=== PATIENT | male | born 1960 | race Caucasian/White ===

== ENCOUNTER 2019-11-26 05:52 | Inpatient (IN) | payer MEDICARE, SELFPAY ==
[2019-11-26 05:53] VITALS: BP 136/90; PULSE 79; RESP 16; TEMP 36.4; O2SAT 96; BMI 41.3
--- NOTE | 2019-11-26 06:14 | ECG_ITS ---
Measurements Intervals [place] Rate: 83 P: [place]: 0 QRS: 15 QRSD: 97 T: 42 QT: 407 QTc: 478 ATRIAL FIBRILLATION LOW QRS VOLTAGE IN EXTREMITY LEADS [QRS DEFLECTION < 0.5 mV IN LIMB LEADS] ABNORMAL RHYTHM ECG INTERPRETATION BASED ON A DEFAULT AGE OF 40 YEARS Compared to ECG 10/29/2018 03:26:05 Low QRS voltage now present Myocardial infarct finding no longer present Electronically Signed On 11-26-2019 14:50:04 CDT by Nai Vega M.D. [id number]
--- NOTE | 2019-11-26 06:15 | W.ED.OVERDOS ---
HPI - Overdose General: Chief Complaint: Overdose Stated Complaint: OVERDOSE Time Seen by Provider: 11/26/19 06:14 History of Present Illness: HPI Narrative: 59-year-old male presents emergency room was complaint of overdose of metoprolol and clonidine unknown quantity. He is nearly empty bottles of 50 mg tablets of metoprolol tartrate and clonidine 0.1 mg. He states he took them about 5 hours prior to arrival here. There is a written note that EMS brought in along with 2 envelopes that are sealed with persons names on them. Medicines were taken and attempt to harm himself he has evidently some legal troubles and feels his family is accusing him of something he had not done. He is not bradycardic at the time of arrival. MD complaint: intentional overdose Onset (ago): hour(s) Time: 01:00 Review of Systems Const: Denies: fever, chills, body aches, change in appetite, fatigue or malaise ENMT: Denies: throat pain, ear pain, nasal discharge or nasal congestion Card: Denies: chest pain, edema, shortness of breath on exertion or shortness of breath when lying down Resp: Denies: shortness of breath, productive cough or non-productive cough GI: Denies: abdominal pain, nausea, vomiting, vomiting blood, coffee grounds in vomit, diarrhea, constipation, bloating, blood in stool or black tarry stool : Denies: flank pain, painful urination, urinary frequency or urinary urgency Skin/Breast: Denies: rash or itching Psych: Reports: depression, hopelessness and suicidal ideation [facility] ED PFSH: Medical History (Updated 11/26/19 @ 07:04 by Hernando Singletary DO) Atrial fibrillation Hypertension Social History Smoking and tobacco status: never smoked Physical Exam Const: COMMON NORMALS: no apparent distress GENERAL APPEARANCE: cooperative and comfortable ORIENTATION/CONSCIOUSNESS: Yes awake, Yes oriented to person, Yes oriented to place and Yes oriented to time HENMT: COMMON NORMALS: normocephalic, head/scalp atraumatic, hearing grossly normal bilaterally, external ears normal, EAC's normal, TM's normal bilaterally, nasal mucous membranes and turbinates normal, moist oral mucous membranes and oropharynx normal HEAD & SCALP: normocephalic and atraumatic NOSE: nasal mucous membranes and turbinates normal EXTERNAL EAR: Yes external ears normal EXTERNAL AUDITORY CANAL: EAC's normal TYMPANIC MEMBRANE: TM's normal bilaterally Eye: COMMON NORMALS: PERRL, EOMs intact bilaterally, conjunctivae normal and no scleral icterus CONJUNCTIVA: Yes conjunctivae normal PUPIL: Yes PERRL Neck/C-Spine: COMMON NORMALS: full ROM, no lymphadenopathy, supple and no JVD Lymph: LYMPHATIC: no lymphadenopathy noted and no lymphedema noted Resp: COMMON NORMALS: normal respiratory effort, no retractions, no use of accessory muscles and clear to auscultation bilaterally AUSCULTATION: clear to auscultation bilaterally Cardio: COMMON NORMALS: no JVD, regular rate, regular rhythm and no murmurs RATE: regular rate RHYTHM: regular rhythm GI: COMMON NORMALS: soft to palpation and no hepatosplenomegaly AUSCULTATION: Yes normoactive bowel sounds PALPATION: Yes soft, No tender, No guarding and Yes no hepatosplenomegaly Extremity: COMMON NORMALS: normal to inspection, normal capillary refill, no clubbing, cyanosis or edema, no calf tenderness and no pedal edema Neuro: SENSORIUM/ORIENTATION: Yes oriented to person, Yes oriented to place and Yes oriented to time Skin: COMMON NORMALS: no rashes or lesions noted GENERAL SKIN EXAM: no rashes or lesions noted Course ED course: Contacted poison control they recommend monitoring for 6 hours. Patient is already 6 hours post ingestion by his report. Cardiovascular is intact and stable. He showed no signs of bradycardia or hypotension. Discussed with Dr. vaughan he agrees to admission when both feel he is stable at this point and he can go to the Neuropsych Unit. Vital Signs: Vital signs: Vital Signs Temperature 97.6 F 11/26/19 05:53 Pulse Rate 78 11/26/19 06:55 Respiratory Rate 18 11/26/19 06:55 Blood Pressure 136/91 11/26/19 06:55 Pulse Oximetry 97 11/26/19 06:55 MDM - Overdose Lab Data: Labs: Lab Results 11/26/19 11/26/19 Range/Units 05:26 05:26 WBC 7.0 (4.0-10.0) 10^3/ uL RBC 5.25 (4.1-5.3) 10^6/u L Hgb 16.2 (11.7-16.6) g/dL Hct 47.9 (42.0-52.0) % MCV 91.2 (80-94) fL MCH 30.9 (28.0-34.0) pg MCHC 33.8 (30.0-36.0) g/dL RDW 11.9 L (12.1-15.1) % Plt Count 204 (130-400) 10^3/c mm MPV 10.3 (7.4-10.4) fL Neut % (Auto) 75.7 % Lymph % (Auto) 13.8 % Barnes % (Auto) 7.4 % Eos % (Auto) 2.0 % Baso % (Auto) 0.4 % Neut # (Auto) 5.3 (1.8-7.7) 10^3/u L Lymph # (Auto) 1.0 (0.8-4.8) 10^3/u L Barnes # (Auto) 0.5 (0.2-0.9) 10^3/u L Eos # (Auto) 0.1 (0.0-0.8) 10^3/u L Baso # (Auto) 0.0 (0.0-0.1) 10^3/u L Nucleated RBC % (a uto) 0 % Nucleated RBCs # 0.0 /100WBC Sodium 136 (136-145) mmol/L Potassium 3.8 (3.5-5.1) mmol/L Chloride 99 (98-107) mmol/L Carbon Dioxide 25 (22-29) mmol/L Anion Gap 15.8 (5-19) BUN 14 (6-20) mg/dL Creatinine 0.7 (0.7-1.2) mg/dL GFR Calculation 115.8 (90-130) mL/min Glucose 188 H (65-115) mg/dL Calculated Osmolal ity 283 L (285-295) mOsm/k g Calcium 9.7 (8.5-10.5) mg/dL Total Bilirubin 0.6 (0.15-1.2) mg/dL AST 15 (0-40) U/L ALT 22 (0-41) U/L Alkaline Phosphata se 58 (40-130) IU/L Total Protein 6.7 (6.6-8.7) g/dL Albumin 4.1 (3.5-5.2) g/dL Globulin 2.6 (1.3-4.6) g/dL Salicylates < 0.3 L (3-10) mg/dL Acetaminophen < 5.0 L (10-30) ug/mL Ethyl Alcohol < 10 (0-10) mg/dL Discharge Plan Discharge Patient Disposition: Admitted As Inpatient Clinical Impression: Suicide attempt by multiple drug overdose, Depression Condition: Stable Referrals: Cristina Diggs APN [Family Provider] - Coding Level of Care Code ED Industrial Conveyor Belt Repairer for Chg Fwd Exam Comprehensive
[2019-11-26 06:20] LABS: Basophils % 0.4 %; Eosinophils # 0.1 10^3/uL (0.0-0.8); Hematocrit 47.9 % (42.0-52.0); Hemoglobin 16.2 g/dL (11.7-16.6); Lymphocytes % 13.8 %; Mean Corpuscular HGB Conc 33.8 g/dL (30.0-36.0); Mean Corpuscular Hemoglobin 30.9 pg (28.0-34.0); Mean Corpuscular Volume 91.2 fL (80-94); Mean Platelet Volume 10.3 fL (7.4-10.4); Monocytes # 0.5 10^3/uL (0.2-0.9); Monocytes % 7.4 %; Neutrophils # 5.3 10^3/uL (1.8-7.7); Neutrophils % 75.7 %; Nucleated Red Blood Cells % 0 %; Platelet Count 204 10^3/cmm (130-400); Red Blood Count 5.25 10^6/uL (4.1-5.3); Red Cell Distribution Width 11.9 % (12.1-15.1)
--- NOTE | 2019-11-26 06:24 | PC.NURSE ---
Called Poison Control for recommendations, they will send over information via fax about the drugs' management
[2019-11-26 06:33] LABS: Alanine Aminotransferase 22 U/L (0-41); Albumin Level 4.1 g/dL (3.5-5.2); Alkaline Phosphatase 58 IU/L (40-130); Anion Gap 15.8 (5-19); Aspartate Amino Transferase 15 U/L (0-40); Blood Urea Nitrogen 14 mg/dL (6-20); Calcium 9.7 mg/dL (8.5-10.5); Carbon Dioxide 25 mmol/L (22-29); Chloride 99 mmol/L (98-107); Creatinine Clr Calc Pharmacy 151.6714; Globulin 2.6 g/dL (1.3-4.6); Glomerular Filtration Rate 115.8 mL/min (90-130); Glucose 188 mg/dL (65-115); Osmolality Calculated 283 mOsm/kg (285-295); Potassium 3.8 mmol/L (3.5-5.1); Sodium 136 mmol/L (136-145); Total Bilirubin 0.6 mg/dL (0.15-1.2); Total Protein 6.7 g/dL (6.6-8.7)
[2019-11-26 06:39] LABS: Acetaminophen < 5.0 ug/mL (10-30); Alcohol Level < 10 mg/dL (0-10); Salicylate < 0.3 mg/dL (3-10)
[2019-11-26 06:55] VITALS: BP 136/91; PULSE 78; RESP 18; O2SAT 97
[2019-11-26 07:10] LABS: Add Urine Microscopic? YES; Bilirubin Urine Neg (NEGATIVE); Blood Urine Neg (Negative); Glucose Urine UA 4+ (Normal); Ketones Urine 1+ (Negative); Leukocyte Esterase Urine Negative (Negative); Nitrate Urine Negative (Negative); Protein Urine 1+ (Negative); Specific Gravity, Urine 1.015 (1.005-1.030); Urine Appearance Clear (CLEAR); Urine Color Yellow (Yellow); Urobilinogen Urine Norm (Negative)
[2019-11-26 07:17] LABS: Amphetamines Screen Urine Negative (Negative); Barbiturates Screen Urine Negative (Negative); Benzodiazepines Screen Urine Negative (Negative); Cocaine Screen Urine Negative (Negative); Opiate Screen Urine Negative (Negative); PCP Screen Urine Negative (Negative); THC Screen Urine Negative (Negative)
[2019-11-26 07:19] LABS: Squamous Epithelial Cell Urine RARE (0-5); WBC Urine RARE /hpf (0-5)
[2019-11-26 07:20] LABS: Bacteria Urine TRACE; Mucus Urine TRACE
[2019-11-26 07:21] LABS: Add Urine Culture? No
[2019-11-26 07:28] VITALS: BP 136/93; PULSE 94; RESP 18; O2SAT 96
[2019-11-26 08:05] VITALS: BP 100/71; PULSE 87; RESP 18
[2019-11-26 14:00] VITALS: BP 116/76; PULSE 19; RESP 18
[2019-11-26] MEDS: glimepiride 2 mg Tablet PO (16:54)
[2019-11-26 16:55] LABS: Glucose Point of Care 209 mg/dL (70-110)
[2019-11-26] MEDS: metformin 500 mg Tablet 1000 MG PO (17:23)
[2019-11-26] MEDS: atorvastatin 40 mg Tablet 10 MG PO (21:44)
[2019-11-26 22:00] VITALS: BP 134/83; PULSE 80; RESP 18; TEMP 36.4; O2SAT 97
[2019-11-27] MEDS: acetaminophen 325 mg Tablet 650 MG PO ×2 (03:07→20:54)
[2019-11-27 06:00] VITALS: BP 137/91; PULSE 77; RESP 16; TEMP 36.6; O2SAT 98
[2019-11-27 06:21] LABS: Glucose Point of Care 182 mg/dL (70-110)
[2019-11-27] MEDS: fluticasone nasal spray 16gm Btl 1 SPRAY INTRANASAL (08:18)
[2019-11-27] MEDS: apixaban 5 mg Tablet PO ×2 (08:19→17:44)
[2019-11-27] MEDS: sitagliptin 100 mg Tablet PO (08:19)
[2019-11-27] MEDS: metformin 500 mg Tablet 1000 MG PO ×2 (08:20→17:44)
[2019-11-27 10:55] VITALS: PULSE 65; RESP 16; O2SAT 97
[2019-11-27 13:37] VITALS: BP 112/71; PULSE 96; RESP 18; TEMP 36.5; O2SAT 96
--- NOTE | 2019-11-27 16:02 | PM.NHP ---
Providers/Chief Complaint Admitting Physician: Barbara Garcia MD Referral Source: [facility] Chief Complaint: OVERDOSE HPI NPU History of Present Illness Anderson Wang is a 59 year old male who presented to the emergency room, having taken an overdose of metoprolol and clonidine, unknown quantity. He had nearly empty bottles of 50 mg tablets of metoprolol tartrate and clonidine 0.1 mg. He states he took them about 5 hours prior to arrival. There is a written note that EMS brought in along with 2 envelopes that are sealed with persons names on them. Medicines were taken and attempt to harm himself he has evidently some legal troubles and feels his family is accusing him of something he had not done. He was not bradycardic at the time of arrival. The patient has never had any psychiatric history. He was never hospitalized or treated on an outpatient basis for psychiatric disorder. He never attempted suicide previously. His family history is completely negative for such things. He has not used substances for 30 years. Review of Systems Narrative: Const: Denies: fever, chills, body aches, change in appetite, fatigue or malaise. ENMT: Denies: throat pain, ear pain, nasal discharge or nasal congestion. Card: Denies: chest pain, edema, shortness of breath on exertion or shortness of breath when lying down. Resp: Denies: shortness of breath, productive cough or non-productive cough. GI: Denies: abdominal pain, nausea, vomiting, vomiting blood, coffee grounds in vomit, diarrhea, constipation, bloating, blood in stool or black tarry stool. : Denies: flank pain, painful urination, urinary frequency or urinary urgency. Skin/Breast: Denies: rash or itching. Psych: Reports: depression, hopelessness and suicidal ideation. Meds NPU Home Medications Medication Instructions Recorded Confirmed Type apixaban [Eliquis] 5 mg PO BID 11/26/19 11/27/19 History atorvastatin [Lipitor] 10 mg PO BEDTIME 11/26/19 11/26/19 History fluticasone propionate [Flonase 50 mcg INTRANASAL DAILY 11/26/19 11/26/19 History Allergy Relief] glipizide [Glucotrol] 5 mg PO AC 11/26/19 11/26/19 History metformin [Glucophage] 1,000 mg PO BID 11/26/19 11/26/19 History potassium chloride [Klor-Con M20] 20 meq PO DAILY 11/26/19 11/26/19 History sitagliptin [Januvia] 100 mg PO DAILY 11/26/19 11/26/19 History fluticasone propionate [Flovent INHALATION BID 11/27/19 History HFA] Allergies Allergy/AdvReac Type Severity Reaction Status Date / Time No Known Allergies Allergy Verified 11/26/19 06:05 PFSH NPU PFSH: Medical History Atrial fibrillation Hypertension Social History Smoking and tobacco status: never smoked Other Psychiatric History: Other Psychiatric History: No prior history of diagnosis or treatment Mental Status Exam MSE Comments: 59-year-old male who presents at his stated age. The patient is appropriately dressed and well-groomed. Mood is dysphoric. Affect is flat. Thought processes are slow but coherent. There is no blocking, racing or looseness of association. There is no evidence of psychosis such as but not limited to hallucination, delusion or ideas of reference. Speech is of normal rate and volume, without dysarthria, aprosody or pressure. Cognition appears to be intact including but not limited to orientation, memory, capacity for reason, insight and judgment. The patient is glad that he did not kill himself and however is no homicidal ideation plan or intent. Vitals/I&O/Wt Last Vital Signs Temp 97.7 F 11/27/19 13:37 Pulse 96 11/27/19 13:37 Resp 18 11/27/19 13:37 BP 112/71 11/27/19 13:37 Pulse Ox 96 11/27/19 13:37 Weight last 48 hrs Weight 280 lb 2 oz Weight 280 lb Physical Exam Narrative: EXAM NARRATIVE: Const: COMMON NORMALS: no apparent distress GENERAL APPEARANCE: cooperative and comfortable ORIENTATION/CONSCIOUSNESS: Yes awake, Yes oriented to person, Yes oriented to place and Yes oriented to time HENMT: COMMON NORMALS: normocephalic, head/scalp atraumatic, hearing grossly normal bilaterally, external ears normal, EAC's normal, TM's normal bilaterally, nasal mucous membranes and turbinates normal, moist oral mucous membranes and oropharynx normal HEAD & SCALP: normocephalic and atraumatic NOSE: nasal mucous membranes and turbinates normal EXTERNAL EAR: Yes external ears normal EXTERNAL AUDITORY CANAL: EAC's normal TYMPANIC MEMBRANE: TM's normal bilaterally Eye: COMMON NORMALS: PERRL, EOMs intact bilaterally, conjunctivae normal and no scleral icterus CONJUNCTIVA: Yes conjunctivae normal PUPIL: Yes PERRL Neck/C-Spine: COMMON NORMALS: full ROM, no lymphadenopathy, supple and no JVD Lymph: LYMPHATIC: no lymphadenopathy noted and no lymphedema noted Resp: COMMON NORMALS: normal respiratory effort, no retractions, no use of accessory muscles and clear to auscultation bilaterally AUSCULTATION: clear to auscultation bilaterally Cardio: COMMON NORMALS: no JVD, regular rate, regular rhythm and no murmurs RATE: regular rate RHYTHM: regular rhythm GI: COMMON NORMALS: soft to palpation and no hepatosplenomegaly AUSCULTATION: Yes normoactive bowel sounds PALPATION: Yes soft, No tender, No guarding and Yes no hepatosplenomegaly Extremity: COMMON NORMALS: normal to inspection, normal capillary refill, no clubbing, cyanosis or edema, no calf tenderness and no pedal edema Neuro: SENSORIUM/ORIENTATION: Yes oriented to person, Yes oriented to place and Yes oriented to time Skin: COMMON NORMALS: no rashes or lesions noted GENERAL SKIN EXAM: no rashes or lesions noted Data NPU : 11/26/19 05:26 11/26/19 05:26 A&P Assessment and plan (1) Atrial fibrillation: Patient is currently on appropriate pharmacotherapy and has follow-up with a air conditioner installer helper. Status: Acute Code(s): I48.91 - Unspecified atrial fibrillation (2) Hypertension: Patient is followed by his primary care provider Status: Acute Code(s): I10 - Essential (primary) hypertension (3) Depression: The patient will have pharmacotherapy, involvement [facility] and development of an aftercare plan when he is stable enough to return to outpatient treatment Status: Acute Code(s): F32.9 - Major depressive disorder, single episode, unspecified (4) Suicide attempt by multiple drug overdose: Careful monitoring pending resolution. Status: Acute Code(s): T50.912A - Poisoning by multiple unspecified drugs, medicaments and biological substances, intentional self-harm, initial encounter Involuntary Hold Information 96 Hour Hold: 96 Hour Involuntary Admission: No Attestations NPU Medical Necessity Statement*: I anticipate 5-7 midnights Time Spent in Patient Care: Greater than 35 minutes (>than 50% of time spent in counselling and/or direct pt care on unit). Coding Level of Care Code Acute [place]on Machine Operator for Josetteg Fwd Diagnoses Atrial fibrillation I48.91 Hypertension I10 Depression F32.9 Suicide attempt by multiple drug overdose T50.912A
[2019-11-27 16:28] LABS: Glucose Point of Care 135 mg/dL (70-110)
[2019-11-27] MEDS: glimepiride 2 mg Tablet PO (17:44)
[2019-11-27 20:36] VITALS: PULSE 82; RESP 16; O2SAT 98
[2019-11-27 20:40] VITALS: PULSE 82; RESP 16; O2SAT 98
[2019-11-27] MEDS: trazodone 50 mg Tablet PO (20:55)
[2019-11-27] MEDS: atorvastatin 40 mg Tablet 10 MG PO (20:55)
[2019-11-27 21:16] VITALS: BP 133/83; PULSE 86; RESP 20; TEMP 37; O2SAT 98
--- NOTE | 2019-11-28 00:34 | PC.NURSE ---
Pt requested prn for sleep while receiving bedtime meds. Medicated with Trazodone 50 mgs po per prn order at 2053.Pt noted to be resting in bed with eyes closed 30 minutes after med given. Respirations even and unlabored.
[2019-11-28 06:00] VITALS: BP 143/90; PULSE 98; RESP 20; TEMP 36.4; O2SAT 96
[2019-11-28 06:14] LABS: Glucose Point of Care 161 mg/dL (70-110)
[2019-11-28] MEDS: fluticasone nasal spray 16gm Btl 1 SPRAY INTRANASAL (08:48)
[2019-11-28] MEDS: sitagliptin 100 mg Tablet PO (08:48)
[2019-11-28] MEDS: metformin 500 mg Tablet 1000 MG PO ×2 (08:48→17:17)
[2019-11-28] MEDS: apixaban 5 mg Tablet PO ×2 (08:48→17:17)
[2019-11-28 09:47] VITALS: PULSE 118; RESP 16; O2SAT 96
[2019-11-28 13:21] VITALS: BP 131/97; PULSE 95; RESP 18; TEMP 36.9; O2SAT 96
--- NOTE | 2019-11-28 16:26 | P.PN_ITS ---
Subjective NPU Subjective: Interval history: The patient states his mood is much improved. I feel real good, he says. He looks it. He has a soft, quiet smile and seems relaxed. There is no pain in his face. He has not taken anything but his home meds. Medications: Reviewed: Yes Medication Review Details: Current Medications Acetaminophen (Tylenol) 650 mg PO Q4H PRN PRN Reason: MILD PAIN Last Admin: 11/27/19 20:54 Dose: 650 mg Documented by: Apixaban (Eliquis) 5 mg PO BID [facility] Last Admin: 11/28/19 08:48 Dose: 5 mg Documented by: Atorvastatin Calcium (Lipitor) 10 mg PO BEDTIME [facility] Last Admin: 11/27/19 20:55 Dose: 10 mg Documented by: Benztropine Mesylate (Cogentin) 1 mg PO BID PRN PRN Reason: Mild Extrapyramidal symptoms Camphor/Menthol/Phenol (Blistex) 1 applic TOPICAL Q1H PRN PRN Reason: DRYNESS Diphenhydramine HCl (Benadryl) 50 mg IM ONCE PRN PRN Reason: Severe Extrapyramidal Symptoms Diphenhydramine HCl (Benadryl) 50 mg IM Q4H PRN PRN Reason: Severe Aggression Fluticasone Propionate (Flonase) 1 spray INTRANASAL DAILY [facility] Last Admin: 11/28/19 08:48 Dose: 1 applic Documented by: Fluticasone Propionate (Flovent 110 Mcg Inhaler) 1 puff INHALATION BID.RESPIRATORY [facility] Last Admin: 11/28/19 09:45 Dose: 1 puff Documented by: Glimepiride (Amaryl) 2 mg PO DAILY@1700 [facility] Last Admin: 11/27/19 17:44 Dose: 2 mg Documented by: Haloperidol (Haldol) 5 mg PO Q4H PRN PRN Reason: AGITATION Haloperidol Lactate (Haldol Inj) 5 mg IM Q4H PRN PRN Reason: Severe Aggression Hydroxyzine Pamoate (Vistaril) 50 mg PO Q6H PRN PRN Reason: ANXIETY Loperamide HCl (Imodium Capsule) 2 mg PO Q6H PRN PRN Reason: DIARRHEA Lorazepam (Ativan) 2 mg IM Q4H PRN PRN Reason: Severe Aggression Metformin HCl (Glucophage) 1,000 mg PO BID [facility] Last Admin: 11/28/19 08:48 Dose: 1,000 mg Documented by: Nicotine (Nicoderm 21 Mg Patch) 1 patch TRANSDERMA DAILY PRN PRN Reason: NICOTINE WITHDRAWAL Nicotine Polacrilex (Nicorette) 2 mg BUCCAL Q2H PRN PRN Reason: NICOTINE WITHDRAWAL Olanzapine (Zyprexa Zydis) 5 mg PO Q4H PRN PRN Reason: Agitation/Psychosis Ondansetron HCl (Zofran) 4 mg PO Q6H PRN PRN Reason: NAUSEA AND VOMITING Potassium Chloride (Klor-Con 10) 20 meq PO DAILY [facility] Last Admin: 11/28/19 08:48 Dose: 20 meq Documented by: Sitagliptin Phosphate (Januvia) 100 mg PO DAILY [facility] Last Admin: 11/28/19 08:48 Dose: 100 mg Documented by: Trazodone HCl (Desyrel) 50 mg PO BEDTIME PRN PRN Reason: SLEEP Last Admin: 11/27/19 20:55 Dose: 50 mg Documented by: Mental Status Exam MSE Comments: 59-year-old male who presents at his stated age. He is clean and well-groomed. Mood is cheerful and affect is upbeat. Thought p rocesses are integrated and free of any racing, blocking or looseness of association. There is no evidence of psychosis, such as but not limited to hallucination, delusion or ideas of reference. Speech is of normal rate and volume, without dysarthria, aprosody or pressure. Cognitive functions are intact including orientation, reason, recent and remote memory, even insight and judgment. Vitals/I&O/Wt Last Vital Signs Temp 98.5 F 11/28/19 13:21 Pulse 95 11/28/19 13:21 Resp 18 11/28/19 13:21 BP 131/97 11/28/19 13:21 Pulse Ox 96 11/28/19 13:21 Weight last 48 hrs Weight 280 lb 2 oz Data NPU : 11/26/19 05:26 11/26/19 05:26 A&P Assessment and plan (1) Suicide attempt by multiple drug overdose: The patient's crisis is passing into history. Nonetheless he should have follow-up with therapy to understand his having plummeted into despair Status: Resolved Code(s): T50.912A - Poisoning by multiple unspecified drugs, medicaments and biological substances, intentional self-harm, initial encounter (2) Depression: This crisis is coming to an end. It should be followed up with therapy and, if the occasion demands, pharmacotherapy. Status: Inactive Code(s): F32.9 - Major depressive disorder, single episode, unspecified Involuntary Hold Information 96 Hour Hold: 96 Hour Involuntary Admission: No Attestations NPU Medical Necessity Statement*: The patient has improved so rapidly believe he may be able to leave tomorrow. I will reexamine him then. Time Spent in Patient Care: Greater than 35 minutes (>than 50% of time s pent in counselling and/or direct pt care on unit) . Coding Level of Care Code Acute Wood Casket Maker for Asim Antony Diagnoses Suicide attempt by multiple drug overdose T50.912A Depression F32.9
[2019-11-28] MEDS: glimepiride 2 mg Tablet PO (17:17)
[2019-11-28 19:45] VITALS: PULSE 69; RESP 17; O2SAT 96
[2019-11-28] MEDS: acetaminophen 325 mg Tablet 650 MG PO (21:03)
[2019-11-28] MEDS: atorvastatin 40 mg Tablet 10 MG PO (21:05)
[2019-11-28] MEDS: trazodone 50 mg Tablet PO (21:07)
[2019-11-28 21:26] VITALS: BP 135/93; PULSE 110; RESP 23; TEMP 36.6; O2SAT 98
[2019-11-29 06:00] VITALS: BP 152/82; PULSE 89; RESP 22; TEMP 36.8; O2SAT 97
[2019-11-29 06:46] LABS: Glucose Point of Care 160 mg/dL (70-110)
[2019-11-29] MEDS: apixaban 5 mg Tablet PO (08:55)
[2019-11-29] MEDS: metformin 500 mg Tablet 1000 MG PO (08:55)
[2019-11-29] MEDS: sitagliptin 100 mg Tablet PO (08:55)
[2019-11-29] MEDS: fluticasone nasal spray 16gm Btl 1 SPRAY INTRANASAL (08:56)
[2019-11-29 09:50] VITALS: PULSE 98; RESP 18; O2SAT 97
[2019-11-29 09:51] VITALS: PULSE 94
--- NOTE | 2019-11-29 10:09 | P.DS_ITS ---
Diagnoses at Discharge Discharge Diagnosis (1) Suicide attempt by multiple drug overdose: Status: Resolved Problem details: 59 year old male who presented to the emergency room, having taken an overdose of metoprolol and clonidine, unknown quantity. He had nearly empty bottles of 50 mg tablets of metoprolol tartrate and clonidine 0.1 mg. He states he took them about 5 hours prior to arrival. There is a written note that EMS brought in along with 2 envelopes that are sealed with persons names on them. Medicines were taken and attempt to harm himself he has evidently some legal troubles and feels his family is accusing him of something he had not done. He was not bradycardic at the time of arrival. The patient has never had any psychiatric history. He was never hospitalized or treated on an outpatient basis for psychiatric disorder. He never attempted suicide previously. His family history is completely negative for such things. He has not used substances for 30 years. Reason for Visit Reason for Visit: Reason For Visit: OVERDOSE Hospital Course Hospital Course The patient's situation is largely a crisis response provoking an adjustment disorder. The [facility] and time out of the [facility] appear to have been highly therapeutic. Yesterday he felt really well. His mood was bright and he had no suicidal thinking. He wanted to return home and felt he would be safe to do so. Involuntary Hold Information 96 Hour Hold: 96 Hour Involuntary Admission: No Mental Status Exam MSE Comments: 59-year-old male who presents at his stated age. He is clean and well-groomed. Mood is cheerful and affect is upbeat. Thought processes are integrated and free of any racing, blocking or looseness of association. There is no evidence of psychosis, such as but not limited to hallucination, delusion or ideas of reference. Speech is of normal rate and volume, without dysarthria, aprosody or pressure. Cognitive functions are intact including orientation, reason, recent and remote memory, even insight and judgment. The patient is now competent, per my assessment today, to resume responsibility for his welfare upon transfer to a less-restrictive [facility] system. Discharge Data Data Completed and Pending: Labs from last 24 hours 11/29/19 06:43 POC Glucose 160 Vitals: Last Vital Signs Temp 98.2 F 11/29/19 06:00 Pulse 94 11/29/19 09:51 Resp 18 11/29/19 09:50 BP 152/82 11/29/19 06:00 Pulse Ox 97 11/29/19 09:50 Discharge Plan Discharge Patient Disposition: Home, Self-Care Condition: Stable Prescriptions: Continued Lipitor 10 mg tablet 10 mg PO BEDTIME RF: 0 Eliquis 5 mg tablet 5 mg PO BID RF: 0 Flonase Allergy Relief 50 mcg/actuation spray,suspension 50 mcg INTRANASAL DAILY RF: 0 Glucotrol 5 mg tablet 5 mg PO AC RF: 0 Januvia 100 mg tablet 100 mg PO DAILY RF: 0 Glucophage 1,000 mg tablet 1,000 mg PO BID RF: 0 Klor-Con M20 20 mEq tablet,ER particles/crystals 20 meq PO DAILY RF: 0 Flovent HFA 110 mcg/actuation HFA aerosol inhaler INHALATION BID RF: 0 Discharge Orders: Discharge Order (Routine); Ordered 11/29/19 Ordered By: Jose Garcia Referrals: Cristina Diggs ENGINEERING RESEARCH MANAGER [Family Provider] - Discharge Diet: Usual diet Discharge Activity: Resume usual activity Discharge Attestations NPU Time Spent in Discharge Care*: greater than 30 min Specific Discharge Activities: Specific discharge activities: educating patient, discussing with nurse outreach case manager/social workers/dc planners, documenting/other paperwork and evaluating patient/reviewing data Coding Level of Care Code Acute Scales Inspector for Asim Antony Diagnoses Suicide attempt by multiple drug overdose T50.912A
[2019-11-29 12:11] VITALS: PULSE 94
== END 2019-11-29 12:26 | disposition home or self-care (01) | DRG 918 ==
LOC: ER 07:04 → NP 07:26
PROVIDERS: Admitting Provider Psychiatry & Neurology Psychiatry; Emergency Provider Family Medicine; Family Provider Nurse Practitioner; Visit Provider Psychiatry & Neurology Psychiatry
DX: T44.7X2A Poisoning by beta-adrenoreceptor antagonists, intentional self-harm, initial encounter (principal); T46.5X2A Poisoning by other antihypertensive drugs, intentional self-harm, initial encounter; Y92.009 Unspecified place in unspecified non-institutional (private) residence as the place of occurrence of the external cause; I48.91 Unspecified atrial fibrillation; I10 Essential (primary) hypertension; F32.9 Major depressive disorder, single episode, unspecified
CPT/HCPCS: 12345; 36416; 80053; 80306; 80307; 81001; 82962; 85025; 93005; 94640; 99283; A9270; J3535

== ENCOUNTER 2019-12-07 07:37 | Inpatient (IN) | payer MEDICARE, SELFPAY ==
[2019-12-07] VITALS (79 sets, daily range): BP systolic 60–106; BP diastolic 43–75; PULSE 41–78; RESP 9–45; TEMP 33.3–37.4; O2SAT 91–100; BMI 36.6
--- NOTE | 2019-12-07 07:43 | CT_ITS ---
WS: [id number] CT HEAD NONCONTRAST HISTORY: AMS TECHNIQUE: Contiguous axial imaging performed through the brain in 2.5 mm imaging. Bone and soft tiss ue windows. Sagittal and coronal reformats reviewed. All CT scans at [facility] use at ast one of these dose optimization techniques: automated exposure control; mA and/or kV adjustment pe r patient size (includes targeted exams where dose is matched to clinical indication); or iterative r econstruction. DLP: 1030.02 mGy.cm COMPARISON: 10/29/2018 No acute intracranial hemorrhage, midline shift or mass effect. Moderate atrophy. 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 Largest infarct in the LEFT front al lobe with additional patchy areas of decreased attenuation throughout the white matter. No new are a of sulcal effacement. Ventricles: Normal size with no hydrocephalus. Paranasal sinuses: As visualized are clear. Mastoid air cells: Well pneumatized. Calvarium and scalp: Skull is intact with no soft tissue edema or swelling. CT/CT head wo con* [id number] IMPRESSION: 1. No acute intracranial hemorrhage. 2. Multi focal areas of prior ischemia and infarcts. No new area of edema appr eciated. Superimposed acute infarcts would be difficult to visualize amongst th e chronic disease.
--- NOTE | 2019-12-07 07:44 | ECG_ITS ---
Measurements Intervals [place] Rate: 48 P: OR: 0 QRS: 71 QRSD: 106 T: -75 QT: 477 QTc: 430 ATRIAL FIBRILLATION WITH SLOW VENTRICULAR RESPONSE PROBABLE INFERIOR MYOCARDIAL INFARCTION [35 ms Q WAVE IN II/aVF], OF IN INDETERMINATE AGE Baseline artifact Compared to ECG 11/26/2019 06:06:15 Myocardial infarct finding now present Electronically Signed On 12-07-2019 14:05:12 CDT by Pat Porter M.D. [email or web address]
--- NOTE | 2019-12-07 07:44 | XR_ITS ---
WS: [id number] PORTABLE CHEST HISTORY: dyspnea/cough COMPARISON: 10/29/2018 Mild pulmonary hyperinflation. No mass or pneumonia. No pleural effusion or pneumothorax. Cardiac size: Mildly enlarged cardiac silhouette. Mediastinum/Aorta: Mediastinum is wide as compared to prior studies. No osseous abnormality seen. XR/XR chest 1V portable [id number] IMPRESSION: 1. Chronic emphysema. 2. Mediastinum is wide as compared to prior studies. May be related to portabl e technique. For further evaluation of the are chest CTA can be performed.
--- NOTE | 2019-12-07 07:45 | ED_ITS ---
HPI - Altered Mental Status General: Chief Complaint: Altered Mental Status Stated Complaint: AMS Time Seen by Provider: 12/07/19 07:45 History of Present Illness: HPI narrative: 59-year-old male presents emergency room via EMS he was found down in his field next to a vehicle. They think he may have been altered since around 4 AM. He is nonresponsive except for painful stimuli. His blood sugar in the field was a little over 300. After patient had been here for an hour family called reporting that a week ago he tried to kill himself by overdosing on blood pressure medicines but at that time did not seek any care. MD complaint: altered mental status and decreased responsiveness Onset (ago): hour(s) Severity: severe Consistency of symptoms: Constant Review of Systems General: Reports: ROS unobtainable due to mental status [facility] ED PFSH: Medical History (Updated 12/08/19 @ 14:26 by Hernando Singletary DO) Atrial fibrillation 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 History of pancreatitis History of gallstone pancreatitis requiring prolonged hospital stay, normal intra-abdominal surgery and subsequent tracheostomy/reversal Hyperlipidemia Hypertension Morbid obesity Osteoarthritis Systolic CHF, chronic Surgical History (Updated 12/08/19 @ 13:58 by Guido Sandoval MD) History of appendectomy History of cholecystectomy Hx of tracheostomy With reversal S/P dialysis catheter insertion (12/2019) Social History Smoking and tobacco status: former smoker Physical Exam HENMT: COMMON NORMALS: normocephalic, head/scalp atraumatic, hearing grossly normal bilaterally, external ears normal, EAC's normal, TM's normal bilaterally, nasal mucous membranes and turbinates normal, moist oral mucous membranes and oropharynx normal HEAD & SCALP: normocephalic and atraumatic NOSE: nasal mucous membranes and turbinates normal EXTERNAL EAR: Yes external ears normal EXTERNAL AUDITORY CANAL: EAC's normal TYMPANIC MEMBRANE: TM's normal bilaterally Eye: COMMON NORMALS: PERRL, EOMs intact bilaterally, conjunctivae normal and no scleral icterus CONJUNCTIVA: Yes conjunctivae normal PUPIL: Yes PERRL Neck/C-Spine: COMMON NORMALS: full ROM, no lymphadenopathy, supple and no JVD Lymph: LYMPHATIC: no lymphadenopathy noted and no lymphedema noted Resp: COMMON NORMALS: normal respiratory effort, no retractions, no use of accessory muscles and clear to auscultation bilaterally AUSCULTATION: clear to auscultation bilaterally Cardio: COMMON NORMALS: no JVD, regular rate, regular rhythm and no murmurs RATE: regular rate RHYTHM: regular rhythm GI: COMMON NORMALS: soft to palpation and no hepatosplenomegaly AUSCULTATION: Yes normoactive bowel sounds PALPATION: Yes soft, No tender, No guarding and Yes no hepatosplenomegaly Extremity: COMMON NORMALS: normal to inspection, normal capillary refill, no clubbing, cyanosis or edema, no calf tenderness and no pedal edema Skin: COMMON NORMALS: no rashes or lesions noted GENERAL SKIN EXAM: no rashes or lesions noted Procedures Intubation Time out performed: Yes sedative: Etomidate Mg Given: 50 paralytic: Succinylcholine Mg Given: 100 Laryngoscope: fiber optic video scope ET Tube Size: 8.5 ET Tube Uncuffed: Yes Tube Secured Depth (cm): 21 Tube Secured Location: teeth Tube Placement Confirmation: visualized tube passing through cords, equal breath sounds bilaterally and no breath sounds over epigastrium Patient Tolerated Procedure: well and no complications Additional Comments: Intubation performed by Dr. Marla pierce supervised by myself the patient had no complications intubation was accomplished on first attempt patient immediately started on the ventilator with no [id number]. Course Vital Signs: Vital signs: Vital Signs Temperature 99.7 F H 12/08/19 10:00 Pulse Rate 71 12/08/19 11:00 Respiratory Rate 23 H 12/08/19 13:48 Blood Pressure 87/62 12/08/19 11:00 Pulse Oximetry 96 12/08/19 11:00 MDM - Altered Mental Status Lab Data: Labs: Lab Results 12/07/19 12/07/19 12/07/19 Range/Units 07:40 07:40 07:40 WBC 17.9 H (4.0-10.0) 10^3/ uL RBC 5.60 H (4.1-5.3) 10^6/u L Hgb 17.2 H (11.7-16.6) g/dL Hct 54.0 H (42.0-52.0) % MCV 96.4 H (80-94) fL MCH 30.7 (28.0-34.0) pg MCHC 31.9 (30.0-36.0) g/dL RDW 12.2 (12.1-15.1) % Plt Count 278 (130-400) 10^3/c mm MPV 10.2 (7.4-10.4) fL Neut % (Auto) 76.5 % Lymph % (Auto) 13.5 % Keith % (Auto) 4.4 % Eos % (Auto) 0.3 % Baso % (Auto) 0.5 % Neut # (Auto) 13.7 H (1.8-7.7) 10^3/u L Lymph # (Auto) 2.4 (0.8-4.8) 10^3/u L Keith # (Auto) 0.8 (0.2-0.9) 10^3/u L Eos # (Auto) 0.1 (0.0-0.8) 10^3/u L Baso # (Auto) 0.1 (0.0-0.1) 10^3/u L Nucleated RBC % (a uto) 0 % Nucleated RBCs # 0.0 /100WBC PT (10.5-13.3) SECO NDS INR (0.8-1.2) Specimen Type Sample Site ABG pH (7.35-7.45) ABG pCO2 (35-45) mmHg ABG pO2 (80.0-100.0) mmH g ABG HCO3 (22-26) mmol/L ABG O2 Saturation ABG Base Excess (-2.0-2.0) mmol/ L Afshin Test A-a O2 Gradient (5-10) mmHg Hematocrit (42-52) % Hgb O2 Saturation (95-100) % Carboxyhemoglobin (0.4-20.1) %THgb Methemoglobin (0.4-1.5) % Total Hemoglobin (14-18) g/dL Ionized Calcium (1.1-1.4) mmol/L O2 Delivery Device O2 Liters/Min % Professor Of Family Medicine ID Sodium 139 (136-145) mmol/L Potassium 6.0 H (3.5-5.1) mmol/L Chloride 97 L (98-107) mmol/L Carbon Dioxide 17 L (22-29) mmol/L Anion Gap 31.0 H (5-19) BUN 31 H (6-20) mg/dL Creatinine 2.9 H (0.7-1.2) mg/dL GFR Calculation 22.5 L (90-130) mL/min Glucose 310 H (65-115) mg/dL POC Glucose (70-110) mg/dL Calculated Osmolal ity 297 H (285-295) mOsm/k g Lactic Acid (Sepsi s) (0.5-2.2) mmol/L Lactate (0.5-2.2) mmol/L Calcium 10.0 (8.5-10.5) mg/dL Total Bilirubin 0.5 (0.15-1.2) mg/dL AST 83 H (0-40) U/L ALT 55 H (0-41) U/L Alkaline Phosphata se 59 (40-130) IU/L Creatine Kinase 30422 H* (39-308) U/L Troponin I 6 Hour (0-15) ng/mL Troponin I Hi Sens Del (0-12) ng/L Troponin T Baselin e 37 H (0-15) ng/mL Troponin T 120 Min [place] (0-15) ng/mL Delta Troponin T (0-10) ABS# Total Protein 6.3 L (6.6-8.7) g/dL Albumin 4.4 (3.5-5.2) g/dL Globulin 1.9 (1.3-4.6) g/dL Lipase 10 L (13-60) U/L Urine Color (Yellow) Urine Appearance (CLEAR) Urine pH (5-7) Ur Specific Gravit y (1.005-1.030) Urine Protein (Negative) Urine Glucose (UA) (Normal) Urine Ketones (Negative) Urine Blood (Negative) Urine Nitrate (Negative) Urine Bilirubin (NEGATIVE) Urine Urobilinogen (Negative) mg/dL Ur Leukocyte Jaclyn ase (Negative) Urine RBC (0-2) /hpf Urine WBC (0-5) /hpf Ur Squamous Epith Cells (0-5) Ur Renal Epithelia l Cell /hpf Urine Bacteria (NONE) Urine Mucus Ur Random Sodium mmol/L Ur Random Potassiu m mmol/L Ur Random Chloride mmol/L Salicylates (3-10) mg/dL Urine Opiates Scre en (Negative) ng/mL Acetaminophen (10-30) ug/mL Ur Barbiturates Sc reen (Negative) ng/mL Ur Phencyclidine S crn (Negative) ng/mL Ur Amphetamines Sc reen (Negative) ng/mL U Benzodiazepines Scrn (Negative) ng/mL Urine Cocaine Scre en (Negative) ng/mL U Marijuana (THC) Screen (Negative) ng/mL Ethyl Alcohol (0-10) mg/dL Hep Bs Antigen (Nonreactive) Hep Bs Antibody (0-8.5) Hepatitis C Antibo dy (Nonreactive) Influenza Type A A g (Negative) Influenza Type B A g (Negative) 12/07/19 12/07/19 12/07/19 Range/Units 07:40 07:40 07:40 WBC (4.0-10.0) 10^3/ uL RBC (4.1-5.3) 10^6/u L Hgb (11.7-16.6) g/dL Hct (42.0-52.0) % MCV (80-94) fL MCH (28.0-34.0) pg MCHC (30.0-36.0) g/dL RDW (12.1-15.1) % Plt Count (130-400) 10^3/c mm MPV (7.4-10.4) fL Neut % (Auto) % Lymph % (Auto) % Keith % (Auto) % Eos % (Auto) % Baso % (Auto) % Neut # (Auto) (1.8-7.7) 10^3/u L Lymph # (Auto) (0.8-4.8) 10^3/u L Keith # (Auto) (0.2-0.9) 10^3/u L Eos # (Auto) (0.0-0.8) 10^3/u L Baso # (Auto) (0.0-0.1) 10^3/u L Nucleated RBC % (a uto) % Nucleated RBCs # /100WBC PT (10.5-13.3) SECO NDS INR (0.8-1.2) Specimen Type Sample Site ABG pH (7.35-7.45) ABG pCO2 (35-45) mmHg ABG pO2 (80.0-100.0) mmH g ABG HCO3 (22-26) mmol/L ABG O2 Saturation ABG Base Excess (-2.0-2.0) mmol/ L Afshin Test A-a O2 Gradient (5-10) mmHg Hematocrit (42-52) % Hgb O2 Saturation (95-100) % Carboxyhemoglobin (0.4-20.1) %THgb Methemoglobin (0.4-1.5) % Total Hemoglobin (14-18) g/dL Ionized Calcium (1.1-1.4) mmol/L O2 Delivery Device O2 Liters/Min % Professor Of Family Medicine ID Sodium (136-145) mmol/L Potassium (3.5-5.1) mmol/L Chloride (98-107) mmol/L Carbon Dioxide (22-29) mmol/L Anion Gap (5-19) BUN (6-20) mg/dL Creatinine (0.7-1.2) mg/dL GFR Calculation (90-130) mL/min Glucose (65-115) mg/dL POC Glucose (70-110) mg/dL Calculated Osmolal ity (285-295) mOsm/k g Lactic Acid (Sepsi s) (0.5-2.2) mmol/L Lactate (0.5-2.2) mmol/L Calcium (8.5-10.5) mg/dL Total Bilirubin (0.15-1.2) mg/dL AST (0-40) U/L ALT (0-41) U/L Alkaline Phosphata se (40-130) IU/L Creatine Kinase (39-308) U/L Troponin I 6 Hour (0-15) ng/mL Troponin I Hi Sens Del (0-12) ng/L Troponin T Baselin e (0-15) ng/mL Troponin T 120 Min [place] (0-15) ng/mL Delta Troponin T (0-10) ABS# Total Protein (6.6-8.7) g/dL Albumin (3.5-5.2) g/dL Globulin (1.3-4.6) g/dL Lipase (13-60) U/L Urine Color (Yellow) Urine Appearance (CLEAR) Urine pH (5-7) Ur Specific Gravit y (1.005-1.030) Urine Protein (Negative) Urine Glucose (UA) (Normal) Urine Ketones (Negative) Urine Blood (Negative) Urine Nitrate (Negative) Urine Bilirubin (NEGATIVE) Urine Urobilinogen (Negative) mg/dL Ur Leukocyte Jaclyn ase (Negative) Urine RBC (0-2) /hpf Urine WBC (0-5) /hpf Ur Squamous Epith Cells (0-5) Ur Renal Epithelia l Cell /hpf Urine Bacteria (NONE) Urine Mucus Ur Random Sodium mmol/L Ur Random Potassiu m mmol/L Ur Random Chloride mmol/L Salicylates 0.4 L (3-10) mg/dL Urine Opiates Scre en (Negative) ng/mL Acetaminophen < 5.0 L (10-30) ug/mL Ur Barbiturates Sc reen (Negative) ng/mL Ur Phencyclidine S crn (Negative) ng/mL Ur Amphetamines Sc reen (Negative) ng/mL U Benzodiazepines Scrn (Negative) ng/mL Urine Cocaine Scre en (Negative) ng/mL U Marijuana (THC) Screen (Negative) ng/mL Ethyl Alcohol < 10 (0-10) mg/dL Hep Bs Antigen Non-reactive (Nonreactive) Hep Bs Antibody 3.5 (0-8.5) Hepatitis C Antibo dy (Nonreactive) Influenza Type A A g (Negative) Influenza Type B A g (Negative) 12/07/19 12/07/19 12/07/19 Range/Units 07:40 07:40 08:00 WBC (4.0-10.0) 10^3/ uL RBC (4.1-5.3) 10^6/u L Hgb (11.7-16.6) g/dL Hct (42.0-52.0) % MCV (80-94) fL MCH (28.0-34.0) pg MCHC (30.0-36.0) g/dL RDW (12.1-15.1) % Plt Count (130-400) 10^3/c mm MPV (7.4-10.4) fL Neut % (Auto) % Lymph % (Auto) % Keith % (Auto) % Eos % (Auto) % Baso % (Auto) % Neut # (Auto) (1.8-7.7) 10^3/u L Lymph # (Auto) (0.8-4.8) 10^3/u L Keith # (Auto) (0.2-0.9) 10^3/u L Eos # (Auto) (0.0-0.8) 10^3/u L Baso # (Auto) (0.0-0.1) 10^3/u L Nucleated RBC % (a uto) % Nucleated RBCs # /100WBC PT 15.10 H (10.5-13.3) SECO NDS INR 1.15 (0.8-1.2) Specimen Type Arterial Sample Site Radial, left ABG pH 7.19 L (7.35-7.45) ABG pCO2 38.6 (35-45) mmHg ABG pO2 92.6 (80.0-100.0) mmH g ABG HCO3 14.9 L (22-26) mmol/L ABG O2 Saturation 95.1 ABG Base Excess -12.6 L (-2.0-2.0) mmol/ L Afshin Test Pos A-a O2 Gradient 8.5 (5-10) mmHg Hematocrit 50.4 (42-52) % Hgb O2 Saturation 94.0 L (95-100) % Carboxyhemoglobin 0.2 L (0.4-20.1) %THgb Methemoglobin 0.9 (0.4-1.5) % Total Hemoglobin 16.4 (14-18) g/dL Ionized Calcium 1.2 (1.1-1.4) mmol/L O2 Delivery Device Room air O2 Liters/Min % Professor Of Family Medicine ID monro Sodium 139.0 (136-145) mmol/L Potassium 5.1 H (3.5-5.1) mmol/L Chloride (98-107) mmol/L Carbon Dioxide (22-29) mmol/L Anion Gap (5-19) BUN (6-20) mg/dL Creatinine (0.7-1.2) mg/dL GFR Calculation (90-130) mL/min Glucose 237.0 H (65-115) mg/dL POC Glucose (70-110) mg/dL Calculated Osmolal ity (285-295) mOsm/k g Lactic Acid (Sepsi s) (0.5-2.2) mmol/L Lactate (0.5-2.2) mmol/L Calcium (8.5-10.5) mg/dL Total Bilirubin (0.15-1.2) mg/dL AST (0-40) U/L ALT (0-41) U/L Alkaline Phosphata se (40-130) IU/L Creatine Kinase (39-308) U/L Troponin I 6 Hour (0-15) ng/mL Troponin I Hi Sens Del (0-12) ng/L Troponin T Baselin e (0-15) ng/mL Troponin T 120 Min [place] (0-15) ng/mL Delta Troponin T (0-10) ABS# Total Protein (6.6-8.7) g/dL Albumin (3.5-5.2) g/dL Globulin (1.3-4.6) g/dL Lipase (13-60) U/L Urine Color (Yellow) Urine Appearance (CLEAR) Urine pH (5-7) Ur Specific Gravit y (1.005-1.030) Urine Protein (Negative) Urine Glucose (UA) (Normal) Urine Ketones (Negative) Urine Blood (Negative) Urine Nitrate (Negative) Urine Bilirubin (NEGATIVE) Urine Urobilinogen (Negative) mg/dL Ur Leukocyte Jaclyn ase (Negative) Urine RBC (0-2) /hpf Urine WBC (0-5) /hpf Ur Squamous Epith Cells (0-5) Ur Renal Epithelia l Cell /hpf Urine Bacteria (NONE) Urine Mucus Ur Random Sodium mmol/L Ur Random Potassiu m mmol/L Ur Random Chloride mmol/L Salicylates (3-10) mg/dL Urine Opiates Scre en (Negative) ng/mL Acetaminophen (10-30) ug/mL Ur Barbiturates Sc reen (Negative) ng/mL Ur Phencyclidine S crn (Negative) ng/mL Ur Amphetamines Sc reen (Negative) ng/mL U Benzodiazepines Scrn (Negative) ng/mL Urine Cocaine Scre en (Negative) ng/mL U Marijuana (THC) Screen (Negative) ng/mL Ethyl Alcohol (0-10) mg/dL Hep Bs Antigen (Nonreactive) Hep Bs Antibody (0-8.5) Hepatitis C Antibo dy Non-reactive (Nonreactive) Influenza Type A A g (Negative) Influenza Type B A g (Negative) 12/07/19 12/07/19 12/07/19 Range/Units 08:03 08:04 08:04 WBC (4.0-10.0) 10^3/ uL RBC (4.1-5.3) 10^6/u L Hgb (11.7-16.6) g/dL Hct (42.0-52.0) % MCV (80-94) fL MCH (28.0-34.0) pg MCHC (30.0-36.0) g/dL RDW (12.1-15.1) % Plt Count (130-400) 10^3/c mm MPV (7.4-10.4) fL Neut % (Auto) % Lymph % (Auto) % Keith % (Auto) % Eos % (Auto) % Baso % (Auto) % Neut # (Auto) (1.8-7.7) 10^3/u L Lymph # (Auto) (0.8-4.8) 10^3/u L Keith # (Auto) (0.2-0.9) 10^3/u L Eos # (Auto) (0.0-0.8) 10^3/u L Baso # (Auto) (0.0-0.1) 10^3/u L Nucleated RBC % (a uto) % Nucleated RBCs # /100WBC PT (10.5-13.3) SECO NDS INR (0.8-1.2) Specimen Type Sample Site ABG pH (7.35-7.45) ABG pCO2 (35-45) mmHg ABG pO2 (80.0-100.0) mmH g ABG HCO3 (22-26) mmol/L ABG O2 Saturation ABG Base Excess (-2.0-2.0) mmol/ L Afshin Test A-a O2 Gradient (5-10) mmHg Hematocrit (42-52) % Hgb O2 Saturation (95-100) % Carboxyhemoglobin (0.4-20.1) %THgb Methemoglobin (0.4-1.5) % Total Hemoglobin (14-18) g/dL Ionized Calcium (1.1-1.4) mmol/L O2 Delivery Device O2 Liters/Min % Professor Of Family Medicine ID Sodium (136-145) mmol/L Potassium (3.5-5.1) mmol/L Chloride (98-107) mmol/L Carbon Dioxide (22-29) mmol/L Anion Gap (5-19) BUN (6-20) mg/dL Creatinine (0.7-1.2) mg/dL GFR Calculation (90-130) mL/min Glucose (65-115) mg/dL POC Glucose (70-110) mg/dL Calculated Osmolal ity (285-295) mOsm/k g Lactic Acid (Sepsi s) (0.5-2.2) mmol/L Lactate (0.5-2.2) mmol/L Calcium (8.5-10.5) mg/dL Total Bilirubin (0.15-1.2) mg/dL AST (0-40) U/L ALT (0-41) U/L Alkaline Phosphata se (40-130) IU/L Creatine Kinase (39-308) U/L Troponin I 6 Hour (0-15) ng/mL Troponin I Hi Sens Del (0-12) ng/L Troponin T Baselin e (0-15) ng/mL Troponin T 120 Min [place] (0-15) ng/mL Delta Troponin T (0-10) ABS# Total Protein (6.6-8.7) g/dL Albumin (3.5-5.2) g/dL Globulin (1.3-4.6) g/dL Lipase (13-60) U/L Urine Color Yellow (Yellow) Urine Appearance Clear (CLEAR) Urine pH 5.0 (5-7) Ur Specific Gravit y 1.020 (1.005-1.030) Urine Protein Neg (Negative) Urine Glucose (UA) 4+ H (Normal) Urine Ketones 1+ H (Negative) Urine Blood Neg (Negative) Urine Nitrate Negative (Negative) Urine Bilirubin Neg (NEGATIVE) Urine Urobilinogen Norm (Negative) mg/dL Ur Leukocyte Jaclyn ase Negative (Negative) Urine RBC (0-2) /hpf Urine WBC (0-5) /hpf Ur Squamous Epith Cells (0-5) Ur Renal Epithelia l Cell /hpf Urine Bacteria (NONE) Urine Mucus Ur Random Sodium mmol/L Ur Random Potassiu m mmol/L Ur Random Chloride mmol/L Salicylates (3-10) mg/dL Urine Opiates Scre en Negative (Negative) ng/mL Acetaminophen (10-30) ug/mL Ur Barbiturates Sc reen Negative (Negative) ng/mL Ur Phencyclidine S crn Negative (Negative) ng/mL Ur Amphetamines Sc reen Negative (Negative) ng/mL U Benzodiazepines Scrn Negative (Negative) ng/mL Urine Cocaine Scre en Negative (Negative) ng/mL U Marijuana (THC) Screen Negative (Negative) ng/mL Ethyl Alcohol (0-10) mg/dL Hep Bs Antigen (Nonreactive) Hep Bs Antibody (0-8.5) Hepatitis C Antibo dy (Nonreactive) Influenza Type A A g Negative (Negative) Influenza Type B A g Negative (Negative) 12/07/19 12/07/19 12/07/19 Range/Units 08:25 09:31 09:33 WBC (4.0-10.0) 10^3/ uL RBC (4.1-5.3) 10^6/u L Hgb (11.7-16.6) g/dL Hct (42.0-52.0) % MCV (80-94) fL MCH (28.0-34.0) pg MCHC (30.0-36.0) g/dL RDW (12.1-15.1) % Plt Count (130-400) 10^3/c mm MPV (7.4-10.4) fL Neut % (Auto) % Lymph % (Auto) % Keith % (Auto) % Eos % (Auto) % Baso % (Auto) % Neut # (Auto) (1.8-7.7) 10^3/u L Lymph # (Auto) (0.8-4.8) 10^3/u L Keith # (Auto) (0.2-0.9) 10^3/u L Eos # (Auto) (0.0-0.8) 10^3/u L Baso # (Auto) (0.0-0.1) 10^3/u L Nucleated RBC % (a uto) % Nucleated RBCs # /100WBC PT (10.5-13.3) SECO NDS INR (0.8-1.2) Specimen Type Sample Site ABG pH (7.35-7.45) ABG pCO2 (35-45) mmHg ABG pO2 (80.0-100.0) mmH g ABG HCO3 (22-26) mmol/L ABG O2 Saturation ABG Base Excess (-2.0-2.0) mmol/ L Afshin Test A-a O2 Gradient (5-10) mmHg Hematocrit (42-52) % Hgb O2 Saturation (95-100) % Carboxyhemoglobin (0.4-20.1) %THgb Methemoglobin (0.4-1.5) % Total Hemoglobin (14-18) g/dL Ionized Calcium (1.1-1.4) mmol/L O2 Delivery Device O2 Liters/Min % Professor Of Family Medicine ID Sodium (136-145) mmol/L Potassium (3.5-5.1) mmol/L Chloride (98-107) mmol/L Carbon Dioxide (22-29) mmol/L Anion Gap (5-19) BUN (6-20) mg/dL Creatinine (0.7-1.2) mg/dL GFR Calculation (90-130) mL/min Glucose (65-115) mg/dL POC Glucose 272 (70-110) mg/dL Calculated Osmolal ity (285-295) mOsm/k g Lactic Acid (Sepsi s) (0.5-2.2) mmol/L Lactate 7.1 H* (0.5-2.2) mmol/L Calcium (8.5-10.5) mg/dL Total Bilirubin (0.15-1.2) mg/dL AST (0-40) U/L ALT (0-41) U/L Alkaline Phosphata se (40-130) IU/L Creatine Kinase (39-308) U/L Troponin I 6 Hour (0-15) ng/mL Troponin I Hi Sens Del (0-12) ng/L Troponin T Baselin e (0-15) ng/mL Troponin T 120 Min [place] 36.06 H (0-15) ng/mL Delta Troponin T -0.94 L (0-10) ABS# Total Protein (6.6-8.7) g/dL Albumin (3.5-5.2) g/dL Globulin (1.3-4.6) g/dL Lipase (13-60) U/L Urine Color (Yellow) Urine Appearance (CLEAR) Urine pH (5-7) Ur Specific Gravit y (1.005-1.030) Urine Protein (Negative) Urine Glucose (UA) (Normal) Urine Ketones (Negative) Urine Blood (Negative) Urine Nitrate (Negative) Urine Bilirubin (NEGATIVE) Urine Urobilinogen (Negative) mg/dL Ur Leukocyte Jaclyn ase (Negative) Urine RBC (0-2) /hpf Urine WBC (0-5) /hpf Ur Squamous Epith Cells (0-5) Ur Renal Epithelia l Cell /hpf Urine Bacteria (NONE) Urine Mucus Ur Random Sodium mmol/L Ur Random Potassiu m mmol/L Ur Random Chloride mmol/L Salicylates (3-10) mg/dL Urine Opiates Scre en (Negative) ng/mL Acetaminophen (10-30) ug/mL Ur Barbiturates Sc reen (Negative) ng/mL Ur Phencyclidine S crn (Negative) ng/mL Ur Amphetamines Sc reen (Negative) ng/mL U Benzodiazepines Scrn (Negative) ng/mL Urine Cocaine Scre en (Negative) ng/mL U Marijuana (THC) Screen (Negative) ng/mL Ethyl Alcohol (0-10) mg/dL Hep Bs Antigen (Nonreactive) Hep Bs Antibody (0-8.5) Hepatitis C Antibo dy (Nonreactive) Influenza Type A A g (Negative) Influenza Type B A g (Negative) 12/07/19 12/07/19 12/07/19 Range/Units 10:54 12:23 12:28 WBC (4.0-10.0) 10^3/ uL RBC (4.1-5.3) 10^6/u L Hgb (11.7-16.6) g/dL Hct (42.0-52.0) % MCV (80-94) fL MCH (28.0-34.0) pg MCHC (30.0-36.0) g/dL RDW (12.1-15.1) % Plt Count (130-400) 10^3/c mm MPV (7.4-10.4) fL Neut % (Auto) % Lymph % (Auto) % Keith % (Auto) % Eos % (Auto) % Baso % (Auto) % Neut # (Auto) (1.8-7.7) 10^3/u L Lymph # (Auto) (0.8-4.8) 10^3/u L Keith # (Auto) (0.2-0.9) 10^3/u L Eos # (Auto) (0.0-0.8) 10^3/u L Baso # (Auto) (0.0-0.1) 10^3/u L Nucleated RBC % (a uto) % Nucleated RBCs # /100WBC PT (10.5-13.3) SECO NDS INR (0.8-1.2) Specimen Type Arterial Sample Site Radial, left ABG pH 7.36 (7.35-7.45) ABG pCO2 41.4 (35-45) mmHg ABG pO2 69.5 L (80.0-100.0) mmH g ABG HCO3 23.2 (22-26) mmol/L ABG O2 Saturation 93.3 ABG Base Excess -2.2 L (-2.0-2.0) mmol/ L Afshin Test N/a A-a O2 Gradient 28.2 H (5-10) mmHg Hematocrit 51.6 (42-52) % Hgb O2 Saturation 92.6 L (95-100) % Carboxyhemoglobin 0.4 (0.4-20.1) %THgb Methemoglobin 0.3 L (0.4-1.5) % Total Hemoglobin 16.8 (14-18) g/dL Ionized Calcium 1.2 (1.1-1.4) mmol/L O2 Delivery Device Nc O2 Liters/Min 2.0 % Professor Of Family Medicine ID monro Sodium 140.0 (136-145) mmol/L Potassium 4.8 4.3 (3.5-5.1) mmol/L Chloride (98-107) mmol/L Carbon Dioxide (22-29) mmol/L Anion Gap (5-19) BUN (6-20) mg/dL Creatinine (0.7-1.2) mg/dL GFR Calculation (90-130) mL/min Glucose 231.0 H (65-115) mg/dL POC Glucose (70-110) mg/dL Calculated Osmolal ity (285-295) mOsm/k g Lactic Acid (Sepsi s) (0.5-2.2) mmol/L Lactate (0.5-2.2) mmol/L Calcium (8.5-10.5) mg/dL Total Bilirubin (0.15-1.2) mg/dL AST (0-40) U/L ALT (0-41) U/L Alkaline Phosphata se (40-130) IU/L Creatine Kinase (39-308) U/L Troponin I 6 Hour (0-15) ng/mL Troponin I Hi Sens Del (0-12) ng/L Troponin T Baselin e (0-15) ng/mL Troponin T 120 Min [place] (0-15) ng/mL Delta Troponin T (0-10) ABS# Total Protein (6.6-8.7) g/dL Albumin (3.5-5.2) g/dL Globulin (1.3-4.6) g/dL Lipase (13-60) U/L Urine Color Yellow (Yellow) Urine Appearance Clear (CLEAR) Urine pH 5 (5-7) Ur Specific Gravit y 1.015 (1.005-1.030) Urine Protein Neg (Negative) Urine Glucose (UA) 4+ H (Normal) Urine Ketones 1+ H (Negative) Urine Blood Neg (Negative) Urine Nitrate Negative (Negative) Urine Bilirubin Neg (NEGATIVE) Urine Urobilinogen Norm (Negative) mg/dL Ur Leukocyte Jaclyn ase Negative (Negative) Urine RBC None (0-2) /hpf Urine WBC 0-4 H (0-5) /hpf Ur Squamous Epith Cells 5-10 H (0-5) Ur Renal Epithelia l Cell 0-4 /hpf Urine Bacteria Trace (NONE) Urine Mucus 4+ Ur Random Sodium mmol/L Ur Random Potassiu m mmol/L Ur Random Chloride mmol/L Salicylates (3-10) mg/dL Urine Opiates Scre en (Negative) ng/mL Acetaminophen (10-30) ug/mL Ur Barbiturates Sc reen (Negative) ng/mL Ur Phencyclidine S crn (Negative) ng/mL Ur Amphetamines Sc reen (Negative) ng/mL U Benzodiazepines Scrn (Negative) ng/mL Urine Cocaine Scre en (Negative) ng/mL U Marijuana (THC) Screen (Negative) ng/mL Ethyl Alcohol (0-10) mg/dL Hep Bs Antigen (Nonreactive) Hep Bs Antibody (0-8.5) Hepatitis C Antibo dy (Nonreactive) Influenza Type A A g (Negative) Influenza Type B A g (Negative) 12/07/19 12/07/19 12/07/19 Range/Units 12:28 12:42 13:28 WBC (4.0-10.0) 10^3/ uL RBC (4.1-5.3) 10^6/u L Hgb (11.7-16.6) g/dL Hct (42.0-52.0) % MCV (80-94) fL MCH (28.0-34.0) pg MCHC (30.0-36.0) g/dL RDW (12.1-15.1) % Plt Count (130-400) 10^3/c mm MPV (7.4-10.4) fL Neut % (Auto) % Lymph % (Auto) % Keith % (Auto) % Eos % (Auto) % Baso % (Auto) % Neut # (Auto) (1.8-7.7) 10^3/u L Lymph # (Auto) (0.8-4.8) 10^3/u L Keith # (Auto) (0.2-0.9) 10^3/u L Eos # (Auto) (0.0-0.8) 10^3/u L Baso # (Auto) (0.0-0.1) 10^3/u L Nucleated RBC % (a uto) % Nucleated RBCs # /100WBC PT (10.5-13.3) SECO NDS INR (0.8-1.2) Specimen Type Sample Site ABG pH (7.35-7.45) ABG pCO2 (35-45) mmHg ABG pO2 (80.0-100.0) mmH g ABG HCO3 (22-26) mmol/L ABG O2 Saturation ABG Base Excess (-2.0-2.0) mmol/ L Afshin Test A-a O2 Gradient (5-10) mmHg Hematocrit (42-52) % Hgb O2 Saturation (95-100) % Carboxyhemoglobin (0.4-20.1) %THgb Methemoglobin (0.4-1.5) % Total Hemoglobin (14-18) g/dL Ionized Calcium (1.1-1.4) mmol/L O2 Delivery Device O2 Liters/Min % Professor Of Family Medicine ID Sodium (136-145) mmol/L Potassium (3.5-5.1) mmol/L Chloride (98-107) mmol/L Carbon Dioxide (22-29) mmol/L Anion Gap (5-19) BUN (6-20) mg/dL Creatinine (0.7-1.2) mg/dL GFR Calculation (90-130) mL/min Glucose (65-115) mg/dL POC Glucose 258 (70-110) mg/dL Calculated Osmolal ity (285-295) mOsm/k g Lactic Acid (Sepsi s) (0.5-2.2) mmol/L Lactate (0.5-2.2) mmol/L Calcium (8.5-10.5) mg/dL Total Bilirubin (0.15-1.2) mg/dL AST (0-40) U/L ALT (0-41) U/L Alkaline Phosphata se (40-130) IU/L Creatine Kinase 70291 H* (39-308) U/L Troponin I 6 Hour (0-15) ng/mL Troponin I Hi Sens Del (0-12) ng/L Troponin T Baselin e (0-15) ng/mL Troponin T 120 Min [place] (0-15) ng/mL Delta Troponin T (0-10) ABS# Total Protein (6.6-8.7) g/dL Albumin (3.5-5.2) g/dL Globulin (1.3-4.6) g/dL Lipase (13-60) U/L Urine Color (Yellow) Urine Appearance (CLEAR) Urine pH (5-7) Ur Specific Gravit y (1.005-1.030) Urine Protein (Negative) Urine Glucose (UA) (Normal) Urine Ketones (Negative) Urine Blood (Negative) Urine Nitrate (Negative) Urine Bilirubin (NEGATIVE) Urine Urobilinogen (Negative) mg/dL Ur Leukocyte Jaclyn ase (Negative) Urine RBC (0-2) /hpf Urine WBC (0-5) /hpf Ur Squamous Epith Cells (0-5) Ur Renal Epithelia l Cell /hpf Urine Bacteria (NONE) Urine Mucus Ur Random Sodium 53 mmol/L Ur Random Potassiu m 38 mmol/L Ur Random Chloride 48 mmol/L Salicylates (3-10) mg/dL Urine Opiates Scre en (Negative) ng/mL Acetaminophen (10-30) ug/mL Ur Barbiturates Sc reen (Negative) ng/mL Ur Phencyclidine S crn (Negative) ng/mL Ur Amphetamines Sc reen (Negative) ng/mL U Benzodiazepines Scrn (Negative) ng/mL Urine Cocaine Scre en (Negative) ng/mL U Marijuana (THC) Screen (Negative) ng/mL Ethyl Alcohol (0-10) mg/dL Hep Bs Antigen (Nonreactive) Hep Bs Antibody (0-8.5) Hepatitis C Antibo dy (Nonreactive) Influenza Type A A g (Negative) Influenza Type B A g (Negative) 12/07/19 12/07/19 Range/Units 13:28 13:28 WBC (4.0-10.0) 10^3/ uL RBC (4.1-5.3) 10^6/u L Hgb (11.7-16.6) g/dL Hct (42.0-52.0) % MCV (80-94) fL MCH (28.0-34.0) pg MCHC (30.0-36.0) g/dL RDW (12.1-15.1) % Plt Count (130-400) 10^3/c mm MPV (7.4-10.4) fL Neut % (Auto) % Lymph % (Auto) % Keith % (Auto) % Eos % (Auto) % Baso % (Auto) % Neut # (Auto) (1.8-7.7) 10^3/u L Lymph # (Auto) (0.8-4.8) 10^3/u L Keith # (Auto) (0.2-0.9) 10^3/u L Eos # (Auto) (0.0-0.8) 10^3/u L Baso # (Auto) (0.0-0.1) 10^3/u L Nucleated RBC % (a uto) % Nucleated RBCs # /100WBC PT (10.5-13.3) SECO NDS INR (0.8-1.2) Specimen Type Sample Site ABG pH (7.35-7.45) ABG pCO2 (35-45) mmHg ABG pO2 (80.0-100.0) mmH g ABG HCO3 (22-26) mmol/L ABG O2 Saturation ABG Base Excess (-2.0-2.0) mmol/ L Afshin Test A-a O2 Gradient (5-10) mmHg Hematocrit (42-52) % Hgb O2 Saturation (95-100) % Carboxyhemoglobin (0.4-20.1) %THgb Methemoglobin (0.4-1.5) % Total Hemoglobin (14-18) g/dL Ionized Calcium (1.1-1.4) mmol/L O2 Delivery Device O2 Liters/Min % Professor Of Family Medicine ID Sodium (136-145) mmol/L Potassium (3.5-5.1) mmol/L Chloride (98-107) mmol/L Carbon Dioxide (22-29) mmol/L Anion Gap (5-19) BUN (6-20) mg/dL Creatinine (0.7-1.2) mg/dL GFR Calculation (90-130) mL/min Glucose (65-115) mg/dL POC Glucose (70-110) mg/dL Calculated Osmolal ity (285-295) mOsm/k g Lactic Acid (Sepsi s) 2.5 H (0.5-2.2) mmol/L Lactate (0.5-2.2) mmol/L Calcium (8.5-10.5) mg/dL Total Bilirubin (0.15-1.2) mg/dL AST (0-40) U/L ALT (0-41) U/L Alkaline Phosphata se (40-130) IU/L Creatine Kinase (39-308) U/L Troponin I 6 Hour 42.39 H (0-15) ng/mL Troponin I Hi Sens Del 5.39 (0-12) ng/L Troponin T Baselin e (0-15) ng/mL Troponin T 120 Min [place] (0-15) ng/mL Delta Troponin T (0-10) ABS# Total Protein (6.6-8.7) g/dL Albumin (3.5-5.2) g/dL Globulin (1.3-4.6) g/dL Lipase (13-60) U/L Urine Color (Yellow) Urine Appearance (CLEAR) Urine pH (5-7) Ur Specific Gravit y (1.005-1.030) Urine Protein (Negative) Urine Glucose (UA) (Normal) Urine Ketones (Negative) Urine Blood (Negative) Urine Nitrate (Negative) Urine Bilirubin (NEGATIVE) Urine Urobilinogen (Negative) mg/dL Ur Leukocyte Jaclyn ase (Negative) Urine RBC (0-2) /hpf Urine WBC (0-5) /hpf Ur Squamous Epith Cells (0-5) Ur Renal Epithelia l Cell /hpf Urine Bacteria (NONE) Urine Mucus Ur Random Sodium mmol/L Ur Random Potassiu m mmol/L Ur Random Chloride mmol/L Salicylates (3-10) mg/dL Urine Opiates Scre en (Negative) ng/mL Acetaminophen (10-30) ug/mL Ur Barbiturates Sc reen (Negative) ng/mL Ur Phencyclidine S crn (Negative) ng/mL Ur Amphetamines Sc reen (Negative) ng/mL U Benzodiazepines Scrn (Negative) ng/mL Urine Cocaine Scre en (Negative) ng/mL U Marijuana (THC) Screen (Negative) ng/mL Ethyl Alcohol (0-10) mg/dL Hep Bs Antigen (Nonreactive) Hep Bs Antibody (0-8.5) Hepatitis C Antibo dy (Nonreactive) Influenza Type A A g (Negative) Influenza Type B A g (Negative) Discharge Plan Discharge Patient Disposition: Admitted As Inpatient Admit Provider: Quita Womack Clinical Impression: Acute encephalopathy, Overdose, Shock, Diabetes, Systolic CHF, chronic Condition: Stable Interventions: ED Discharge Assessment Last Done: 12/07/19 14:42 Discharge Date/Time: 12/07/19 15:17 Coding Level of Care Code ED Engineering Agent for Asim Fwd Exam Comprehensive
[2019-12-07 07:54] LABS: Basophils # 0.1 10^3/uL (0.0-0.1); Basophils % 0.5 %; Eosinophils # 0.1 10^3/uL (0.0-0.8); Eosinophils % 0.3 %; Hemoglobin 17.2 g/dL (11.7-16.6); Lymphocytes # 2.4 10^3/uL (0.8-4.8); Lymphocytes % 13.5 %; Mean Corpuscular HGB Conc 31.9 g/dL (30.0-36.0); Mean Corpuscular Hemoglobin 30.7 pg (28.0-34.0); Mean Corpuscular Volume 96.4 fL (80-94); Mean Platelet Volume 10.2 fL (7.4-10.4); Monocytes # 0.8 10^3/uL (0.2-0.9); Monocytes % 4.4 %; Neutrophils # 13.7 10^3/uL (1.8-7.7); Neutrophils % 76.5 %; Nucleated Red Blood Cells % 0 %; Platelet Count 278 10^3/cmm (130-400); Red Cell Distribution Width 12.2 % (12.1-15.1); White Blood Count 17.9 10^3/uL (4.0-10.0)
[2019-12-07 08:12] LABS: Troponin(5th) Baseline 37 ng/mL (0-15)
[2019-12-07 08:14] LABS: Alanine Aminotransferase 55 U/L (0-41); Albumin Level 4.4 g/dL (3.5-5.2); Alkaline Phosphatase 59 IU/L (40-130); Aspartate Amino Transferase 83 U/L (0-40); Blood Urea Nitrogen 31 mg/dL (6-20); Carbon Dioxide 17 mmol/L (22-29); Chloride 97 mmol/L (98-107); Globulin 1.9 g/dL (1.3-4.6); Glomerular Filtration Rate 22.5 mL/min (90-130); Glucose 310 mg/dL (65-115); Lipase 10 U/L (13-60); Osmolality Calculated 297 mOsm/kg (285-295); Sodium 139 mmol/L (136-145); Total Bilirubin 0.5 mg/dL (0.15-1.2); Total Protein 6.3 g/dL (6.6-8.7)
[2019-12-07 08:14] LABS: ABG PCO2 38.6 mmHg (35-45); ABG PH Result 7.19 (7.35-7.45); Alveolar-Arterial Oxygen Gradi 8.5 mmHg (5-10); Arterial Blood Gas Hematocrit 50.4 % (42-52); Base Excess ABG -12.6 mmol/L (-2.0-2.0); Blood Gas Allen Test Pos; Blood Gas Sample Site Radial, left; Blood Gas Sample Type Arterial; Carboxyhemoglobin 0.2 %THgb (0.4-20.1); HCO3 ABG 14.9 mmol/L (22-26); Ionized Calcium Level - ABG 1.2 mmol/L (1.1-1.4); Methemoglobin 0.9 % (0.4-1.5); Oxygen Device ROOM AIR; Oxygen Saturation ABG 95.1; PO2 ABG 92.6 mmHg (80.0-100.0); Potassium Level - ABG 5.1 mmol/L (3.5-5.0); Total Hemoglobin 16.4 g/dL (14-18)
[2019-12-07 08:19] LABS: Add Urine Microscopic? NO
--- NOTE | 2019-12-07 08:19 | CT_ITS ---
WS: [id number] CT CHEST WITHOUT INTRAVENOUS CONTRAST HISTORY: Line mediastinum. TECHNIQUE: Contiguous 5 mm axial imaging performed on the thorax. Coronal and sagittal reformats are submitted. All CT scans at [facility] use at least one of these dose optimization techniq ues: automated exposure control; mA and/or kV adjustment per patient size (includes targeted exams wh ere dose is matched to clinical indication); or iterative reconstruction. CONTRAST: None DLP: 1049.67 mGy.cm COMPARISON: Chest radiograph 12/07/2019 Lungs and central airway: Mild haziness and groundglass attenuation over both lungs most likely from mild fluid overload. Small bilateral layering pleural effusions. Linear areas of atelectasis at the l ingula and lung bases. Pleura: Small layering pleural effusions. RIGHT greater than LEFT. Heart and pericardium: Marked enlargement of the heart. No pericardial effusion. Mediastinum and jazmin: No mediastinal hematoma. There is some very slight straightening and mediastina l fat but no large area of hemorrhage. Vessels: Normal size aorta. No evidence for rupture. Pulmonary artery size is enlarged. Chest wall and lower neck: Small amount of air in the soft tissues of the upper thorax probably relat ed to IV access. Upper abdomen: Prior cholecystectomy. Large amount of artifact through the liver and upper abdominal structures. Osseous structures: Increase in thoracic kyphosis. Disc space narrowing and degeneration. CT/CT chest wo con [id number] IMPRESSION: 1. Severe cardiomegaly. 2. Minimal stranding in the mediastinal fat but no large area of hemorrhage. N ormal size aorta. Study limited without IV contrast but no aortic rupture is ap preciated. 3. Pulmonary hypertension. 4. Small bilateral pleural effusions with mild pulmonary congestion.
[2019-12-07 08:22] LABS: Bilirubin Urine Neg (NEGATIVE); Blood Urine Neg (Negative); Glucose Urine UA 4+ (Normal); Ketones Urine 1+ (Negative); Leukocyte Esterase Urine Negative (Negative); Nitrate Urine Negative (Negative); Protein Urine Neg (Negative); Urine Appearance Clear (CLEAR); Urine Color Yellow (Yellow); Urobilinogen Urine Norm (Negative)
[2019-12-07] MEDS: sodium bicarbonate 8.4% 1 mEq/mL 50mL Syr 50 MEQ IVP ×2 (08:24→08:56)
[2019-12-07 08:29] LABS: Amphetamines Screen Urine Negative (Negative); Barbiturates Screen Urine Negative (Negative); Benzodiazepines Screen Urine Negative (Negative); Cocaine Screen Urine Negative (Negative); Opiate Screen Urine Negative (Negative); PCP Screen Urine Negative (Negative); THC Screen Urine Negative (Negative)
[2019-12-07] MEDS: sodium chloride 0.9% 1,000 ML 999 ML IV ×2 (08:32→08:33)
--- NOTE | 2019-12-07 08:35 | CT_ITS ---
WS: [id number] CT CERVICAL SPINE HISTORY: fall, unwitnessed TECHNIQUE: Contiguous 2.5 mm axial imaging performed through the entire cervical spine. Sagittal and coronal reformats also performed. All CT scans at [facility] use at least one of these do se optimization techniques: automated exposure control; mA and/or kV adjustment per patient size (inc ludes targeted exams where dose is matched to clinical indication); or iterative reconstruction. DLP: 1178.18 mGy.cm COMPARISON: None available. Increase in cervical lordosis. Degenerative disc disease and osteophytosis. No fractures. Craniocervi angeli junction, C1 and C2 and the odontoid process are unremarkable. C2-C3: Normal. C3-C4: Normal. C4-C5: Mild osteophytic ridging. No stenosis. C5-C6: Mild osteophytic ridging and small vertebral body osteophytes without stenosis. C6-C7: Osteophytic ridging without stenosis. C7-T1: Normal. Soft tissues are normal. Lung apices are clear. CT/CT cervical spin wo con* [id number] IMPRESSION: 1. No cervical spine fracture. 2. Mild spondylitic changes.
[2019-12-07 08:36] LABS: Creatine Phosphokinase 11667 U/L (39-308)
[2019-12-07 08:38] LABS: Influenza A by IFA Negative (Negative); Influenza B by IFA Negative (Negative)
[2019-12-07] MEDS: insulin regular-human 100 units/1 mL 10 UNIT IVP ×2 (08:54→09:56)
[2019-12-07 09:04] LABS: Lactate (Lactic Acid level) 7.1 mmol/L (0.5-2.2)
[2019-12-07] MEDS: calcium gluconate 0.1 gm/mL 10% SDV 10mL 2 GM IVP (09:10)
[2019-12-07] MEDS: dextrose 50% syringe 50 mL IVP ×2 (09:13→21:21)
[2019-12-07 09:38] LABS: Glucose Point of Care 272 mg/dL (70-110)
--- NOTE | 2019-12-07 09:44 | ECG_ITS ---
Measurements Intervals [place] Rate: 47 P: [place]: 0 QRS: 87 QRSD: 114 T: 28 QT: 534 QTc: 473 ATRIAL FIBRILLATION WITH SLOW VENTRICULAR RESPONSE POSSIBLE INFERIOR MYOCARDIAL INFARCTION [30 ms Q WAVE IN II/aVF], PROBABLY OLD ABNORMAL RHYTHM ECG SIGNIFICANT BASELINE ARTIFACT Compared to ECG 11/26/2019 06:06:15 Myocardial infarct finding now present Electronically Signed On 12-07-2019 14:05:56 CDT by Pat Porter M.D. [email or web address]
[2019-12-07 09:55] LABS: Troponin 5 2HR 36.06 ng/mL (0-15)
[2019-12-07 09:56] LABS: Troponin 5 2HR Delta -0.94 ABS# (0-10)
[2019-12-07] MEDS: DOPamine drip 400 MG/250 ML PREMIX 23 MG IV (10:02)
[2019-12-07 10:14] LABS: Salicylate 0.4 mg/dL (3-10)
[2019-12-07 10:16] LABS: Acetaminophen < 5.0 ug/mL (10-30); Alcohol Level < 10 mg/dL (0-10)
[2019-12-07 11:12] LABS: Potassium 4.8 mmol/L (3.5-5.1)
--- NOTE | 2019-12-07 11:49 | PM.HP ---
Providers/Chief Complaint Chief Complaint: AMS History of Present Illness Anderson Wang is a 59 year old male that presented to the emergency department via EMS. He was found unresponsive in a field in his truck. Patient's neighbor was noted to find this patient. They reported that when they drove by the field at approximately 430 this morning there was no truck there, at approximately 9:00 this morning there was a truck in the field therefore the neighbor went and approached the vehicle and found the patient unresponsive. EMS was called. Patient was seen and evaluated in the emergency department noted to be hypotensive and bradycardic, started on dopamine as well as Levophed drips. Had stat labs performed showed lactic acid greater than 7. Patient then reported that he had taken an unknown amount of home medications including metformin, lisinopril, amlodipine, metoprolol Review of Systems General: Reports: ROS unobtainable due to medical condition Medications/Allergies Home Medications Medication Instructions Recorded Confirmed Last Taken Type amlodipine 10 mg PO DAILY 12/07/19 12/07/19 Unknown History empagliflozin [Jardiance] 25 mg PO QAM 12/07/19 12/07/19 Unknown History glipizide 5 mg PO DAILY 12/07/19 12/07/19 Unknown History lisinopril 40 mg PO DAILY 12/07/19 12/07/19 Unknown History metoprolol tartrate 100 mg PO BID 12/07/19 12/07/19 Unknown History Allergies Allergy/AdvReac Type Severity Reaction Status Date / Time No Known Allergies Allergy Verified 11/26/19 06:05 PFSH Acute PFSH: Medical History Atrial fibrillation 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 History of pancreatitis History of gallstone pancreatitis requiring prolonged hospital stay, normal intra-abdominal surgery and subsequent tracheostomy/reversal Hyperlipidemia Hypertension Morbid obesity Osteoarthritis Systolic CHF, chronic Surgical History (Updated 12/08/19 @ 13:58 by Guido Sandoval MD) History of appendectomy History of cholecystectomy Hx of tracheostomy With reversal S/P dialysis catheter insertion (12/2019) Social History Smoking and tobacco status: former smoker Supplemental PFSH Information: Permission obtained from chart review, no further information available from patient due to clinical condition Vitals/I&O/Wt Last Vital Signs Temp 92 F L 12/07/19 08:46 Pulse 53 L 12/07/19 11:25 Resp 17 12/07/19 11:25 BP 76/58 12/07/19 11:25 Pulse Ox 94 12/07/19 11:25 12/06/19 12/07/19 12/07/19 22:59 06:59 14:59 Intake Total 1056.635 / 1056.635 Balance 1056.635 / 1056.635 Weight last 48 hrs Weight 122.47 kg Physical Exam Const: ORIENTATION/CONSCIOUSNESS: Yes lethargic HENMT: COMMON NORMALS: normocephalic and head/scalp atraumatic HEAD & SCALP: normocephalic and atraumatic Eye: COMMON NORMALS: PERRL PUPIL: Yes PERRL Neck/C-Spine: COMMON NORMALS: supple GENERAL: Yes normal visual inspection Resp: OTHER: Tachypneic, faint crackles bilaterally with diminished breath sounds in the right base Cardio: COMMON NORMALS: regular rate, regular rhythm and no murmurs RATE: regular rate RHYTHM: regular rhythm GI: COMMON NORMALS: soft to palpation and non-tender INSPECTION: No abdominal distension AUSCULTATION: Yes normoactive bowel sounds PALPATION: Yes soft Extremity: COMMON NORMALS: no clubbing, cyanosis or edema and no calf tenderness Neuro: SENSORIUM/ORIENTATION: Yes lethargic OTHER: Patient will open his eyes and responds to voice, initially lethargic and did not communicate, improved communication while in ED Skin: COMMON NORMALS: no rashes or lesions noted GENERAL SKIN EXAM: no rashes or lesions noted Data : 12/08/19 04:50 12/08/19 12:23 Micro: Microbiology 12/07/19 08:10 Blood Culture - Preliminary Blood SPECIMEN COLLECTED 12/07/19 08:05 Blood Culture - Preliminary Blood SPECIMEN COLLECTED Other CT: I personally reviewed and interpreted this imaging study as follows: Radiologist's impression: Cervical spine CT IMPRESSION: 1. No cervical spine fracture. 2. Mild spondylitic changes. CT Chest: I personally reviewed and interpreted this imaging study as follows: Radiologist's impression: IMPRESSION: 1. Severe cardiomegaly. 2. Minimal stranding in the mediastinal fat but no large area of hemorrhage. Normal size aorta. Study limited without IV contrast but no aortic rupture is appreciated. 3. Pulmonary hypertension. 4. Small bilateral pleural effusions with mild pulmonary congestion. CT Head: I personally reviewed and interpreted this imaging study as follows: Radiologist's impression: IMPRESSION: 1. No acute intracranial hemorrhage. 2. Multi focal areas of prior ischemia and infarcts. No new area of edema appreciated. Superimposed acute infarcts would be difficult to visualize amongst the chronic disease. CXR: I personally reviewed and interpreted this imaging study as follows: Radiologist's impression: IMPRESSION: 1. Chronic emphysema. 2. Mediastinum is wide as compared to prior studies. May be related to portable technique. For further evaluation of the are chest CTA can be performed A&P Assessment and plan (1) Acute encephalopathy: Found unresponsive by neighbor Uncertain last known well concern for intentional overdose Status: Acute (2) Overdose: Concern for overdose on metformin as well as concern for overdose on other home medications which are amlodipine, lisinopril, metoprolol Patient hypotensive and bradycardic on admission to the ED Nephrology consulted for emergent dialysis General Surgery consulted for catheter placement, Dr. Sandoval. Concern for metformin and calcium channel nesha overdose, will start on insulin drip 1unit/kg/hr with D10 and potentially D50 if needed. If improvement consider discontinuation of drip. Consider lipid emulsion if no improvement. Glucagon given in ED, 5mg Status: Acute (3) Shock: with concern for cardiogenic shock with potential medication overdose On home medications of amlodipine 10 mg daily, Eliquis 5 mg twice daily, lisinopril 40 mg daily, metoprolol 100 mg twice daily Currently on Levophed and dopamine drip Admit to ICU Status: Acute Additional A&P Information Metabolic acidosis Acute Kidney Injury: With plan for acute dialysis as noted above. Systolic congestive heart failure: With concern for fluid overload on CT scan of the chest, last echocardiogram several years old, LVEF of 45% at that time Diabetes: On glipizide, Januvia, metformin and Jardiance at home Atrial fibrillation: On metoprolol 100 mg twice daily and Eliquis History of hypertension: Holding antihypertensives due to shock Morbid obesity Hyperlipidemia History of CVA, reported residual left-sided weakness on prior H&P from 2017 DVT prophylaxis: None at this time due to concern for patient possibly taking home Eliquis in unknown amount Diet: NPO CODE STATUS: Full code Called and discussed with patient's sister, Alessandra. Discussed with her patient's critical condition, discussed plan of care and she verbalized understanding and agreed with plan. Attestations Medical Necessity Statement*: Patient requires hospitalization due to overdose, shock, acute kidney injury, expected stay greater than 2 midnights Coding Level of Care Code Acute Traffic Division Commanding Officer for Asim Fwd Exam Comprehensive Diagnoses Acute encephalopathy G93.40 Overdose T50.901A Shock R57.9
--- NOTE | 2019-12-07 12:22 | P.CONIM_ITS ---
Providers/Reason For Consult Consulting Physican/Specialty*: ana reyez md telenephrology Reason for Consult*: KIT. lactic acidosis Requesting Physcian: Drs. Singletary and Dr. Womack History of Present Illness History of Present Illness Anderson Wang is a 59 year old male h/o depression- recent suicide attempt 10 days ago by overdose on BP meds. has h/o htn, dm, obesity, hyperlipidemia, COPD. history obtained from medical staff and pt. pt was not responding to calls since last night. Today a neighbor found him confused and down. 911 was called and brought to ED- where bradycardic, hypotensive, hypothermic. Labs revealed KIT, w/ hyperkalemia and lactic acidosis. pt has been given a few liters of fluids w/ minimal uop. pt found w/ a lactate of 7. he is confused and just states that he took bottles of his medicines. he is in pain- can not give a better hx. Review of Systems General: Reports: ROS unobtainable due to mental status Const: Reports: body aches, fatigue and malaise Card: Reports: palpitations and lightheadedness GI: Reports: abdominal pain, nausea and vomiting : Reports: difficulty urinating Musc: Reports: back pain Neuro: Reports: headache Psych: Reports: anxiety and depression Meds/Allergies Home Medications and Allergies Home Medications Medication Instructions Recorded Confirmed Type Eliquis 5 mg PO BID 11/26/19 12/07/19 History Januvia 100 mg PO DAILY 11/26/19 12/07/19 History atorvastatin [Lipitor] 10 mg PO BEDTIME 11/26/19 12/07/19 History fluticasone propionate [Flonase 2 spray INTRANASAL DAILY 11/26/19 12/07/19 History Allergy Relief] metformin [Glucophage] 1,000 mg PO BID 11/26/19 12/07/19 History potassium chloride [Klor-Con M20] 20 meq PO DAILY 11/26/19 12/07/19 History Flovent HFA 2 puff INHALATION BID 11/27/19 12/07/19 History amlodipine 10 mg PO DAILY 12/07/19 12/07/19 History empagliflozin [Jardiance] 25 mg PO QAM 12/07/19 12/07/19 History glipizide 5 mg PO DAILY 12/07/19 12/07/19 History lisinopril 40 mg PO DAILY 12/07/19 12/07/19 History metoprolol tartrate 100 mg PO BID 12/07/19 12/07/19 History Allergies Allergy/AdvReac Type Severity Reaction Status Date / Time No Known Allergies Allergy Verified 11/26/19 06:05 Current Medications Current Medications Generic Name Dose Route Start Last Admin Trade Name Freq PRN Reason Stop Dose Admin Norepinephrine Bitartrate 4 mg 254 mls @ 0 mls/hr 12/07/19 08:45 12/07/19 11:30 / Dextrose IV 10 mcg/min .Q0M PASTORA 38.1 mls/hr Titration Protocol Per Protocol Dopamine HCl/Dextrose 400 mg in 250 mls @ 22.963 mls/hr 12/07/19 09:45 12/07/19 10:02 Intropin Drip IV 5 mcg/kg/min CONT PASTORA 23 mls/hr Administration Protocol 5 MCG/KG/MIN PFSH Acute PFSH: Medical History (Updated 12/07/19 @ 12:09 by Quita Womack DO) Atrial fibrillation 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 History of pancreatitis History of gallstone pancreatitis requiring prolonged hospital stay, normal intra-abdominal surgery and subsequent tracheostomy/reversal Hyperlipidemia Hypertension Morbid obesity Osteoarthritis Systolic CHF, chronic Surgical History (Updated 12/07/19 @ 11:52 by Quita Womack DO) History of appendectomy History of cholecystectomy Hx of tracheostomy With reversal Social History Smoking and tobacco status: former smoker Vitals/I&O/Wt Last Vital Signs Temp 92 F L 12/07/19 08:46 Pulse 53 L 12/07/19 11:25 Resp 17 12/07/19 11:25 BP 76/58 12/07/19 11:25 Pulse Ox 94 12/07/19 11:25 12/06/19 12/07/19 12/07/19 22:59 06:59 14:59 Intake Total 1056.635 / 1056.635 Balance 1056.635 / 1056.635 Weight last 48 hrs Weight 122.47 kg Physical Exam Narrative: EXAM NARRATIVE: obese, uncomfortable in bed w/ a neck brace heent- nc/at lungs clear heart irreg, dominick, +CURTIS abd- soft, nd, min tender, +BS ext 1 + leg edema neuro- a,a, o x 1+ Data Labs: Other Labs: Abnormal lab results 12/07/19 12/07/19 12/07/19 Range/Units 07:40 07:40 07:40 WBC 17.9 H (4.0-10.0) 10^3/ uL RBC 5.60 H (4.1-5.3) 10^6/u L Hgb 17.2 H (11.7-16.6) g/dL Hct 54.0 H (42.0-52.0) % MCV 96.4 H (80-94) fL Neut # (Auto) 13.7 H (1.8-7.7) 10^3/u L ABG pH (7.35-7.45) ABG HCO3 (22-26) mmol/L ABG Base Excess (-2.0-2.0) mmol/ L Hgb O2 Saturation (95-100) % Carboxyhemoglobin (0.4-20.1) %THgb Potassium 6.0 H (3.5-5.1) mmol/L Chloride 97 L (98-107) mmol/L Carbon Dioxide 17 L (22-29) mmol/L Anion Gap 31.0 H (5-19) BUN 31 H (6-20) mg/dL Creatinine 2.9 H (0.7-1.2) mg/dL GFR Calculation 22.5 L (90-130) mL/min Glucose 310 H (65-115) mg/dL Calculated Osmolal ity 297 H (285-295) mOsm/k g Lactate (0.5-2.2) mmol/L AST 83 H (0-40) U/L ALT 55 H (0-41) U/L Creatine Kinase 15574 H* (39-308) U/L Troponin T Baselin e 37 H (0-15) ng/mL Troponin T 120 Min [place] (0-15) ng/mL Delta Troponin T (0-10) ABS# Total Protein 6.3 L (6.6-8.7) g/dL Lipase 10 L (13-60) U/L Urine Glucose (UA) (Normal) Urine Ketones (Negative) Salicylates (3-10) mg/dL Acetaminophen (10-30) ug/mL 12/07/19 12/07/19 12/07/19 Range/Units 07:40 08:00 08:04 WBC (4.0-10.0) 10^3/ uL RBC (4.1-5.3) 10^6/u L Hgb (11.7-16.6) g/dL Hct (42.0-52.0) % MCV (80-94) fL Neut # (Auto) (1.8-7.7) 10^3/u L ABG pH 7.19 L (7.35-7.45) ABG HCO3 14.9 L (22-26) mmol/L ABG Base Excess -12.6 L (-2.0-2.0) mmol/ L Hgb O2 Saturation 94.0 L (95-100) % Carboxyhemoglobin 0.2 L (0.4-20.1) %THgb Potassium 5.1 H (3.5-5.1) mmol/L Chloride (98-107) mmol/L Carbon Dioxide (22-29) mmol/L Anion Gap (5-19) BUN (6-20) mg/dL Creatinine (0.7-1.2) mg/dL GFR Calculation (90-130) mL/min Glucose 237.0 H (65-115) mg/dL Calculated Osmolal ity (285-295) mOsm/k g Lactate (0.5-2.2) mmol/L AST (0-40) U/L ALT (0-41) U/L Creatine Kinase (39-308) U/L Troponin T Baselin e (0-15) ng/mL Troponin T 120 Min [place] (0-15) ng/mL Delta Troponin T (0-10) ABS# Total Protein (6.6-8.7) g/dL Lipase (13-60) U/L Urine Glucose (UA) 4+ H (Normal) Urine Ketones 1+ H (Negative) Salicylates 0.4 L (3-10) mg/dL Acetaminophen < 5.0 L (10-30) ug/mL 12/07/19 12/07/19 Range/Units 08:25 09:33 WBC (4.0-10.0) 10^3/ uL RBC (4.1-5.3) 10^6/u L Hgb (11.7-16.6) g/dL Hct (42.0-52.0) % MCV (80-94) fL Neut # (Auto) (1.8-7.7) 10^3/u L ABG pH (7.35-7.45) ABG HCO3 (22-26) mmol/L ABG Base Excess (-2.0-2.0) mmol/ L Hgb O2 Saturation (95-100) % Carboxyhemoglobin (0.4-20.1) %THgb Potassium (3.5-5.1) mmol/L Chloride (98-107) mmol/L Carbon Dioxide (22-29) mmol/L Anion Gap (5-19) BUN (6-20) mg/dL Creatinine (0.7-1.2) mg/dL GFR Calculation (90-130) mL/min Glucose (65-115) mg/dL Calculated Osmolal ity (285-295) mOsm/k g Lactate 7.1 H* (0.5-2.2) mmol/L AST (0-40) U/L ALT (0-41) U/L Creatine Kinase (39-308) U/L Troponin T Baselin e (0-15) ng/mL Troponin T 120 Min [place] 36.06 H (0-15) ng/mL Delta Troponin T -0.94 L (0-10) ABS# Total Protein (6.6-8.7) g/dL Lipase (13-60) U/L Urine Glucose (UA) (Normal) Urine Ketones (Negative) Salicylates (3-10) mg/dL Acetaminophen (10-30) ug/mL Micro: Micro: Microbiology 12/07/19 08:10 Blood Culture - Pr eliminary Blood SPECIMEN [facility] 12/07/19 08:05 Blood Culture - Pr eliminary Blood SPECIMEN [facility] A&P Additional A&P Information 6 yr old man w/ obesity, dm, htn, hyperlipidemia, and lung disease 1. depression- second suicide attempt in 10 days 2. KIT- concern for ATN - as pt appears to have septic shock w/ hypotension, hypothermia and on 2 pressors + [place]/ [place] [id number]. -doubt obstruction -u/a noted- glucosuria from jardiance 3. inc AGMA from KIT, and from lactic acidosis. 4. lactic acidosis can be from sepsis or from metformin per the Extracorpeal treatments in poisoning group -dialysis is indicated if pH< 7 or lacatate above 20- he is not -then monitor labs if no improvment in 4 hrs however, dialysis can also be helpful when there is lactic acidosis, KIT, cr > 2, AMS, and hemodynamic instability- the pt fits into this category- will give fluids w/ bicarb for now and plan for dialysis- 3 hrs, 2k, no fluid removal 5. resp distress- check abg- may need intubation soon will follow- discussed w/ pt, ER physician- Dr. Dominguez, hospitalist- Dr. Womack. i am contacting dialysis team. time spent > 55 minutes Consult Attestations Medical Necessity Statement: KIT, lactic acidosis, hyperkalemia, shock Time Spent in Patient Care: Greater than 35 minutes Critical Care Time: Critical Care Time (min): 55 Coding Level of Care Code Acute Drop Wire Stringer for Asim Antony
[2019-12-07 12:36] LABS: ABG PCO2 41.4 mmHg (35-45); ABG PH Result 7.36 (7.35-7.45); Alveolar-Arterial Oxygen Gradi 28.2 mmHg (5-10); Arterial Blood Gas Hematocrit 51.6 % (42-52); Base Excess ABG -2.2 mmol/L (-2.0-2.0); Blood Gas Sample Site Radial, left; Blood Gas Sample Type Arterial; Carboxyhemoglobin 0.4 %THgb (0.4-20.1); HCO3 ABG 23.2 mmol/L (22-26); HGB O2 Sat 92.6 % (95-100); Ionized Calcium Level - ABG 1.2 mmol/L (1.1-1.4); Methemoglobin 0.3 % (0.4-1.5); Oxygen Device NC; Oxygen Saturation ABG 93.3; PO2 ABG 69.5 mmHg (80.0-100.0); Potassium Level - ABG 4.3 mmol/L (3.5-5.0); Total Hemoglobin 16.8 g/dL (14-18)
[2019-12-07 12:46] LABS: Glucose Point of Care 258 mg/dL (70-110)
[2019-12-07 12:57] LABS: Hepatitis B Surface Antigen. Non-Reactive (Nonreactive)
[2019-12-07 13:14] LABS: Potassium, Radom Urine 38 mmol/L; Urine Random Chloride 48 mmol/L; Urine Random Sodium 53 mmol/L
[2019-12-07 13:31] LABS: Glucose Urine UA 4+ (Normal); Protein Urine Neg (Negative); Specific Gravity, Urine 1.015 (1.005-1.030); Urine Appearance Clear (CLEAR); Urine Color Yellow (Yellow); pH Urine 5 (5-7)
[2019-12-07 13:32] LABS: Bilirubin Urine Neg (NEGATIVE); Blood Urine Neg (Negative); Ketones Urine 1+ (Negative); Leukocyte Esterase Urine Negative (Negative); Nitrate Urine Negative (Negative); Urobilinogen Urine Norm (Negative); WBC Urine 0-4 /hpf (0-5)
[2019-12-07 13:33] LABS: Add Urine Culture? No; Bacteria Urine TRACE; Mucus Urine 4+; Renal Epithelial Cells Urine 0-4 /hpf
--- NOTE | 2019-12-07 13:44 | ECG_ITS ---
Measurements Intervals [place] Rate: 68 P: CT: 0 QRS: 51 QRSD: 107 T: 36 QT: 457 QTc: 488 ATRIAL FIBRILLATION POSSIBLE INFERIOR MYOCARDIAL INFARCTION [30 ms Q WAVE IN II/aVF], PROBABLY OLD Compared to ECG 12/07/2019 09:41:03 No significant change Electronically Signed On 12-07-2019 22:06:38 CDT by Pat Porter M.D. [email or web address]
[2019-12-07 13:49] LABS: Lactic Acid level (Lactate) 2.5 mmol/L (0.5-2.2)
[2019-12-07 13:53] LABS: Troponin 5 6HR 42.39 ng/mL (0-15); Troponin 5 6HR Delta 5.39 ng/L (0-12)
--- NOTE | 2019-12-07 13:54 | PM.CONSULT ---
Providers/Reason For Consult Consulting Physican/Specialty*: Dr. Jones Reason for Consult*: Acute renal failure requiring dialysis access Attending Physician: Quita Womack DO History of Present Illness History of Present Illness Anderson Wang is a 59 year old male who was found unresponsive in his truck and was found by his neighbor. When the EMS evaluated him patient was noted to be hypotensive and bradycardic and was started on Levophed and dopamine drips. In the ER patient was intubated due to his mental status and he was noted to be acidotic with a lactic acid greater than 7. Initial clinical assumption was that he had overdosed on his antihypertensive and diabetic medications. Review of Systems General: Reports: ROS unobtainable due to endotracheal tube Meds/Allergies Home Medications and Allergies Home Medications Medication Instructions Recorded Confirmed Type Eliquis 5 mg PO BID 11/26/19 12/07/19 History Januvia 100 mg PO DAILY 11/26/19 12/07/19 History atorvastatin [Lipitor] 10 mg PO BEDTIME 11/26/19 12/07/19 History fluticasone propionate [Flonase 2 spray INTRANASAL DAILY 11/26/19 12/07/19 History Allergy Relief] metformin [Glucophage] 1,000 mg PO BID 11/26/19 12/07/19 History potassium chloride [Klor-Con M20] 20 meq PO DAILY 11/26/19 12/07/19 History Flovent HFA 2 puff INHALATION BID 11/27/19 12/07/19 History amlodipine 10 mg PO DAILY 12/07/19 12/07/19 History empagliflozin [Jardiance] 25 mg PO QAM 12/07/19 12/07/19 History glipizide 5 mg PO DAILY 12/07/19 12/07/19 History lisinopril 40 mg PO DAILY 12/07/19 12/07/19 History metoprolol tartrate 100 mg PO BID 12/07/19 12/07/19 History Allergies Allergy/AdvReac Type Severity Reaction Status Date / Time No Known Allergies Allergy Verified 11/26/19 06:05 Current Medications Current Medications Generic Name Dose Route Start Last Admin Trade Name Freq PRN Reason Stop Dose Admin Dextrose 50 ml 12/07/19 14:42 12/07/19 21:21 D50w IVP 50 ml PRN PRN Administration hypoglycemia protocol Protocol Norepinephrine Bitartrate 4 mg 254 mls @ 0 mls/hr 12/07/19 08:45 12/08/19 11:24 / Dextrose IV 3.5 mcg/min .Q0M PASTORA 13.3 mls/hr Titration Protocol Per Protocol Dopamine HCl/Dextrose 400 mg in 250 mls @ 22.963 mls/hr 12/07/19 09:45 12/08/19 09:53 Intropin Drip IV 7.5 mcg/kg/min CONT PASTORA 34.4 mls/hr Administration Protocol 5 MCG/KG/MIN Sodium Chloride 500 mls @ 999 mls/hr 12/07/19 12:30 12/08/19 08:07 Sodium Chloride 0.9% IV Not Given .Q31M PASTORA Dextrose 1,000 mls @ 25 mls/hr 12/07/19 15:32 12/08/19 04:25 D10w IV 0 mls/hr .Q24H PASTORA Infusion Propofol 1,000 mg in 100 mls @ 0 mls/hr 12/07/19 16:15 12/08/19 12:55 Diprivan IV 40 mcg/kg/min .Q0M PASTORA 30.2 mls/hr Administration Protocol Per Protocol Insulin Human Regular 250 unit 252.5 mls @ 125 mls/hr 12/07/19 17:04 12/07/19 20:30 / Sodium Chloride IV 0 mls/hr .Q2H2M PRN Infusion Ca Channel Jem Overdose Levofloxacin/Dextrose 750 mg in 150 mls @ 150 mls/hr 12/08/19 07:00 12/08/19 09:00 Levaquin-D5w IV Infused Q24H PASTORA Infusion Protocol Sodium Chloride 1,000 mls @ 150 mls/hr 12/08/19 07:30 12/08/19 08:00 Sodium Chloride 0.9% IV 150 mls/hr .Q6H40M PASTORA Administration PFSH Acute PFSH: Medical History Atrial fibrillation 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 History of pancreatitis History of gallstone pancreatitis requiring prolonged hospital stay, normal intra-abdominal surgery and subsequent tracheostomy/reversal Hyperlipidemia Hypertension Morbid obesity Osteoarthritis Systolic CHF, chronic Surgical History History of appendectomy History of cholecystectomy Hx of tracheostomy With reversal Social History Smoking and tobacco status: former smoker Vitals/I&O/Wt Last Vital Signs Temp 99.7 F H 12/08/19 10:00 Pulse 71 12/08/19 11:00 Resp 23 H 12/08/19 13:48 BP 87/62 12/08/19 11:00 Pulse Ox 96 12/08/19 11:00 12/07/19 12/08/19 12/08/19 22:59 06:59 14:59 Intake Total 1032.909 / 4443.271 2323.727 / 4443.271 1610.113 / 1610.113 Output Total 300 / 1225 925 / 1225 Balance 732.909 / 3218.271 1398.727 / 3218.271 1610.113 / 1610.113 Weight last 48 hrs Weight 277 lb Weight 270 lb Physical Exam Narrative: EXAM NARRATIVE: HEENT: Normocephalic, intubated Eye: Sclera /conjunctiva normal Cardiovascular: Patient in atrial fibrillation Abdomen: Soft to palpation Neurological: Oriented to place person and time Skin: Intact, no lesions appreciated on gross exam Data Micro: Micro: Microbiology 12/07/19 08:10 Blood Culture - Pr eliminary Blood NEGATIVE TO PATRICIA E 12/07/19 08:05 Blood Culture - Pr eliminary Blood NEGATIVE TO PATRICAI E 12/07/19 16:15 Gram Stain - Final Sputum - Endotrac heal Tube Aspirate A&P Assessment and plan (1) Overdose: 59-year-old gentleman with suspected drug overdose was acidotic and requires emergent dialysis. Plan for placement of non-tunneled dialysis catheter in the ICU Status: Acute Coding Level of Care Code Acute Overlock Collar Setter for Chg Fwd Diagnoses Overdose T50.901A
[2019-12-07] MEDS: etomidate 10 ML 1 MG (14:03)
[2019-12-07] MEDS: etomidate 20 ML 1 MG (14:04)
[2019-12-07 14:29] LABS: Creatine Phosphokinase 19466 U/L (39-308)
--- NOTE | 2019-12-07 14:44 | PC.NURSE ---
100mcg of ketamine IVP per Dr. Singletary Verbal order.
[2019-12-07 15:00] LABS: ABG PCO2 38.8 mmHg (35-45); Alveolar-Arterial Oxygen Gradi 219.4 mmHg (5-10); Base Excess ABG -0.7 mmol/L (-2.0-2.0); Blood Gas Sample Site Radial, right; Blood Gas Sample Type Arterial; Blood Gas Tidal Volume 0.55; Carboxyhemoglobin 0.2 %THgb (0.4-20.1); HCO3 ABG 23.9 mmol/L (22-26); HGB O2 Sat 97.8 % (95-100); Ionized Calcium Level - ABG 1.2 mmol/L (1.1-1.4); Oxygen Device VENT; Oxygen Saturation ABG 99.1; Potassium Level - ABG 4.2 mmol/L (3.5-5.0); Total Hemoglobin 17.3 g/dL (14-18)
--- NOTE | 2019-12-07 15:50 | XR_ITS ---
WS: [id number] PORTABLE CHEST HISTORY: dialysis cath placement COMPARISON: Study earlier the same day Nasogastric and endotracheal tubes have been placed in good position. RIGHT dialysis catheter placed with tip overlying the RIGHT heart. Lungs are clear and well expanded. No pleural effusion or pneumothorax. Cardiac size: Moderately enlarged cardiac silhouette. Mediastinum/Aorta: Marked enlargement of the mediastinum. Similar to the study obtained earlier the . No osseous abnormality seen. XR/XR chest 1V portable 66050 IMPRESSION: 1. Central line placement. Tip overlying the RIGHT heart. 2. Continued mediastinal widening and cardiomegaly. 3. Endotracheal tube and nasogastric tubes in good position.
[2019-12-07 15:59] LABS: INR 1.15 (0.8-1.2)
[2019-12-07 16:06] LABS: Hepatitis B Surface AB. 3.5 (0-8.5)
[2019-12-07 16:07] LABS: Hepatitis C Virus Antibody Non-Reactive (Nonreactive)
[2019-12-07] MEDS: sodium bicarbonate 150 MEQ in dextrose 5% 1,000 ML IV ×2 (16:27→23:55)
--- NOTE | 2019-12-07 17:55 | P.PCN_ITS ---
Procedure Note: Date of procedure: 12/07/19 Pre-op diagnosis: Drug-induced acute renal failure Post-op diagnosis: same Procedure Performed: IJ dialysis catheter Procedure: Placement of Arrow non-tunneled dialysis catheter in the right internal jugular vein Ultrasound guidance to access right internal jugular vein Surgeon: Guido Sandoval Pathology: none sent Condition: critical Disposition: ICU Other Information: The patient's right neck and chest was prepped and draped in a sterile manner. An ultrasound of the right internal jugular vein revealed patent veins with no evidence of thrombus. 5 mL of 1% lidocaine was infiltrated at the site of planned entry, an introducer needle was used to access the right internal jugular vein under ultrasound guidance. Guidewire was passed through the introducer needle and the introducer needle was removed. Serial dilators were passed over the guidewire after the skin incision was extended using 11 blade and Mahurkar catheter was then passed over the guidewire and the guidewire was removed. The catheter was sutured to the skin using 2-0 Ethilon suture. Sterile dressings were applied. Postop procedure chest x-ray showed no evidence of pneumothorax and good positioning of the catheter. Coding Level of Care Code Acute Retail Wireless Associate for Asim Antony
--- NOTE | 2019-12-07 17:59 | PM.ACPR ---
Procedure/Consent Time out: Time Out Performed: Yes Consent: Consent for Procedure: Emergency procedure Procedure Narrative: Preoperative diagnosis: Acute renal failure requiring emergent dialysis Postoperative diagnosis: Same Procedure: Placement of Arrow non-tunneled dialysis catheter in the right internal jugular vein under ultrasound guidance Surgeon: Jaime Anesthesia: Local Description of procedure: The patient's right neck and chest was prepped and draped in a sterile manner. An ultrasound of the right internal jugular vein revealed patent veins with no evidence of thrombus. 5 mL of 1% lidocaine was infiltrated at the site of planned entry, an introducer needle was used to access the right internal jugular vein under ultrasound guidance. Guidewire was passed through the introducer needle and the introducer needle was removed. Serial dilators were passed over the guidewire after the skin incision was extended using 11 blade and Mahurkar catheter was then passed over the guidewire and the guidewire was removed. The catheter was sutured to the skin using 2-0 Ethilon suture. Sterile dressings were applied. Postop procedure chest x-ray showed no evidence of pneumothorax and good positioning of the catheter. Acute Procedures Epistaxis Control: Time out performed: Yes
[2019-12-07] MEDS: dextrose 10% 1,000 ML 25 ML IV (18:00)
[2019-12-07] MEDS: insulin regular-human 250 UNIT in sodium chloride 0.9% 250 ML 125 UNIT IV ×2 (18:01→20:22)
--- NOTE | 2019-12-07 18:18 | PC.NURSE ---
Pt received 100mg of ketamine IVP at 1402, 1412, and 1430 per verbal order of Dr. Womack and Dr Singletary. Wasted 200mg of ketamine. Pt received 50mg of etomidate IVP per verbal order of Dr. Womack before intubation. 200mg of succ wasted.
[2019-12-07 19:17] LABS: Glucose Point of Care 190 mg/dL (70-110)
[2019-12-07 20:23] LABS: Anion Gap 14.7 (5-19); Blood Urea Nitrogen 22 mg/dL (6-20); Calcium 8.6 mg/dL (8.5-10.5); Carbon Dioxide 27 mmol/L (22-29); Chloride 101 mmol/L (98-107); Glomerular Filtration Rate 38.9 mL/min (90-130); Glucose 125 mg/dL (65-115); Osmolality Calculated 288 mOsm/kg (285-295); Sodium 140 mmol/L (136-145)
[2019-12-07] MEDS: propofol 1,000 MG/100 ML INJ 11.3 MG IV (20:30)
[2019-12-07] MEDS: DOPamine drip 400 MG/250 ML PREMIX 34.4 MG IV (21:01)
[2019-12-07 21:06] LABS: Potassium 2.7 mmol/L (3.5-5.1)
[2019-12-07] MEDS: potassium chloride premix 40 MEQ/100 ML PREMIX 25 MEQ IV (21:45)
--- NOTE | 2019-12-07 22:09 | PC.NURSE ---
Patient's glucose checked at 1999 was 90. Insulin drip stopped. Rechecked gulcose at 2099 was 70. Rechecked at 2114 and it was 89. Dr. Aguayo notified. Ordered to give [address] Aguayo that insulin drip had been on hold since 2029. 50 mL amp of D50 given. Glucose at 2214 was 94. Lab called results of potassium of 2.[address] Aguayo notified. Dr. Aguayo ordered to give 80 mEq of KCL. First bag of KCL infusing will continue to monitor.
--- NOTE | 2019-12-07 22:28 | PC.NURSE ---
Dr. Aguayo at bedside ordered to keep insulin drip on hold. Ordered to give 1 mg glucagon IM. Will continue to monitor. Patient's propofol running at 20 mcg/kg/min. Blood pressure running 80s/60s. Dr. Aguayo ordered 50 mcg fentanyl IV once. Will continue to monitor.
[2019-12-07] MEDS: fentaNYL 50 mcg/mL INJ 2mL IVP (22:45)
[2019-12-07 23:15] LABS: Glucose Point of Care 289 mg/dL (70-110)
[2019-12-07 23:15] LABS: Glucose Point of Care 70 mg/dL (70-110)
[2019-12-07 23:15] LABS: Glucose Point of Care 201 mg/dL (70-110)
[2019-12-07 23:15] LABS: Glucose Point of Care 71 mg/dL (70-110)
[2019-12-07 23:15] LABS: Glucose Point of Care 80 mg/dL (70-110)
[2019-12-07 23:15] LABS: Glucose Point of Care 95 mg/dL (70-110)
[2019-12-07 23:15] LABS: Glucose Point of Care 91 mg/dL (70-110)
[2019-12-07 23:15] LABS: Glucose Point of Care 231 mg/dL (70-110)
[2019-12-07 23:15] LABS: Glucose Point of Care 89 mg/dL (70-110)
[2019-12-07 23:15] LABS: Glucose Point of Care 94 mg/dL (70-110)
[2019-12-08] VITALS (43 sets, daily range): BP systolic 69–140; BP diastolic 45–96; PULSE 0–102; RESP 15–30; TEMP 36.9–38; O2SAT 90–98
[2019-12-08 01:22] LABS: Glucose Point of Care 136 mg/dL (70-110)
[2019-12-08 01:22] LABS: Glucose Point of Care 128 mg/dL (70-110)
[2019-12-08] MEDS: propofol 1,000 MG/100 ML INJ 22.6 MG IV (01:31)
[2019-12-08] MEDS: potassium chloride premix 40 MEQ/100 ML PREMIX 25 MEQ IV (01:33)
[2019-12-08] MEDS: DOPamine drip 400 MG/250 ML PREMIX 45.9 MG IV (02:42)
[2019-12-08 03:10] LABS: Glucose Point of Care 139 mg/dL (70-110)
[2019-12-08 03:10] LABS: Glucose Point of Care 181 mg/dL (70-110)
[2019-12-08 03:10] LABS: Glucose Point of Care 188 mg/dL (70-110)
[2019-12-08] MEDS: propofol 1,000 MG/100 ML INJ 37.7 MG IV ×6 (04:19→21:20)
--- NOTE | 2019-12-08 04:30 | PC.NURSE ---
Patient's glucose at [address] Aguayo at bedside and ordered to hold d10 and repeat blood gas in 2 hours. D10 stopped.
[2019-12-08 05:29] LABS: Basophils # 0.1 10^3/uL (0.0-0.1); Basophils % 0.3 %; Hematocrit 48.6 % (42.0-52.0); Hemoglobin 16.1 g/dL (11.7-16.6); Lymphocytes # 1.4 10^3/uL (0.8-4.8); Lymphocytes % 8.2 %; Mean Corpuscular HGB Conc 33.1 g/dL (30.0-36.0); Mean Corpuscular Hemoglobin 30.7 pg (28.0-34.0); Mean Corpuscular Volume 92.7 fL (80-94); Mean Platelet Volume 10.7 fL (7.4-10.4); Monocytes # 2.1 10^3/uL (0.2-0.9); Monocytes % 12.3 %; Neutrophils # 13.3 10^3/uL (1.8-7.7); Neutrophils % 78.3 %; Nucleated Red Blood Cells % 0 %; Platelet Count 201 10^3/cmm (130-400); Red Blood Count 5.24 10^6/uL (4.1-5.3); Red Cell Distribution Width 12.3 % (12.1-15.1)
[2019-12-08 05:50] LABS: Alanine Aminotransferase 86 U/L (0-41); Albumin Level 3.2 g/dL (3.5-5.2); Alkaline Phosphatase 48 IU/L (40-130); Anion Gap 18.1 (5-19); Aspartate Amino Transferase 172 U/L (0-40); Blood Urea Nitrogen 31 mg/dL (6-20); Calcium 8.4 mg/dL (8.5-10.5); Carbon Dioxide 26 mmol/L (22-29); Chloride 95 mmol/L (98-107); Globulin 2.8 g/dL (1.3-4.6); Glomerular Filtration Rate 22.5 mL/min (90-130); Glucose 255 mg/dL (65-115); Magnesium 1.9 mg/dL (1.7-2.3); Osmolality Calculated 286 mOsm/kg (285-295); Phosphorus 3.3 mg/dL (2.5-4.5); Potassium 4.1 mmol/L (3.5-5.1); Sodium 135 mmol/L (136-145); Total Bilirubin 0.5 mg/dL (0.15-1.2)
[2019-12-08 05:58] LABS: ABG PCO2 37.3 mmHg (35-45); ABG PH Result 7.51 (7.35-7.45); Arterial Blood Gas Hematocrit 49.6 % (42-52); Base Excess ABG 6.6 mmol/L (-2.0-2.0); Blood Gas Allen Test Pos; Blood Gas Sample Site Radial, left; Blood Gas Sample Type Arterial; Blood Gas Tidal Volume 0.5; HCO3 ABG 29.9 mmol/L (22-26); Oxygen Device VENT; PO2 ABG 68.3 mmHg (80.0-100.0)
[2019-12-08 06:23] LABS: Creatine Phosphokinase 20354 U/L (39-308)
--- NOTE | 2019-12-08 06:29 | PC.NURSE ---
Lab called critical for CK at 20,354. Dr. Aguayo notified. No new orders at this time. Will continue to monitor.
--- NOTE | 2019-12-08 07:23 | USCV_ITS ---
Anderson Wang Age: 59 Gender: M : 1960 Exam Date: 12/08/2019 12:05 Ordering Phys: Roly Weber MD Technologist: Tonio Cerrato Exam Location: [facility] [place] Indication: CARDIOMEGALY BP: 114 / 56 HR: 84 Rhythm: Sinus Technical Quality: Technically difficult study MEASUREMENTS (Male / Female) Normal Values 2D ECHO LV Diastolic Diameter PLAX 4.8 cm 4.2 - 5.9 / 3.9 - 5.3 cm LV Systolic Diameter PLAX 3.1 cm IVS Diastolic Thickness 1.3 cm 0.6 - 1.0 / 0.6 - 0.9 cm IVS Systolic Thickness 1.9 cm LVPW Diastolic Thickness 1.2 cm 0.6 - 1.0 / 0.6 - 0.9 cm LVPW Systolic Thickness 1.6 cm LVOT Diameter 2.1 cm LV Ejection Fraction 2D Teich 62.8 % LV Ejection Fraction MOD 2C 49.4 % LV Ejection Fraction 2C AL 49.9 % LA Diameter 4.3 cm LA Width 3.5 cm LA Height 4.5 cm RA Width 3.7 cm RA Height 5.1 cm Aorta at Sinotubular Diameter 2.8 cm M-MODE LV Diastolic Diameter MM 4.8 cm 4.2 - 5.9 / 3.9 - 5.3 cm LV Systolic Diameter MM 3.4 cm LV Ejection Fraction MM Teich 55.3 % IVS Diastolic Thickness MM 1.5 cm 0.6 - 1.0 / 0.6 - 0.9 cm IVS Systolic Thickness MM 1.7 cm LVPW Diastolic Thickness MM 1.2 cm 0.6 - 1.0 / 0.6 - 0.9 cm LVPW Systolic Thickness MM 2.3 cm RV Diastolic Diameter MM 2.2 cm Aortic Annulus Diameter 3.8 cm LA Ao Ratio MM 1.1 MV E Point Septal Separation 0.7 cm DOPPLER AV Peak Velocity 110.0 cm/s LVOT Peak Velocity 62.0 cm/s AV Area Cont Eq vti 1.9 cm squared AV Area Cont Eq pk 2.0 cm squared MV Area PHT 5.0 cm squared Mitral E to A Ratio 0.4 MV E' Velocity 8.0 cm/s Mitral E to MV E' Ratio 3.6 Mitral E to LV E' Lateral Ratio 4.4 Mitral E to LV E' Septal Ratio 3.1 TR Peak Velocity 244.0 cm/s TR Peak Gradient 23.8 mmHg TV Peak E Velocity 87.0 cm/s Right Atrial Pressure 3.0 mmHg Pulmonary Artery Systolic Pressu 26.8 mmHg PV Peak Velocity 90.0 cm/s FINDINGS Left Ventricle Left ventricular cavity not well visualized. Probably low normal left ventricular systolic function. Left ventricular ejection fraction is estimated at 50-55 %. This study is inadequate for estimation of regional wall motion abnormality. Right Ventricle Right ventricular systolic pressure 26.8 mmHg. Right Atrium Right atrium not well visualized. Left Atrium Left atrium not well visualized. Mitral Valve Mitral valve not well visualized. Aortic Valve Aortic valve not well visualized. No aortic valve stenosis. Tricuspid Valve Tricuspid valve not well visualized. Pulmonic Valve Pulmonic valve not well visualized. Trace pulmonary valve regurgitation. Pericardium No pericardial effusion. Aorta Normal-sized aortic root. CONCLUSIONS 1. This is a technically very difficult study with poor ultrasonic windows. 2. Probably low normal left ventricular systolic function. Left ventricular ejection fraction is estimated at 50-55 %. 3. Direct comparison to previous echocardiogram dated 08/07/2017 is not possible given difficult study. Pat Porter MD (Electronically Signed) Final Date: 08 December 2019 16:55 S
--- NOTE | 2019-12-08 07:48 | P.PN_ITS ---
Subjective Subjective: Interval history: sedated, intubated, on pressors Medications: Reviewed: Yes Medication Review Details: Current Medications Acetaminophen (Tylenol) 650 mg PO Q6H PRN PRN Reason: Mild/Mod Pain Or Temp >/= 101 Dextrose (D50w) 25 ml IVP ONCE PRN; Protocol PRN Reason: hypoglycemia protocol Dextrose (D50w) 50 ml IVP PRN PRN; Protocol PRN Reason: hypoglycemia protocol Last Admin: 12/07/19 21:21 Dose: 50 ml Documented by: Norepinephrine Bitartrate 4 mg (/ Dextrose) 254 mls @ 0 mls/hr IV .Q0M PASTORA; Protocol Last Titration: 12/08/19 04:53 Dose: 4 mcg/min, 15.2 mls/hr Documented by: Dopamine HCl/Dextrose (Intropin Drip) 400 mg in 250 mls @ 22.963 mls/hr IV CONT PASTORA; Protocol Last Titration: 12/08/19 06:14 Dose: 7.5 mcg/kg/min, 34.4 mls/hr Documented by: Sodium Chloride (Sodium Chloride 0.9%) 500 mls @ 999 mls/hr IV .Q31M PASTORA Last Admin: 12/07/19 20:51 Dose: Not Given Documented by: Dextrose (D5w) 500 mls @ 100 mls/hr IV ONCE PRN; Protocol PRN Reason: Adult Acute Hypoglycemia Prot Dextrose (D10w) 1,000 mls @ 25 mls/hr IV .Q24H PASTORA Last Infusion: 12/08/19 04:25 Dose: 0 mls/hr Documented by: Propofol (Diprivan) 1,000 mg in 100 mls @ 0 mls/hr IV .Q0M PASTORA; Protocol Last Admin: 12/08/19 06:58 Dose: 50 mcg/kg/min, 37.7 mls/hr Documented by: Insulin Human Regular 250 unit (/ Sodium Chloride) 252.5 mls @ 125 mls/hr IV .Q2H2M PRN PRN Reason: Ca Channel Jem Overdose Last Infusion: 12/07/19 20:30 Dose: 0 mls/hr Documented by: Levofloxacin/Dextrose (Levaquin-D5w) 750 mg in 150 mls @ 150 mls/hr IV Q24H PASTORA; Protocol Sodium Chloride (Sodium Chloride 0.9%) 1,000 mls @ 150 mls/hr IV .Q6H40M PASTORA Ondansetron HCl (Zofran) 4 mg IVP Q8H PRN PRN Reason: vomiting, or N/V if npo Vitals/I&O/Wt Last Vital Signs Temp 98.5 F 12/08/19 03:00 Pulse 81 12/08/19 06:00 Resp 15 12/08/19 06:14 BP 103/67 12/08/19 06:00 Pulse Ox 95 12/08/19 06:00 12/07/19 12/08/19 12/08/19 22:59 06:59 14:59 Intake Total 1032.909 / 2119.544 2305.543 / 4425.087 Output Total 300 / 300 925 / 1225 Balance 732.909 / 1432.333 7394.543 / 3200.087 Weight last 48 hrs Weight 125.645 kg Weight 122.47 kg Physical Exam Narrative: EXAM NARRATIVE: obese, intubated, on pressors heent- nc/at lungs crackles heart irreg, +CURTIS abd- soft, nd, min tender, +BS ext 2 + leg edema neuro- sedated on pressors and intubated Data : 12/08/19 04:50 12/08/19 04:50 Micro: Microbiology 12/07/19 16:15 Gram Stain - Final Sputum - Endotracheal Tube Aspirate 12/07/19 08:10 Blood Culture - Preliminary Blood SPECIMEN COLLECTED 12/07/19 08:05 Blood Culture - Preliminary Blood SPECIMEN COLLECTED A&P Additional A&P Information 6 yr old man w/ obesity, dm, htn, hyperlipidemia, and lung disease 1. depression- second suicide attempt in 10 days 2. KIT- concern for ATN - as pt appears to have septic shock w/ hypotension, hypothermia and on 2 pressors + rhabdomyolysisi- ck above 20,000 -will give ns ivf and lasix -monitor ck, may need repeat HD soon -doubt obstruction -u/a noted- glucosuria from jardiance 3. inc AGMA from KIT, and from lactic acidosis. improved -now w/ met alkalosis- change ivf to ns 4. lactic acidosis can be from sepsis or from metformin -improved 5. VDRF- per critical care will follow uop, chemistries, abg, and ck and decide on further HD time spent till now= 30 minutes Attestations Medical Necessity Statement*: kit, ams, VDRF Time Spent in Patient Care: 16 - 35 minutes Critical Care Time: Critical Care Time (min): 30 Coding Level of Care Code Acute Registered Dental Hygienist for Asim Antony
--- NOTE | 2019-12-08 07:54 | US_ITS ---
WS: [id number] RENAL ULTRASOUND Bladder ultrasound HISTORY: jay COMPARISON: None available. TECHNIQUE: 2-D and color Doppler imaging of the kidney submitted. Right kidney: 12.6 cm x 6.5 cm x 5.7 cm. Normal echogenicity with no hydronephrosis or mass. Left kidney: 11.5 cm x 7.1 cm x 6.6 cm. Limited visualization of the LEFT kidney. No abnormality identified. Aorta: Normal. Urinary Bladder: Nondistended bladder, Long catheter present. US/US renal BI with bladder IMPRESSION: 1. Normal RIGHT renal ultrasound. 2. Limited visualization of the LEFT kidney but no abnormality identified.
[2019-12-08] MEDS: sodium chloride 0.9% 1,000 ML 150 ML IV ×2 (08:00→16:18)
[2019-12-08] MEDS: levofloxacin-dextrose 5 % 750 MG/150 ML PREMIX 150 MG IV (08:00)
[2019-12-08] MEDS: FUROsemide 10 mg/mL SDV 4mL 40 MG IVP (08:17)
[2019-12-08 08:25] LABS: Glucose Point of Care 217 mg/dL (70-110)
[2019-12-08 08:25] LABS: Glucose Point of Care 215 mg/dL (70-110)
[2019-12-08 08:25] LABS: Glucose Point of Care 222 mg/dL (70-110)
[2019-12-08 08:25] LABS: Glucose Point of Care 213 mg/dL (70-110)
[2019-12-08] MEDS: DOPamine drip 400 MG/250 ML PREMIX 34.4 MG IV (09:53)
[2019-12-08 12:29] LABS: ABG PCO2 39.1 mmHg (35-45); Alveolar-Arterial Oxygen Gradi 355.7 mmHg (5-10); Arterial Blood Gas Hematocrit 47.8 % (42-52); Base Excess ABG 6.7 mmol/L (-2.0-2.0); Blood Gas Allen Test Pos; Blood Gas Sample Site Radial, right; Blood Gas Sample Type Arterial; Blood Gas Tidal Volume 0.45; HCO3 ABG 30.4 mmol/L (22-26); HGB O2 Sat 95.7 % (95-100); Methemoglobin 1.3 % (0.4-1.5); Oxygen Saturation ABG 97.1; PO2 ABG 85.1 mmHg (80.0-100.0); Potassium Level - ABG 3.9 mmol/L (3.5-5.0); Total Hemoglobin 15.6 g/dL (14-18)
[2019-12-08] MEDS: propofol 1,000 MG/100 ML INJ 30.2 MG IV (12:55)
[2019-12-08 13:12] LABS: Alanine Aminotransferase 70 U/L (0-41); Albumin Level 2.9 g/dL (3.5-5.2); Alkaline Phosphatase 44 IU/L (40-130); Anion Gap 18.2 (5-19); Aspartate Amino Transferase 121 U/L (0-40); Blood Urea Nitrogen 32 mg/dL (6-20); Carbon Dioxide 27 mmol/L (22-29); Chloride 94 mmol/L (98-107); Globulin 2.2 g/dL (1.3-4.6); Glomerular Filtration Rate 19.4 mL/min (90-130); Glucose 252 mg/dL (65-115); Osmolality Calculated 286 mOsm/kg (285-295); Potassium 4.2 mmol/L (3.5-5.1); Sodium 135 mmol/L (136-145); Total Bilirubin 0.4 mg/dL (0.15-1.2); Total Protein 5.1 g/dL (6.6-8.7)
[2019-12-08 13:44] LABS: Creatine Phosphokinase 11538 U/L (39-308)
--- NOTE | 2019-12-08 14:02 | P.PN_ITS ---
Subjective Subjective: Interval history: Patient intubated and sedated Vitals/I&O/Wt Last Vital Signs Temp 99.7 F H 12/08/19 10:00 Pulse 71 12/08/19 11:00 Resp 23 H 12/08/19 13:48 BP 87/62 12/08/19 11:00 Pulse Ox 96 12/08/19 11:00 12/07/19 12/08/19 12/08/19 22:59 06:59 14:59 Intake Total 1032.909 / 2119.544 2323.727 / 4443.271 1610.113 / 1610.113 Output Total 300 / 300 925 / 1225 Balance 732.909 / 5489.703 8767.727 / 3218.271 1610.113 / 1610.113 Weight last 48 hrs Weight 125.645 kg Weight 122.47 kg Physical Exam Const: GENERAL APPEARANCE: patient mechanically ventilated OTHER: Sedated HENMT: COMMON NORMALS: normocephalic and head/scalp atraumatic HEAD & SCALP: normocephalic and atraumatic Eye: COMMON NORMALS: PERRL PUPIL: Yes PERRL Neck/C-Spine: COMMON NORMALS: supple GENERAL: Yes normal visual inspection Resp: OTHER: ETT in place, Cardio: COMMON NORMALS: regular rate, regular rhythm and no murmurs RATE: regular rate RHYTHM: regular rhythm GI: COMMON NORMALS: soft to palpation and non-tender INSPECTION: No abdominal distension AUSCULTATION: Yes normoactive bowel sounds PALPATION: Yes soft Extremity: COMMON NORMALS: no clubbing, cyanosis or edema and no calf tenderness Neuro: OTHER: Intubated, sedated Skin: COMMON NORMALS: no rashes or lesions noted GENERAL SKIN EXAM: no rashes or lesions noted Data : 12/08/19 04:50 12/08/19 12:23 Micro: Microbiology 12/07/19 08:10 Blood Culture - Preliminary Blood NEGATIVE TO DATE 12/07/19 08:05 Blood Culture - Preliminary Blood NEGATIVE TO DATE 12/07/19 16:15 Gram Stain - Final Sputum - Endotracheal Tube Aspirate A&P Assessment and plan (1) Acute encephalopathy: Found unresponsive by neighbor Uncertain last known well concern for intentional overdose with multiple medications Status: Acute (2) Overdose: Concern for overdose on metformin as well as concern for overdose on other home medications which are amlodipine, lisinopril, metoprolol Discontinue dopamine and continue on levophed, wean as able Status: Acute (3) Shock: Concern for sepsis with aspiration pneumonia, presented hypotensive with concern for calcium channel and beta nesha overdose Discontinue dopamine and wean levophed as tolerated Increase antibiotic coverage due to concern for aspiration pneumonia Status: Acute Additional A&P Information Aspiration pneumonia: Increase antibiotic coverage to Zosyn Acute Kidney Injury: Repeat dialysis today Atrial fibrillation: with known atrial fibrillation, on metoprolol chronically, this is on hold due to hypotension Systolic congestive heart failure: With concern for fluid overload, minimal output with lasix, dialysis planned for today Diabetes: On glipizide, Januvia, metformin and Jardiance at home Atrial fibrillation: On metoprolol 100 mg twice daily and Eliquis, both on hold History of hypertension: Holding antihypertensives due to shock Morbid obesity Hyperlipidemia History of CVA, reported residual left-sided weakness on prior H&P from 2017 DVT prophylaxis: Heparin Diet: NPO CODE STATUS: Full code Attestations Medical Necessity Statement*: Patient requires further hospitalization due to shock, aspiration pneumonia and overdose Coding Level of Care Code Acute Top Distribution Executive for [facility] Fwd Exam Comprehensive Diagnoses Acute encephalopathy G93.40 Overdose T50.901A Shock R57.9
--- NOTE | 2019-12-08 16:50 | PC.NURSE ---
Dialysis in progress
[2019-12-08 17:30] LABS: Glucose Point of Care 194 mg/dL (70-110)
[2019-12-08 17:43] LABS: Glucose Point of Care 229 mg/dL (70-110)
[2019-12-08] MEDS: heparin, porcine 1,000 unit/mL INJ 10 mL 10000 UNIT INJECTION (18:46)
--- NOTE | 2019-12-08 20:15 | PC.NURSE ---
Dialysis complete. Report taken from Dialysis nurse. Took 1.5 liters off. Blood pressure 120/96. Patient tolerated well.
[2019-12-08] MEDS: piperacillin-tazobactam 3.375 GM in sodium chloride 0.9% (plus) 50 ML IV (20:17)
[2019-12-08 20:31] LABS: Glucose Point of Care 147 mg/dL (70-110)
[2019-12-09] VITALS (25 sets, daily range): BP systolic 82–118; BP diastolic 53–90; PULSE 76–114; RESP 15–30; TEMP 36.6–37.2; O2SAT 90–98
[2019-12-09] MEDS: propofol 1,000 MG/100 ML INJ 37.7 MG IV ×4 (00:16→06:30)
[2019-12-09] MEDS: ondansetron 2 mg/ML SDV 2 mL 4 MG IVP (01:02)
[2019-12-09] MEDS: piperacillin-tazobactam 3.375 GM in sodium chloride 0.9% (plus) 50 ML IV ×3 (04:17→19:55)
--- NOTE | 2019-12-09 04:45 | PC.NURSE ---
Lab came to draw morning labs. Attempted 2 draws. Called critical platelet of 10. Asked them to redraw.
[2019-12-09 06:00] LABS: ABG PCO2 39.5 mmHg (35-45); ABG PH Result 7.47 (7.35-7.45); Arterial Blood Gas Hematocrit 44.2 % (42-52); Base Excess ABG 4.7 mmol/L (-2.0-2.0); Blood Gas Allen Test Pos; Blood Gas Sample Site Radial, right; Blood Gas Sample Type Arterial; Blood Gas Tidal Volume 0.45; HCO3 ABG 28.7 mmol/L (22-26); Oxygen Device VENT; PO2 ABG 70.1 mmHg (80.0-100.0)
--- NOTE | 2019-12-09 06:00 | XR_ITS ---
WS: [id number] PORTABLE CHEST HISTORY: hypoxia COMPARISON: 12/07/2019 Nasogastric and endotracheal tubes are in good position. RIGHT dialysis catheter is in good position and unchanged. Mild hyperexpanded lungs with worsening mild pulmonary venous congestion. Haziness over the lower ben g silverman and mild enlargement of the vessels. Small bilateral pleural effusions. Cardiac size: Mildly enlarged cardiac silhouette. Mediastinum/Aorta: Mild widening of the mediastinum is unchanged. No osseous abnormality seen. XR/XR chest 1V portable 76111 IMPRESSION: 1. Nasogastric and endotracheal tubes are in good position. 2. Interval development of mild CHF with small bilateral pleural effusions.
[2019-12-09 06:19] LABS: Basophils % 0.2 %; Eosinophils % 0.3 %; Hematocrit 42.1 % (42.0-52.0); Lymphocytes # 1.2 10^3/uL (0.8-4.8); Mean Corpuscular HGB Conc 33.3 g/dL (30.0-36.0); Mean Corpuscular Hemoglobin 31.1 pg (28.0-34.0); Mean Corpuscular Volume 93.6 fL (80-94); Mean Platelet Volume 10.5 fL (7.4-10.4); Monocytes # 1.5 10^3/uL (0.2-0.9); Neutrophils % 80.8 %; Nucleated Red Blood Cells % 0 %; Platelet Count 135 10^3/cmm (130-400); Red Cell Distribution Width 12.8 % (12.1-15.1); White Blood Count 14.8 10^3/uL (4.0-10.0)
[2019-12-09 06:37] LABS: INR 1.35 (0.8-1.2)
[2019-12-09 06:45] LABS: Alanine Aminotransferase 62 U/L (0-41); Albumin Level 2.7 g/dL (3.5-5.2); Alkaline Phosphatase 46 IU/L (40-130); Aspartate Amino Transferase 100 U/L (0-40); Blood Urea Nitrogen 26 mg/dL (6-20); CKMB 5.1 ng/mL (0-10.4); Calcium 8.1 mg/dL (8.5-10.5); Carbon Dioxide 27 mmol/L (22-29); Chloride 94 mmol/L (98-107); Globulin 2.4 g/dL (1.3-4.6); Glomerular Filtration Rate 22.5 mL/min (90-130); Glucose 206 mg/dL (65-115); Magnesium 1.8 mg/dL (1.7-2.3); Osmolality Calculated 283 mOsm/kg (285-295); Phosphorus 4.2 mg/dL (2.5-4.5); Sodium 135 mmol/L (136-145); Total Bilirubin 0.5 mg/dL (0.15-1.2); Total Protein 5.1 g/dL (6.6-8.7)
[2019-12-09 07:05] LABS: Creatine Phosphokinase 6856 U/L (39-308)
--- NOTE | 2019-12-09 07:29 | P.PN_ITS ---
Subjective Subjective: Interval history: restless on pressors, swollen, intubated Medications: Reviewed: Yes Medication Review Details: Current Medications Acetaminophen (Tylenol) 650 mg PO Q6H PRN PRN Reason: Mild/Mod Pain Or Temp >/= 101 Dextrose (D50w) 25 ml IVP ONCE PRN; Protocol PRN Reason: hypoglycemia protocol Dextrose (D50w) 50 ml IVP PRN PRN; Protocol PRN Reason: hypoglycemia protocol Last Admin: 12/07/19 21:21 Dose: 50 ml Documented by: Furosemide (Lasix) 40 mg IVP Q12H PASTORA Glucagon (Glucagen) 1 mg IM ONCE PRN; Protocol PRN Reason: Adult Acute Hypoglycemia Prot. Norepinephrine Bitartrate 4 mg (/ Dextrose) 254 mls @ 0 mls/hr IV .Q0M PASTORA; Protocol Last Admin: 12/08/19 22:49 Dose: 5 mcg/min, 19.1 mls/hr Documented by: Dextrose (D5w) 500 mls @ 100 mls/hr IV ONCE PRN; Protocol PRN Reason: Adult Acute Hypoglycemia Prot Dextrose (D10w) 1,000 mls @ 25 mls/hr IV .Q24H PASTORA Last Infusion: 12/08/19 17:19 Dose: Infused Documented by: Propofol (Diprivan) 1,000 mg in 100 mls @ 0 mls/hr IV .Q0M PASTORA; Protocol Last Admin: 12/09/19 06:30 Dose: 50 mcg/kg/min, 37.7 mls/hr Documented by: Piperacillin Sod/Tazobactam (Sod 3.375 gm/ Sodium Chloride) 50 mls @ 12.5 mls/hr IV Q8H PASTORA; Protocol Last Admin: 12/09/19 04:17 Dose: 12.5 mls/hr Documented by: Dextrose (D5w) 500 mls @ 100 mls/hr IV ONCE PRN; Protocol PRN Reason: Adult Acute Hypoglycemia Prot Insulin Aspart (Novolog) 0 unit SUBCUT BEDTIME PASTORA; Protocol Last Admin: 12/08/19 20:30 Dose: 1 unit Documented by: Insulin Aspart (Novolog) 0 unit SUBCUT TIDWM PASTORA; Protocol Last Admin: 12/08/19 17:40 Dose: 6 unit Documented by: Ondansetron HCl (Zofran) 4 mg IVP Q8H PRN PRN Reason: vomiting, or N/V if npo Last Admin: 12/09/19 01:02 Dose: 4 mg Documented by: Vitals/I&O/Wt Last Vital Signs Temp 98.5 F 12/09/19 01:00 Pulse 83 12/09/19 06:00 Resp 16 12/09/19 06:29 BP 99/65 12/09/19 06:00 Pulse Ox 92 12/09/19 06:00 12/08/19 12/09/19 12/09/19 22:59 06:59 14:59 Intake Total 1156.605 / 3786.890 384.996 / 4171.886 Output Total 550 / 550 600 / 1150 Balance 606.605 / 3236.890 -215.004 / 3021.886 Weight last 48 hrs Weight 125.645 kg Weight 122.47 kg Physical Exam Narrative: EXAM NARRATIVE: obese, intubated, on pressors heent- nc/at lungs crackles heart irreg, +CURTIS abd- soft, nd, min tender, +BS ext 2 + leg edema neuro- sedated on pressors and intubated- moving, not following commands Data : 12/09/19 06:16 12/09/19 06:10 Micro: Microbiology 12/08/19 18:30 Blood Culture - Preliminary Blood SPECIMEN COLLECTED 12/08/19 17:45 Blood Culture - Preliminary Blood SPECIMEN COLLECTED 12/07/19 08:10 Blood Culture - Preliminary Blood NEGATIVE TO DATE 12/07/19 08:05 Blood Culture - Preliminary Blood NEGATIVE TO DATE A&P Additional A&P Information 59 yr old man w/ obesity, dm, htn, hyperlipidemia, and lung disease 1. depression- second suicide attempt in 10 days 2. KIT- concern for ATN - as pt appears to have septic shock w/ hypotension, hypothermia and on 2 pressors + rhabdomyolysisi- ck above 20,000 -improvong w/ HD x 2- ck now [id number] will give lasix and monitor as he is urinating -monitor ck, -no hydronephrosis or obstruction on us -u/a noted- glucosuria from jardiance 3. inc AGMA from KIT, and from lactic acidosis. improved 4. lactic acidosis can be from sepsis or from metformin -improved 5. VDRF- per critical care -attempt lasix and monitor 6. leukocytosis- likely asp pna- renal dose abx as per critical care/ hospitalist will follow uop, chemistries, and ck - hold HD today, and evaluate for further HD in am Attestations Medical Necessity Statement*: asp pna, kit, suicide attempt, pressor dep, VDRF Time Spent in Patient Care: 16 - 35 minutes Coding Level of Care Code Acute Vacuum Cooker Operator for Asim Antony
[2019-12-09 07:58] LABS: Glucose Point of Care 183 mg/dL (70-110)
[2019-12-09] MEDS: FUROsemide 10 mg/mL SDV 4mL 40 MG IVP ×2 (08:24→18:26)
--- NOTE | 2019-12-09 11:35 | PC.NURSE ---
Pt extubated to 3lpm/NC. Og removed, intact. Restraints removed.
--- NOTE | 2019-12-09 11:37 | PC.RESP ---
PT EXTUBATED. PLACED ON 3 LPM NC. SAT 92% HR 90. RR 20
--- NOTE | 2019-12-09 12:08 | P.PN_ITS ---
Subjective Subjective: Interval history: restless on pressors, swollen, intubated Medications: Reviewed: Yes Medication Review Details: Current Medications Acetaminophen (Tylenol) 650 mg PO Q6H PRN PRN Reason: Mild/Mod Pain Or Temp >/= 101 Dextrose (D50w) 25 ml IVP ONCE PRN; Protocol PRN Reason: hypoglycemia protocol Dextrose (D50w) 50 ml IVP PRN PRN; Protocol PRN Reason: hypoglycemia protocol Last Admin: 12/07/19 21:21 Dose: 50 ml Documented by: Furosemide (Lasix) 40 mg IVP Q12H PASTORA Glucagon (Glucagen) 1 mg IM ONCE PRN; Protocol PRN Reason: Adult Acute Hypoglycemia Prot. Norepinephrine Bitartrate 4 mg (/ Dextrose) 254 mls @ 0 mls/hr IV .Q0M PASTORA; Protocol Last Admin: 12/08/19 22:49 Dose: 5 mcg/min, 19.1 mls/hr Documented by: Dextrose (D5w) 500 mls @ 100 mls/hr IV ONCE PRN; Protocol PRN Reason: Adult Acute Hypoglycemia Prot Dextrose (D10w) 1,000 mls @ 25 mls/hr IV .Q24H PASTORA Last Infusion: 12/08/19 17:19 Dose: Infused Documented by: Propofol (Diprivan) 1,000 mg in 100 mls @ 0 mls/hr IV .Q0M PASTORA; Protocol Last Admin: 12/09/19 06:30 Dose: 50 mcg/kg/min, 37.7 mls/hr Documented by: Piperacillin Sod/Tazobactam (Sod 3.375 gm/ Sodium Chloride) 50 mls @ 12.5 mls/hr IV Q8H PASTORA; Protocol Last Admin: 12/09/19 04:17 Dose: 12.5 mls/hr Documented by: Dextrose (D5w) 500 mls @ 100 mls/hr IV ONCE PRN; Protocol PRN Reason: Adult Acute Hypoglycemia Prot Insulin Aspart (Novolog) 0 unit SUBCUT BEDTIME PASTORA; Protocol Last Admin: 12/08/19 20:30 Dose: 1 unit Documented by: Insulin Aspart (Novolog) 0 unit SUBCUT TIDWM PASTORA; Protocol Last Admin: 12/08/19 17:40 Dose: 6 unit Documented by: Ondansetron HCl (Zofran) 4 mg IVP Q8H PRN PRN Reason: vomiting, or N/V if npo Last Admin: 12/09/19 01:02 Dose: 4 mg Documented by: Vitals/I&O/Wt Last Vital Signs Temp 98.5 F 12/09/19 01:00 Pulse 77 12/09/19 08:00 Resp 21 H 12/09/19 10:06 BP 103/70 12/09/19 08:00 Pulse Ox 90 12/09/19 08:00 12/08/19 12/09/19 12/09/19 22:59 06:59 14:59 Intake Total 1156.605 / 3786.890 384.996 / 4171.886 388.445 / 388.445 Output Total 550 / 550 600 / 1150 1420 / 1420 Balance 606.605 / 3236.890 -215.004 / 3021.886 -1031.555 / -1031.555 Weight last 48 hrs Weight 125.645 kg Physical Exam Const: GENERAL APPEARANCE: lethargic and patient mechanically ventilated OR IENTATION/CONSCIOUSNESS: Yes lethargic OTHER: Sedated HENMT: COMMON NORMALS: normocephalic and head/scalp atraumatic HEAD & SCALP: normocephalic and atraumatic Eye: COMMON NORMALS: PERRL PUPIL: Yes PERRL Neck/C-Spine: COMMON NORMALS: supple GENERAL: Yes normal visual inspection Resp: OTHER: ETT in place, Cardio: COMMON NORMALS: regular rate, regular rhythm and no murmurs RATE: regular rate RHYTHM: regular rhythm GI: COMMON NORMALS: soft to palpation and non-tender INSPECTION: No abdominal distension AUSCULTATION: Yes normoactive bowel sounds PALPATION: Yes soft Extremity: COMMON NORMALS: no clubbing, cyanosis or edema and no calf tenderness Neuro: SENSORIUM/ORIENTATION: Yes lethargic OTHER: Intubated, sedated Skin: COMMON NORMALS: no rashes or lesions noted GENERAL SKIN EXAM: no rashes or lesions noted Data : 12/09/19 06:16 12/09/19 06:10 Micro: Microbiology 12/07/19 16:15 Gram Stain - Final Sputum - Endotracheal Tube Aspirate Sputum Culture - Preliminary Gram Negative Rods 12/08/19 18:30 Blood Culture - Preliminary Blood SPECIMEN COLLECTED 12/08/19 17:45 Blood Culture - Preliminary Blood SPECIMEN COLLECTED 12/07/19 08:10 Blood Culture - Preliminary Blood NEGATIVE TO DATE 12/07/19 08:05 Blood Culture - Preliminary Blood NEGATIVE TO DATE A&P Assessment and plan (1) Acute encephalopathy: Found unresponsive by neighbor Uncertain last known well concern for intentional overdose with multiple medications Status: Acute (2) Overdose: Concern for overdose on metformin as well as concern for overdose on other home medications which are amlodipine, lisinopril, metoprolol Discontinue dopamine and continue on levophed, wean as able Status: Acute (3) Shock: Concern for sepsis with aspiration pneumonia, presented hypotensive with concern for calcium channel and beta nesha overdose Discontinue dopamine and wean levophed as tolerated Increase antibiotic coverage due to concern for aspiration pneumonia Status: Acute Additional A&P Information Aspiration pneumonia: Increase antibiotic coverage to Zosyn Acute Kidney Injury: Repeat dialysis today Atrial fibrillation: with known atrial fibrillation, on metoprolol chronically, this is on hold due to hypotension Systolic congestive heart failure: With concern for fluid overload, minimal output with lasix, dialysis planned for today Diabetes: On glipizide, Januvia, metformin and Jardiance at home Atrial fibrillation: On metoprolol 100 mg twice daily and Eliquis, both on hold History of hypertension: Holding antihypertensives due to shock Morbid obesity Hyperlipidemia History of CVA, reported residual left-sided weakness on prior H&P from 2017 DVT prophylaxis: Heparin Diet: NPO CODE STATUS: Full code Coding Level of Care Code Acute Manufacturing Engineering Technologist for Asim Antony Diagnoses Acute encephalopathy G93.40 Overdose T50.901A Shock R57.9
[2019-12-09 12:11] LABS: Glucose Point of Care 129 mg/dL (70-110)
--- NOTE | 2019-12-09 15:57 | PM.PN ---
Subjective Subjective: Interval history: Patient intubated this morning. This afternoon reevaluated patient he was awake, extubated. Denied any chest pain or shortness of breath. He did recall events leading to admission, reported intentional overdose. Discussed with patient current plan of care and need for continued hospitalization and psychiatric evaluation. Medications: Reviewed: Yes Vitals/I&O/Wt Last Vital Signs Temp 98.4 F 12/09/19 14:00 Pulse 104 H 12/09/19 14:00 Resp 30 H 12/09/19 14:00 BP 113/90 12/09/19 14:00 Pulse Ox 93 12/09/19 14:00 12/09/19 12/09/19 12/09/19 06:59 14:59 22:59 Intake Total 384.996 / 4171.886 395.032 / 395.032 Output Total 600 / 1150 1420 / 1420 Balance -215.004 / 3021.886 -1024.968 / -1024.968 Weight last 48 hrs Weight 125.645 kg Physical Exam Const: COMMON NORMALS: oriented x3 and alert GENERAL APPEARANCE: cooperative ORIENTATION/CONSCIOUSNESS: Yes awake, Yes oriented to person, Yes oriented to place and Yes oriented to time HENMT: COMMON NORMALS: normocephalic and head/scalp atraumatic HEAD & SCALP: normocephalic and atraumatic Eye: COMMON NORMALS: PERRL PUPIL: Yes PERRL Neck/C-Spine: COMMON NORMALS: supple GENERAL: Yes normal visual inspection Resp: COMMON NORMALS: normal respiratory effort OTHER: Diminished breath sounds bilaterally, no wheezing or rhonchi Cardio: COMMON NORMALS: regular rate, regular rhythm and no murmurs RATE: regular rate RHYTHM: regular rhythm GI: COMMON NORMALS: soft to palpation and non-tender INSPECTION: No abdominal distension AUSCULTATION: Yes normoactive bowel sounds PALPATION: Yes soft Extremity: COMMON NORMALS: no calf tenderness NARRATIVE EXTREMITY EXAM: Non-pitting edema in the LE bilaterally Neuro: COMMON NORMALS: oriented x3, CN's II-XII intact bilaterally, moves all extremities and no focal motor deficits SENSORIUM/ORIENTATION: Yes alert, Yes oriented to person, Yes oriented to place and Yes oriented to time SPEECH: speech normal Psych: COMMON NORMALS: mental status grossly normal MOOD & AFFECT: Yes depressed mood Data : 12/09/19 06:16 04/03/20 06:10 Micro: Microbiology 12/07/19 16:15 Gram Stain - Final Sputum - Endotracheal Tube Aspirate Sputum Culture - Preliminary Gram Negative Rods 12/08/19 18:30 Blood Culture - Preliminary Blood SPECIMEN COLLECTED 12/08/19 17:45 Blood Culture - Preliminary Blood SPECIMEN COLLECTED A&P Assessment and plan (1) Acute encephalopathy: Secondary to intentional overdose with multiple medications Improved Status: Acute (2) Overdose: Metformin, amlodipine, lisinopril, metoprolol. Unknown if eliquis taken Improved Dialysis x 2 Titrated off pressors today Affidavit placed on the chart, sitter at bedside for home precautions Status: Acute (3) Shock: Improved Off pressors 12/08 Continue IV antibiotics for aspiration pneumonia Status: Acute Additional A&P Information Aspiration pneumonia: Continue Zosyn, sputum culture pending Acute Kidney Injury: Improving, dialysis x2 sessions this admission Atrial fibrillation: with known atrial fibrillation, on metoprolol chronically, this is on hold due to hypotension Systolic congestive heart failure: Improved diuresis with lasix today Diabetes: On glipizide, Januvia, metformin and Jardiance at home Atrial fibrillation: On metoprolol 100 mg twice daily and Eliquis, both on hold. Uncertain if patient overdosed on Eliquis, therefore being cautious with anticoagulation at this time History of hypertension: Holding antihypertensives due to soft BP, titrated off pressors on 12/08 Morbid obesity Hyperlipidemia History of CVA, reported residual left-sided weakness on prior H&P from 2017 DVT prophylaxis: Heparin Diet: Carbohydrate consistent diet CODE STATUS: Full code Attestations Medical Necessity Statement*: Patient requires further hospitalization due to intentional overdose with shock Coding Level of Care Code Acute Risk Management Specialist for [facility] Fwd Exam Comprehensive Diagnoses Acute encephalopathy G93.40 Overdose T50.901A Shock R57.9
[2019-12-09 17:07] LABS: Glucose Point of Care 238 mg/dL (70-110)
[2019-12-10] VITALS (16 sets, daily range): BP systolic 106–164; BP diastolic 65–96; PULSE 94–130; RESP 15–27; TEMP 36.4–38.1; O2SAT 92–96
[2019-12-10] MEDS: acetaminophen 325 mg Tablet 650 MG PO (01:08)
[2019-12-10] MEDS: piperacillin-tazobactam 3.375 GM in sodium chloride 0.9% (plus) 50 ML IV ×3 (03:55→20:14)
[2019-12-10 05:23] LABS: Basophils % 0.3 %; Eosinophils # 0.1 10^3/uL (0.0-0.8); Eosinophils % 0.7 %; Hematocrit 39.5 % (42.0-52.0); Lymphocytes # 0.7 10^3/uL (0.8-4.8); Lymphocytes % 7.9 %; Mean Corpuscular HGB Conc 32.9 g/dL (30.0-36.0); Mean Corpuscular Hemoglobin 30.7 pg (28.0-34.0); Mean Corpuscular Volume 93.2 fL (80-94); Mean Platelet Volume 10.9 fL (7.4-10.4); Monocytes # 0.9 10^3/uL (0.2-0.9); Monocytes % 9.7 %; Neutrophils # 7.2 10^3/uL (1.8-7.7); Neutrophils % 80.4 %; Nucleated Red Blood Cells % 0 %; Platelet Count 115 10^3/cmm (130-400); Red Blood Count 4.24 10^6/uL (4.1-5.3); Red Cell Distribution Width 12.3 % (12.1-15.1)
[2019-12-10 05:49] LABS: Alanine Aminotransferase 58 U/L (0-41); Albumin Level 2.9 g/dL (3.5-5.2); Alkaline Phosphatase 47 IU/L (40-130); Anion Gap 15.2 (5-19); Aspartate Amino Transferase 87 U/L (0-40); Blood Urea Nitrogen 32 mg/dL (6-20); Calcium 8.8 mg/dL (8.5-10.5); Carbon Dioxide 29 mmol/L (22-29); Chloride 99 mmol/L (98-107); Globulin 2.9 g/dL (1.3-4.6); Glomerular Filtration Rate 41.6 mL/min (90-130); Glucose 150 mg/dL (65-115); Magnesium 2.1 mg/dL (1.7-2.3); Osmolality Calculated 290 mOsm/kg (285-295); Phosphorus 2.9 mg/dL (2.5-4.5); Potassium 3.2 mmol/L (3.5-5.1); Sodium 140 mmol/L (136-145); Total Bilirubin 0.6 mg/dL (0.15-1.2); Total Protein 5.8 g/dL (6.6-8.7)
[2019-12-10 06:10] LABS: Creatine Phosphokinase 4423 U/L (39-308)
[2019-12-10] MEDS: FUROsemide 10 mg/mL SDV 4mL 40 MG IVP ×2 (08:02→18:26)
[2019-12-10 08:07] LABS: Glucose Point of Care 120 mg/dL (70-110)
--- NOTE | 2019-12-10 10:19 | PM.PN ---
Subjective Subjective: Interval history: no acute events today. S/p HD wed/neftali. Patient awake, alert and calm this morning. urine output 4.2L. Medications: Reviewed: Yes Vitals/I&O/Wt Last Vital Signs Temp 97.6 F 12/10/19 08:00 Pulse 114 H 12/10/19 08:00 Resp 22 H 12/10/19 08:00 BP 107/75 12/10/19 08:00 Pulse Ox 93 12/10/19 08:00 12/09/19 12/10/19 12/10/19 22:59 06:59 14:59 Intake Total 1850 / 2245.032 50 / 2295.032 220 / 220 Output Total 1920 / 3340 1900 / 5240 Balance -70 / -1094.968 -1850 / -2944.968 220 / 220 Physical Exam Narrative: EXAM NARRATIVE: GEN: Awake, alert and oriented, no acute distress HEENT: crusting over left eyelashes CVS: S1S2 N RS: CTA B/L except crackles over RUL Abd: Soft, nt/nd , bs+ BATTER SCALER: no focal neuro deficits Data : 12/10/19 04:58 12/10/19 04:58 Micro: Microbiology 12/09/19 11:00 Urine Culture - Preliminary Urine Catheterized 12/08/19 18:30 Blood Culture - Preliminary Blood NEGATIVE TO DATE 12/08/19 17:45 Blood Culture - Preliminary Blood NEGATIVE TO DATE 12/07/19 16:15 Gram Stain - Final Sputum - Endotracheal Tube Aspirate Sputum Culture - Preliminary Gram Negative Rods A&P Assessment and plan (1) Acute encephalopathy: Secondary to intentional overdose with multiple medications Improved Status: Acute (2) Overdose: Metformin, amlodipine, lisinopril, metoprolol. Unknown if eliquis taken Improved Dialysis x 2 Titrated off pressors today Affidavit placed on the chart, sitter at bedside for home precautions Status: Acute (3) Shock: Improved Off pressors 4/3 Continue IV antibiotics for aspiration pneumonia Status: Acute Additional A&P Information Aspiration pneumonia: Continue Zosyn for aspiration PNA. Sputum cx with GNR Acute Kidney Injury: Improving, dialysis x2, now on lasix 40mg iv q12h, U/o 4.2L Atrial fibrillation: with known atrial fibrillation, on metoprolol chronically which was on hold for hypotension. Now baseline HR 90-100 with minimal exertion raising it to 140-150. resume metroprolol 2.5mg iv q4h, hold for HR <70 for now. Systolic congestive heart failure: Improved diuresis with lasix today Diabetes: On glipizide, Januvia, metformin and Jardiance at home. Insulin for now. Atrial fibrillation: On metoprolol 100 mg twice daily and Eliquis, both on hold. Uncertain if patient overdosed on Eliquis, therefore being cautious with anticoagulation at this time History of hypertension: Holding antihypertensives due to soft BP, titrated off pressors on 12/08 Morbid obesity Hyperlipidemia. Hold statins given rhabdomyolysis History of CVA, reported residual left-sided weakness on prior H&P from 2017 Rhabdomyolysis: slowly improving DVT prophylaxis: Heparin Diet: Carbohydrate consistent diet CODE STATUS: Full code Attestations Medical Necessity Statement*: ongoing monitoring in ICU in view of multiple critical issues as above Critical Care Time: Critical Care Time (min): 30 Coding Level of Care Code Acute Steamtable Attendant Railroad for Asim Antony Diagnoses Acute encephalopathy G93.40 Overdose T50.901A Shock R57.9
[2019-12-10] MEDS: heparin 5,000 unit/mL INJ 1 mL 5000 UNIT SUBCUT ×2 (10:55→20:15)
--- NOTE | 2019-12-10 11:11 | PC.SOCIAL ---
IMM Update Pg 2 of IMM updated with patient and copy left at bedside.
[2019-12-10 11:33] LABS: Glucose Point of Care 171 mg/dL (70-110)
[2019-12-10 11:34] LABS: Glucose Point of Care 150 mg/dL (70-110)
[2019-12-10] MEDS: metoprolol tartrate 1 mg/1 mL SDV 5 mL 2.5 MG IV ×4 (12:19→23:15)
--- NOTE | 2019-12-10 12:55 | P.PN_ITS ---
Subjective Subjective: Interval history: KIT due to rhabdomyolysis. Required HD x 2 Diuresing well Atrial fibrillation Medications: Reviewed: Yes Vitals/I&O/Wt Last Vital Signs Temp 98.2 F 12/10/19 11:43 Pulse 113 H 12/10/19 12:39 Resp 25 H 12/10/19 12:39 BP 145/96 12/10/19 12:39 Pulse Ox 93 12/10/19 12:39 12/09/19 12/10/19 12/10/19 22:59 06:59 14:59 Intake Total 1850 / 2245.032 50 / 2295.032 1050 / 1050 Output Total 1920 / 3340 1900 / 5240 2100 / 2100 Balance -70 / -1094.968 -1850 / -2944.968 -1050 / -1050 Physical Exam Const: COMMON NORMALS: no apparent distress GENERAL APPEARANCE: cooperative Eye: COMMON NORMALS: no scleral icterus Data : 12/10/19 04:58 12/10/19 04:58 Micro: Microbiology 12/09/19 11:00 Chlamydia trachomatis (ALEXIA) - Final Urine Random Neisseria gonorrhoeae (ALEXIA) - Final 12/09/19 11:00 Urine Culture - Preliminary Urine Catheterized 12/08/19 18:30 Blood Culture - Preliminary Blood NEGATIVE TO DATE 12/08/19 17:45 Blood Culture - Preliminary Blood NEGATIVE TO DATE 12/07/19 16:15 Gram Stain - Final Sputum - Endotracheal Tube Aspirate Sputum Culture - Preliminary Gram Negative Rods A&P Additional A&P Information 1. KIT due to rhabdomyolysis, CK falling, good urine output, Cr falling. He should not need further dialysis. IJ dialysis catheter can be removed. Can discontinue furosemide. 2. Hypokalemia. Replace po 3. Acidosis - resolved Recommend discontinue birch tomorrow. Attestations Medical Necessity Statement*: see above Coding Level of Care Code Acute Inspector Watch Assembly for Asim Antony
--- NOTE | 2019-12-10 14:41 | P.CONIM_ITS ---
Providers/Reason for Consult Consulting Physican/Specialty*: Chandana Aguilar MD. Psychiatry. Reason for Consult*: Intentional ingestion. Attending Physician: Lashell Cheema MD Psych Consult HPI History of Present Illness Anderson Wang is a 59 year old male who presented to the emergency room via EMS who reportedly found him in a field in his truck unresponsive. He reports not having some memories of the circumstance but he does endorse that it was an actual intentional overdose. He reports that he currently does not have nataliya cidal thoughts and feels fine. Though he is tearful as he is saying that. He reports that he just got to a point where he felt like he could not go on and things are overwhelming though he could not really elucidate the circumstances of how he got there. Whether it is economic, relational or what have you. He had recently been discharged from the neuro psych unit after a short stay after an intentional overdose. We discussed his reported lack of continued lethality. We additionally discussed that given his recent behavior followed up by a second attempt that barring a prolonged stay in the ICU or medical unit that a inpatient stay in the NPU was likely. We agree that if he was still needing medical attention tomorrow we would have a discussion about the risks, benefits and alternatives of starting an antidepressant. Psychiatric history: He has had 1 recent hospitalization and had not had psychiatric care during his life prior to that. Substance abuse history: He denies any significant addiction issues currently. [place] [facility] [place] History of Present Illness Anderson Wang is a 59 year old male who presented to the emergency room, having taken an overdose of metoprolol and clonidine, unknown quantity. He had nearly empty bottles of 50 mg tablets of metoprolol tartrate and clonidine 0.1 mg. He states he took them about 5 hours prior to arrival. There is a written note that EMS brought in along with 2 envelopes that are sealed with persons names on them. Medicines were taken and attempt to harm himself he has evidently some legal troubles and feels his family is accusing him of something he had not done. He was not bradycardic at the time of arrival. The patient has never had any psychiatric history. He was never hospitalized or treated on an outpatient basis for psychiatric disorder. He never attempted suicide previously. His family history is completely negative for such things. He has not used substances for 30 years. Meds Current Medications: Current Medications Generic Name Dose Route Start Last Admin Trade Name Freq PRN Reason Stop Dose Admin Acetaminophen 650 mg 12/07/19 15:32 12/10/19 01:08 Tylenol PO 650 mg Q6H PRN Administration Mild/Mod Pain Or Temp >/= 101 Dextrose 50 ml 12/07/19 14:42 12/07/19 21:21 D50w IVP 50 ml PRN PRN Administration hypoglycemia prot ocol Protocol Furosemide 40 mg 12/09/19 07:00 12/10/19 18:26 Lasix IVP 40 mg Q12H PASTORA Administration Heparin Sodium (Be ef Lung) 5,000 unit 12/10/19 09:00 12/10/19 20:15 Heparin SUBCUT 5,000 unit Q12H PASTORA Administration Norepinephrine Bit artrate 4 mg 254 mls @ 0 mls/h r 12/07/19 08:45 12/09/19 11:24 / Dextrose IV 0 mcg/min .Q0M PASTORA 0 mls/hr Titration Protocol Per Protocol Dextrose 1,000 mls @ 25 ml s/hr 12/07/19 15:32 12/10/19 16:22 D10w IV Not Given .Q24H PASTORA Propofol 1,000 mg in 100 m ls @ 0 mls/hr 12/07/19 16:15 12/09/19 10:10 Diprivan IV Infused .Q0M PASTORA Titration Protocol Per Protocol Piperacillin Sod/T azobactam 50 mls @ 12.5 mls /hr 12/08/19 17:00 12/11/19 03:33 Sod 3.375 gm/ So dium Chloride IV 12.5 mls/hr Q8H PASTORA Administration Protocol Insulin Aspart 0 unit 12/08/19 21:00 12/10/19 20:20 Novolog SUBCUT 2 unit BEDTIME PASTORA Administration Protocol Insulin Aspart 0 unit 12/08/19 18:00 12/10/19 18:27 Novolog SUBCUT 4 unit TIDWM PASTORA Administration Protocol Metoprolol Tartrat e 2.5 mg 12/10/19 11:15 12/11/19 03:32 Metoprolol Tartr ate IV 2.5 mg Q4H PASTORA Administration Ondansetron HCl 4 mg 12/07/19 15:32 12/09/19 01:02 Zofran IVP 4 mg Q8H PRN Administration vomiting, or N/V if npo PFSH NPU PFSH: Medical History (Updated 12/11/19 @ 06:14 by Chandana Aguilar MD) Atrial fibrillation 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 History of pancreatitis History of gallstone pancreatitis requiring prolonged hospital stay, normal intra-abdominal surgery and subsequent tracheostomy/reversal Hyperlipidemia Hypertension Morbid obesity Osteoarthritis Systolic CHF, chronic Surgical History (Updated 12/08/19 @ 13:58 by Guido Sandoval MD) History of appendectomy History of cholecystectomy Hx of tracheostomy With reversal S/P dialysis catheter insertion (12/2019) Social History Smoking and tobacco status: former smoker Mental Status Exam MSE Comments: This is an obese white male with a medical gown on with limited grooming and eye contact. No abnormal movements except for psychomotor retardation. Cooperative with exam in mild distress. Speech was decreased rate and volume. Mood described as okay affect depressed and subdued. Thought process organized. Thought content: Patient denied any suicidal or homicidal ideation though I am not sure I believe him, there are no delusions reported or noted, he denies any auditory or visual attention and concentration were intact and memory appeared unreliable but none were formally tested. He is alert and oriented x3. Insight and judgment are impaired. Impulse control is impaired. Vitals/I&O/Wt Last Vital Signs Temp 97.8 F 12/10/19 18:08 Pulse 110 H 12/10/19 18:08 Resp 22 12/10/19 18:08 BP 152/90 12/10/19 18:08 Pulse Ox 92 12/10/19 18:08 12/10/19 12/10/19 14:59 22:59 Intake Total 1050 / 1050 1010 / 2060 Output Total 2099 / 2099 3500 / 5600 Balance -1050 / -1050 -2490 / -3540 Data NPU Micro: Micro: Microbiology 12/07/19 16:15 Gram Stain - Final Sputum - Endotrac heal Tube Aspirate Sputum Culture - F inal Pseudomonas aer uginosa 12/09/19 11:00 Chlamydia trachoma tis (ALEXIA) - Final Urine Random Neisseria gonorrho eae (ALEXIA) - Final 12/09/19 11:00 Urine Culture - Pr eliminary Urine Catheterize d Microbiology 12/07/19 16:15 Sputum - Endotracheal Tube Aspirate Gram Stain - Final 12/07/19 16:15 Sputum - Endotracheal Tube Aspirate Sputum Culture - Final Pseudomonas aeruginosa 12/09/19 11:00 Urine Random Chlamydia trachomatis (ALEXIA) - Final 12/09/19 11:00 Urine Random Neisseria gonorrhoeae (ALEXIA) - Final 12/09/19 11:00 Urine Catheterized Urine Culture - Preliminary A&P Assessment and plan (1) Overdose: This is a 59-year-old white male who presented to the emergency room and is now seen in the ICU secondary to an intentional overdose who endorses depression and feelings like he could not go on at the time of the ingestion but now is denying any suicidality. 1. Continue current medication. 2. We will discuss initiating an antidepressant/SSRI after discussion with the primary team about his current medical condition as well as timeframe for medical clearance. 3. Although he reports absence of current suicidal thoughts this is a second intentional overdose in the last couple of weeks. He is not currently on medication for depression and presented to his last hospitalization on the neuro psych unit reporting that he was better after surviving the overdose. At this point minus a long stay on the medical side and inpatient stay in the neuro psych unit seems unavoidable. 4. We will come by and see tomorrow. Status: Acute Qualifiers: Encounter type: initial encounter Injury intent: intentional self-harm Qualified Code(s): T50.902A - Poisoning by unspecified drugs, medicaments and biological substances, intentional self-harm, initial encounter (2) Depressive disorder: Status: Acute Involuntary Hold Information 96 Hour Hold: 96 Hour Involuntary Admission: No Attestations NPU Medical Necessity Statement*: N/A. Defer medical necessity attestations to the primary team. However the overwhelming likelihood is that an inpatient hospitalization on the neuro psych unit is indicated and will be necessary when he is medically cleared. Coding Level of Care Code Acute Certified Shorthand Reporter for Asim Antony Diagnoses Overdose T50.902A Encounter type: initial encounter Injury intent: intentional self-harm Depressive disorder F32.9
[2019-12-10 18:34] LABS: Glucose Point of Care 213 mg/dL (70-110)
[2019-12-10 20:18] LABS: Glucose Point of Care 185 mg/dL (70-110)
[2019-12-11] VITALS (13 sets, daily range): BP systolic 106–154; BP diastolic 67–90; PULSE 97–134; RESP 14–102; TEMP 36.8–37.6; O2SAT 92–96
[2019-12-11] MEDS: metoprolol tartrate 1 mg/1 mL SDV 5 mL 2.5 MG IV ×3 (03:32→11:41)
[2019-12-11] MEDS: piperacillin-tazobactam 3.375 GM in sodium chloride 0.9% (plus) 50 ML IV ×3 (03:33→20:15)
[2019-12-11 05:36] LABS: Basophils % 0.5 %; Eosinophils # 0.1 10^3/uL (0.0-0.8); Eosinophils % 1.5 %; Hematocrit 39.4 % (42.0-52.0); Hemoglobin 12.9 g/dL (11.7-16.6); Lymphocytes # 0.8 10^3/uL (0.8-4.8); Lymphocytes % 11.3 %; Mean Corpuscular HGB Conc 32.7 g/dL (30.0-36.0); Mean Corpuscular Hemoglobin 30.9 pg (28.0-34.0); Mean Corpuscular Volume 94.3 fL (80-94); Mean Platelet Volume 10.9 fL (7.4-10.4); Monocytes # 0.8 10^3/uL (0.2-0.9); Monocytes % 10.9 %; Neutrophils # 5.4 10^3/uL (1.8-7.7); Neutrophils % 73.8 %; Nucleated Red Blood Cells % 0 %; Platelet Count 142 10^3/cmm (130-400); Red Blood Count 4.18 10^6/uL (4.1-5.3); Red Cell Distribution Width 12.2 % (12.1-15.1); White Blood Count 7.3 10^3/uL (4.0-10.0)
[2019-12-11 05:57] LABS: Alanine Aminotransferase 48 U/L (0-41); Albumin Level 2.8 g/dL (3.5-5.2); Alkaline Phosphatase 48 IU/L (40-130); Anion Gap 17.6 (5-19); Aspartate Amino Transferase 51 U/L (0-40); Blood Urea Nitrogen 34 mg/dL (6-20); Carbon Dioxide 28 mmol/L (22-29); Chloride 96 mmol/L (98-107); Globulin 3.1 g/dL (1.3-4.6); Glomerular Filtration Rate 76.7 mL/min (90-130); Glucose 153 mg/dL (65-115); Osmolality Calculated 286 mOsm/kg (285-295); Potassium 3.6 mmol/L (3.5-5.1); Sodium 138 mmol/L (136-145); Total Bilirubin 0.6 mg/dL (0.15-1.2); Total Protein 5.9 g/dL (6.6-8.7)
[2019-12-11 06:03] LABS: Creatine Phosphokinase 1426 U/L (39-308)
[2019-12-11] MEDS: FUROsemide 10 mg/mL SDV 4mL 40 MG IVP (06:31)
[2019-12-11 07:34] LABS: Glucose Point of Care 147 mg/dL (70-110)
--- NOTE | 2019-12-11 07:45 | PM.PN ---
Subjective Subjective: Interval history: feels better. weak, depressed, swollen. no sob or cp Medications: Reviewed: Yes Medication Review Details: Current Medications Acetaminophen (Tylenol) 650 mg PO Q6H PRN PRN Reason: Mild/Mod Pain Or Temp >/= 101 Last Admin: 12/10/19 01:08 Dose: 650 mg Documented by: Artificial Tears (Isopto Tears) 1 drop EYE-BOTH Q4H PRN PRN Reason: DRY EYE(S) Dextrose (D50w) 25 ml IVP ONCE PRN; Protocol PRN Reason: hypoglycemia protocol Dextrose (D50w) 50 ml IVP PRN PRN; Protocol PRN Reason: hypoglycemia protocol Last Admin: 12/07/19 21:21 Dose: 50 ml Documented by: Furosemide (Lasix) 40 mg IVP Q12H PASTORA Last Admin: 12/11/19 06:31 Dose: 40 mg Documented by: Glucagon (Glucagen) 1 mg IM ONCE PRN; Protocol PRN Reason: Adult Acute Hypoglycemia Prot. Heparin Sodium (Beef Lung) (Heparin) 5,000 unit SUBCUT Q12H PASTORA Last Admin: 12/10/19 20:15 Dose: 5,000 unit Documented by: Norepinephrine Bitartrate 4 mg (/ Dextrose) 254 mls @ 0 mls/hr IV .Q0M PASTORA; Protocol Last Titration: 12/09/19 11:24 Dose: 0 mcg/min, 0 mls/hr Documented by: Dextrose (D5w) 500 mls @ 100 mls/hr IV ONCE PRN; Protocol PRN Reason: Adult Acute Hypoglycemia Prot Dextrose (D10w) 1,000 mls @ 25 mls/hr IV .Q24H PASTORA Last Admin: 12/10/19 16:22 Dose: Not Given Documented by: Propofol (Diprivan) 1,000 mg in 100 mls @ 0 mls/hr IV .Q0M PASTORA; Protocol Last Titration: 12/09/19 10:10 Dose: Infused Documented by: Piperacillin Sod/Tazobactam (Sod 3.375 gm/ Sodium Chloride) 50 mls @ 12.5 mls/hr IV Q8H PASTORA; Protocol Last Admin: 12/11/19 03:33 Dose: 12.5 mls/hr Documented by: Dextrose (D5w) 500 mls @ 100 mls/hr IV ONCE PRN; Protocol PRN Reason: Adult Acute Hypoglycemia Prot Insulin Aspart (Novolog) 0 unit SUBCUT BEDTIME PASTORA; Protocol Last Admin: 12/10/19 20:20 Dose: 2 unit Documented by: Insulin Aspart (Novolog) 0 unit SUBCUT TIDWM PASTORA; Protocol Last Admin: 12/10/19 18:27 Dose: 4 unit Documented by: Metoprolol Tartrate (Metoprolol Tartrate) 2.5 mg IV Q4H PASTORA Last Admin: 12/11/19 06:31 Dose: 2.5 mg Documented by: Ondansetron HCl (Zofran) 4 mg IVP Q8H PRN PRN Reason: vomiting, or N/V if npo Last Admin: 12/09/19 01:02 Dose: 4 mg Documented by: Vitals/I&O/Wt Last Vital Signs Temp 99.6 F 12/11/19 06:17 Pulse 101 H 12/11/19 06:17 Resp 26 H 12/11/19 06:17 BP 154/86 12/11/19 06:17 Pulse Ox 94 12/11/19 06:17 12/10/19 12/11/19 12/11/19 22:59 06:59 14:59 Intake Total 1010 / 2060 50 / 2110 Output Total 3500 / 5600 1400 / 7000 Balance -2490 / -3540 -1350 / -4890 Physical Exam Narrative: EXAM NARRATIVE: obese, extubated, awake and alert heent- nc/at lungs crackles heart irreg, +CURTIS abd- soft, nd, min tender, +BS ext + leg edema neuro- a,a,o x 1-2, moves all ext mood depressed Data : 12/11/19 04:53 12/11/19 04:53 Micro: Microbiology 12/07/19 16:15 Gram Stain - Final Sputum - Endotracheal Tube Aspirate Sputum Culture - Final Pseudomonas aeruginosa 12/09/19 11:00 Chlamydia trachomatis (ALEXIA) - Final Urine Random Neisseria gonorrhoeae (ALEXIA) - Final 12/09/19 11:00 Urine Culture - Preliminary Urine Catheterized A&P Additional A&P Information 1. KIT due to ATN, +/- rhabdomyolysis, CK falling, good urine output, Cr falling. He should not need further dialysis. IJ dialysis catheter should be removed. Can discontinue furosemide. 2. replace electrolytes prn 3. DM care- avoid metformin 4. htn- can start norvasc Recommend discontinue birch will se ePRN Attestations Medical Necessity Statement*: improved KIT. monitor BP and glucose. needs psych care. 2 attempted suicides in 2 weeks Time Spent in Patient Care: 16 - 35 minutes Coding Level of Care Code Acute Double End Production Grinder for Asim Antony
[2019-12-11] MEDS: heparin 5,000 unit/mL INJ 1 mL 5000 UNIT SUBCUT ×2 (09:56→20:15)
[2019-12-11 12:02] LABS: Glucose Point of Care 255 mg/dL (70-110)
[2019-12-11] MEDS: metoprolol tartrate 50 mg Tablet 100 MG PO ×2 (14:17→18:29)
--- NOTE | 2019-12-11 16:17 | PM.NPN ---
Subjective NPU Subjective: Interval history: Anderson presented today reporting that nothing has changed. He does report that he still feels absent lethality, however as we had discussed after his last suicide attempt a couple weeks ago he also presented reporting that he had a resolution of his thoughts to kill himself/self harm. Is clear this epiphanistic approach did not serve him after this last episode. We discussed the risks benefits and alternatives of starting Prozac in the morning and he understood and agreed to proceed as is documented in this note. We also discussed a continued plan to have him moved to the NPU, when he is medically cleared here which so far sounds like possibly tomorrow. Mental Status Exam MSE Comments: This is an obese white male with a medical gown on with limited grooming and eye contact. No abnormal movements except for psychomotor retardation. Cooperative with exam in mild distress. Speech was decreased rate and volume. Mood described as okay affect depressed and subdued. Thought process organized. Thought content: Patient denied any suicidal or homicidal ideation though I am not sure I believe him, there are no delusions reported or noted, he denies any auditory or visual attention and concentration were intact and memory appeared unreliable but none were formally tested. He is alert and oriented x3. Insight and judgment are impaired. Impulse control is impaired. Vitals/I&O/Wt Last Vital Signs Temp 99.6 F 12/11/19 11:00 Pulse 101 H 12/11/19 11:00 Resp 26 H 12/11/19 11:00 BP 154/86 12/11/19 11:00 Pulse Ox 94 12/11/19 11:00 12/11/19 22:59 Intake Total 770 / 2900 Output Total 775 / 3025 Balance -5 / -125 Data NPU : 12/11/19 04:53 12/12/19 04:54 Micro: Microbiology 12/11/19 17:53 Blood Culture - Preliminary Blood SPECIMEN COLLECTED 12/11/19 17:42 Blood Culture - Preliminary Blood SPECIMEN COLLECTED 12/09/19 11:00 Urine Culture - Final Urine Catheterized Microbiology 12/11/19 17:53 Blood Blood Culture - Preliminary SPECIMEN COLLECTED 12/11/19 17:42 Blood Blood Culture - Preliminary SPECIMEN COLLECTED 12/09/19 11:00 Urine Catheterized Urine Culture - Final A&P Assessment and plan (1) Depressive disorder: (1) Overdose: This is a 59-year-old white male who presented to the emergency room and is now seen in the ICU secondary to an intentional overdose who endorses depression and feelings like he could not go on at the time of the ingestion but now is denying any suicidality. 1. Continue current medication. 2. Start Prozac 20mg po qam 3. Although he reports absence of current suicidal thoughts this is a second intentional overdose in the last couple of weeks. He is not currently on medication for depression and presented to his last hospitalization on the neuro psych unit reporting that he was better after surviving the overdose. At this point minus a long stay on the medical side and inpatient stay in the neuro psych unit seems unavoidable. 4. We will come by and see tomorrow. (2) Depressive disorder: Status: Acute (2) Overdose: Status: Acute Qualifiers: Encounter type: initial encounter Injury intent: intentional self-harm Qualified Code(s): T50.902A - Poisoning by unspecified drugs, medicaments and biological substances, intentional self-harm, initial encounter Involuntary Hold Information 96 Hour Hold: 96 Hour Involuntary Admission: No Attestations NPU Medical Necessity Statement*: N/A. Defer medical necessity attestations to the primary team. However the overwhelming likelihood is that an inpatient hospitalization on the neuro psych unit is indicated and will be necessary when he is medically cleared. Coding Level of Care Code Acute Assistant Facility Manager for Asim Antony Diagnoses Depressive disorder F32.9 Overdose T50.902A Encounter type: initial encounter Injury intent: intentional self-harm
--- NOTE | 2019-12-11 16:26 | P.PN_ITS ---
Subjective Subjective: Interval history: Patient has no new complaints today. he feels well overall. BP stable. HR trending up to 130bpm at rest. No chest pain/dyspnea/palpitations. Tmax 100.6F overnight. Medications: Reviewed: Yes Medication Review Details: Current Medications Acetaminophen (Tylenol) 650 mg PO Q6H PRN PRN Reason: Mild/Mod Pain Or Temp >/= 101 Last Admin: 12/10/19 01:08 Dose: 650 mg Documented by: Artificial Tears (Isopto Tears) 1 drop EYE-BOTH Q4H PRN PRN Reason: DRY EYE(S) Dextrose (D50w) 25 ml IVP ONCE PRN; Protocol PRN Reason: hypoglycemia protocol Dextrose (D50w) 50 ml IVP PRN PRN; Protocol PRN Reason: hypoglycemia protocol Last Admin: 12/07/19 21:21 Dose: 50 ml Documented by: Furosemide (Lasix) 40 mg IVP Q12H PASTORA Last Admin: 12/11/19 06:31 Dose: 40 mg Documented by: Glucagon (Glucagen) 1 mg IM ONCE PRN; Protocol PRN Reason: Adult Acute Hypoglycemia Prot. Heparin Sodium (Beef Lung) (Heparin) 5,000 unit SUBCUT Q12H PASTORA Last Admin: 12/10/19 20:15 Dose: 5,000 unit Documented by: Norepinephrine Bitartrate 4 mg (/ Dextrose) 254 mls @ 0 mls/hr IV .Q0M PASTORA; Protocol Last Titration: 12/09/19 11:24 Dose: 0 mcg/min, 0 mls/hr Documented by: Dextrose (D5w) 500 mls @ 100 mls/hr IV ONCE PRN; Protocol PRN Reason: Adult Acute Hypoglycemia Prot Dextrose (D10w) 1,000 mls @ 25 mls/hr IV .Q24H PASTORA Last Admin: 12/10/19 16:22 Dose: Not Given Documented by: Propofol (Diprivan) 1,000 mg in 100 mls @ 0 mls/hr IV .Q0M PASTORA; Protocol Last Titration: 12/09/19 10:10 Dose: Infused Documented by: Piperacillin Sod/Tazobactam (Sod 3.375 gm/ Sodium Chloride) 50 mls @ 12.5 mls/hr IV Q8H PASTORA; Protocol Last Admin: 12/11/19 03:33 Dose: 12.5 mls/hr Documented by: Dextrose (D5w) 500 mls @ 100 mls/hr IV ONCE PRN; Protocol PRN Reason: Adult Acute Hypoglycemia Prot Insulin Aspart (Novolog) 0 unit SUBCUT BEDTIME PASTORA; Protocol Last Admin: 12/10/19 20:20 Dose: 2 unit Documented by: Insulin Aspart (Novolog) 0 unit SUBCUT TIDWM PASTORA; Protocol Last Admin: 12/10/19 18:27 Dose: 4 unit Documented by: Metoprolol Tartrate (Metoprolol Tartrate) 2.5 mg IV Q4H PASTORA Last Admin: 12/11/19 06:31 Dose: 2.5 mg Documented by: Ondansetron HCl (Zofran) 4 mg IVP Q8H PRN PRN Reason: vomiting, or N/V if npo Last Admin: 12/09/19 01:02 Dose: 4 mg Documented by: Vitals/I&O/Wt Last Vital Signs Temp 98.7 F 12/11/19 13:00 Pulse 97 12/11/19 16:00 Resp 22 H 12/11/19 16:00 BP 123/78 12/11/19 16:00 Pulse Ox 93 12/11/19 16:00 12/11/19 12/11/19 12/11/19 06:59 14:59 22:59 Intake Total 50 / 2110 2130 / 2130 480 / 2610 Output Total 1400 / 7000 2250 / 2250 Balance -1350 / -4890 -120 / -120 480 / 360 Physical Exam Narrative: EXAM NARRATIVE: GEN: Awake, alert and oriented, no acute distress HEENT: crusting over eyelashes much improved CVS: S1S2 N, tachycardia RS: CTA B/L Abd: Soft, nt/nd , bs+ AUTH[employer] MOTIVATIONAL: no focal neuro deficits Data : 12/11/19 04:53 12/11/19 04:53 Micro: Microbiology 12/09/19 11:00 Urine Culture - Final Urine Catheterized 12/07/19 16:15 Gram Stain - Final Sputum - Endotracheal Tube Aspirate Sputum Culture - Final Pseudomonas aeruginosa 12/09/19 11:00 Chlamydia trachomatis (ALEXIA) - Final Urine Random Neisseria gonorrhoeae (ALEXIA) - Final A&P Assessment and plan (1) Acute encephalopathy: Secondary to intentional overdose with multiple medications Improved Status: Acute (2) Overdose: Metformin, amlodipine, lisinopril, metoprolol. Unknown if eliquis taken Improved Dialysis x 2 Titrated off pressors today Affidavit placed on the chart, sitter at bedside for home precautions Status: Acute Qualifiers: Encounter type: initial encounter Injury intent: intentional self-harm Qualified Code(s): T50.902A - Poisoning by unspecified drugs, medicaments and biological substances, intentional self-harm, initial encounter (3) Shock: Improved Off pressors 4/3 Continue IV antibiotics for aspiration pneumonia Status: Acute Additional A&P Information 59 year old male with 2nd suicide attempt admitted with multiple medication overdose, s/p emergent dialysis 2/2 metabolic acidosis and KIT likely induced by rhabdomyolysis. # Intentional drug overdose # metabolic acidosis # KIT, now improving s/p HD x 2 , metabolic derangements resolved - HD catheter removed this morning -D/c Long #initially low grade fever upon admission thought to be 2/2 drug overdose and rhabdomyolysis, resolved over past 2 days. On zosyn for presumed aspiration pneumonia day 5 today. Sputum cx with susceptible Pseudomonas Yesterday evening with tmax 100.6F, resolved without specific intervention Clinically appears to be improving, no leukocytosis. May be related to medica tion withdrawal vs rhabdomyolysis at this time. Will r/o underlying infections- check blood cx (had HD cath in place), check UA and urine cx, CXR (may have atelactasis). check procalcitonin. Incentive spirometry Encourage ambulation # Atrial fibrillation: with known atrial fibrillation, on metoprolol chronically which was on hold for hypotension. Now baseline HR 90-100 with minimal exertion raising it to 140-150. resume metoprolol 100mg BID at home dosing Check INR, resume Eliquis if INR < 2 # Systolic congestive heart failure: Improved with lasix, currently appears to be euvolemic # Diabetes: On glipizide, Januvia, metformin and Jardiance at home. Insulin for now. # History of hypertension: Resumed metoprolol today, Holding Amlodipine and lisinopril given BP within range currently # Morbid obesity # Hyperlipidemia. Hold statins given rhabdomyolysis # History of CVA, reported residual left-sided weakness on prior H&P from 2017 # Rhabdomyolysis: slowly improving DVT prophylaxis: Heparin for now, will d/c once eliquis resumed Diet: Carbohydrate consistent diet CODE STATUS: Full code Attestations Medical Necessity Statement*: continue monitoring in ICU for fever w/up, tachycardia control, transfer to NPU when medically stable Coding Level of Care Code Acute Integrity Director for Chg Fwd Diagnoses Acute encephalopathy G93.40 Overdose T50.902A Encounter type: initial encounter Injury intent: intentional self-harm Shock R57.9
--- NOTE | 2019-12-11 17:08 | XR_ITS ---
WS: [id number] CHEST XRAY TECHNIQUE: Portable chest. CLINICAL INFORMATION: follow up on lung infiltrates COMPARISON: December 09, 2019 FINDINGS: Interval removal of the endotracheal tube and enteric tube. Heart: Cardiomegaly. Lungs: Tiny right pleural effusion with right basilar atelectasis. Chronic emphysematous changes. No focal pneumonia. Bones: Normal visualized bony structures. XR/XR chest 1V portable [id number] IMPRESSION: Cardiomegaly with small right pleural effusion likely due to mild CHF. Improved pulmonary vascular congestion.
[2019-12-11 18:08] LABS: INR 0.98 (0.8-1.2)
[2019-12-11 18:23] LABS: Procalcitonin 0.38 ng/mL (0-0.5)
[2019-12-11 18:37] LABS: Glucose Point of Care 218 mg/dL (70-110)
[2019-12-11 21:09] LABS: Add Urine Microscopic? NO
[2019-12-11 21:15] LABS: Bilirubin Urine Neg (NEGATIVE); Blood Urine Neg (Negative); Glucose Urine UA 4+ (Normal); Ketones Urine Negative (Negative); Leukocyte Esterase Urine Negative (Negative); Nitrate Urine Negative (Negative); Protein Urine Neg (Negative); Urine Appearance Clear (CLEAR); Urine Color Yellow (Yellow); Urobilinogen Urine Norm (Negative); pH Urine 6 (5-7)
[2019-12-12] VITALS (15 sets, daily range): BP systolic 100–126; BP diastolic 64–85; PULSE 84–169; RESP 16–25; TEMP 36.4–37; O2SAT 94–99
[2019-12-12] MEDS: piperacillin-tazobactam 3.375 GM in sodium chloride 0.9% (plus) 50 ML IV ×2 (04:02→11:31)
[2019-12-12 06:16] LABS: Alanine Aminotransferase 52 U/L (0-41); Albumin Level 2.6 g/dL (3.5-5.2); Alkaline Phosphatase 50 IU/L (40-130); Anion Gap 17.1 (5-19); Blood Urea Nitrogen 44 mg/dL (6-20); Calcium 8.8 mg/dL (8.5-10.5); Carbon Dioxide 24 mmol/L (22-29); Chloride 97 mmol/L (98-107); Globulin 2.7 g/dL (1.3-4.6); Glomerular Filtration Rate 99.3 mL/min (90-130); Glucose 202 mg/dL (65-115); Magnesium 2.2 mg/dL (1.7-2.3); Osmolality Calculated 282 mOsm/kg (285-295); Phosphorus 3.1 mg/dL (2.5-4.5); Potassium 4.1 mmol/L (3.5-5.1); Sodium 134 mmol/L (136-145); Total Bilirubin 0.4 mg/dL (0.15-1.2); Total Protein 5.3 g/dL (6.6-8.7)
[2019-12-12 06:26] LABS: Aspartate Amino Transferase 50 U/L (0-40)
[2019-12-12 07:45] LABS: Glucose Point of Care 188 mg/dL (70-110)
[2019-12-12] MEDS: apixaban 5 mg Tablet PO ×2 (07:48→18:01)
[2019-12-12] MEDS: metoprolol tartrate 50 mg Tablet 100 MG PO ×2 (07:48→18:01)
[2019-12-12] MEDS: fluoxetine 20 mg Capsule PO (07:49)
[2019-12-12] MEDS: metoprolol tartrate 1 mg/1 mL SDV 5 mL 5 MG IV (08:11)
[2019-12-12] MEDS: amiodarone 200 mg Tablet 400 MG PO (09:55)
[2019-12-12] MEDS: fluticasone nasal spray 16gm Btl 2 SPRAY INTRANASAL (09:55)
[2019-12-12 11:36] LABS: Glucose Point of Care 268 mg/dL (70-110)
--- NOTE | 2019-12-12 12:50 | P.PN_ITS ---
Subjective Subjective: Interval history: This morning patient had episodes of A. fib, heart rates as high as 150s, heart rate down to 100, A. fib with IV metoprolol 5 mg, 400 mg of amiodarone once daily was started Overnight, patient had no complaints of chest pain, no shortness of breath, no fevers, remains afebrile, normotensive, he has no complaints this morning, sitting up into a chair Vitals/I&O/Wt Last Vital Signs Temp 98.5 F 12/12/19 10:35 Pulse 100 12/12/19 10:00 Resp 17 12/12/19 10:00 BP 110/78 12/12/19 10:00 Pulse Ox 95 12/12/19 10:00 12/11/19 12/12/19 12/12/19 22:59 06:59 14:59 Intake Total 770 / 2900 50 / 2950 50 / 50 Output Total 775 / 3025 600 / 3625 Balance -5 / -125 -550 / -675 50 / 50 Physical Exam Const: COMMON NORMALS: no apparent distress and oriented x3 HENMT: COMMON NORMALS: normocephalic HEAD & SCALP: normocephalic Neck/C-Spine: COMMON NORMALS: no JVD Resp: COMMON NORMALS: normal respiratory effort, no retractions, no use of accessory muscles and clear to auscultation bilaterally AUSCULTATION: clear to auscultation bilaterally Cardio: COMMON NORMALS: no JVD, regular rate, regular rhythm, S1 normal heart sound and S2 normal heart sound RATE: regular rate RHYTHM: regular rhythm HEART SOUNDS: S1 normal and S2 normal GI: COMMON NORMALS: normal to inspection, nondistended, normoactive bowel sounds, soft to palpation, non-tender, no hepatosplenomegaly, no masses and no bruits PALPATION: Yes soft and Yes no hepatosplenomegaly Extremity: COMMON NORMALS: normal capillary refill, no clubbing, cyanosis or edema, no calf tenderness and no pedal edema Neuro: COMMON NORMALS: oriented x3 Psych: COMMON NORMALS: mental status grossly normal Data : 12/11/19 04:53 12/12/19 04:54 Micro: Microbiology 12/07/19 08:10 Blood Culture - Final Blood NO GROWTH AFTER 5 DAYS 12/07/19 08:05 Blood Culture - Final Blood NO GROWTH AFTER 5 DAYS 12/11/19 17:53 Blood Culture - Preliminary Blood SPECIMEN COLLECTED 12/11/19 17:42 Blood Culture - Preliminary Blood SPECIMEN COLLECTED 12/09/19 11:00 Urine Culture - Final Urine Catheterized A&P Assessment and plan (1) Acute encephalopathy: Secondary to intentional overdose with multiple medications Improved Status: Acute (2) Overdose: Metformin, amlodipine, lisinopril, metoprolol. Unknown if eliquis taken Improved Dialysis x 2 Titrated off pressors, hd catheter removed Affidavit placed on the chart, sitter at bedside for home precautions Status: Acute Qualifiers: Encounter type: initial encounter Injury intent: intentional self-harm Qualified Code(s): T50.902A - Poisoning by unspecified drugs, medicaments and biological substances, intentional self-harm, initial encounter (3) Shock: Improved Off pressors 4/3 Continue IV antibiotics for aspiration pneumonia Status: Acute Additional A&P Information 59 year old male with 2nd suicide attempt admitted with multiple medication overdose, s/p emergent dialysis 2/2 metabolic acidosis and KIT likely induced by rhabdomyolysis. # Intentional drug overdose # metabolic acidosis # KIT, now improving s/p HD x 2 , metabolic derangements resolved - HD catheter removed -birch out #initially low grade fever upon admission thought to be 2/2 drug overdose and rhabdomyolysis, resolved over past 2 days. On zosyn for presumed aspiration pneumonia day 6 today. Sputum cx with susceptible Pseudomonas, remains afebrile for the last 24 hours, clinically appears to be improving, no leukocytosis. Blood cultures have been unremarkable, urine cultures have been unremarkable Incentive spirometry Encourage ambulation Transition to Levaquin # Atrial fibrillation: with known atrial fibrillation -Metoprolol 100 twice daily resumed, but continues to have atrial fibrillation, add amiodarone -Continue Eliquis # Systolic congestive heart failure: Appears to be euvolemic, hold Lasix # Diabetes: Transition to glipizide, Januvia, metformin # History of hypertension: Resumed metoprolol today, -Holding Amlodipine and lisinopril given BP within range currently # Morbid obesity # Hyperlipidemia. Hold statins given rhabdomyolysis # History of CVA, reported residual left-sided weakness on prior H&P from 2017 # Rhabdomyolysis: slowly improving, continue to monitor CK, encourage oral hydration We will consider moving patient to n.p.u. today, will continue to follow along DVT prophylaxis: eliquis Diet: Carbohydrate consistent diet CODE STATUS: Full code Attestations Medical Necessity Statement*: Patient requires continued hospitalization due to suicide attempt Coding Level of Care Code Acute Client Experience Administrator for Chg Fwd Diagnoses Acute encephalopathy G93.40 Overdose T50.902A Encounter type: initial encounter Injury intent: intentional self-harm Shock R57.9
--- NOTE | 2019-12-12 16:38 | PC.NURSE ---
report report called to CAROLA Arndt. IV discontinued cath intact and site asymptomatic.Patient taken to NPU via wheelchair with security.
[2019-12-12 17:04] LABS: Hematocrit 32.1 % (42.0-52.0); Hemoglobin 10.5 g/dL (11.7-16.6)
--- NOTE | 2019-12-12 17:36 | PM.NPN ---
Subjective NPU Subjective: Interval history: Anderson presents today denying any current problems with the Prozac and understanding the need for transfer to the neuro-psych unit. He continues to deny active lethality but understanding that we feel, at this point, that prior to discharge he should be stabilized on an antidepressant and have a better discharge/safety plan instituted. Mental Status Exam MSE Comments: This is an obese, white male, with adequate dress, grooming, and eye contact. No abnormal movements, except for mild psychomotor retardation. Cooperative with exam in no acute distress. Speech was decreased rate and volume. Mood described as okay; affect subdued. Thought process, organized. Thought content: patient denied any suicidal or homicidal ideation, there were no delusions reported or noted, patient denied any auditory or visual hallucinations. Attention, concentration, and memory appeared intact but were not formally tested. He is alert and oriented times three. Insight and judgment are impaired. Vitals/I&O/Wt Last Vital Signs Temp 97.5 F L 12/12/19 22:40 Pulse 84 12/12/19 22:40 Resp 20 H 12/12/19 22:40 BP 100/64 12/12/19 22:40 Pulse Ox 95 12/12/19 22:40 12/12/19 12/12/19 12/13/19 14:59 22:59 06:59 Intake Total 50 / 50 240 / 290 Output Total 600 / 600 Balance 50 / 50 -360 / -310 Home Medications Eliquis 5 mg PO BID 11/26/19 [History Confirmed 12/09/19] Januvia 100 mg PO DAILY 11/26/19 [History Confirmed 12/09/19] atorvastatin [Lipitor] 10 mg PO BEDTIME 11/26/19 [History Confirmed 12/09/19] fluticasone propionate [Flonase Allergy Relief] 2 spray INTRANASAL DAILY 11/26/19 [History Confirmed 12/07/19] metformin [Glucophage] 1,000 mg PO BID 11/26/19 [History Confirmed 12/07/19] potassium chloride [Klor-Con M20] 20 meq PO DAILY 11/26/19 [History Confirmed 12/07/19] Flovent HFA 2 puff INHALATION BID 11/27/19 [History Confirmed 12/09/19] amlodipine 10 mg PO DAILY 12/07/19 [History Confirmed 12/09/19] empagliflozin [Jardiance] 25 mg PO QAM 12/07/19 [History Confirmed 12/09/19] glipizide 5 mg PO DAILY 12/07/19 [History Confirmed 12/09/19] lisinopril 40 mg PO DAILY 12/07/19 [History Confirmed 12/07/19] metoprolol tartrate 100 mg PO BID 12/07/19 [History Confirmed 12/07/19] Active Medications Acetaminophen (Tylenol) 650 mg PO Q6H PRN PRN Reason: Mild/Mod Pain Or Temp >/= 101 Last Admin: 12/13/19 05:16 Dose: 650 mg Documented by: Amiodarone HCl (Cordarone) 400 mg PO DAILY [facility] Last Admin: 12/12/19 09:55 Dose: 400 mg Documented by: Apixaban (Eliquis) 5 mg PO BID [facility] Last Admin: 12/12/19 18:01 Dose: 5 mg Documented by: Artificial Tears (Isopto Tears) 1 drop EYE-BOTH Q4H PRN PRN Reason: DRY EYE(S) Dextrose (D50w) 25 ml IVP ONCE PRN; Protocol PRN Reason: hypoglycemia protocol Dextrose (D50w) 50 ml IVP PRN PRN; Protocol PRN Reason: hypoglycemia protocol Last Admin: 12/07/19 21:21 Dose: 50 ml Documented by: Dextrose (D50w) 25 ml IVP ONCE PRN; Protocol PRN Reason: hypoglycemia protocol Dextrose (D50w) 50 ml IVP PRN PRN; Protocol PRN Reason: hypoglycemia protocol Fluoxetine HCl (Prozac) 20 mg PO DAILY [facility] Last Admin: 12/12/19 07:49 Dose: 20 mg Documented by: Fluticasone Propionate (Flonase) 2 spray INTRANASAL DAILY [facility] Last Admin: 12/12/19 09:55 Dose: 2 spray Documented by: Glucagon (Glucagen) 1 mg IM ONCE PRN; Protocol PRN Reason: Adult Acute Hypoglycemia Prot. Glucagon (Glucagen) 1 mg IM ONCE PRN; Protocol PRN Reason: Adult Acute Hypoglycemia Prot. Dextrose (D5w) 500 mls @ 100 mls/hr IV ONCE PRN; Protocol PRN Reason: Adult Acute Hypoglycemia Prot Dextrose (D5w) 500 mls @ 100 mls/hr IV ONCE PRN; Protocol PRN Reason: Adult Acute Hypoglycemia Prot Dextrose (D5w) 500 mls @ 100 mls/hr IV ONCE PRN; Protocol PRN Reason: Adult Acute Hypoglycemia Prot Insulin Aspart (Novolog) 0 unit SUBCUT TIDWM [facility]; Protocol Last Admin: 12/12/19 18:01 Dose: 6 unit Documented by: Insulin Aspart (Novolog) 0 unit SUBCUT BEDTIME [facility]; Protocol Last Admin: 12/12/19 22:46 Dose: 2 unit Documented by: Levofloxacin (Levaquin) 750 mg PO DAILY@0600 [facility]; Protocol Stop: 12/17/19 05:59 Last Admin: 12/13/19 05:20 Dose: 750 mg Documented by: Metformin HCl (Glucophage) 1,000 mg PO BIDWM [facility] Last Admin: 12/12/19 18:01 Dose: 1,000 mg Documented by: Metoprolol Tartrate (Lopressor) 100 mg PO BID [facility] Last Admin: 12/12/19 18:01 Dose: 100 mg Documented by: Non-Formulary Medication (Empagliflozin [Jardiance]) [facility] Non-Formulary Medication (Glipizide) 5 mg PO DAILY [facility] Ondansetron HCl (Zofran) 4 mg IVP Q4H PRN PRN Reason: NAUSEA AND VOMITING Sitagliptin Phosphate (Januvia) 100 mg PO DAILY [facility] Data NPU : 12/12/19 16:10 12/13/19 07:28 Micro: Microbiology 12/11/19 17:53 Blood Culture - Preliminary Blood NEGATIVE TO DATE 12/11/19 17:42 Blood Culture - Preliminary Blood NEGATIVE TO DATE 12/07/19 08:10 Blood Culture - Final Blood NO GROWTH AFTER 5 DAYS 12/07/19 08:05 Blood Culture - Final Blood NO GROWTH AFTER 5 DAYS Microbiology 12/11/19 17:53 Blood Blood Culture - Preliminary NEGATIVE TO DATE 12/11/19 17:42 Blood Blood Culture - Preliminary NEGATIVE TO DATE 12/07/19 08:10 Blood Blood Culture - Final NO GROWTH AFTER 5 DAYS 12/07/19 08:05 Blood Blood Culture - Final NO GROWTH AFTER 5 DAYS A&P Additional A&P Information (1) Depressive disorder: (1) Overdose: This is a 59-year-old white male who presented to the emergency room and is now seen in the ICU secondary to an intentional overdose who endorses depression and feelings like he could not go on at the time of the ingestion but now is denying any suicidality. 1. Continue current medication. 2. Encourage individual, group and milieu therapy 3. Continue q 15 minute checks for safety (2) Depressive disorder: (2) Overdose: Involuntary Hold Information 96 Hour Hold: 96 Hour Involuntary Admission: Yes 96 Hour Hold Ending Date: 12/14/19 96 Hour Hold Ending Time: 17:30 Attestations NPU Medical Necessity Statement*: Inpatient hospitalization is medically necessary and the clinically appropriate intervention at this time. We will adjust and add medications as indicated. Likely length of stay 3-5 days Coding Level of Care Code Acute Fraud Representative for Asim Antony
[2019-12-12] MEDS: metformin 500 mg Tablet 1000 MG PO (18:01)
[2019-12-12 20:20] LABS: Glucose Point of Care 150 mg/dL (70-110)
[2019-12-12] MEDS: acetaminophen 325 mg Tablet 650 MG PO (21:59)
[2019-12-13] MEDS: acetaminophen 325 mg Tablet 650 MG PO ×2 (05:16→20:40)
--- NOTE | 2019-12-13 05:19 | PC.NURSE ---
pt c/o back pain rating 9/10. tylenol given at this time.
[2019-12-13] MEDS: levoFLOXacin 750 mg Tablet PO (05:20)
[2019-12-13 06:00] VITALS: BP 100/65; PULSE 100; RESP 18; TEMP 36.6; O2SAT 98
[2019-12-13 07:49] LABS: Creatine Phosphokinase 260 U/L (39-308)
[2019-12-13 07:50] LABS: Alanine Aminotransferase 54 U/L (0-41); Albumin Level 2.7 g/dL (3.5-5.2); Alkaline Phosphatase 36 IU/L (40-130); Anion Gap 17.5 (5-19); Aspartate Amino Transferase 43 U/L (0-40); Blood Urea Nitrogen 45 mg/dL (6-20); Calcium 8.6 mg/dL (8.5-10.5); Carbon Dioxide 24 mmol/L (22-29); Chloride 95 mmol/L (98-107); Globulin 2.4 g/dL (1.3-4.6); Glomerular Filtration Rate 86.7 mL/min (90-130); Glucose 219 mg/dL (65-115); Magnesium 1.8 mg/dL (1.7-2.3); Osmolality Calculated 281 mOsm/kg (285-295); Phosphorus 3.1 mg/dL (2.5-4.5); Potassium 3.5 mmol/L (3.5-5.1); Sodium 133 mmol/L (136-145); Total Bilirubin 0.3 mg/dL (0.15-1.2); Total Protein 5.1 g/dL (6.6-8.7)
[2019-12-13] MEDS: metformin 500 mg Tablet 1000 MG PO ×2 (08:27→17:35)
[2019-12-13 08:28] LABS: Glucose Point of Care 252 mg/dL (70-110)
[2019-12-13 08:28] LABS: Glucose Point of Care 220 mg/dL (70-110)
[2019-12-13 08:28] LABS: Glucose Point of Care 200 mg/dL (70-110)
[2019-12-13] MEDS: amiodarone 200 mg Tablet 400 MG PO (09:11)
[2019-12-13] MEDS: fluoxetine 20 mg Capsule PO (09:11)
[2019-12-13] MEDS: apixaban 5 mg Tablet PO ×2 (09:11→17:35)
[2019-12-13] MEDS: metoprolol tartrate 50 mg Tablet 100 MG PO ×2 (09:11→17:35)
[2019-12-13] MEDS: sitagliptin 100 mg Tablet PO (09:11)
[2019-12-13] MEDS: fluticasone nasal spray 16gm Btl 2 SPRAY INTRANASAL (09:12)
--- NOTE | 2019-12-13 10:37 | P.PN_ITS ---
Subjective Subjective: Interval history: This morning patient was examined in the neuropsychiatric unit, he is laying in bed, had no complaints, denies chest pain, denies shortness of breath, denied bloody or black stools, did have one episode of black stool in the intensive care unit yesterday, hemoglobin 10.5. Blood pressures have been soft, blood pressure medications are on hold. Patient states that the only person he is really close to, is his sister, he spoke to her yesterday, states that his mood is okay, as it is mary outside. Vitals/I&O/Wt Last Vital Signs Temp 97.8 F 12/13/19 06:00 Pulse 100 12/13/19 06:00 Resp 18 12/13/19 06:00 BP 100/65 12/13/19 06:00 Pulse Ox 98 12/13/19 06:00 12/12/19 12/13/19 12/13/19 22:59 06:59 14:59 Intake Total 240 / 290 Output Total 600 / 600 Balance -360 / -310 Physical Exam Const: COMMON NORMALS: no apparent distress and oriented x3 HENMT: COMMON NORMALS: normocephalic HEAD & SCALP: normocephalic Neck/C-Spine: COMMON NORMALS: no JVD Resp: COMMON NORMALS: normal respiratory effort, no retractions, no use of accessory muscles and clear to auscultation bilaterally AUSCULTATION: clear to auscultation bilaterally Cardio: COMMON NORMALS: no JVD, regular rate, regular rhythm, S1 normal heart sound and S2 normal heart sound RATE: regular rate RHYTHM: regular rhythm HEART SOUNDS: S1 normal and S2 normal GI: COMMON NORMALS: normal to inspection, nondistended, normoactive bowel s ounds, soft to palpation, non-tender, no hepatosplenomegaly, no masses and no bruits PALPATION: Yes soft and Yes no hepatosplenomegaly Extremity: COMMON NORMALS: normal capillary refill, no clubbing, cyanosis or edema, no calf tenderness and no pedal edema Neuro: COMMON NORMALS: oriented x3 Psych: COMMON NORMALS: mental status grossly normal Data : 12/12/19 16:10 12/13/19 07:28 Micro: Microbiology 12/11/19 17:53 Blood Culture - Preliminary Blood NEGATIVE TO DATE 12/11/19 17:42 Blood Culture - Preliminary Blood NEGATIVE TO DATE 12/07/19 08:10 Blood Culture - Final Blood NO GROWTH AFTER 5 DAYS 12/07/19 08:05 Blood Culture - Final Blood NO GROWTH AFTER 5 DAYS A&P Assessment and plan (1) Acute encephalopathy: Secondary to intentional overdose with multiple medications Improved Status: Acute (2) Overdose: Metformin, amlodipine, lisinopril, metoprolol. Unknown if eliquis taken Improved Dialysis x 2 Titrated off pressors, hd catheter removed Affidavit placed on the chart, sitter at bedside for home precautions Status: Acute Qualifiers: Encounter type: initial encounter Injury intent: intentional self-harm Qualified Code(s): T50.902A - Poisoning by unspecified drugs, medicaments and biological substances, intentional self-harm, initial encounter (3) Shock: Improved Off pressors 4/3 Continue IV antibiotics for aspiration pneumonia Status: Acute Additional A&P Information 59 year old male with 2nd suicide attempt admitted with multiple medication overdose, s/p emergent dialysis 2/2 metabolic acidosis and KIT likely induced by rhabdomyolysis. # Intentional drug overdose # metabolic acidosis, resolved # KIT, resolved s/p HD x 2 , metabolic derangements resolved - HD catheter removed -birch out #initially low grade fever upon admission thought to be 2/2 drug overdose and rhabdomyolysis, resolved over past 2 days. On zosyn for presumed aspiration pneu monia day 6 today. Sputum cx with susceptible Pseudomonas, remains afebrile for the last 24 hours, clinically appears to be improving, no leukocytosis. Blood cultures have been unremarkable, urine cultures have been unremarkable Incentive spirometry Encourage ambulation On oral Levaquin # Atrial fibrillation: with known atrial fibrillation -Metoprolol 100 twice daily resumed, 400 mg of amiodarone once daily -Heart rates in the 100s -Continue Eliquis # Systolic congestive heart failure: Appears to be euvolemic, hold Lasix # Diabetes: Continue metformin, low-dose sliding scale, glipizide and Januvia on hold # History of hypertension: On metoprolol -Holding Amlodipine and lisinopril given BP within range currently # Morbid obesity # Hyperlipidemia. Continue statin tomorrow # History of CVA, reported residual left-sided weakness on prior H&P from 2017 # Rhabdomyolysis: Rhabdomyolysis has resolved Currently patient is in the neuropsychiatric unit, will continue to follow along DVT prophylaxis: eliquis Diet: Carbohydrate consistent diet CODE STATUS: Full code Attestations Medical Necessity Statement*: Patient requires continued hospitalization in the neuropsychiatric unit, due to his suicide attempt Coding Level of Care Code Acute Traffic Signal Technician for g Fwd Diagnoses Acute encephalopathy G93.40 Overdose T50.902A Encounter type: initial encounter Injury intent: intentional self-harm Shock R57.9
[2019-12-13 11:45] LABS: Glucose Point of Care 236 mg/dL (70-110)
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
[2019-12-13 14:00] VITALS: BP 94/60; PULSE 97; RESP 18; TEMP 36.6; O2SAT 97
[2019-12-13 17:13] LABS: Glucose Point of Care 197 mg/dL (70-110)
[2019-12-13 19:35] LABS: Glucose Point of Care 231 mg/dL (70-110)
[2019-12-13] MEDS: trazodone 50 mg Tablet PO (20:40)
[2019-12-13] MEDS: atorvastatin 40 mg Tablet PO (20:40)
--- NOTE | 2019-12-13 20:40 | PC.NURSE ---
pt given scheduled lipitor, novolog and prn trazodone, and tylenol at this time.
[2019-12-13 20:54] VITALS: BP 96/68; PULSE 93; RESP 20; TEMP 36.7; O2SAT 99
[2019-12-14] VITALS (14 sets, daily range): BP systolic 90–120; BP diastolic 56–81; PULSE 78–120; RESP 16–24; TEMP 36.3–37.2; O2SAT 97–100
[2019-12-14 05:45] LABS: Glucose Point of Care 247 mg/dL (70-110)
[2019-12-14] MEDS: fluticasone nasal spray 16gm Btl 2 SPRAY INTRANASAL (08:03)
[2019-12-14] MEDS: apixaban 5 mg Tablet PO (08:04)
[2019-12-14] MEDS: metformin 500 mg Tablet 1000 MG PO (08:05)
[2019-12-14] MEDS: fluoxetine 20 mg Capsule PO (08:05)
[2019-12-14] MEDS: levoFLOXacin 750 mg Tablet PO (08:05)
[2019-12-14] MEDS: sitagliptin 100 mg Tablet PO (08:05)
[2019-12-14] MEDS: amiodarone 200 mg Tablet 400 MG PO (08:05)
[2019-12-14] MEDS: metoprolol tartrate 50 mg Tablet 100 MG PO (08:06)
[2019-12-14 08:19] LABS: Basophils % 0.5 %; Eosinophils # 0.2 10^3/uL (0.0-0.8); Eosinophils % 2.8 %; Hematocrit 22.8 % (42.0-52.0); Hemoglobin 7.5 g/dL (11.7-16.6); Lymphocytes # 1.3 10^3/uL (0.8-4.8); Lymphocytes % 15.4 %; Mean Corpuscular HGB Conc 32.9 g/dL (30.0-36.0); Mean Corpuscular Volume 94.2 fL (80-94); Mean Platelet Volume 10.8 fL (7.4-10.4); Monocytes % 11.5 %; Neutrophils # 5.1 10^3/uL (1.8-7.7); Neutrophils % 60.6 %; Nucleated Red Blood Cells % 0.2 %; Platelet Count 206 10^3/cmm (130-400); Positive C 1; Positive M 1; Red Blood Count 2.42 10^6/uL (4.1-5.3); Red Cell Distribution Width 12.1 % (12.1-15.1); White Blood Count 8.5 10^3/uL (4.0-10.0)
[2019-12-14 08:20] LABS: Alanine Aminotransferase 60 U/L (0-41); Albumin Level 2.8 g/dL (3.5-5.2); Alkaline Phosphatase 31 IU/L (40-130); Anion Gap 13.5 (5-19); Aspartate Amino Transferase 41 U/L (0-40); Blood Urea Nitrogen 50 mg/dL (6-20); Calcium 8.9 mg/dL (8.5-10.5); Carbon Dioxide 28 mmol/L (22-29); Chloride 97 mmol/L (98-107); Globulin 2.1 g/dL (1.3-4.6); Glomerular Filtration Rate 68.8 mL/min (90-130); Glucose 256 mg/dL (65-115); Magnesium 1.8 mg/dL (1.7-2.3); Osmolality Calculated 287 mOsm/kg (285-295); Phosphorus 3.2 mg/dL (2.5-4.5); Potassium 3.5 mmol/L (3.5-5.1); Sodium 135 mmol/L (136-145); Total Bilirubin 0.3 mg/dL (0.15-1.2); Total Protein 4.9 g/dL (6.6-8.7)
[2019-12-14 08:21] LABS: Creatine Phosphokinase 147 U/L (39-308)
[2019-12-14 09:24] LABS: Slide Review Slide Review Perform
--- NOTE | 2019-12-14 10:07 | PC.NURSE ---
PATIENT REPORTS HE PUKED IN HIS ROOM. LARGE EMESIS NOTED ON THE FLOOR BY PATIENTS NIVIA PATIENT REPORTS HE WAS FINE, ALMOST ASLEEP, BECAME SICK TO HIS STOMACH AND THREW UP. BP 100/67 HR 123 TEMP 98.5 SAT 98% R 16. WILL REPORT TO PHYSICIAN
--- NOTE | 2019-12-14 11:01 | PM.NDC ---
Diagnoses at Discharge Discharge Diagnosis (1) Melena: Status: Acute (2) Adjustment disorder with mixed disturbance of emotions and conduct: Status: Acute (3) Overdose: Status: Acute Qualifiers: Encounter type: initial encounter Injury intent: intentional self-harm Qualified Code(s): T50.902A - Poisoning by unspecified drugs, medicaments and biological substances, intentional self-harm, initial encounter Reason for Visit Reason for Visit: Reason For Visit: AMS Brief History: History of Present Illness Anderson Wang is a 59 year old male who presented to the emergency room via EMS who reportedly found him in a field in his truck unresponsive. He reports not having some memories of the circumstance but he does endorse that it was an actual intentional overdose. He reports that he currently does not have suicidal thoughts and feels fine. Though he is tearful as he is saying that. He reports that he just got to a point where he felt like he could not go on and things are overwhelming though he could not really elucidate the circumstances of how he got there. Whether it is economic, relational or what have you. He had recently been discharged from the neuro psych unit after a short stay after an intentional overdose. We discussed his reported lack of continued lethality. We additionally discussed that given his recent behavior followed up by a second attempt that barring a prolonged stay in the ICU or medical unit that a inpatient stay in the NPU was likely. We agree that if he was still needing medical attention tomorrow we would have a discussion about the risks, benefits and alternatives of starting an antidepressant. Psychiatric history: He has had 1 recent hospitalization and had not had psychiatric care during his life prior to that. Substance abuse history: He denies any significant addiction issues currently. Per recent [facility] [place]: History of Present Illness Anderson Wang is a 59 year old male who presented to the emergency room, having taken an overdose of metoprolol and clonidine, unknown quantity. He had nearly empty bottles of 50 mg tablets of metoprolol tartrate and clonidine 0.1 mg. He states he took them about 5 hours prior to arrival. There is a written note that EMS brought in along with 2 envelopes that are sealed with persons names on them. Medicines were taken and attempt to harm himself he has evidently some legal troubles and feels his family is accusing him of something he had not done. He was not bradycardic at the time of arrival. The patient has never had any psychiatric history. He was never hospitalized or treated on an outpatient basis for psychiatric disorder. He never attempted suicide previously. His family history is completely negative for such things. He has not used substances for 30 years. Hospital Course Hospital Course Anderson presented to the emergency room with EMS secondary to a second overdose in about two weeks. He was admitted to the ICU and spent several days there prior to being transferred to the neuro psych unit. On his last day on the neuro psych unit, his hemoglobin came back at 7.5 and it had been 13 on 12-09, making that a 6.5 drop in a matter of a few days and a drop from 10 the day before. The hospitalist had been continuing to follow him, came back to see him the second time after that reading came back, and he was transferred back to a med-surge unit. We had a conversation that day about what was going on with him and he was able to identify that he had been struggling with issues surrounding an accusation that had been made against him, and he reported that he had talked to his sister and the sister was going to support him as he met this challenge and that he was feeling better overall. The plan was to continue [facility] and work with the family to identify a point where there would be a safe discharge. The plan is to follow-up on the med-surge unit and see if he still needs to be on a locked unit when they are done with medical interventions. During this hospitalization he had routine laboratory studies which were within normal limits except for a few outliers. Additionally, he had a general medical evaluation which was also within normal limits outside of concerns after his overdose and then this issue with his hemoglobin which is being evaluated and addressed by the hospitalist. Discharge Summary At the time of discharge, he was still having depression, there were still concerns about his mood and anxiety. There was no psychosis and he was beginning to endorse a plan to follow-up with outpatient resources. At the time of transfer there were still concerns for lethality and he was transferred to the med-surge unit but will be followed up with consults and we will identify if we need to return him to the NPU. Involuntary Hold Information 96 Hour Hold: 96 Hour Involuntary Admission: Yes 96 Hour Hold Ending Date: 12/14/19 96 Hour Hold Ending Time: 17:30 Mental Status Exam MSE Comments: This is an obese, white male, looking older than his stated age, with adequate dress, grooming, and limited eye contact. No abnormal movements except for psychomotor retardation. Cooperative with exam in no acute distress. Speech was decreased rate and volume. Mood described as depressed and feeling sick; affect congruent. Thought process, organized. Thought content: patient denied any suicidal or homicidal ideation, there were no delusions reported or noted, patient denied any auditory or visual hallucinations. Attention, concentration, and memory appeared intact but were not formally tested. Alert and oriented times three. Insight and judgment are improving. Discharge Data Data Completed and Pending: Completed Studies During Hospitalization Category Date Time Status CT cervical spin wo con* [id number] Stat Cat Scan 12/07/19 08:[address] chest wo con 7 1250 Stat Cat Scan 12/07/19 08:[address] head wo con* 7 [id number] Stat Cat Scan 12/07/19 07:43 Completed CXRP [XR chest 1V portable [id number]] S tat Exams 12/07/19 15:50 Completed XR chest 1V elly ble [id number] Routine Exams 12/09/19 06:00 Completed XR chest 1V elly ble [id number] Routine Exams 12/11/19 17:08 Completed XR chest 1V elly ble [id number] Stat Exams 12/07/19 07:44 Completed CV echo complete* [id number] Routine Ultrasound 12/08/19 07:23 Completed US renal BI with bladder Routine Ultrasound 12/08/19 07:54 Completed Pending at discharge Category Date Time Status Arterial Blood Ga s Full Routine Lab 12/08/19 12:00 Results Blood Culture Sta t Lab 12/11/19 17:53 Results Complete Blood Co unt w/Auto AM LABS Lab 12/16/19 04:00 Ordered Comprehensive Met abolic Panel AM LA BS Lab 12/16/19 04:00 Ordered Comprehensive Met abolic Panel AM LA BS Lab 12/17/19 04:00 Ordered Hemoglobin and He matocrit Q4H Lab 12/15/19 08:00 Ordered Hemoglobin and He matocrit Q4H Lab 12/15/19 12:00 Ordered Hemoglobin and He matocrit Q4H Lab 12/15/19 16:00 Ordered Hemoglobin and He matocrit Q4H Lab 12/15/19 20:00 Ordered Hemoglobin and He matocrit Q4H Lab 12/16/19 00:00 Ordered Immunochemical Fe angeli OCB Stat Lab 12/14/19 11:21 Uncollected Magnesium AM LABS Lab 12/16/19 04:00 Ordered Magnesium AM LABS Lab 12/17/19 04:00 Ordered Phosphorus AM LAB S Lab 12/16/19 04:00 Ordered Phosphorus AM LAB S Lab 12/17/19 04:00 Ordered Labs from last 24 hours 12/15/19 12/15/19 12/15/19 05:05 05:05 05:05 WBC 6.8 RBC 2.59 L Hgb 7.9 L Hct 24.1 L MCV 93.1 MCH 30.5 MCHC 32.8 RDW 13.6 Plt Count 218 MPV 10.0 Neut % (Auto) 59.2 Lymph % (Auto) 14.1 [place] % (Auto) 12.5 Eos % (Auto) 2.8 Baso % (Auto) 0.4 Reticulocyte % (Au to) Neut # (Auto) 4.0 Lymph # (Auto) 1.0 [place] # (Auto) 0.9 Eos # (Auto) 0.2 Baso # (Auto) 0.0 Nucleated RBC % (a uto) 0.6 Nucleated RBCs # 0.0 PT 16.10 H INR 1.25 H Sodium 142 Potassium 3.9 Chloride 106 Carbon Dioxide 25 Anion Gap 14.9 BUN 45 H Creatinine 1.0 GFR Calculation 76.7 L Glucose 211 H POC Glucose Calculated Osmolal ity 298 H Calcium 8.1 L Phosphorus 2.8 Magnesium 1.8 Iron TIBC % Saturation Unsat Iron Binding Ferritin Total Bilirubin 0.5 AST 26 ALT 46 H Alkaline Phosphata se 32 L Creatine Kinase Total Protein 4.4 L Albumin 2.7 L Globulin 1.7 Blood Type Rho(D) Type Antibody Screen Crossmatch 12/15/19 12/15/19 12/14/19 05:05 00:10 21:36 WBC RBC Hgb 7.9 L 8.3 L Hct 23.8 L 24.9 L MCV MCH MCHC RDW Plt Count MPV Neut % (Auto) Lymph % (Auto) [place] % (Auto) Eos % (Auto) Baso % (Auto) Reticulocyte % (Au to) Neut # (Auto) Lymph # (Auto) [place] # (Auto) Eos # (Auto) Baso # (Auto) Nucleated RBC % (a uto) Nucleated RBCs # PT INR Sodium Potassium Chloride Carbon Dioxide Anion Gap BUN Creatinine GFR Calculation Glucose POC Glucose Calculated Osmolal ity Calcium Phosphorus Magnesium Iron TIBC % Saturation Unsat Iron Binding Ferritin Total Bilirubin AST ALT Alkaline Phosphata se Creatine Kinase 95 Total Protein Albumin Globulin Blood Type Rho(D) Type Antibody Screen Crossmatch 12/14/19 12/14/19 12/14/19 19:44 16:39 12:04 WBC RBC Hgb Hct MCV MCH MCHC RDW Plt Count MPV Neut % (Auto) Lymph % (Auto) [place] % (Auto) Eos % (Auto) Baso % (Auto) Reticulocyte % (Au to) Neut # (Auto) Lymph # (Auto) [place] # (Auto) Eos # (Auto) Baso # (Auto) Nucleated RBC % (a uto) Nucleated RBCs # PT 16.30 H INR 1.27 H Sodium Potassium Chloride Carbon Dioxide Anion Gap BUN Creatinine GFR Calculation Glucose POC Glucose 266 190 Calculated Osmolal ity Calcium Phosphorus Magnesium Iron TIBC % Saturation Unsat Iron Binding Ferritin Total Bilirubin AST ALT Alkaline Phosphata se Creatine Kinase Total Protein Albumin Globulin Blood Type Rho(D) Type Antibody Screen Crossmatch 12/14/19 12/14/19 12/14/19 12:04 12:04 12:04 WBC RBC Hgb 7.6 L Hct 23.1 L MCV MCH MCHC RDW Plt Count MPV Neut % (Auto) Lymph % (Auto) [place] % (Auto) Eos % (Auto) Baso % (Auto) Reticulocyte % (Au to) 3.3800 Neut # (Auto) Lymph # (Auto) [place] # (Auto) Eos # (Auto) Baso # (Auto) Nucleated RBC % (a uto) Nucleated RBCs # PT INR Sodium Potassium Chloride Carbon Dioxide Anion Gap BUN Creatinine GFR Calculation Glucose POC Glucose Calculated Osmolal ity Calcium Phosphorus Magnesium Iron 77 TIBC 184 % Saturation 41.8 Unsat Iron Binding 107 L Ferritin 525 H Total Bilirubin AST ALT Alkaline Phosphata se Creatine Kinase Total Protein Albumin Globulin Blood Type A Positive Rho(D) Type Positive Antibody Screen Negative Crossmatch See Detail 12/14/19 12/14/19 12/14/19 11:29 07:50 07:50 WBC 8.5 RBC 2.42 L Hgb 7.5 L Hct 22.8 L MCV 94.2 H MCH 31.0 MCHC 32.9 RDW 12.1 Plt Count 206 MPV 10.8 H Neut % (Auto) 60.6 Lymph % (Auto) 15.4 [place] % (Auto) 11.5 Eos % (Auto) 2.8 Baso % (Auto) 0.5 Reticulocyte % (Au to) Neut # (Auto) 5.1 Lymph # (Auto) 1.3 [place] # (Auto) 1.0 H Eos # (Auto) 0.2 Baso # (Auto) 0.0 Nucleated RBC % (a uto) 0.2 Nucleated RBCs # 0.0 PT INR Sodium 135 L Potassium 3.5 Chloride 97 L Carbon Dioxide 28 Anion Gap 13.5 BUN 50 H Creatinine 1.1 GFR Calculation 68.8 L Glucose 256 H POC Glucose 218 Calculated Osmolal ity 287 Calcium 8.9 Phosphorus 3.2 Magnesium 1.8 Iron TIBC % Saturation Unsat Iron Binding Ferritin Total Bilirubin 0.3 AST 41 H ALT 60 H Alkaline Phosphata se 31 L Creatine Kinase Total Protein 4.9 L Albumin 2.8 L Globulin 2.1 Blood Type Rho(D) Type Antibody Screen Crossmatch 12/14/19 07:50 WBC RBC Hgb Hct MCV MCH MCHC RDW Plt Count MPV Neut % (Auto) Lymph % (Auto) [place] % (Auto) Eos % (Auto) Baso % (Auto) Reticulocyte % (Au to) Neut # (Auto) Lymph # (Auto) [place] # (Auto) Eos # (Auto) Baso # (Auto) Nucleated RBC % (a uto) Nucleated RBCs # PT INR Sodium Potassium Chloride Carbon Dioxide Anion Gap BUN Creatinine GFR Calculation Glucose POC Glucose Calculated Osmolal ity Calcium Phosphorus Magnesium Iron TIBC % Saturation Unsat Iron Binding Ferritin Total Bilirubin AST ALT Alkaline Phosphata se Creatine Kinase 147 Total Protein Albumin Globulin Blood Type Rho(D) Type Antibody Screen Crossmatch Vitals: Last Vital Signs Temp 97.6 F 12/15/19 05:00 Pulse 105 H 12/15/19 05:00 Resp 24 H 12/15/19 05:00 BP 112/77 12/15/19 05:00 Pulse Ox 97 12/15/19 05:00 Discharge Plan Discharge Patient Disposition: Home, Self-Care Condition: Stable Prescriptions: Continued atorvastatin [Lipitor] 10 mg tablet 10 mg PO BEDTIME RF: 0 Eliquis 5 mg tablet 5 mg PO BID RF: 0 fluticasone propionate [Flonase Allergy Relief] 50 mcg/actuation spray,suspension 2 spray INTRANASAL DAILY RF: 0 Januvia 100 mg tablet 100 mg PO DAILY RF: 0 metformin [Glucophage] 1,000 mg tablet 1,000 mg PO BID RF: 0 potassium chloride [Klor-Con M20] 20 mEq tablet,ER particles/crystals 20 meq PO DAILY RF: 0 Flovent HFA 110 mcg/actuation HFA aerosol inhaler 2 puff INHALATION BID RF: 0 metoprolol tartrate 100 mg tablet 100 mg PO BID RF: 0 lisinopril 20 mg tablet 40 mg PO DAILY RF: 0 amlodipine 10 mg tablet 10 mg PO DAILY RF: 0 glipizide 5 mg tablet 5 mg PO DAILY RF: 0 Jardiance 25 mg tablet 25 mg PO QAM RF: 0 Discharge Orders: Discharge Order (Routine); Ordered 12/14/19 Ordered By: Chandana Aguilar Other Ambulatory Orders: DME: Walker (Order) Location: None Selected Ordered By: Hiram Leo Referrals: [facility] [place]Outside] (If you have any issues with your walker, you may call [facility] and the number provided.) [facility] [Outside] (Your information has been sent to [facility] to see if they can provide home health services for nursing visits and physical therapy. If you have not heard from them in 1-2 days after you are discharged, you may call them at the number provided. You may also call [facility] Case Management at [phone]. [phone] if you have any questions or concerns.) [facility] [Outside] - 4-7 days (Follow up as a walk in at [facility], walk in hours are from 7:30AM-2:00PM, first come, first seen. 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
[2019-12-14 11:33] LABS: Glucose Point of Care 218 mg/dL (70-110)
--- NOTE | 2019-12-14 11:57 | P.PN_ITS ---
Subjective Subjective: Interval history: This morning patient was examined, he had 1 black stool overnight, this morning he also had bilious emesis, denies chest pain, denies shortness of breath, denies lightheadedness, denies dizziness, his hemoglobin has dropped to 7.5, blood pressures are softer today, respiratory 18, saturating 90% on room air, patient's heart rates are between 100s to 120s, patient is on Eliquis for atrial fibrillation. Patient denies taking more Eliquis than prescribed in his suicide attempt, denies abusing Eliquis. We will move the patient to general medical floors, for upper GI bleed Vitals/I&O/Wt Last Vital Signs Temp 97.9 F 12/14/19 06:00 Pulse 120 H 12/14/19 08:18 Resp 18 12/14/19 08:18 BP 102/56 12/14/19 06:00 Pulse Ox 98 12/14/19 08:18 Physical Exam Const: COMMON NORMALS: no apparent distress and oriented x3 HENMT: COMMON NORMALS: normocephalic HEAD & SCALP: normocephalic Neck/C-Spine: COMMON NORMALS: no JVD Resp: COMMON NORMALS: normal respiratory effort, no retractions, no use of accessory muscles and clear to auscultation bilaterally AUSCULTATION: clear to auscultation bilaterally Cardio: COMMON NORMALS: no JVD, regular rate, regular rhythm, S1 normal heart sound and S2 normal heart sound RATE: regular rate RHYTHM: regular rhythm HEART SOUNDS: S1 normal and S2 normal GI: COMMON NORMALS: normal to inspection, nondistended, normoactive bowel sounds, soft to palpation, non-tender, no hepatosplenomegaly, no masses and no bruits PALPATION: Yes soft and Yes no hepatosplenomegaly Extremity: COMMON NORMALS: normal capillary refill, no clubbing, cyanosis or edema, no calf tenderness and no pedal edema Neuro: COMMON NORMALS: oriented x3 Psych: COMMON NORMALS: mental status grossly normal Data : 12/14/19 07:50 12/14/19 07:50 Micro: Microbiology 12/08/19 18:30 Blood Culture - Final Blood NO GROWTH AFTER 5 DAYS 12/08/19 17:45 Blood Culture - Final Blood NO GROWTH AFTER 5 DAYS A&P Assessment and plan (1) Upper GI bleed: -Upper GI bleed related to anticoagulation, Eliquis -Hemoglobin trending down to 7.5 -Currently blood pressure 102/56, heart rate 120, respiratory 18, saturating 90% on room air -Denies lightheadedness, chest pain, shortness of breath -Has had 2 black bowel movements, has had bilious vomiting Plan: -We will moved patient to the general medical floors -We will require one-on-one sitter -N.p.o. -Received IV fluids normal saline -Trend hemoglobins every 4 hours -Iron studies -Protonix 40 IV twice daily -Serial abdominal exams, vital signs every 2 hours, monitor for black stools, monitor emesis -We will transfuse 2 units PRBC -Last dose of Eliquis was at 8 AM this morning, half-life of 16 hours -Currently patient does not meet criteria for [place]: But if his hemoglobin drops further, becomes hemodynamically unstable, has active bleeding will speak to A second physician about dosing -Hold metoprolol -Telemetry monitoring -We will consider consulting surgery if patients condition worsens Status: Acute (2) Acute encephalopathy: Secondary to intentional overdose with multiple medications Improved Status: Acute (3) Overdose: Metformin, amlodipine, lisinopril, metoprolol. Unknown if eliquis taken Improved Dialysis x 2 Titrated off pressors, hd catheter removed Affidavit placed on the chart, sitter at bedside for home precautions Status: Acute Qualifiers: Encounter type: initial encounter Injury intent: intentional self-harm Qualified Code(s): T50.902A - Poisoning by unspecified drugs, medicaments and biological substances, intentional self-harm, initial encounter (4) Shock: Improved Off pressors 4/3 Continue IV antibiotics for aspiration pneumonia Status: Acute Additional A&P Information 59 year old male with 2nd suicide attempt admitted with multiple medication overdose, s/p emergent dialysis 2/2 metabolic acidosis and KIT likely induced by rhabdomyolysis. # Intentional drug overdose # metabolic acidosis, resolved # KIT, resolved s/p HD x 2 , metabolic derangements resolved - HD catheter removed -birch out #initially low grade fever upon admission thought to be 2/2 drug overdose and rhabdomyolysis, resolved over past 2 days. On zosyn for presumed aspiration pneumonia day 6 today. Sputum cx with susceptible Pseudomonas, remains afebrile for the last 24 hours, clinically appears to be improving, no leukocytosis. Blood cultures have been unremarkable, urine cultures have been unremarkable Incentive spirometry Encourage ambulation On oral Levaquin # Atrial fibrillation: with known atrial fibrillation -HOLD 100 twice daily resumed, 400 mg of amiodarone once daily -Heart rates in the 100s -STOP ELIQUIS # Systolic congestive heart failure: Appears to be euvolemic, hold Lasix # Diabetes: HOLd metformin, low-dose sliding scale, glipizide and Januvia on hold # History of hypertension: On metoprolol -Holding Amlodipine and lisinopril given BP within range currently # Morbid obesity # Hyperlipidemia. 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
[2019-12-14 12:21] LABS: Hematocrit 23.1 % (42.0-52.0); Hemoglobin 7.6 g/dL (11.7-16.6)
[2019-12-14 12:37] LABS: Ferritin 525 ng/mL (30-400); Iron 77 ug/dL (59-158); Percent Saturation 41.8 % (20-50); Total Iron Binding Capacity 184 mcg/dl; Unsaturated Iron Binding 107 ug/dL (112-347)
[2019-12-14 12:47] LABS: INR 1.27 (0.8-1.2)
[2019-12-14] MEDS: sodium chloride 0.9% 1,000 ML 100 ML IV ×3 (14:09→23:45)
[2019-12-14] MEDS: pantoprazole 40 mg SDV IVP ×2 (14:18→23:44)
--- NOTE | 2019-12-14 14:34 | PM.CONSULT ---
Providers/Reason For Consult Consulting Physican/Specialty*: Dr. Magallanes Reason for Consult*: Melena associated with anemia Requesting Physcian: Dr. Leo Attending Physician: Hiram Leo MD History of Present Illness History of Present Illness Chief Complaint: I have black stool History of present illness: Anderson Wang is a 59 year old male associated with multiple medical comorbidities including atrial fibrillation and has been on Eliquis, patient was admitted on the hospitalist service and he required acute dialysis and an access was placed and patient has recovered from that, currently he started to have black stools associated with drop in hemoglobin and hematocrit after he started the Eliquis. General surgery was consulted for further evaluation and potential intervention in the form of diagnostic EGD. Patient started to receive blood transfusion due to his drop in H&H Eliquis was stopped by the hospitalist service Patient denies history of peptic ulcer disease or gastritis or GERD and he recalls that he had a previous EGD about 12 years ago and he was told it was normal Review of Systems General: Reports: 10 or more systems reviewed and unremarkable except in HPI and below Meds/Allergies Home Medications and Allergies Home Medications Medication Instructions Recorded Confirmed Type Eliquis 5 mg PO BID 11/26/19 12/09/19 History Januvia 100 mg PO DAILY 11/26/19 12/09/19 History atorvastatin [Lipitor] 10 mg PO BEDTIME 11/26/19 12/09/19 History fluticasone propionate [Flonase 2 spray INTRANASAL DAILY 11/26/19 12/07/19 History Allergy Relief] metformin [Glucophage] 1,000 mg PO BID 11/26/19 12/07/19 History potassium chloride [Klor-Con M20] 20 meq PO DAILY 11/26/19 12/07/19 History Flovent HFA 2 puff INHALATION BID 11/27/19 12/09/19 History amlodipine 10 mg PO DAILY 12/07/19 12/09/19 History empagliflozin [Jardiance] 25 mg PO QAM 12/07/19 12/09/19 History glipizide 5 mg PO DAILY 12/07/19 12/09/19 History lisinopril 40 mg PO DAILY 12/07/19 12/07/19 History metoprolol tartrate 100 mg PO BID 04/01/20 04/01/20 History Allergies Allergy/AdvReac Type Severity Reaction Status Date / Time No Known Allergies Allergy Verified 12/14/19 15:24 Current Medications Current Medications Generic Name Dose Route Start Last Admin Trade Name Freq PRN Reason Stop Dose Admin Acetaminophen 650 mg 12/07/19 15:32 12/13/19 20:40 Tylenol PO 650 mg Q6H PRN Administration Mild/Mod Pain Or Temp >/= 101 Amiodarone HCl 400 mg 12/12/19 09:00 12/14/19 08:05 Cordarone PO 400 mg DAILY PASTORA Administration Atorvastatin Calcium 40 mg 12/13/19 21:00 12/13/19 20:40 Lipitor PO 40 mg BEDTIME PASTORA Administration Dextrose 50 ml 12/07/19 14:42 12/07/19 21:21 D50w IVP 50 ml PRN PRN Administration hypoglycemia protocol Protocol Fluoxetine HCl 20 mg 12/12/19 09:00 12/14/19 08:05 Prozac PO 20 mg DAILY PASTORA Administration Fluticasone Propionate 2 spray 12/12/19 09:00 12/14/19 08:03 Flonase INTRANASAL 2 spray DAILY PASTORA Administration Fluticasone Propionate 2 puff 12/13/19 18:00 12/14/19 08:17 Flovent 110 Mcg Inhaler INHALATION 2 puff BID PASTORA Administration Sodium Chloride 1,000 mls @ 100 mls/hr 12/14/19 11:45 12/14/19 14:19 Sodium Chloride 0.9% IV 100 mls/hr .Q10H PASTORA Administration Insulin Aspart 0 unit 12/14/19 08:00 12/14/19 11:50 Novolog SUBCUT 6 unit TIDWM PASTORA Administration Protocol Levofloxacin 750 mg 12/13/19 06:00 12/14/19 08:05 Levaquin PO 12/17/19 05:59 750 mg DAILY@0600 PASTORA Administration Protocol Metformin HCl 1,000 mg 12/12/19 18:00 12/14/19 08:05 Glucophage PO 1,000 mg BIDWM PASTORA Administration Metoprolol Tartrate 100 mg 12/11/19 18:00 12/14/19 08:06 Lopressor PO 100 mg BID PASTORA Administration Pantoprazole Sodium 40 mg 12/14/19 12:00 12/14/19 14:18 Protonix IVP 40 mg Q12H PASTORA Administration Sitagliptin Phosphate 100 mg 12/13/19 09:00 12/14/19 08:05 Januvia PO 100 mg DAILY PASTORA Administration Trazodone HCl 50 mg 12/13/19 19:51 12/13/19 20:40 Desyrel PO 50 mg BEDTIME PRN Administration SLEEP PFSH Acute PFSH: Medical History Atrial fibrillation 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 History of pancreatitis History of gallstone pancreatitis requiring prolonged hospital stay, normal intra-abdominal surgery and subsequent tracheostomy/reversal Hyperlipidemia Hypertension Morbid obesity Osteoarthritis Systolic CHF, chronic Surgical History History of appendectomy History of cholecystectomy Hx of tracheostomy With reversal S/P dialysis catheter insertion (12/2019) Social History Smoking and tobacco status: former smoker Vitals/I&O/Wt Last Vital Signs Temp 98.9 F 12/14/19 14:03 Pulse 89 12/14/19 14:03 Resp 16 12/14/19 14:03 BP 93/63 12/14/19 14:03 Pulse Ox 99 12/14/19 14:03 12/13/19 12/14/19 12/14/19 22:59 06:59 14:59 Intake Total 16.667 / 16.667 Balance 16.667 / 16.667 Physical Exam Narrative: EXAM NARRATIVE: Patient is conscious alert oriented X3 BMI 38 Head and neck examination PERRLA no masses no cervical lymphadenopathy no jaundice Cardiac examination audible S1-S2 no murmurs no gallops no arrhythmias Chest is clear bilateral,abscence of Rhonchi or wheezes,no surgical emphysema Abdomen nontender nondistended soft no organomegaly guarding or rigidity/no signs of peritonitis Obese Data Micro: Micro: Microbiology 12/08/19 18:30 Blood Culture - Fi nal Blood NO GROWTH AFTER 5 DAYS 12/08/19 17:45 Blood Culture - Fi nal Blood NO GROWTH AFTER 5 DAYS A&P Assessment and plan (1) Melena: Plan of care; After thorough history and physical examination and reviewing the chart, plan to perform a diagnostic esophagogastroduodenoscopy and possible biopsy in the operating room tomorrow due patient's medical comorbioddities including Obesity and potential airway compromise. Informed consent per chart were,Indications, risks, benefits, and alternatives were all discussed with the patient and did agree to proceed. Status: Acute Consult Attestations Medical Necessity Statement: Medical necessity care is expected to cross 2 midnights Time Spent in Patient Care: 16 - 35 minutes (>than 50% of time spent in counselling and/or direct pt care on unit). 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
[2019-12-14] MEDS: sodium chloride 0.9% 100 ML 50 ML ×2 (15:34→18:06)
--- NOTE | 2019-12-14 15:50 | PC.SOCIAL ---
IMM Updated Page 2 of IMM updated and given to patient. Initialed, dated, and timed and placed back in chart.
[2019-12-14 16:45] LABS: Glucose Point of Care 190 mg/dL (70-110)
[2019-12-14] MEDS: ondansetron 2 mg/ML SDV 2 mL 4 MG IVP (19:48)
[2019-12-14 21:39] LABS: Glucose Point of Care 266 mg/dL (70-110)
[2019-12-14 21:41] LABS: Hematocrit 24.9 % (42.0-52.0); Hemoglobin 8.3 g/dL (11.7-16.6)
[2019-12-15] VITALS (17 sets, daily range): BP systolic 90–129; BP diastolic 63–83; PULSE 82–128; RESP 16–24; TEMP 36.4–36.9; O2SAT 94–100
[2019-12-15 00:23] LABS: Hematocrit 23.8 % (42.0-52.0); Hemoglobin 7.9 g/dL (11.7-16.6)
[2019-12-15 05:19] LABS: Basophils % 0.4 %; Eosinophils # 0.2 10^3/uL (0.0-0.8); Eosinophils % 2.8 %; Hematocrit 24.1 % (42.0-52.0); Hemoglobin 7.9 g/dL (11.7-16.6); Lymphocytes % 14.1 %; Mean Corpuscular HGB Conc 32.8 g/dL (30.0-36.0); Mean Corpuscular Hemoglobin 30.5 pg (28.0-34.0); Mean Corpuscular Volume 93.1 fL (80-94); Monocytes # 0.9 10^3/uL (0.2-0.9); Monocytes % 12.5 %; Neutrophils % 59.2 %; Nucleated Red Blood Cells % 0.6 %; Platelet Count 218 10^3/cmm (130-400); Red Blood Count 2.59 10^6/uL (4.1-5.3); Red Cell Distribution Width 13.6 % (12.1-15.1); White Blood Count 6.8 10^3/uL (4.0-10.0)
[2019-12-15] MEDS: levoFLOXacin 750 mg Tablet PO (05:23)
[2019-12-15 05:28] LABS: INR 1.25 (0.8-1.2)
[2019-12-15 05:49] LABS: Slide Review Slide Review Perform
[2019-12-15 05:55] LABS: Alanine Aminotransferase 46 U/L (0-41); Albumin Level 2.7 g/dL (3.5-5.2); Alkaline Phosphatase 32 IU/L (40-130); Anion Gap 14.9 (5-19); Aspartate Amino Transferase 26 U/L (0-40); Blood Urea Nitrogen 45 mg/dL (6-20); Calcium 8.1 mg/dL (8.5-10.5); Carbon Dioxide 25 mmol/L (22-29); Chloride 106 mmol/L (98-107); Creatine Phosphokinase 95 U/L (39-308); Globulin 1.7 g/dL (1.3-4.6); Glomerular Filtration Rate 76.7 mL/min (90-130); Glucose 211 mg/dL (65-115); Magnesium 1.8 mg/dL (1.7-2.3); Osmolality Calculated 298 mOsm/kg (285-295); Phosphorus 2.8 mg/dL (2.5-4.5); Potassium 3.9 mmol/L (3.5-5.1); Sodium 142 mmol/L (136-145); Total Bilirubin 0.5 mg/dL (0.15-1.2); Total Protein 4.4 g/dL (6.6-8.7)
--- NOTE | 2019-12-15 06:11 | PC.NURSE ---
dr Magallanes at bedside. updated him on pt's H&H of 7.9 and pt's episode of HR in the 180's when ambulating to the bathroom which resolved once pt back in bed. Dr Magallanes will be following up with Dr Leo whether or not to do the EGD procedure and I will let Day shift nurse know.
--- NOTE | 2019-12-15 06:14 | PC.NURSE ---
0400-pt ambulating to the restroom. HR elevated to the 180's. pt not symptomatic. assisted pt back to bed. HR went back down to 100-110's. pt denies any cp, sob or symptoms. continuing to monitor pt.
[2019-12-15 06:22] LABS: Absolute Eosinophils 0.1 10^3/cmm (0.0-0.7); Absolute Segmented Neutrophil 4.9 10/cmm (1.6-7.1); Band Neutrophils Absolute 0.1 10^3/cmm (0.0-1.2); Eosinophils 2 %; Lymphocytes 11 %; Monocytes Absolute 0.4 10^3/cmm (0.1-0.6); Segmented Neutrophils 73 %; Total Cells Counted 100 (0-100)
[2019-12-15 06:23] LABS: Platelet Estimate Normal (Normal)
[2019-12-15 06:49] LABS: Glucose Point of Care 205 mg/dL (70-110)
--- NOTE | 2019-12-15 07:43 | P.ANESASSM_ITS ---
Pre-Anesthetic Assessment Pre-Anesthetic Assessment: Height/Weight: Height 1.83 m Weight 125.645 kg Temp Pulse Resp BP Pulse Ox 97.6 F 105 H 24 H 112/77 97 12/15/19 05:00 12/15/19 05:00 12/15/19 05:00 12/15/19 05:00 12/15/19 05:00 Preop Diagnosis: melanotic stools Proposed Procedure: Operation Date: 12/15/19 12:25 Proposed Procedures p EGD at 0900(Not Applicable) - Alcidse Magallanes MD Familial anesthetic complications: None Was Beta Jem taken within 24 hours: Yes Last intake: Intake Water 4 oz at 0700 Last Liquid Date 12/14/19 Last Liquid Time 00:00 Last Solid Date 12/06/19 Last Solid Time 20:00 Social: Social History: Tobacco and No alcohol Exam: Pre-Anes Outpt Exam: alert, oriented x 3 and clear to auscultation bilaterally Additional Exam Findings (including area of procedure): afib Airway: Cervical ROM: WNL MP: 4 Additional comments: missing Pulmonary: Pulmonary: COPD Comments: hx tracheostomy after episode of gallstone pancreatitis that required prolonged hospital stay and surgery CV/HEM: CV/HEM: Afib, Anemia (hb 7.5 on arrival - got 2 prbcs last nigh), Arrythmia, CHF and HTN Comments: A fib w/ elevated HR on metoprolol and eliquis (metoprolol held last night for low BP, however per nursing notes thom ent had episode of HR in 180s while ambulating to toilet which quickly resolved once getting back into bed. spoke w/ dr phan and he will give another dose of metoprolol) EKG - a fib w/ old inferior mi echo 12/07 - poor study, but ef 50%, low normal LV systolic function Hx systolic CHF Severe cardiomegaly on CXR : : Chronic renal failure Comments: on dialysis now ([facility]) Hepatic: Hepatic: None reported GI: Comments: melanotic stools, one episode of bilious emesis yesterday morning (vomited yesterday night)- no further vomiting or nausea, no NG hx gallstone pancreatitis Metabolic: Metabolic: DM, Hyperlipidemia and Morbid obesity Musc/skel: Musc/skel: None reported Neuropsych: Neuropsych: CVA (seen on head CT- residual L sided weakness) Comments: recent suicide attempt from overdose of metoprolol and clonidine Anesthetic Plan: ASA status: 4 Anesthesia: MAC Meds/Allergies Current Medications: Current Medications Generic Name Dose Route Start Last Admin Trade Name Freq PRN Reason Stop Dose Admin Acetaminophen 650 mg 12/07/19 15:32 12/13/19 20:40 Tylenol PO 650 mg Q6H PRN Administration Mild/Mod Pain Or Temp >/= 101 Amiodarone HCl 400 mg 12/12/19 09:00 12/14/19 08:05 Cordarone PO 400 mg DAILY PASTORA Administration Atorvastatin Calci um 40 mg 12/13/19 21:00 12/14/19 19:43 Lipitor PO Not Given BEDTIME PASTORA Dextrose 50 ml 12/07/19 14:42 12/07/19 21:21 D50w IVP 50 ml PRN PRN Administration hypoglycemia prot ocol Protocol Fluoxetine HCl 20 mg 12/12/19 09:00 12/14/19 08:05 Prozac PO 20 mg DAILY PASTORA Administration Fluticasone Propio kaylie 2 spray 12/12/19 09:00 12/14/19 08:03 Flonase INTRANASAL 2 spray DAILY PASTORA Administration Fluticasone Propio kaylie 2 puff 12/13/19 18:00 12/14/19 20:26 Flovent 110 Mcg Inhaler INHALATION 2 puff BID PASTORA Administration Sodium Chloride 1,000 mls @ 100 m ls/hr 12/14/19 11:45 12/14/19 23:45 Sodium Chloride 0.9% IV 100 mls/hr .Q10H PASTORA Administration Insulin Aspart 0 unit 12/14/19 08:00 12/14/19 18:06 Novolog SUBCUT 4 unit TIDWM PASTORA Administration Protocol Insulin Aspart 0 unit 12/14/19 21:00 12/14/19 19:48 Novolog SUBCUT 5 unit BEDTIME PASTORA Administration Protocol Levofloxacin 750 mg 12/13/19 06:00 12/15/19 05:23 Levaquin PO 12/17/19 05:59 750 mg DAILY@0600 PASTORA Administration Protocol Metformin HCl 1,000 mg 12/12/19 18:00 12/14/19 08:05 Glucophage PO 1,000 mg BIDWM PASTORA Administration Metoprolol Tartrat e 100 mg 12/11/19 18:00 12/14/19 08:06 Lopressor PO 100 mg BID PASTORA Administration Ondansetron HCl 4 mg 12/12/19 00:25 12/14/19 19:48 Zofran IVP 4 mg Q4H PRN Administration NAUSEA AND VOMITI NG Pantoprazole Sodiu m 40 mg 12/14/19 12:00 12/14/19 23:44 Protonix IVP 40 mg Q12H PASTORA Administration Sitagliptin Phosph ate 100 mg 12/13/19 09:00 12/14/19 08:05 Januvia PO 100 mg DAILY PASTORA Administration Trazodone HCl 50 mg 12/13/19 19:51 12/13/19 20:40 Desyrel PO 50 mg BEDTIME PRN Administration SLEEP Additional Medication Information: Current Medications Acetaminophen (Tylenol) 650 mg PO Q6H PRN PRN Reason: Mild/Mod Pain Or Temp >/= 101 Last Admin: 12/10/19 01:08 Dose: 650 mg Documented by: Artificial Tears (Isopto Tears) 1 drop EYE-BOTH Q4H PRN PRN Reason: DRY EYE(S) Dextrose (D50w) 25 ml IVP ONCE PRN; Protocol PRN Reason: hypoglycemia protocol Dextrose (D50w) 50 ml IVP PRN PRN; Protocol PRN Reason: hypoglycemia protocol Last Admin: 12/07/19 21:21 Dose: 50 ml Documented by: Furosemide (Lasix) 40 mg IVP Q12H [facility] Last Admin: 12/11/19 06:31 Dose: 40 mg Documented by: Glucagon (Glucagen) 1 mg IM ONCE PRN; Protocol PRN Reason: Adult Acute Hypoglycemia Prot. Heparin Sodium (Beef Lung) (Heparin) 5,000 unit SUBCUT Q12H [facility] Last Admin: 12/10/19 20:15 Dose: 5,000 unit Documented by: Norepinephrine Bitartrate 4 mg (/ Dextrose) 254 mls @ 0 mls/hr IV .Q0M [facility]; Protocol Last Titration: 12/09/19 11:24 Dose: 0 mcg/min, 0 mls/hr Documented by: Dextrose (D5w) 500 mls @ 100 mls/hr IV ONCE PRN; Protocol PRN Reason: Adult Acute Hypoglycemia Prot Dextrose (D10w) 1,000 mls @ 25 mls/hr IV .Q24H [facility] Last Admin: 12/10/19 16:22 Dose: Not Given Documented by: Propofol (Diprivan) 1,000 mg in 100 mls @ 0 mls/hr IV .Q0M PASTORA; Protocol Last Titration: 12/09/19 10:10 Dose: Infused Documented by: Piperacillin Sod/Tazobactam (Sod 3.375 gm/ Sodium Chloride) 50 mls @ 12.5 mls/hr IV Q8H PASTORA; Protocol Last Admin: 12/11/19 03:33 Dose: 12.5 mls/hr Documented by: Dextrose (D5w) 500 mls @ 100 mls/hr IV ONCE PRN; Protocol PRN Reason: Adult Acute Hypoglycemia Prot Insulin Aspart (Novolog) 0 unit SUBCUT BEDTIME PASTORA; Protocol Last Admin: 12/10/19 20:20 Dose: 2 unit Documented by: Insulin Aspart (Novolog) 0 unit SUBCUT TIDWM PASTORA; Protocol Last Admin: 12/10/19 18:27 Dose: 4 unit Documented by: Metoprolol Tartrate (Metoprolol Tartrate) 2.5 mg IV Q4H PASTORA Last Admin: 12/11/19 06:31 Dose: 2.5 mg Documented by: Ondansetron HCl (Zofran) 4 mg IVP Q8H PRN PRN Reason: vomiting, or N/V if npo Last Admin: 12/09/19 01:02 Dose: 4 mg Documented by: [facility] Anesthesia PFSH: Medical History Atrial fibrillation 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 History of pancreatitis History of gallstone pancreatitis requiring prolonged hospital stay, normal intra-abdominal surgery and subsequent tracheostomy/reversal Hyperlipidemia Hypertension Morbid obesity Osteoarthritis Systolic CHF, chronic Surgical History History of appendectomy History of cholecystectomy Hx of tracheostomy With reversal S/P dialysis catheter insertion (12/2019) Social History Smoking and tobacco status: former smoker Supplemental [facility] Information: Permission obtained from chart review, no further information available from patient due to clinical condition Data Anesthesia CBC & Chem 7: 12/15/19 07:46 12/15/19 05:05 Other Labs: Laboratory Results - last 48 hr 12/12/19 12/12/19 12/13/19 17:51 21:03 06:09 WBC RBC Hgb Hct MCV MCH MCHC RDW Plt Count MPV Neut % (Auto) Lymph % (Auto) [place] % (Auto) Eos % (Auto) Baso % (Auto) Reticulocyte % (Auto) Neut # (Auto) Lymph # (Auto) [place] # (Auto) Eos # (Auto) Baso # (Auto) Nucleated RBC % (auto) Total Counted Segmented Neutrophils Band Neutrophils Lymphocytes (Manual) Monocytes (Manual) Absolute Monocytes Eosinophils (Manual) Absolute Eosinophils Metamyelocytes Myelocytes Nucleated RBCs # Platelet Estimate PT INR Sodium Potassium Chloride Carbon Dioxide Anion Gap BUN Creatinine GFR Calculation Glucose POC Glucose 252 220 200 Calculated Osmolality Calcium Phosphorus Magnesium Iron TIBC % Saturation Unsat Iron Binding Ferritin Total Bilirubin AST ALT Alkaline Phosphatase Creatine Kinase Total Protein Albumin Globulin Blood Type Rho(D) Type Antibody Screen Crossmatch 12/13/19 12/13/19 12/13/19 07:28 07:28 11:42 WBC RBC Hgb Hct MCV MCH MCHC RDW Plt Count MPV Neut % (Auto) Lymph % (Auto) [place] % (Auto) Eos % (Auto) Baso % (Auto) Reticulocyte % (Auto) Neut # (Auto) Lymph # (Auto) [place] # (Auto) Eos # (Auto) Baso # (Auto) Nucleated RBC % (auto) Total Counted Segmented Neutrophils Band Neutrophils Lymphocytes (Manual) Monocytes (Manual) Absolute Monocytes Eosinophils (Manual) Absolute Eosinophils Metamyelocytes Myelocytes Nucleated RBCs # Platelet Estimate PT INR Sodium 133 L Potassium 3.5 Chloride 95 L Carbon Dioxide 24 Anion Gap 17.5 BUN 45 H Creatinine 0.9 GFR Calculation 86.7 L Glucose 219 H POC Glucose 236 Calculated Osmolality 281 L Calcium 8.6 Phosphorus 3.1 Magnesium 1.8 Iron TIBC % Saturation Unsat Iron Binding Ferritin Total Bilirubin 0.3 AST 43 H ALT 54 H Alkaline Phosphatase 36 L Creatine Kinase 260 Total Protein 5.1 L Albumin 2.7 L Globulin 2.4 Blood Type Rho(D) Type Antibody Screen Crossmatch 12/13/19 12/13/19 12/14/19 17:10 19:32 05:41 WBC RBC Hgb Hct MCV MCH MCHC RDW Plt Count MPV Neut % (Auto) Lymph % (Auto) [place] % (Auto) Eos % (Auto) Baso % (Auto) Reticulocyte % (Auto) Neut # (Auto) Lymph # (Auto) [place] # (Auto) Eos # (Auto) Baso # (Auto) Nucleated RBC % (auto) Total Counted Segmented Neutrophils Band Neutrophils Lymphocytes (Manual) Monocytes (Manual) Absolute Monocytes Eosinophils (Manual) Absolute Eosinophils Metamyelocytes Myelocytes Nucleated RBCs # Platelet Estimate PT INR Sodium Potassium Chloride Carbon Dioxide Anion Gap BUN Creatinine GFR Calculation Glucose POC Glucose 197 231 247 Calculated Osmolality Calcium Phosphorus Magnesium Iron TIBC % Saturation Unsat Iron Binding Ferritin Total Bilirubin AST ALT Alkaline Phosphatase Creatine Kinase Total Protein Albumin Globulin Blood Type Rho(D) Type Antibody Screen Crossmatch 12/14/19 12/14/19 12/14/19 07:50 07:50 07:50 WBC 8.5 RBC 2.42 L Hgb 7.5 L Hct 22.8 L MCV 94.2 H MCH 31.0 MCHC 32.9 RDW 12.1 Plt Count 206 MPV 10.8 H Neut % (Auto) 60.6 Lymph % (Auto) 15.4 [place] % (Auto) 11.5 Eos % (Auto) 2.8 Baso % (Auto) 0.5 Reticulocyte % (Auto) Neut # (Auto) 5.1 Lymph # (Auto) 1.3 [place] # (Auto) 1.0 H Eos # (Auto) 0.2 Baso # (Auto) 0.0 Nucleated RBC % (auto) 0.2 Total Counted Segmented Neutrophils Band Neutrophils Lymphocytes (Manual) Monocytes (Manual) Absolute Monocytes Eosinophils (Manual) Absolute Eosinophils Metamyelocytes Myelocytes Nucleated RBCs # 0.0 Platelet Estimate PT INR Sodium 135 L Potassium 3.5 Chloride 97 L Carbon Dioxide 28 Anion Gap 13.5 BUN 50 H Creatinine 1.1 GFR Calculation 68.8 L Glucose 256 H POC Glucose Calculated Osmolality 287 Calcium 8.9 Phosphorus 3.2 Magnesium 1.8 Iron TIBC % Saturation Unsat Iron Binding Ferritin Total Bilirubin 0.3 AST 41 H ALT 60 H Alkaline Phosphatase 31 L Creatine Kinase 147 Total Protein 4.9 L Albumin 2.8 L Globulin 2.1 Blood Type Rho(D) Type Antibody Screen Crossmatch 12/14/19 12/14/19 12/14/19 11:29 12:04 12:04 WBC RBC Hgb 7.6 L Hct 23.1 L MCV MCH MCHC RDW Plt Count MPV Neut % (Auto) Lymph % (Auto) [place] % (Auto) Eos % (Auto) Baso % (Auto) Reticulocyte % (Auto) 3.3800 Neut # (Auto) Lymph # (Auto) [place] # (Auto) Eos # (Auto) Baso # (Auto) Nucleated RBC % (auto) Total Counted Segmented Neutrophils Band Neutrophils Lymphocytes (Manual) Monocytes (Manual) Absolute Monocytes Eosinophils (Manual) Absolute Eosinophils Metamyelocytes Myelocytes Nucleated RBCs # Platelet Estimate PT INR Sodium Potassium Chloride Carbon Dioxide Anion Gap BUN Creatinine GFR Calculation Glucose POC Glucose 218 Calculated Osmolality Calcium Phosphorus Magnesium Iron 77 TIBC 184 % Saturation 41.8 Unsat Iron Binding 107 L Ferritin 525 H Total Bilirubin AST ALT Alkaline Phosphatase Creatine Kinase Total Protein Albumin Globulin Blood Type Rho(D) Type Antibody Screen Crossmatch 12/14/19 12/14/19 12/14/19 12:04 12:04 16:39 WBC RBC Hgb Hct MCV MCH MCHC RDW Plt Count MPV Neut % (Auto) Lymph % (Auto) [place] % (Auto) Eos % (Auto) Baso % (Auto) Reticulocyte % (Auto) Neut # (Auto) Lymph # (Auto) [place] # (Auto) Eos # (Auto) Baso # (Auto) Nucleated RBC % (auto) Total Counted Segmented Neutrophils Band Neutrophils Lymphocytes (Manual) Monocytes (Manual) Absolute Monocytes Eosinophils (Manual) Absolute Eosinophils Metamyelocytes Myelocytes Nucleated RBCs # Platelet Estimate PT 16.30 H INR 1.27 H Sodium Potassium Chloride Carbon Dioxide Anion Gap BUN Creatinine GFR Calculation Glucose POC Glucose 190 Calculated Osmolality Calcium Phosphorus Magnesium Iron TIBC % Saturation Unsat Iron Binding Ferritin Total Bilirubin AST ALT Alkaline Phosphatase Creatine Kinase Total Protein Albumin Globulin Blood Type A Positive Rho(D) Type Positive Antibody Screen Negative Crossmatch See Detail 12/14/19 12/14/19 12/15/19 19:44 21:36 00:10 WBC RBC Hgb 8.3 L 7.9 L Hct 24.9 L 23.8 L MCV MCH MCHC RDW Plt Count MPV Neut % (Auto) Lymph % (Auto) [place] % (Auto) Eos % (Auto) Baso % (Auto) Reticulocyte % (Auto) Neut # (Auto) Lymph # (Auto) [place] # (Auto) Eos # (Auto) Baso # (Auto) Nucleated RBC % (auto) Total Counted Segmented Neutrophils Band Neutrophils Lymphocytes (Manual) Monocytes (Manual) Absolute Monocytes Eosinophils (Manual) Absolute Eosinophils Metamyelocytes Myelocytes Nucleated RBCs # Platelet Estimate PT INR Sodium Potassium Chloride Carbon Dioxide Anion Gap BUN Creatinine GFR Calculation Glucose POC Glucose 266 Calculated Osmolality Calcium Phosphorus Magnesium Iron TIBC % Saturation Unsat Iron Binding Ferritin Total Bilirubin AST ALT Alkaline Phosphatase Creatine Kinase Total Protein Albumin Globulin Blood Type Rho(D) Type Antibody Screen Crossmatch 12/15/19 12/15/19 12/15/19 05:05 05:05 05:05 WBC 6.8 RBC 2.59 L Hgb 7.9 L Hct 24.1 L MCV 93.1 MCH 30.5 MCHC 32.8 RDW 13.6 Plt Count 218 MPV 10.0 Neut % (Auto) 59.2 Lymph % (Auto) 14.1 [place] % (Auto) 12.5 Eos % (Auto) 2.8 Baso % (Auto) 0.4 Reticulocyte % (Auto) Neut # (Auto) 4.0 Lymph # (Auto) 1.0 [place] # (Auto) 0.9 Eos # (Auto) 0.2 Baso # (Auto) 0.0 Nucleated RBC % (auto) 0.6 Total Counted 100 Segmented Neutrophils 73 Band Neutrophils 1.0 Lymphocytes (Manual) 11 Monocytes (Manual) 6.0 Absolute Monocytes 0.4 Eosinophils (Manual) 2 Absolute Eosinophils 0.1 Metamyelocytes 1.0 Myelocytes 6.0 Nucleated RBCs # 0.0 Platelet Estimate Normal PT 16.10 H INR 1.25 H Sodium Potassium Chloride Carbon Dioxide Anion Gap BUN Creatinine GFR Calculation Glucose POC Glucose Calculated Osmolality Calcium Phosphorus Magnesium Iron TIBC % Saturation Unsat Iron Binding Ferritin Total Bilirubin AST ALT Alkaline Phosphatase Creatine Kinase 95 Total Protein Albumin Globulin Blood Type Rho(D) Type Antibody Screen Crossmatch 12/15/19 12/15/19 05:05 06:19 WBC RBC Hgb Hct MCV MCH MCHC RDW Plt Count MPV Neut % (Auto) Lymph % (Auto) [place] % (Auto) Eos % (Auto) Baso % (Auto) Reticulocyte % (Auto) Neut # (Auto) Lymph # (Auto) [place] # (Auto) Eos # (Auto) Baso # (Auto) Nucleated RBC % (auto) Total Counted Segmented Neutrophils Band Neutrophils Lymphocytes (Manual) Monocytes (Manual) Absolute Monocytes Eosinophils (Manual) Absolute Eosinophils Metamyelocytes Myelocytes Nucleated RBCs # Platelet Estimate PT INR Sodium 142 Potassium 3.9 Chloride 106 Carbon Dioxide 25 Anion Gap 14.9 BUN 45 H Creatinine 1.0 GFR Calculation 76.7 L Glucose 211 H POC Glucose 205 Calculated Osmolality 298 H Calcium 8.1 L Phosphorus 2.8 Magnesium 1.8 Iron TIBC % Saturation Unsat Iron Binding Ferritin Total Bilirubin 0.5 AST 26 ALT 46 H Alkaline Phosphatase 32 L Creatine Kinase Total Protein 4.4 L Albumin 2.7 L Globulin 1.7 Blood Type Rho(D) Type Antibody Screen Crossmatch Cardiac Studies: No Data to Display
[2019-12-15 08:04] LABS: Hematocrit 22.8 % (42.0-52.0); Hemoglobin 7.4 g/dL (11.7-16.6)
[2019-12-15] MEDS: metoprolol tartrate 50 mg Tablet PO (08:24)
--- NOTE | 2019-12-15 08:30 | P.PN_ITS ---
Subjective Subjective: Interval history: Patient overall is about the same and no evidence of bleeding per rectum at this point or melena. Received units of packed RBCs and hemoglobin still on the lower side Vitals/I&O/Wt Last Vital Signs Temp 97.6 F 12/15/19 05:00 Pulse 105 H 12/15/19 05:00 Resp 24 H 12/15/19 05:00 BP 112/77 12/15/19 05:00 Pulse Ox 97 12/15/19 05:00 12/14/19 12/15/19 12/15/19 22:59 06:59 14:59 Intake Total 1190 / 1206.667 943.333 / 2150.000 Balance 1190 / 1206.667 943.333 / 2150.000 Physical Exam Narrative: EXAM NARRATIVE: Patient is conscious alert oriented X3 BMI 38 Head and neck examination PERRLA no masses no cervical Abdomen nontender nondistended soft no organomegaly guarding or rigidity/no signs of peritonitis Data : 12/15/19 07:46 12/15/19 05:05 A&P Assessment and plan (1) Melena: Plan of care; After thorough history and physical examination and reviewing the chart, plan to perform a diagnostic esophagogastroduodenoscopy and possible biopsy in the operating room today due patient's medical comorbioddities including Obesity and potential airway compromise. Informed consent per chart were,Indications, risks, benefits, and alternatives were all discussed with the patient and did agree to proceed. Case has been discussed with Dr. Eldridge anesthesia provider and Dr. Partida with appropriateness to proceed at this point due to patient's cardiac condition. Status: Acute Attestations Medical Necessity Statement*: Medical necessity care is expected to cross 2 midnights Time Spent in Patient Care: 16 - 35 minutes (>than 50% of time spent in counselling and/or direct pt care on unit) . Coding Level of Care Code Acute Creative Services Specialist for Asim Antony Diagnoses Melena K92.1
[2019-12-15] MEDS: sodium chloride 0.9% 1,000 ML 30 ML IV (08:42)
--- NOTE | 2019-12-15 09:03 | SUR.OPER ---
9mL of epi solution injected in the esophageal body
--- NOTE | 2019-12-15 09:27 | SUR.PHASEI ---
0914 PATIENT TO PACU AT THIS TIME. RR EVEN AND UNLABORED. RESPONDS TO VERBAL STIMULI, DENIES PAIN.
--- NOTE | 2019-12-15 09:46 | PM.PN ---
Subjective Subjective: Interval history: This morning patient states that he feels a bit better, has some back pain from laying in bed, no nausea, no vomiting, no bloody or black stools, no lightheadedness, no dizziness, no chest pain, no shortness of breath, he will have a EGD this morning Vitals/I&O/Wt Last Vital Signs Temp 97.9 F 12/15/19 09:30 Pulse 110 H 12/15/19 09:30 Resp 16 12/15/19 09:30 BP 129/70 12/15/19 09:30 Pulse Ox 100 12/15/19 09:30 12/14/19 12/15/19 12/15/19 22:59 06:59 14:59 Intake Total 1190 / 1206.667 943.333 / 2150.000 0 / 0 Output Total 0 / 0 Balance 1190 / 1206.667 943.333 / 2150.000 0 / 0 Physical Exam Const: COMMON NORMALS: no apparent distress and oriented x3 HENMT: COMMON NORMALS: normocephalic HEAD & SCALP: normocephalic Neck/C-Spine: COMMON NORMALS: no JVD Resp: COMMON NORMALS: normal respiratory effort, no retractions, no use of accessory muscles and clear to auscultation bilaterally AUSCULTATION: clear to auscultation bilaterally Cardio: COMMON NORMALS: no JVD, regular rate, regular rhythm, S1 normal heart sound and S2 normal heart sound RATE: regular rate RHYTHM: regular rhythm HEART SOUNDS: S1 normal and S2 normal GI: COMMON NORMALS: normal to inspection, nondistended, normoactive bowel sounds, soft to palpation, non-tender, no hepatosplenomegaly, no masses and no bruits PALPATION: Yes soft and Yes no hepatosplenomegaly Extremity: COMMON NORMALS: normal capillary refill, no clubbing, cyanosis or edema, no calf tenderness and no pedal edema Neuro: COMMON NORMALS: oriented x3 Psych: COMMON NORMALS: mental status grossly normal Data : 12/15/19 07:46 12/15/19 05:05 A&P Assessment and plan (1) Upper GI bleed: -Upper GI bleed related to anticoagulation, Eliquis -Hemoglobin trending down to 7.4 status post 2 units PRBC, -Denies lightheadedness, chest pain, shortness of breath -Has had 2 black bowel movements, has had bilious vomiting Plan: -Surgery has been consulted, EGD this morning -Received IV fluids normal saline -Trend hemoglobins every 4 hours -Protonix 40 IV twice daily -Serial abdominal exams, vital signs every 2 hours, monitor for black stools, monitor emesis -We will transfuse 2 units PRBC -Hold anticoagulation -Continue metoprolol 50 twice daily -Telemetry monitoring -We will consider consulting surgery if patients condition worsens Status: Acute (2) Acute encephalopathy: Secondary to intentional overdose with multiple medications Improved Status: Acute (3) Overdose: Metformin, amlodipine, lisinopril, metoprolol. Unknown if eliquis taken Improved Dialysis x 2 Titrated off pressors, hd catheter removed Affidavit placed on the chart, sitter at bedside for home precautions Status: Acute Qualifiers: Encounter type: initial encounter Injury intent: intentional self-harm Qualified Code(s): T50.902A - Poisoning by unspecified drugs, medicaments and biological substances, intentional self-harm, initial encounter (4) Shock: Improved Off pressors 4/3 Continue IV antibiotics for aspiration pneumonia Status: Acute Additional A&P Information 59 year old male with 2nd suicide attempt admitted with multiple medication overdose, s/p emergent dialysis 2/2 metabolic acidosis and KIT likely induced by rhabdomyolysis. # Intentional drug overdose # metabolic acidosis, resolved # KIT, resolved s/p HD x 2 , metabolic derangements resolved - HD catheter removed -birch out #initially low grade fever upon admission thought to be 2/2 drug overdose and rhabdomyolysis, resolved over past 2 days. On zosyn for presumed aspiration pneumonia day 6 today. Sputum cx with susceptible Pseudomonas, remains afebrile for the last 24 hours, clinically appears to be improving, no leukocytosis. Blood cultures have been unremarkable, urine cultures have been unremarkable Incentive spirometry Encourage ambulation On oral Levaquin # Atrial fibrillation: with known atrial fibrillation -HOLD 100 twice daily resumed, 400 mg of amiodarone once daily -Heart rates in the 100s -STOP ELIQUIS # Systolic congestive heart failure: Appears to be euvolemic, hold Lasix # Diabetes: HOLd metformin, low-dose sliding scale, glipizide and Januvia on hold # History of hypertension: On metoprolol -Holding Amlodipine and lisinopril given BP within range currently # Morbid obesity # Hyperlipidemia. Continue statin tomorrow # History of CVA, reported residual left-sided weakness on prior H&P from 2017 # Rhabdomyolysis: Rhabdomyolysis has resolved Currently patient is in the neuropsychiatric unit, will continue to follow along DVT prophylaxis: eliquis Diet: Carbohydrate consistent diet CODE STATUS: Full code Attestations Medical Necessity Statement*: She requires continued hospitalization status post GI bleed Coding Level of Care Code Acute Exhibit Cleaner for [facility] Diagnoses Upper GI bleed K92.2 Acute encephalopathy G93.40 Overdose T50.902A Encounter type: initial encounter Injury intent: intentional self-harm Shock R57.9
--- NOTE | 2019-12-15 09:49 | PC.NURSE ---
Patient to GI Lab for EGD. patient recieved metoprolol 50mg po and 6units novolog prior to procedure. he left the floor at 0824 and returned at 0948 - w, canal boat captain
--- NOTE | 2019-12-15 09:51 | SUR.PHASEI ---
0931 PATIENT TO MED SURG AT THIS TIME FROM PACU. NO DISTRESS. DENIES PAIN. RR EVEN AND UNLABORED. PATIENT AMBULATORY FROM [facility] TO BED WITH STEADY GAIT.
[2019-12-15 10:46] LABS: Glucose Point of Care 174 mg/dL (70-110)
[2019-12-15] MEDS: sucralfate 1 gm Tablet PO ×2 (11:02→17:28)
[2019-12-15] MEDS: sodium chloride 0.9% 1,000 ML 100 ML IV (11:02)
[2019-12-15] MEDS: amiodarone 200 mg Tablet 400 MG PO (11:25)
[2019-12-15] MEDS: fluoxetine 20 mg Capsule PO (11:25)
[2019-12-15] MEDS: amoxicillin 500 mg Capsule 1000 MG PO ×2 (11:26→17:27)
[2019-12-15] MEDS: pantoprazole DR 40 mg Tablet PO ×2 (11:26→17:28)
[2019-12-15] MEDS: clarithromycin 500 mg Tablet PO ×2 (11:26→17:28)
[2019-12-15 13:56] LABS: Hematocrit 23.6 % (42.0-52.0); Hemoglobin 7.7 g/dL (11.7-16.6)
--- NOTE | 2019-12-15 14:12 | PC.NURSE ---
Dr. Vega is at bedside discussing with patient that his heart is weak and is valve needs to be replaced. He adds it is risky and kidneys need improvement. Will continue to monitor. OLEGARIOW, TRAIN DISPATCHER
--- NOTE | 2019-12-15 14:51 | P.PN_ITS ---
Subjective NPU Subjective: Interval history: Anderson presented today reporting that he is feeling tremendously better compared with yesterday. He reports he was able to contact his sister, which he reports actually is his sister because there was some confusion as to the actual relationship of this support. Was endorsing that either he could stay with her or she would go over to his place. He continues to report a plan to abandon his previous behaviors and focus on clearing his name. He reports that he is doing fine with the medication. He certainly looks physically better. He was able to have a conversation with social work and the primary physician about the plan moving forward, and the likelihood of a day or two of continued medical observation. Discussed with Anderson the possibility for return to the neuropsych unit, however, depending on the intensity of the support, and whether or not he is going to be alone, could make a big difference in whether a stay in the neuropsych unit is necessary Mental Status Exam MSE Comments: This is an obese, white male, with limited dress but adequate grooming and eye contact. No abnormal movements, except for mild psychomotor retardation. Cooperative with exam in no acute distress. Speech was more normal rate and volume, with significant southern accent. Mood described as much better; affect brighter. Thought process, organized. Thought content: patient denied any suicidal or homicidal ideation, there were no delusions reported or noted, patient denied any auditory or visual hallucinations. Attention, concentration, and memory appeared intact but were not formally tested. He is alert and oriented times three. Insight and judgment are improving. Vitals/I&O/Wt Last Vital Signs Temp 97.7 F 12/15/19 19:53 Pulse 97 12/15/19 19:53 Resp 18 12/15/19 19:53 BP 108/74 12/15/19 19:53 Pulse Ox 97 12/15/19 19:53 12/15/19 12/15/19 12/15/19 06:59 14:59 22:59 Intake Total 943.333 / 2150.000 1480 / 1480 360 / 1840 Output Total 0 / 0 675 / 675 Balance 943.333 / 2150.000 1480 / 1480 -315 / 1165 Data NPU : 12/16/19 03:35 12/16/19 03:35 A&P Additional A&P Information This is a 59-year-old white male who has had 2 significant overdose attempts in the last couple weeks who had been transferred from the ICU to the neuro psychiatric unit a couple days ago only to have his hemoglobin dropped precipitously and need to be transferred back to the medical unit for definitive care who presents reporting that the Prozac is working well and that he has put together a reasonable safety plan that might avoid the need for return to the neuropsychiatric unit after he is medically cleared. 1. Continue current medication. 2. We will work with [facility] social work/discharge team to make sure we have a safe plan for discharge versus transfer to the neuro psych unit after medical clearance. 3. Agree with one-to-one at least until we talk again tomorrow. 4. Thank the safety plan of him going to live with the family member presents best option for discharge at this point. Involuntary Hold Information 96 Hour Hold: 96 Hour Involuntary Admission: Yes 96 Hour Hold Ending Date: 12/14/19 96 Hour Hold Ending Time: 17:30 Attestations NPU Medical Necessity Statement*: N/A. Defer medical necessity attestations to the primary team. We will monitor over the next 48 hours along with the primary team with the assistance of social work to determine whether or not an inpatient hospitalization on the neuro psych unit is indicated and will be necessary when he is medically cleared. Coding Level of Care Code Acute Branch Billing Payroll Clerk for Asim Antony
[2019-12-15 16:56] LABS: Hematocrit 23.7 % (42.0-52.0); Hemoglobin 7.7 g/dL (11.7-16.6)
[2019-12-15 16:57] LABS: Glucose Point of Care 153 mg/dL (70-110)
[2019-12-15] MEDS: metoprolol tartrate 50 mg Tablet 100 MG PO (17:28)
[2019-12-15 18:43] LABS: Hematocrit 23.4 % (42.0-52.0); Hemoglobin 7.5 g/dL (11.7-16.6)
[2019-12-15 20:42] LABS: Glucose Point of Care 224 mg/dL (70-110)
[2019-12-15] MEDS: atorvastatin 40 mg Tablet PO (21:40)
[2019-12-15 22:15] LABS: Hematocrit 22.1 % (42.0-52.0); Hemoglobin 7.2 g/dL (11.7-16.6)
[2019-12-16] VITALS (10 sets, daily range): BP systolic 87–128; BP diastolic 59–76; PULSE 81–105; RESP 16–20; TEMP 36.3–36.6; O2SAT 96–99
[2019-12-16] MEDS: sodium chloride 0.9% 1,000 ML 100 ML IV (00:41)
[2019-12-16] MEDS: sucralfate 1 gm Tablet PO ×4 (03:38→21:51)
[2019-12-16 03:45] LABS: Basophils % 0.6 %; Eosinophils # 0.2 10^3/uL (0.0-0.8); Eosinophils % 4.2 %; Hematocrit 22.5 % (42.0-52.0); Hemoglobin 7.2 g/dL (11.7-16.6); Lymphocytes # 0.8 10^3/uL (0.8-4.8); Lymphocytes % 15.9 %; Mean Corpuscular Hemoglobin 30.8 pg (28.0-34.0); Mean Corpuscular Volume 96.2 fL (80-94); Mean Platelet Volume 10.1 fL (7.4-10.4); Monocytes # 0.7 10^3/uL (0.2-0.9); Monocytes % 13.5 %; Neutrophils # 2.8 10^3/uL (1.8-7.7); Neutrophils % 55.5 %; Nucleated Red Blood Cells % 0.6 %; Platelet Count 252 10^3/cmm (130-400); Red Blood Count 2.34 10^6/uL (4.1-5.3)
[2019-12-16 03:59] LABS: Slide Review Slide Review Perform
[2019-12-16 04:03] LABS: Alanine Aminotransferase 43 U/L (0-41); Albumin Level 2.7 g/dL (3.5-5.2); Alkaline Phosphatase 31 IU/L (40-130); Anion Gap 11.8 (5-19); Aspartate Amino Transferase 25 U/L (0-40); Blood Urea Nitrogen 20 mg/dL (6-20); Calcium 7.9 mg/dL (8.5-10.5); Carbon Dioxide 24 mmol/L (22-29); Chloride 107 mmol/L (98-107); Globulin 1.8 g/dL (1.3-4.6); Glomerular Filtration Rate 115.8 mL/min (90-130); Glucose 180 mg/dL (65-115); Magnesium 1.8 mg/dL (1.7-2.3); Osmolality Calculated 289 mOsm/kg (285-295); Phosphorus 2.1 mg/dL (2.5-4.5); Potassium 3.8 mmol/L (3.5-5.1); Sodium 139 mmol/L (136-145); Total Bilirubin 0.3 mg/dL (0.15-1.2); Total Protein 4.5 g/dL (6.6-8.7)
[2019-12-16] MEDS: levoFLOXacin 750 mg Tablet PO (05:54)
--- NOTE | 2019-12-16 06:39 | PM.PN ---
Subjective Subjective: Interval history: Patient overall feels better Undergone an EGD yesterday that showed ulcers of the stomach Vitals/I&O/Wt Last Vital Signs Temp 97.5 F L 12/16/19 05:22 Pulse 86 12/16/19 05:22 Resp 17 12/16/19 05:22 BP 108/72 12/16/19 05:22 Pulse Ox 97 12/16/19 05:22 12/15/19 12/15/19 12/16/19 14:59 22:59 06:59 Intake Total 1480 / 1480 1360 / 2840 480 / 3320 Output Total 0 / 0 675 / 675 200 / 875 Balance 1480 / 1480 685 / 2165 280 / 2445 Physical Exam Narrative: EXAM NARRATIVE: Patient is conscious alert oriented X3 BMI 38 Head and neck examination PERRLA no masses no cervical lymphadenopathy no jaundice Abdomen nontender nondistended soft no organomegaly guarding or rigidity/no signs of peritonitis Data : 12/16/19 08:07 12/16/19 03:35 A&P Assessment and plan (1) Upper GI bleed: Raise the head of the bed 4-6 inches Frequent small meals through the day Avoid smoking or Chewing Tobacco Avoid excess coffee, tea, and other caffeinated beverages Avoid garments that fit tightly through the abdomen Avoid eating before going to sleep Avoid nonsteroidal anti-inflammatory drugs (NSAIDs) when possible Anti-reflux diet Anti-reflux medications as prescribed Emphasis on weight management Carafate 1 g every 6 hours Patient will require repeat diagnostic EGD in 6 to 8 weeks as an outpatient Return to surgery office in 2-3 weeks. Status: Resolved Attestations Medical Necessity Statement*: Medical necessity care is expected to cross 2 midnights Time Spent in Patient Care: 16 - 35 minutes (>than 50% of time spent in counselling and/or direct pt care on unit). Coding Level of Care Code Acute Lead Based Paint Technician for [facility] Diagnoses Upper GI bleed K92.2
[2019-12-16 08:20] LABS: Hematocrit 23.8 % (42.0-52.0); Hemoglobin 7.6 g/dL (11.7-16.6)
[2019-12-16] MEDS: metoprolol tartrate 50 mg Tablet 100 MG PO ×2 (08:24→18:31)
[2019-12-16] MEDS: fluoxetine 20 mg Capsule PO (08:24)
[2019-12-16] MEDS: amoxicillin 500 mg Capsule 1000 MG PO ×2 (08:24→18:30)
[2019-12-16] MEDS: pantoprazole DR 40 mg Tablet PO ×2 (08:24→18:31)
[2019-12-16] MEDS: clarithromycin 500 mg Tablet PO ×2 (08:25→18:31)
[2019-12-16] MEDS: fluticasone nasal spray 16gm Btl 2 SPRAY INTRANASAL (08:25)
[2019-12-16] MEDS: amiodarone 200 mg Tablet 400 MG PO (08:25)
[2019-12-16] MEDS: apixaban 5 mg Tablet PO (10:24)
[2019-12-16 11:59] LABS: Glucose Point of Care 211 mg/dL (70-110)
[2019-12-16 12:12] LABS: Hematocrit 25.5 % (42.0-52.0)
--- NOTE | 2019-12-16 14:48 | PM.PN ---
Subjective Subjective: Interval history: This morning patient has no significant complaints, no fevers, no chills, no nausea, no vomiting, no abdominal pain, no bloody or black stools Patient's Kenny Eligio is 4, he has a history of strokes related to atrial fibrillation in the past, he does carry a significant risk of stroke yearly, and has had a GI bleed. I advised patient that resuming anticoagulation is a difficult decision. Surgery is agreeable to restart anticoagulation today. I spoke to cardiology, about what to do in terms of anticoagulation, the thought is to try Eliquis while he is here in the hospital, monitor his hemoglobin monitor for bloody stools. Surgery is okay with resuming Eliquis today. I spoke to patient about the risks and benefits about anticoagulation. The risks of being put back on Eliquis is life-threatening bleeding, significant morbidity and mortality, patient voiced understanding, all questions answered. The risks of holding Eliquis, is significant risk of stroke and morbidity mortality associated with strokes. Patient voiced understanding, all questions answered. I proposed that we should start Eliquis today, monitor his hemoglobin monitor for bloody or black stools, and if he were to have recurrent bleeding or bloody or black stools to stop anticoagulation and to monitor. Patient was agreeable to the plan, understands risk and benefits, voiced understanding, all questions answered. Vitals/I&O/Wt Last Vital Signs Temp 97.4 F L 12/16/19 11:00 Pulse 81 12/16/19 11:00 Resp 18 12/16/19 11:00 BP 87/61 12/16/19 11:00 Pulse Ox 96 12/16/19 11:00 12/15/19 12/16/19 12/16/19 22:59 06:59 14:59 Intake Total 1360 / 2840 480 / 3320 702 / 702 Output Total 675 / 675 200 / 875 Balance 685 / 2165 280 / 2445 702 / 702 Physical Exam Const: COMMON NORMALS: no apparent distress and oriented x3 HENMT: COMMON NORMALS: normocephalic HEAD & SCALP: normocephalic Neck/C-Spine: COMMON NORMALS: no JVD Resp: COMMON NORMALS: normal respiratory effort, no retractions, no use of accessory muscles and clear to auscultation bilaterally AUSCULTATION: clear to auscultation bilaterally Cardio: COMMON NORMALS: no JVD, regular rate, regular rhythm, S1 normal heart sound and S2 normal heart sound RATE: regular rate RHYTHM: regular rhythm HEART SOUNDS: S1 normal and S2 normal GI: COMMON NORMALS: normal to inspection, nondistended, normoactive bowel sounds, soft to palpation, non-tender, no hepatosplenomegaly, no masses and no bruits PALPATION: Yes soft and Yes no hepatosplenomegaly Extremity: COMMON NORMALS: normal capillary refill, no clubbing, cyanosis or edema, no calf tenderness and no pedal edema Neuro: COMMON NORMALS: oriented x3 Psych: COMMON NORMALS: mental status grossly normal Data : 12/16/19 12:05 12/16/19 03:35 A&P Assessment and plan (1) Upper GI bleed: -Upper GI bleed related to anticoagulation, Eliquis -Hemoglobin trending to 8.0 status post 2 units PRBC, -EGD yesterday showed 3 gastric ulcers Plan: -Surgery has been consulted -Continue Carafate 1 g every 6 hours -We will treat for H. pylori, amoxicillin, clindamycin, PPI -Trend hemoglobins every 4 hours -Start Eliquis 5 mg twice daily, monitor hemoglobins every 4 hours, monitor for bloody or black stools -Serial abdominal exams, vital signs every 2 hours, monitor for black stools, monitor emesis -Continue metoprolol 50 twice daily -Telemetry monitoring -If patient has repeat episodes of bleeding or bloody or black stools, will stop anticoagulation Status: Resolved (2) Acute encephalopathy: Secondary to intentional overdose with multiple medications Improved Status: Acute (3) Overdose: Metformin, amlodipine, lisinopril, metoprolol. Unknown if eliquis taken Improved Dialysis x 2 Titrated off pressors, hd catheter removed Affidavit placed on the chart, sitter at bedside for home precautions Status: Acute Qualifiers: Encounter type: initial encounter Injury intent: intentional self-harm Qualified Code(s): T50.902A - Poisoning by unspecified drugs, medicaments and biological substances, intentional self-harm, initial encounter (4) Shock: Improved Off pressors 4/3 Continue IV antibiotics for aspiration pneumonia Status: Acute Additional A&P Information 59 year old male with 2nd suicide attempt admitted with multiple medication overdose, s/p emergent dialysis 2/2 metabolic acidosis and KIT likely induced by rhabdomyolysis. # Intentional drug overdose # metabolic acidosis, resolved # KIT, resolved s/p HD x 2 , metabolic derangements resolved - HD catheter removed -birch out #initially low grade fever upon admission thought to be 2/2 drug overdose and rhabdomyolysis, resolved over past 2 days. On zosyn for presumed aspiration pneumonia day 6 today. Sputum cx with susceptible Pseudomonas, remains afebrile for the last 24 hours, clinically appears to be improving, no leukocytosis. Blood cultures have been unremarkable, urine cultures have been unremarkable Incentive spirometry Encourage ambulation On oral Levaquin # Atrial fibrillation: with known atrial fibrillation -HOLD 100 twice daily resumed, 400 mg of amiodarone once daily -Heart rates in the 100s -STOP ELIQUIS # Systolic congestive heart failure: Appears to be euvolemic, hold Lasix # Diabetes: HOLd metformin, low-dose sliding scale, glipizide and Januvia on hold # History of hypertension: On metoprolol -Holding Amlodipine and lisinopril given BP within range currently # Morbid obesity # Hyperlipidemia. Continue statin tomorrow # History of CVA, reported residual left-sided weakness on prior H&P from 2017 # Rhabdomyolysis: Rhabdomyolysis has resolved Currently patient is in the neuropsychiatric unit, will continue to follow along DVT prophylaxis: eliquis Diet: Carbohydrate consistent diet CODE STATUS: Full code Attestations Medical Necessity Statement*: Patient requires continued hospitalization for upper GI bleed Coding Level of Care Code Acute Relay Operator for akira Antony Diagnoses Upper GI bleed K92.2 Acute encephalopathy G93.40 Overdose T50.902A Encounter type: initial encounter Injury intent: intentional self-harm Shock R57.9
--- NOTE | 2019-12-16 15:23 | PC.SOCIAL ---
Updated patient of important message from [employer].
--- NOTE | 2019-12-16 16:02 | PM.NPN ---
Subjective NPU Subjective: Interval history: Anderson continues to improve, by his report, on the medical floor. He reports that he is feeling better physically each day. He continues to endorse an absence of lethality and a plan to move in with his sister and face the issues that he has out there with her by his side. He is reporting that the medication is working fine, and he assures this medical underwriter that there is no chance that he would do anything to harm himself, that he feels like he has clarity now, and that he is safe for discharge. He reports he is eating and sleeping well. Mental Status Exam MSE Comments: This is an obese, white male in a hospital gown, with adequate grooming and eye contact. No abnormal movements, except for improving mild psychomotor retardation. Cooperative with exam in no acute distress. Speech was normal rate and volume with a significant sense of withdrawal. Mood described as pretty good; affect congruent. Thought process, organized. Thought content: patient denied any suicidal or homicidal ideation, there were no delusions reported or noted, patient denied any auditory or visual hallucinations. Attention, concentration, and memory appeared intact but were not formally tested. Alert and oriented times three. Insight and judgment are improving. Vitals/I&O/Wt Last Vital Signs Temp 97.5 F L 12/16/19 05:22 Pulse 86 12/16/19 05:22 Resp 17 12/16/19 05:22 BP 108/72 12/16/19 05:22 Pulse Ox 97 12/16/19 05:22 12/16/19 12/16/19 14:59 22:59 Intake Total 702 / 702 220 / 922 Output Total Balance 702 / 702 220 / 922 Data NPU : 12/17/19 03:58 12/17/19 03:58 Micro: Microbiology 12/11/19 17:53 Blood Culture - Final Blood NO GROWTH AFTER 5 DAYS 12/11/19 17:42 Blood Culture - Final Blood NO GROWTH AFTER 5 DAYS Microbiology 12/11/19 17:53 Blood Blood Culture - Final NO GROWTH AFTER 5 DAYS 12/11/19 17:42 Blood Blood Culture - Final NO GROWTH AFTER 5 DAYS A&P Additional A&P Information This is a 59-year-old white male who has had 2 significant overdose attempts in the last couple weeks who had been transferred from the ICU to the neuropsychiatric unit a couple days ago only to have his hemoglobin dropped precipitously and need to be transferred back to the medical unit for definitive care who presents reporting that the zac is working well and that he has put together a reasonable safety plan that might avoid the need for return to the neuropsychiatric unit after he is medically cleared. 1. Continue current medication. 2. We will work with [facility] social work/discharge team to make sure we have a safe plan for discharge versus transfer to the neuro psych unit after medical clearance. 3. Would discontinue one to one 4. Thank the safety plan of him going to live with the family member presents best option for discharge at this point. Involuntary Hold Information 96 Hour Hold: 96 Hour Involuntary Admission: Yes 96 Hour Hold Ending Date: 12/14/19 96 Hour Hold Ending Time: 17:30 Attestations NPU Medical Necessity Statement*: N/A. Defer medical necessity attestations to the primary team. We will monitor over the next 48 hours along with the primary team with the assistance of social work to determine whether or not an inpatient hospitalization on the neuro psych unit is indicated and will be necessary when he is medically cleared. Coding Level of Care Code Acute Tub Operator for Asim Antony
[2019-12-16 16:21] LABS: Glucose Point of Care 135 mg/dL (70-110)
[2019-12-16 16:31] LABS: Hematocrit 23.3 % (42.0-52.0); Hemoglobin 7.6 g/dL (11.7-16.6)
[2019-12-16 20:21] LABS: Hematocrit 23.2 % (42.0-52.0); Hemoglobin 7.4 g/dL (11.7-16.6)
[2019-12-16 21:06] LABS: Glucose Point of Care 227 mg/dL (70-110)
[2019-12-16] MEDS: atorvastatin 40 mg Tablet PO (21:51)
[2019-12-17] VITALS (13 sets, daily range): BP systolic 96–124; BP diastolic 54–82; PULSE 76–96; RESP 16–18; TEMP 36.3–37; O2SAT 95–98
[2019-12-17 00:57] LABS: Hematocrit 24.2 % (42.0-52.0); Hemoglobin 7.6 g/dL (11.7-16.6)
[2019-12-17] MEDS: sucralfate 1 gm Tablet PO ×4 (03:54→21:06)
[2019-12-17 05:09] LABS: Hematocrit 23.2 % (42.0-52.0)
[2019-12-17 05:45] LABS: Alanine Aminotransferase 42 U/L (0-41); Albumin Level 2.6 g/dL (3.5-5.2); Alkaline Phosphatase 38 IU/L (40-130); Anion Gap 11.7 (5-19); Aspartate Amino Transferase 25 U/L (0-40); Blood Urea Nitrogen 18 mg/dL (6-20); Calcium 8.2 mg/dL (8.5-10.5); Carbon Dioxide 22 mmol/L (22-29); Chloride 107 mmol/L (98-107); Globulin 1.8 g/dL (1.3-4.6); Glomerular Filtration Rate 86.7 mL/min (90-130); Glucose 194 mg/dL (65-115); Osmolality Calculated 286 mOsm/kg (285-295); Phosphorus 2.2 mg/dL (2.5-4.5); Potassium 3.7 mmol/L (3.5-5.1); Sodium 137 mmol/L (136-145); Total Bilirubin 0.3 mg/dL (0.15-1.2); Total Protein 4.4 g/dL (6.6-8.7)
[2019-12-17 06:25] LABS: Glucose Point of Care 203 mg/dL (70-110)
--- NOTE | 2019-12-17 07:11 | PM.PN ---
Subjective Subjective: Interval history: Patient overall feels well and denies any melanotic stool,yet he describes his bowel movement color is purple video editing internship nurse and aide mentioned that the patient did not have any bowel movements overnight Drift down in H&H after patient was started on blood thinner Vitals/I&O/Wt Last Vital Signs Temp 97.4 F L 12/17/19 06:52 Pulse 87 12/17/19 06:52 Resp 18 12/17/19 06:52 BP 114/73 12/17/19 06:52 Pulse Ox 96 12/17/19 06:52 12/16/19 12/17/19 12/17/19 22:59 06:59 14:59 Intake Total 220 / 922 Output Total 500 / 500 Balance 220 / 922 -500 / 422 Physical Exam Narrative: EXAM NARRATIVE: Patient is conscious alert oriented X3 BMI 38 Abdomen nontender nondistended soft no organomegaly guarding or rigidity/no signs of peritonitis Data : 12/17/19 03:58 12/17/19 03:58 Micro: Microbiology 12/11/19 17:53 Blood Culture - Final Blood NO GROWTH AFTER 5 DAYS 12/11/19 17:42 Blood Culture - Final Blood NO GROWTH AFTER 5 DAYS A&P Assessment and plan (1) Upper GI bleed: From surgical standpoint of view continue PPI therapy and Carafate Likely the patient would benefit from repeat EGD in 6 to 8 weeks to make sure that the ulcers are being healed Risks of bleeding and benefits of blood thinners, further discussion will defer to Dr. Partida Assurance and education Please call for questions or concerns Status: Resolved Attestations Medical Necessity Statement*: Medical necessity care is expected to cross 2 midnights Coding Level of Care Code Acute Care Mgr for Asim Antony Diagnoses Upper GI bleed K92.2
[2019-12-17 08:05] LABS: Hematocrit 24.8 % (42.0-52.0); Hemoglobin 7.9 g/dL (11.7-16.6)
[2019-12-17] MEDS: fluoxetine 20 mg Capsule PO (09:04)
[2019-12-17] MEDS: amoxicillin 500 mg Capsule 1000 MG PO ×2 (09:04→17:43)
[2019-12-17] MEDS: pantoprazole DR 40 mg Tablet PO ×2 (09:04→17:43)
[2019-12-17] MEDS: amiodarone 200 mg Tablet 400 MG PO (09:05)
[2019-12-17] MEDS: metoprolol tartrate 50 mg Tablet 100 MG PO ×2 (09:05→17:42)
[2019-12-17] MEDS: clarithromycin 500 mg Tablet PO ×2 (09:05→17:43)
[2019-12-17] MEDS: fluticasone nasal spray 16gm Btl 2 SPRAY INTRANASAL (09:14)
--- NOTE | 2019-12-17 09:49 | PM.PN ---
Subjective Subjective: Interval history: This morning patient states that he is doing well, no fevers, no chills, no nausea, no vomiting, no lightheadedness, no dizziness Patient's Eliquis was started yesterday morning after risks and benefits were discussed yesterday afternoon patient had one episode of black tarry stools, after that he had one caliber maroon stool, his hemoglobin did drop to 7, but since then he has not had a bowel movement, his hemoglobin has rebounded to 7.9 after the Eliquis was stopped, he did have one episode of slightly black-brown bowel movement midmorning Patient is currently doing well, has no significant complaints Vitals/I&O/Wt Last Vital Signs Temp 98.5 F 12/17/19 09:00 Pulse 95 12/17/19 09:00 Resp 18 12/17/19 09:00 BP 114/75 12/17/19 09:00 Pulse Ox 96 12/17/19 09:00 12/16/19 12/17/19 12/17/19 22:59 06:59 14:59 Intake Total 220 / 922 Output Total 500 / 500 Balance 220 / 922 -500 / 422 Physical Exam Const: COMMON NORMALS: no apparent distress and oriented x3 HENMT: COMMON NORMALS: normocephalic HEAD & SCALP: normocephalic Neck/C-Spine: COMMON NORMALS: no JVD Resp: COMMON NORMALS: normal respiratory effort, no retractions, no use of accessory muscles and clear to auscultation bilaterally AUSCULTATION: clear to auscultation bilaterally Cardio: COMMON NORMALS: no JVD, regular rate, regular rhythm, S1 normal heart sound and S2 normal heart sound RATE: regular rate RHYTHM: regular rhythm HEART SOUNDS: S1 normal and S2 normal GI: COMMON NORMALS: normal to inspection, nondistended, normoactive bowel sounds, soft to palpation, non-tender, no hepatosplenomegaly, no masses and no bruits PALPATION: Yes soft and Yes no hepatosplenomegaly Extremity: COMMON NORMALS: normal capillary refill, no clubbing, cyanosis or edema, no calf tenderness and no pedal edema Neuro: COMMON NORMALS: oriented x3 Psych: COMMON NORMALS: mental status grossly normal Data : 12/17/19 07:50 12/17/19 03:58 Micro: Microbiology 12/11/19 17:53 Blood Culture - Final Blood NO GROWTH AFTER 5 DAYS 12/11/19 17:42 Blood Culture - Final Blood NO GROWTH AFTER 5 DAYS A&P Assessment and plan (1) Upper GI bleed: -Upper GI bleed related to anticoagulation, Eliquis -Hemoglobin trending to 7.9 status post 2 units PRBC, -EGD yesterday showed 3 gastric ulcers -Patient has failed trial of anticoagulation, Eliquis yesterday, with drop of hemoglobin to 7, black tarry stools. Patient has been off anticoagulation for the last 24 hours, hemoglobin rebounding Plan: -Surgery has been consulted -Continue Carafate 1 g every 6 hours -We will treat for H. pylori, amoxicillin, clindamycin, PPI -Trend hemoglobins every 4 hours -Serial abdominal exams, vital signs every 2 hours, monitor for black stools, monitor emesis -Continue metoprolol 50 twice daily -Telemetry monitoring -After discussion of the risks and benefits risks of resuming anticoagulation including worsening GI bleeding and significant morbidity mortality associated, risk of holding anticoagulation risk of a stroke and significant morbidity and mortality associated. I advised patient that this is a difficult decision, difficult situation he is in, currently I think that his risk of GI bleed is higher than his risk of a stroke, but low risk of a stroke does not mean no risk, he understands, he voiced understanding, all questions answered. The plan is to hold anticoagulation for at least 2 to 4 weeks, have him follow-up with cardiology, and resume anticoagulation if seem prudent as outpatient. Patient voiced understanding, all questions answered, agreed with plan. Status: Resolved (2) Acute encephalopathy: Secondary to intentional overdose with multiple medications Improved Status: Acute (3) Overdose: Metformin, amlodipine, lisinopril, metoprolol. Unknown if eliquis taken Improved Dialysis x 2 Titrated off pressors, hd catheter removed Affidavit placed on the chart, sitter at bedside for home precautions Status: Acute Qualifiers: Encounter type: initial encounter Injury intent: intentional self-harm Qualified Code(s): T50.902A - Poisoning by unspecified drugs, medicaments and biological substances, intentional self-harm, initial encounter (4) Shock: Improved Off pressors 4/3 Continue IV antibiotics for aspiration pneumonia Status: Acute Additional A&P Information 59 year old male with 2nd suicide attempt admitted with multiple medication overdose, s/p emergent dialysis 2/2 metabolic acidosis and KIT likely induced by rhabdomyolysis. # Intentional drug overdose # metabolic acidosis, resolved # KIT, resolved s/p HD x 2 , metabolic derangements resolved - HD catheter removed -birch out #initially low grade fever upon admission thought to be 2/2 drug overdose and rhabdomyolysis, resolved over past 2 days. On zosyn for presumed aspiration pneumonia day 6 today. Sputum cx with susceptible Pseudomonas, remains afebrile for the last 24 hours, clinically appears to be improving, no leukocytosis. Blood cultures have been unremarkable, urine cultures have been unremarkable Incentive spirometry Encourage ambulation On oral Levaquin # Atrial fibrillation: with known atrial fibrillation -HOLD 100 twice daily resumed, 400 mg of amiodarone once daily -Heart rates in the 100s -STOP ELIQUIS # Systolic congestive heart failure: Appears to be euvolemic, hold Lasix # Diabetes: HOLD metformin, low-dose sliding scale, glipizide and Januvia on hold # History of hypertension: On metoprolol -Holding Amlodipine and lisinopril given BP within range currently # Morbid obesity # Hyperlipidemia. Continue statin # History of CVA, reported residual left-sided weakness on prior H&P from 2017 # Rhabdomyolysis: Rhabdomyolysis has resolved Currently patient is in the neuropsychiatric unit, will continue to follow along DVT prophylaxis: eliquis Diet: Carbohydrate consistent diet CODE STATUS: Full code Attestations Medical Necessity Statement*: She requires continued hospitalization for GI bleed, suicide attempt Coding Level of Care Code Acute Geriatric Nurse Practitioner for Asim Antony Diagnoses Upper GI bleed K92.2 Acute encephalopathy G93.40 Overdose T50.902A Encounter type: initial encounter Injury intent: intentional self-harm Shock R57.9
--- NOTE | 2019-12-17 11:44 | P.PN_ITS ---
Subjective NPU Subjective: Interval history: The patient presents today reportedly doing fine, according to nurse and treatment team notes. They continue to monitor in hopes that his hemoglobin stays stabilized on the medication so they can feel comfortable discharging him. He continues to report that he is going to move in with his sister and she is going to be supportive of him while he deals with the circumstance that has turned into an existential crisis for him. He adamantly denies lethality or any interest in killing himself anymore. He reports he feels the medication is working fine. Mental Status Exam MSE Comments: This is an obese, white male, with limited dress in a hospital gown, and adequate grooming and eye contact. No abnormal movements. Cooperative with exam in no acute distress. Speech was slightly decreased rate and volume, with a significant southern drawl. Mood described as much better/pretty good; affect congruent. Thought process, organized. Thought content: patient denied any suicidal or homicidal ideation, there were no delusions reported or noted, patient denied any auditory or visual hallucinations. Attention, concentration, and memory appeared intact but were not formally tested. He is alert and oriented times three. Insight and judgment appear to be improving. Vitals/I&O/Wt Last Vital Signs Temp 98.3 F 12/17/19 11:00 Pulse 81 12/17/19 11:00 Resp 18 12/17/19 11:00 BP 107/74 12/17/19 11:00 Pulse Ox 97 12/17/19 11:00 12/16/19 12/17/19 12/17/19 22:59 06:59 14:59 Intake Total 220 / 922 Output Total 500 / 500 Balance 220 / 922 -500 / 422 Data NPU : 12/18/19 06:18 12/18/19 06:18 Micro: Microbiology 12/11/19 17:53 Blood Culture - Final Blood NO GROWTH AFTER 5 DAYS 12/11/19 17:42 Blood Culture - Final Blood NO GROWTH AFTER 5 DAYS Microbiology 12/11/19 17:53 Blood Blood Culture - Final NO GROWTH AFTER 5 DAYS 12/11/19 17:42 Blood Blood Culture - Final NO GROWTH AFTER 5 DAYS A&P Additional A&P Information This is a 59-year-old white male who has had 2 significant overdose attempts in the last couple weeks who had been transferred from the ICU to the neuropsychiatric unit a couple days ago only to have his hemoglobin dropped precipitously and need to be transferred back to the medical unit for definitive care who presents reporting that the Jana is working well and that he has put together a reasonable safety plan that might avoid the need for return to the neuropsychiatric unit after he is medically cleared. 1. Continue current medication. 2. We will work with [facility] social work/discharge team to make sure we have a safe plan for discharge versus transfer to the neuro psych unit after medical clearance. 3. Would discontinue one to one 4. Think the safety plan of him going to live with the family member presents best option for discharge at this point. Involuntary Hold Information 96 Hour Hold: 96 Hour Involuntary Admission: Yes 96 Hour Hold Ending Date: 12/14/19 96 Hour Hold Ending Time: 17:30 Attestations NPU Medical Necessity Statement*: N/A. Defer medical necessity attestations to the primary team. We will monitor over the next 24-48 hours along with the primary team with the assistance of social work to determine whether or not an inpatient hospitalization on the neuro psych unit is indicated and will be necessary when he is medically cleared. Coding Level of Care Code Acute Reading Aide for Asim Antony
[2019-12-17 11:48] LABS: Glucose Point of Care 219 mg/dL (70-110)
[2019-12-17 12:04] LABS: Hematocrit 23.5 % (42.0-52.0); Hemoglobin 7.5 g/dL (11.7-16.6)
[2019-12-17 17:30] LABS: Glucose Point of Care 156 mg/dL (70-110)
[2019-12-17 18:54] LABS: Hematocrit 23.1 % (42.0-52.0); Hemoglobin 7.3 g/dL (11.7-16.6)
[2019-12-17 20:38] LABS: Glucose Point of Care 209 mg/dL (70-110)
[2019-12-17] MEDS: atorvastatin 40 mg Tablet PO (21:06)
[2019-12-18] VITALS (9 sets, daily range): BP systolic 101–134; BP diastolic 64–79; PULSE 65–97; RESP 17–18; TEMP 36.7–37.1; O2SAT 94–97
[2019-12-18 00:30] LABS: Hematocrit 22.8 % (42.0-52.0); Hemoglobin 7.3 g/dL (11.7-16.6)
[2019-12-18] MEDS: sucralfate 1 gm Tablet PO ×4 (03:16→20:38)
[2019-12-18 06:25] LABS: Basophils # 0.1 10^3/uL (0.0-0.1); Basophils % 0.7 %; Hemoglobin 7.5 g/dL (11.7-16.6)
[2019-12-18 06:30] LABS: Eosinophils # 0.2 10^3/uL (0.0-0.8); Eosinophils % 3.1 %; Hematocrit 23.7 % (42.0-52.0); Lymphocytes # 0.8 10^3/uL (0.8-4.8); Lymphocytes % 12.3 %; Mean Corpuscular HGB Conc 31.6 g/dL (30.0-36.0); Mean Corpuscular Volume 97.9 fL (80-94); Mean Platelet Volume 10.1 fL (7.4-10.4); Monocytes # 0.5 10^3/uL (0.2-0.9); Monocytes % 8.1 %; Neutrophils # 4.6 10^3/uL (1.8-7.7); Neutrophils % 68.8 %; Nucleated Red Blood Cells % 0.3 %; Platelet Count 362 10^3/cmm (130-400); Red Blood Count 2.42 10^6/uL (4.1-5.3); Red Cell Distribution Width 14.8 % (12.1-15.1); White Blood Count 6.7 10^3/uL (4.0-10.0)
[2019-12-18 06:32] LABS: Glucose Point of Care 212 mg/dL (70-110)
[2019-12-18 06:44] LABS: Alanine Aminotransferase 48 U/L (0-41); Albumin Level 2.9 g/dL (3.5-5.2); Alkaline Phosphatase 46 IU/L (40-130); Anion Gap 13.6 (5-19); Aspartate Amino Transferase 29 U/L (0-40); Blood Urea Nitrogen 16 mg/dL (6-20); Calcium 8.4 mg/dL (8.5-10.5); Carbon Dioxide 22 mmol/L (22-29); Chloride 106 mmol/L (98-107); Glomerular Filtration Rate 99.3 mL/min (90-130); Glucose 197 mg/dL (65-115); Magnesium 1.7 mg/dL (1.7-2.3); Osmolality Calculated 288 mOsm/kg (285-295); Phosphorus 2.3 mg/dL (2.5-4.5); Potassium 3.6 mmol/L (3.5-5.1); Sodium 138 mmol/L (136-145); Total Bilirubin 0.3 mg/dL (0.15-1.2); Total Protein 4.9 g/dL (6.6-8.7)
[2019-12-18 06:59] LABS: Slide Review Slide Review Perform
[2019-12-18 07:03] LABS: Absolute Segmented Neutrophil 4.5 10/cmm (1.6-7.1); Band Neutrophils Absolute 0.3 10^3/cmm (0.0-1.2); Eosinophils 1 %; Lymphocytes 14 %; Lymphocytes Absolute 1.1 10^3/cmm (1.2-3.4); Monocytes Absolute 0.3 10^3/cmm (0.1-0.6); Segmented Neutrophils 68 %; Total Cells Counted 100 (0-100)
[2019-12-18 07:04] LABS: Anisocytosis 2+; Macrocytosis 1+; Platelet Estimate Normal (Normal); Poikilocytosis 1+
[2019-12-18] MEDS: fluticasone nasal spray 16gm Btl 2 SPRAY INTRANASAL (08:45)
[2019-12-18] MEDS: amoxicillin 500 mg Capsule 1000 MG PO ×2 (08:46→17:36)
[2019-12-18] MEDS: pantoprazole DR 40 mg Tablet PO ×2 (08:46→17:35)
[2019-12-18] MEDS: metoprolol tartrate 50 mg Tablet 100 MG PO ×2 (08:46→17:35)
[2019-12-18] MEDS: amiodarone 200 mg Tablet 400 MG PO (08:46)
[2019-12-18] MEDS: clarithromycin 500 mg Tablet PO ×2 (08:47→17:35)
[2019-12-18] MEDS: fluoxetine 20 mg Capsule PO (08:47)
--- NOTE | 2019-12-18 09:35 | PC.SOCIAL ---
IMM Updated Page 2 of IMM updated and given to patient. Initialed, dated, and timed and placed back in chart.
[2019-12-18 10:58] LABS: Glucose Point of Care 279 mg/dL (70-110)
--- NOTE | 2019-12-18 12:32 | PM.PN ---
Subjective Subjective: Interval history: This morning patient is doing well, states that he did have 2 bowel movements that were maroon-colored,'s with some black tarry bits in it, hemoglobin has been between 7-8, overall doing well, Vitals/I&O/Wt Last Vital Signs Temp 98.3 F 12/18/19 08:00 Pulse 97 12/18/19 09:13 Resp 18 12/18/19 09:13 BP 118/70 12/18/19 08:00 Pulse Ox 95 12/18/19 09:13 12/17/19 12/18/19 12/18/19 22:59 06:59 14:59 Intake Total 240 / 612 240 / 240 Output Total 250 / 250 Balance 240 / 612 -250 / 362 240 / 240 Weight last 48 hrs Weight 131.287 kg Physical Exam Const: COMMON NORMALS: no apparent distress and oriented x3 HENMT: COMMON NORMALS: normocephalic HEAD & SCALP: normocephalic Neck/C-Spine: COMMON NORMALS: no JVD Resp: COMMON NORMALS: normal respiratory effort, no retractions, no use of accessory muscles and clear to auscultation bilaterally AUSCULTATION: clear to auscultation bilaterally Cardio: COMMON NORMALS: no JVD, regular rate, regular rhythm, S1 normal heart sound and S2 normal heart sound RATE: regular rate RHYTHM: regular rhythm HEART SOUNDS: S1 normal and S2 normal GI: COMMON NORMALS: normal to inspection, nondistended, normoactive bowel sounds, soft to palpation, non-tender, no hepatosplenomegaly, no masses and no bruits PALPATION: Yes soft and Yes no hepatosplenomegaly Extremity: COMMON NORMALS: normal capillary refill, no clubbing, cyanosis or edema, no calf tenderness and no pedal edema Neuro: COMMON NORMALS: oriented x3 Psych: COMMON NORMALS: mental status grossly normal Data : 12/18/19 06:18 12/18/19 06:18 A&P Assessment and plan (1) Upper GI bleed: -Upper GI bleed related to anticoagulation, Eliquis -Hemoglobin trending to 7.9 status post 2 units PRBC, -EGD yesterday showed 3 gastric ulcers -Patient has failed trial of anticoagulation, Eliquis yesterday, with drop of hemoglobin to 7, black tarry stools. Patient has been off anticoagulation for the last 24 hours, hemoglobin rebounding Plan: -Surgery has been consulted -Continue Carafate 1 g every 6 hours -We will treat for H. pylori, amoxicillin, clindamycin, PPI for 2 weeks -Hemoglobin has been stable between 7 and 8, still intermittent episodes of black tarry stools -Serial abdominal exams, vital signs every 2 hours, monitor for black stools, monitor emesis -Continue metoprolol 50 twice daily -Telemetry monitoring -After discussion of the risks and benefits risks of resuming anticoagulation including worsening GI bleeding and significant morbidity mortality associated, risk of holding anticoagulation risk of a stroke and significant morbidity and mortality associated. I advised patient that this is a difficult decision, difficult situation he is in, currently I think that his risk of GI bleed is higher than his risk of a stroke, but low risk of a stroke does not mean no risk, he understands, he voiced understanding, all questions answered. The plan is to hold anticoagulation for at least 2 to 4 weeks, have him follow-up with cardiology, and resume anticoagulation if seem prudent as outpatient. Patient voiced understanding, all questions answered, agreed with plan. Likely discharge in the next 24 hours Status: Resolved (2) Acute encephalopathy: Secondary to intentional overdose with multiple medications Improved Status: Acute (3) Overdose: Metformin, amlodipine, lisinopril, metoprolol. Unknown if eliquis taken Improved Dialysis x 2 Titrated off pressors, hd catheter removed Affidavit placed on the chart, sitter at bedside for home precautions Status: Acute Qualifiers: Encounter type: initial encounter Injury intent: intentional self-harm Qualified Code(s): T50.902A - Poisoning by unspecified drugs, medicaments and biological substances, intentional self-harm, initial encounter (4) Shock: Improved Off pressors 4/3 Continue IV antibiotics for aspiration pneumonia Status: Acute Additional A&P Information 59 year old male with 2nd suicide attempt admitted with multiple medication overdose, s/p emergent dialysis 2/2 metabolic acidosis and KIT likely induced by rhabdomyolysis. # Intentional drug overdose # metabolic acidosis, resolved # KIT, resolved s/p HD x 2 , metabolic derangements resolved - HD catheter removed -birch out #initially low grade fever upon admission thought to be 2/2 drug overdose and rhabdomyolysis, resolved over past 2 days. On zosyn for presumed aspiration pneumonia day 6 today. Sputum cx with susceptible Pseudomonas, remains afebrile for the last 24 hours, clinically appears to be improving, no leukocytosis. Blood cultures have been unremarkable, urine cultures have been unremarkable Incentive spirometry Encourage ambulation On oral Levaquin # Atrial fibrillation: with known atrial fibrillation -metoprolol 100 twice daily resumed, 400 mg of amiodarone once daily -Heart rates in the 100s -STOP ELIQUIS # Systolic congestive heart failure: Appears to be euvolemic, hold Lasix # Diabetes: HOLD metformin, low-dose sliding scale, glipizide and Januvia on hold # History of hypertension: On metoprolol -Holding Amlodipine and lisinopril given BP within range currently # Morbid obesity # Hyperlipidemia. Continue statin # History of CVA, reported residual left-sided weakness on prior H&P from 2017 # Rhabdomyolysis: Rhabdomyolysis has resolved Currently patient is in the neuropsychiatric unit, will continue to follow along DVT prophylaxis: eliquis Diet: Carbohydrate consistent diet CODE STATUS: Full code Attestations Medical Necessity Statement*: Sugars continue hospitalization due to GI bleed Coding Level of Care Code Acute Business Information Consultant for [facility] Fwd Diagnoses Upper GI bleed K92.2 Acute encephalopathy G93.40 Overdose T50.902A Encounter type: initial encounter Injury intent: intentional self-harm Shock R57.9
[2019-12-18 16:32] LABS: Glucose Point of Care 127 mg/dL (70-110)
--- NOTE | 2019-12-18 17:21 | PM.NPN ---
Subjective NPU Subjective: Interval history: The patient presents today doing well. There are some concerns by his primary team that are requiring or leading them to have him stay for one more day. Otherwise, they deny any issues. Conversation with him identifies that he will move in with his sister and we agreed that as long as that is the case, we feel fine with him being discharged without a stay on the neuropsych unit. He reports that he is eating and sleeping well and tolerating the Prozac fine. Mental Status Exam MSE Comments: This is an obese, white male, in a hospital gown, with adequate grooming and eye contact. No abnormal movements. Cooperative with exam in no acute distress. Speech was normal rate and volume with a southern drawl. Mood described as much better/pretty good; affect congruent. Thought process, organized. Thought content: patient denied any suicidal or homicidal ideation, there were no delusions reported or noted, patient denied any auditory or visual hallucinations. Attention, concentration, and memory appeared intact but were not formally tested. He is alert and oriented times three. Insight and judgment are fair and improving. Vitals/I&O/Wt Last Vital Signs Temp 98.8 F 12/18/19 19:09 Pulse 85 12/18/19 19:09 Resp 18 12/18/19 19:09 BP 132/78 12/18/19 19:09 Pulse Ox 95 12/18/19 19:09 12/18/19 12/18/19 14:59 22:59 Intake Total 360 / 360 300 / 660 Output Total Balance 360 / 360 300 / 660 Weight last 48 hrs Weight 131.287 kg Data NPU : 12/19/19 05:22 12/19/19 05:22 A&P Additional A&P Information This is a 59-year-old white male who has had 2 significant overdose attempts in the last couple weeks who had been transferred from the ICU to the neuropsychiatric unit a couple days ago only to have his hemoglobin dropped precipitously and need to be transferred back to the medical unit for definitive care who presents reporting that the Prozac is working well and that he has put together a reasonable safety plan that might avoid the need for return to the neuropsychiatric unit after he is medically cleared. 1. Continue current medication. 2. Would discontinue one to one 3. Psychiatry will sign off. 4. Think the safety plan of him going to live with the family member presents best option for discharge at this point, and we agree with this plan to be implemented after he is medically cleared. Involuntary Hold Information 96 Hour Hold: 96 Hour Involuntary Admission: Yes 96 Hour Hold Ending Date: 12/14/19 96 Hour Hold Ending Time: 17:30 Attestations NPU Medical Necessity Statement*: N/A. Defer medical necessity attestations to the primary team. We will agree with the plan that social work is assisting with for him to discharge and go live with his sister when he is medically cleared. Coding Level of Care Code Acute Engineer [employer] for Asim Antony
[2019-12-18 19:43] LABS: Hematocrit 23.6 % (42.0-52.0); Hemoglobin 7.5 g/dL (11.7-16.6)
[2019-12-18] MEDS: atorvastatin 40 mg Tablet PO (20:38)
[2019-12-18 20:55] LABS: Glucose Point of Care 274 mg/dL (70-110)
[2019-12-19] MEDS: sucralfate 1 gm Tablet PO ×2 (03:07→08:44)
[2019-12-19] MEDS: acetaminophen 325 mg Tablet 650 MG PO (03:08)
[2019-12-19 03:11] VITALS: BP 126/75; PULSE 87; RESP 18; TEMP 36.8; O2SAT 98
[2019-12-19 03:21] LABS: Glucose Point of Care 186 mg/dL (70-110)
[2019-12-19 05:36] LABS: Basophils # 0.1 10^3/uL (0.0-0.1); Basophils % 0.7 %; Eosinophils # 0.2 10^3/uL (0.0-0.8); Eosinophils % 3.1 %; Hematocrit 23.4 % (42.0-52.0); Hemoglobin 7.4 g/dL (11.7-16.6); Lymphocytes # 0.9 10^3/uL (0.8-4.8); Lymphocytes % 13.2 %; Mean Corpuscular HGB Conc 31.6 g/dL (30.0-36.0); Mean Corpuscular Hemoglobin 30.8 pg (28.0-34.0); Mean Corpuscular Volume 97.5 fL (80-94); Mean Platelet Volume 9.5 fL (7.4-10.4); Monocytes # 0.5 10^3/uL (0.2-0.9); Monocytes % 7.6 %; Neutrophils # 4.7 10^3/uL (1.8-7.7); Nucleated Red Blood Cells # 0.1 /100WBC; Nucleated Red Blood Cells % 0.7 %; Platelet Count 371 10^3/cmm (130-400); Red Cell Distribution Width 15.3 % (12.1-15.1); White Blood Count 6.9 10^3/uL (4.0-10.0)
[2019-12-19 06:00] LABS: Alanine Aminotransferase 46 U/L (0-41); Albumin Level 2.9 g/dL (3.5-5.2); Alkaline Phosphatase 45 IU/L (40-130); Anion Gap 15.3 (5-19); Aspartate Amino Transferase 28 U/L (0-40); Blood Urea Nitrogen 12 mg/dL (6-20); Calcium 8.4 mg/dL (8.5-10.5); Carbon Dioxide 24 mmol/L (22-29); Chloride 104 mmol/L (98-107); Glomerular Filtration Rate 76.7 mL/min (90-130); Glucose 201 mg/dL (65-115); Magnesium 1.7 mg/dL (1.7-2.3); Osmolality Calculated 292 mOsm/kg (285-295); Phosphorus 2.7 mg/dL (2.5-4.5); Potassium 3.3 mmol/L (3.5-5.1); Sodium 140 mmol/L (136-145); Total Bilirubin 0.3 mg/dL (0.15-1.2); Total Protein 4.9 g/dL (6.6-8.7)
[2019-12-19 06:20] LABS: Slide Review Slide Review Perform
[2019-12-19 06:59] LABS: Glucose Point of Care 209 mg/dL (70-110)
[2019-12-19 07:50] VITALS: BP 131/83; PULSE 86; RESP 20; TEMP 37.1; O2SAT 98
[2019-12-19] MEDS: clarithromycin 500 mg Tablet PO (08:44)
[2019-12-19] MEDS: amoxicillin 500 mg Capsule 1000 MG PO (08:44)
[2019-12-19] MEDS: pantoprazole DR 40 mg Tablet PO (08:44)
[2019-12-19] MEDS: fluoxetine 20 mg Capsule PO (08:45)
[2019-12-19] MEDS: amiodarone 200 mg Tablet 400 MG PO (08:45)
[2019-12-19] MEDS: metoprolol tartrate 50 mg Tablet 100 MG PO (08:45)
[2019-12-19] MEDS: fluticasone nasal spray 16gm Btl 2 SPRAY INTRANASAL (08:45)
[2019-12-19 11:56] VITALS: BP 121/80; PULSE 87; RESP 20; TEMP 37; O2SAT 98
[2019-12-19 12:00] LABS: Glucose Point of Care 253 mg/dL (70-110)
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
[2019-12-19 12:59] VITALS: BP 121/80; PULSE 87; RESP 20; TEMP 37; O2SAT 98
== END 2019-12-19 14:23 | disposition home or self-care (01) | DRG 871 ==
LOC: ER 08:32 → ICU 14:25 → NP 12-12 16:34 → MEDSURG 12-14 12:00
PROVIDERS: Internal Medicine Nephrology; Psychiatry & Neurology Psychiatry; Student in an Organized Health Care Education/Training Program; Surgery; Admitting Provider Family Medicine; Emergency Provider Family Medicine; Family Provider Nurse Practitioner; Visit Provider Family Medicine
PROC: 0DJ08ZZ Inspection of Upper Intestinal Tract, Via Natural or Artificial Opening Endoscopic (ICD-10-PCS; CPT 43235; principal; 2019-12-15 12:15)
DX: A41.9 Sepsis, unspecified organism (principal); N17.0 Acute kidney failure with tubular necrosis; J69.0 Pneumonitis due to inhalation of food and vomit; R57.9 Shock, unspecified; G93.40 Encephalopathy, unspecified; E87.2 Acidosis; I50.22 Chronic systolic (congestive) heart failure; K92.2 Gastrointestinal hemorrhage, unspecified; M62.82 Rhabdomyolysis; T50.914A Poisoning by multiple unspecified drugs, medicaments and biological substances, undetermined, initial encounter; Z79.01 Long term (current) use of anticoagulants; Z68.39 Body mass index [BMI] 39.0-39.9, adult; Z91.5 Personal history of self-harm; I48.91 Unspecified atrial fibrillation; E11.9 Type 2 diabetes mellitus without complications; I11.0 Hypertensive heart disease with heart failure; Z79.84 Long term (current) use of oral hypoglycemic drugs; E78.5 Hyperlipidemia, unspecified; E66.01 Morbid (severe) obesity due to excess calories; Z86.73 Personal history of transient ischemic attack (TIA), and cerebral infarction without residual deficits; M19.90 Unspecified osteoarthritis, unspecified site; Z87.891 Personal history of nicotine dependence; T38.3X2A Poisoning by insulin and oral hypoglycemic [antidiabetic] drugs, intentional self-harm, initial encounter; T46.4X2A Poisoning by angiotensin-converting-enzyme inhibitors, intentional self-harm, initial encounter; T46.1X2A Poisoning by calcium-channel blockers, intentional self-harm, initial encounter; T44.7X2A Poisoning by beta-adrenoreceptor antagonists, intentional self-harm, initial encounter; Y92.008 Other place in unspecified non-institutional (private) residence as the place of occurrence of the external cause; J44.9 Chronic obstructive pulmonary disease, unspecified; E87.5 Hyperkalemia; F41.9 Anxiety disorder, unspecified
CPT/HCPCS: 12345; 36415; 36416; 36430; 36600; 43236; 70450; 71045; 71250; 72125; 76770; 76857; 80048; 80051; 80053; 80306; 80307; 81001; 81003; 82436; 82550; 82553; 82728; 82803; 82810; 82962; 83540; 83550; 83605; 83690; 83735; 83986; 84100; 84132; 84133; 84145; 84300; 84484; 85007; 85014; 85018; 85025; 85045; 85610; 86706; 86803; 86850; 86900; 86920; 87040; 87070; 87077; 87086; 87186; 87205; 87338; 87340; 87491; 87591; 87804; 90935; 93005; 93306; 94002; 94003; 94640; 94799; 96372; 96374; 96375; 97110; 97116; 97161; 97530; 99285; C9113; J0610; J1265; J1610; J1644; J1815; J1940; J1956; J2370; J2405; J2543; J2704; J3010; J3480; J3490; J3535; J7030; J7050; P9016; Q3014

== ENCOUNTER 2020-02-01 06:38 | Day surgery (SDC) | payer MEDICARE, SELFPAY ==
[2020-01-31 13:57] VITALS: BMI 39.4
[2020-02-01 07:02] VITALS: BP 143/95; PULSE 75; RESP 20; TEMP 36.4; O2SAT 97
[2020-02-01] MEDS: sodium chloride 0.9% 1,000 ML 30 ML IV (07:25)
[2020-02-01 07:30] LABS: Glucose Point of Care 136 mg/dL (70-110)
--- NOTE | 2020-02-01 07:42 | ANES.PREANE2 ---
Pre-Anesthetic Assessment Pre-Anesthetic Assessment: Height/Weight: Height 1.78 m Weight 124.738 kg Temp Pulse Resp BP Pulse Ox 97.5 F L 75 20 H 143/95 97 02/01/20 07:02 02/01/20 07:02 02/01/20 07:02 02/01/20 07:02 02/01/20 07:02 Preop Diagnosis: Peptic ulcer disease Proposed Procedure: Operation Date: 02/01/20 08:05 Proposed Procedures p EGD 94492/k27.9 PEPTIC ULCER DISEASE(Not Applicable) - Alcides Magallanes MD Last intake: Intake Last Liquid Date 01/31/20 Last Liquid Time 22:00 Last Solid Date 01/31/20 Last Solid Time 22:00 Social: Social History: Tobacco (chews) and No alcohol Exam: Pre-Anes Outpt Exam: alert, oriented x 3, clear to auscultation bilaterally and regular rate & rhythm Airway: Submandibular: WNL Cervical ROM: WNL MP: 3 Dentition: Other (poor dentation) History/ROS: No significant history except as noted Pulmonary: Pulmonary: TAVERAS CV/HEM: CV/HEM: CHF and HTN : : None reported Hepatic: Hepatic: None reported GI: GI: GERD (occ) and PUD Metabolic: Metabolic: DM and Hyperlipidemia Musc/skel: Musc/skel: OA/DJD and Weakness (left side) Neuropsych: Neuropsych: Anxiety, CVA (2016 left side weakness) and Depression Anesthetic Plan: ASA status: 3 Anesthesia: Anesthesia Evaluation and MAC Risk of > 500 ml blood loss (7ml/kg in children): No Meds/Allergies Current Medications: Current Medications Generic Name Dose Route Start Last Admin Trade Name Freq PRN Reason Stop Dose Admin Sodium Chloride 1,000 mls @ 30 ml s/hr 02/01/20 07:00 02/01/20 07:25 Sodium Chloride 0.9% IV 02/02/20 06:59 30 mls/hr .Q24H PASTORA Administration PFSH Anesthesia PFSH: Medical History Atrial fibrillation 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 History of pancreatitis History of gallstone pancreatitis requiring prolonged hospital stay, normal intra-abdominal surgery and subsequent tracheostomy/reversal Hyperlipidemia Hypertension Morbid obesity Osteoarthritis Systolic CHF, chronic Surgical History History of appendectomy History of cholecystectomy Hx of tracheostomy With reversal S/P dialysis catheter insertion (12/2019) Family History Other Bleeding disorder Denies family history of Anesthesia complication Social History Smoking and tobacco status: former smoker History of recent travel: No Data Anesthesia Other Labs: Laboratory Results - last 48 hr 02/01/20 07:22 POC Glucose 136 Cardiac Studies: No Data to Display
--- NOTE | 2020-02-01 07:54 | W.PM.OPSUD ---
Surgery/Procedure H&P Update DATE OF PROCEDURE: February 01, 2020 DATE H&P PERFORMED: 01/03/20 H&P UPDATE INFORMATION: I have reviewed H&P completed within last 30 days, I have examined patient prior to procedure and No changes to prior documentation PREOP DIAGNOSIS: Peptic ulcer disease PRIMARY INDICATION FOR PROCEDURE: The same PLANNED PROCEDURE: Operation Date: 02/01/20 08:05 Proposed Procedures p EGD 16275/k27.9 PEPTIC ULCER DISEASE(Not Applicable) - Alcides Magallanes MD
[2020-02-01 08:54] VITALS: BP 116/80; PULSE 83; RESP 18; TEMP 36.4; O2SAT 94
[2020-02-01 09:20] VITALS: BP 124/74; PULSE 68; RESP 18; O2SAT 99
[2020-02-02 06:34] LABS: H. Pylori / CLO Test Negative
== END 2020-02-01 09:27 | disposition home or self-care (01) ==
PROVIDERS: PCP Nurse Practitioner; Visit Provider Surgery
PROC: 0DJ08ZZ Inspection of Upper Intestinal Tract, Via Natural or Artificial Opening Endoscopic (ICD-10-PCS; CPT 43235; principal; 2020-02-01 08:00)
DX: Z87.11 Personal history of peptic ulcer disease (principal); K22.70 Barrett's esophagus without dysplasia; K29.70 Gastritis, unspecified, without bleeding; I11.0 Hypertensive heart disease with heart failure; I50.9 Heart failure, unspecified; K21.9 Gastro-esophageal reflux disease without esophagitis; M19.90 Unspecified osteoarthritis, unspecified site; I69.854 Hemiplegia and hemiparesis following other cerebrovascular disease affecting left non-dominant side; E78.5 Hyperlipidemia, unspecified; E66.01 Morbid (severe) obesity due to excess calories; Z68.39 Body mass index [BMI] 39.0-39.9, adult; Z87.891 Personal history of nicotine dependence
CPT/HCPCS: 12345; 36416; 43239; 82962; 87077; 88305; J2001; J2704; J7030

== ENCOUNTER 2020-05-07 08:35 | Inpatient (IN) | payer MEDICARE, SELFPAY ==
[2020-05-07 08:38] VITALS: BP 111/75; PULSE 67; RESP 18; TEMP 36.7; O2SAT 97; BMI 39.6
--- NOTE | 2020-05-07 08:57 | ECG_ITS ---
[facility] Test Date: 2020-05-07 Pat Name: Anderson Wang Department: Room: Gender: Male Neighborhood Conservation Officer: : 1960 Requested By: Curtis Garcia Order Number: [id number] Connie MD: Nai Vega M.D. Measurements Intervals [place] Rate: 71 P: MA: -1 QRS: 27 QRSD: 99 T: 22 QT: 424 QTc: 463 Interpretive Statements ATRIAL FIBRILLATION ABNORMAL RHYTHM ECG Possible old inferior wall RI Compared to ECG 12/07/2019 13:39:41 Myocardial infarct finding no longer present Electronically Signed On 05-07-2020 23:32:34 CDT by Nai Vega M.D. [email or web address]
--- NOTE | 2020-05-07 08:57 | XRR_ITS ---
PROCEDURE INFORMATION: Exam: XR Chest, 1 View Exam date and time: 05/07/2020 9:22 AM Age: 60 years old Clinical indication: Other: Overdose; Additional info: Od TECHNIQUE: Imaging protocol: XR of the chest Views: 1 view. COMPARISON: CR XR chest 1V portable [id number] 12/11/2019 5:37 PM FINDINGS: Lungs: Subtle airspace disease right lung base. Pleural space: Unremarkable. No pleural effusion. No pneumothorax. Heart/Mediastinum: The cardiac silhouette appears enlarged, some of which is magnification related to the AP projection. Bones/joints: Unremarkable. XR/XR chest 1V portable [id number] IMPRESSION: Subtle airspace disease right lung base.
--- NOTE | 2020-05-07 09:24 | ED_ITS ---
Documented by User: KASEY Palomino 05/07/20 10:57 HPI - Psych General: Chief Complaint: Psychiatric Symptoms Stated Complaint: SI Time Seen by Provider: 05/07/20 08:56 History of Present Illness: HPI Narrative: Patient arrived via ambulance with complaint he took a handful of his pills last night trying to rid himself of the world said he just had a recent break-up he sad depressed does not want to go on anymore has a history of diabetes COPD coronary artery disease which includes Avni draper MD complaint: feels depressed Onset (ago): month(s) Duration: getting worse History of same: Yes Relieving factors: none Exacerbating factors: other (Recent break-up) Associated psychiatric symptoms: depression and suicidal ideation Associated symptoms: Reports suicidal ideation (Patient try to take his life last night by taking a handful of his medications which was a mixture of all his different medications) Treatments prior to arrival: none If self harm: has acted on plan and intentional overdose Review of Systems Const: Denies: fever(s), chills or body aches Eyes: Denies: change in vision or blurry vision ENMT: Denies: throat pain or nasal congestion Card: Denies: chest pain or dyspnea on exertion Resp: Denies: dyspnea, productive cough or non-productive cough GI: Denies: abdominal pain, nausea or vomiting : Denies: difficulty urinating Musc: Denies: extremity pain Skin/Breast: Denies: rash Neuro: Denies: headache(s) Psych: Reports: suicidal ideation (Patient try to take his life last night by taking a handful of his medications which was a mixture of all his different medications) Kenny/Lymph: Denies: easy bruising PFS ED PFSH: Medical History (Updated 05/07/20 @ 09:54 by KASEY Palomino) Atrial fibrillation 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 History of pancreatitis History of gallstone pancreatitis requiring prolonged hospital stay, normal intra-abdominal surgery and subsequent tracheostomy/reversal Hyperlipidemia Hypertension Morbid obesity Osteoarthritis Systolic CHF, chronic Surgical History History of appendectomy History of cholecystectomy Hx of tracheostomy With reversal S/P dialysis catheter insertion (12/2019) Family History Other Bleeding disorder Denies family history of Anesthesia complication Social History Smoking and tobacco status: former smoker History of recent travel: No Physical Exam Const: COMMON NORMALS: no acute distress, average body habitus and patient oriented x3 HENMT: COMMON NORMALS: normocephalic HEAD & SCALP: normal to inspection and normocephalic FACE & SINUS: normal facial exam Eye: COMMON NORMALS: conjunctivae normal GENERAL EYE: appearance normal, both eyes and all related structures CONJUNCTIVA: Yes conjunctivae normal Neck/C-Spine: COMMON NORMALS: no JVD Chest: COMMONS NORMALS: normal inspection of the chest Resp: COMMON NORMALS: normal respiratory effort and clear to auscultation bilaterally AUSCULTATION: clear to auscultation bilaterally Cardio: COMMON NORMALS: no JVD, regular rate and regular rhythm RATE: regular rate RHYTHM: regular rhythm GI: COMMON NORMALS: Normal to inspection, nondistended, normoactive bowel sounds present Extremity: COMMON NORMALS: normal to inspection and full ROM Neuro: COMMON NORMALS: patient oriented x3 MDM - Psych MDM Narrative: Medical decision making narrative: Dr. Canada accepted patient into unit for admission Lab Data: Labs: Lab Results 05/07/20 05/07/20 05/07/20 Range/Units 09:45 09:45 09:45 WBC 6.7 (4.0-10.0) 10^3/ uL RBC 5.41 H (4.1-5.3) 10^6/u L Hgb 13.2 (11.7-16.6) g/dL Hct 43.2 (42.0-52.0) % MCV 79.9 L (80-94) fL MCH 24.4 L (28.0-34.0) pg MCHC 30.6 (30.0-36.0) g/dL RDW 20.1 H (12.1-15.1) % Plt Count 217 (130-400) 10^3/c mm MPV 10.0 (7.4-10.4) fL Neut % (Auto) 83.8 % Lymph % (Auto) 9.7 % [place] % (Auto) 4.6 % Eos % (Auto) 0.9 % Baso % (Auto) 0.4 % Neut # (Auto) 5.61 (1.8-7.7) 10^3/u L Lymph # (Auto) 0.7 L (0.8-4.8) 10^3/u L [place] # (Auto) 0.3 (0.2-0.9) 10^3/u L Eos # (Auto) 0.1 (0.0-0.8) 10^3/u L Baso # (Auto) 0.0 (0.0-0.1) 10^3/u L Nucleated RBC % (a uto) 0 % Nucleated RBCs # 0.0 /100WBC PT 13.50 (12.1-14.9) SECO NDS INR 1.00 (0.8-1.2) Sodium 136 (136-145) mmol/L Potassium 4.7 (3.5-5.1) mmol/L Chloride 101 (98-107) mmol/L Carbon Dioxide 27 (22-29) mmol/L Anion Gap 12.7 (5-19) BUN 13 (6-20) mg/dL Creatinine 1.1 (0.7-1.2) mg/dL GFR Calculation 68.5 L (90-130) mL/min Glucose 211 H (65-115) mg/dL Calculated Osmolal ity 284 L (285-295) mOsm/k g Calcium 9.2 (8.5-10.5) mg/dL Total Bilirubin 0.5 (0.15-1.2) mg/dL AST 11 (0-40) U/L ALT 15 (0-41) U/L Alkaline Phosphata se 51 (40-130) IU/L Total Protein 6.6 (6.6-8.7) g/dL Albumin 3.9 (3.5-5.2) g/dL Globulin 2.7 (1.3-4.6) g/dL Urine Color (Yellow) Urine Appearance (CLEAR) Urine pH (5-7) Ur Specific Gravit y (1.005-1.030) Urine Protein (Negative) Urine Glucose (UA) (Normal) Urine Ketones (Negative) Urine Blood (Negative) Urine Nitrate (Negative) Urine Bilirubin (NEGATIVE) Urine Urobilinogen (Negative) mg/dL Ur Leukocyte Jaclyn ase (Negative) Salicylates < 0.3 L (3-10) mg/dL Urine Opiates Scre en (Negative) ng/mL Acetaminophen < 5.0 L (10-30) ug/mL Ur Barbiturates Sc reen (Negative) ng/mL Ur Phencyclidine S crn (Negative) ng/mL Ur Amphetamines Sc reen (Negative) ng/mL U Benzodiazepines Scrn (Negative) ng/mL Urine Cocaine Scre en (Negative) ng/mL U Marijuana (THC) Screen (Negative) ng/mL Ethyl Alcohol < 10 (0-10) mg/dL 05/07/20 05/07/20 Range/Units 10:28 10:28 WBC (4.0-10.0) 10^3/ uL RBC (4.1-5.3) 10^6/u L Hgb (11.7-16.6) g/dL Hct (42.0-52.0) % MCV (80-94) fL MCH (28.0-34.0) pg MCHC (30.0-36.0) g/dL RDW (12.1-15.1) % Plt Count (130-400) 10^3/c mm MPV (7.4-10.4) fL Neut % (Auto) % Lymph % (Auto) % [place] % (Auto) % Eos % (Auto) % Baso % (Auto) % Neut # (Auto) (1.8-7.7) 10^3/u L Lymph # (Auto) (0.8-4.8) 10^3/u L [place] # (Auto) (0.2-0.9) 10^3/u L Eos # (Auto) (0.0-0.8) 10^3/u L Baso # (Auto) (0.0-0.1) 10^3/u L Nucleated RBC % (a uto) % Nucleated RBCs # /100WBC PT (12.1-14.9) SECO NDS INR (0.8-1.2) Sodium (136-145) mmol/L Potassium (3.5-5.1) mmol/L Chloride (98-107) mmol/L Carbon Dioxide (22-29) mmol/L Anion Gap (5-19) BUN (6-20) mg/dL Creatinine (0.7-1.2) mg/dL GFR Calculation (90-130) mL/min Glucose (65-115) mg/dL Calculated Osmolal ity (285-295) mOsm/k g Calcium (8.5-10.5) mg/dL Total Bilirubin (0.15-1.2) mg/dL AST (0-40) U/L ALT (0-41) U/L Alkaline Phosphata se (40-130) IU/L Total Protein (6.6-8.7) g/dL Albumin (3.5-5.2) g/dL Globulin (1.3-4.6) g/dL Urine Color Yellow (Yellow) Urine Appearance Clear (CLEAR) Urine pH 5 (5-7) Ur Specific Gravit y 1.015 (1.005-1.030) Urine Protein Neg (Negative) Urine Glucose (UA) 4+ H (Normal) Urine Ketones Negative (Negative) Urine Blood Neg (Negative) Urine Nitrate Negative (Negative) Urine Bilirubin Neg (NEGATIVE) Urine Urobilinogen Norm (Negative) mg/dL Ur Leukocyte Jaclyn ase Negative (Negative) Salicylates (3-10) mg/dL Urine Opiates Scre en Negative (Negative) ng/mL Acetaminophen (10-30) ug/mL Ur Barbiturates Sc reen Negative (Negative) ng/mL Ur Phencyclidine S crn Negative (Negative) ng/mL Ur Amphetamines Sc reen Negative (Negative) ng/mL U Benzodiazepines Scrn Negative (Negative) ng/mL Urine Cocaine Scre en Negative (Negative) ng/mL U Marijuana (THC) Screen Negative (Negative) ng/mL Ethyl Alcohol (0-10) mg/dL EKG Data^: EKG 1: EKG interpretation date: 05/07/20 EKG interpretation time: 09:12 Interpretation: Ventricular rate 71 bpm patient in A. fib QRS duration 99 ms QT is 424 Discharge Plan Discharge Clinical Impression: Suicide attempt by drug overdose Atrial fibrillation Qualifiers: Atrial fibrillation type: longstanding persistent Qualified Code(s): I48.11 - Longstanding persistent atrial fibrillation Diabetes Qualifiers: Diabetes mellitus type: type 2 Diabetes mellitus termite exterminator helper insulin use: without half-way use Diabetes mellitus complication status: without complication Qualified Code(s): E11.9 - Type 2 diabetes mellitus without complications Condition: Stable Prescriptions: No Action atorvastatin [Lipitor] 10 mg tablet 10 mg PO BEDTIME RF: 0 Hold Instructions: Resume on 01/03/20. fluticasone propionate [Flonase Allergy Relief] 50 mcg/actuation spray,suspension 2 spray INTRANASAL DAILY RF: 0 Januvia 100 mg tablet 100 mg PO DAILY RF: 0 metformin [Glucophage] 1,000 mg tablet 1,000 mg PO BID RF: 0 potassium chloride [Klor-Con M20] 20 mEq tablet,ER particles/crystals 20 meq PO DAILY RF: 0 Flovent HFA 110 mcg/actuation HFA aerosol inhaler 2 puff INHALATION BID RF: 0 metoprolol tartrate 100 mg tablet 100 mg PO BID RF: 0 amlodipine 10 mg tablet 10 mg PO DAILY RF: 0 glipizide 5 mg tablet 5 mg PO DAILY RF: 0 Jardiance 25 mg tablet 25 mg PO QAM RF: 0 sucralfate 1 gram Tablet 1 g PO Q6H Qty: 120 RF: 0 fluoxetine 20 mg Capsule 20 mg PO DAILY Qty: 30 RF: 0 amiodarone [Pacerone] 200 mg Tablet 400 mg PO DAILY Qty: 60 RF: 0 Eliquis 5 mg Tablet 5 mg PO BID RF: 0 Referrals: Cristina Diggs APN [Primary Care Provider] - Sign Out Sign Out Data: Patient Sign Out occurred on 05/07/20 at 12:11. Patient's care was discussed, and care was transferred from to Erika Gonzalez. 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 History of pancreatitis History of gallstone pancreatitis requiring prolonged hospital stay, normal intra-abdominal surgery and subsequent tracheostomy/reversal Hyperlipidemia Hypertension Morbid obesity Osteoarthritis Systolic CHF, chronic Surgical History History of appendectomy History of cholecystectomy Hx of tracheostomy With reversal S/P dialysis catheter insertion (12/2019) Family History Other Bleeding disorder Denies family history of Anesthesia complication Social History Smoking and tobacco status: former smoker History of recent travel: No MDM - Psych MDM Narrative: Medical decision making narrative: Patient is seen and examined by me I reviewed with Emeka Garcia's assessment and plan. Patient is voluntary admission at this time. He appears clinically stable with stable vital signs and his lab work is unremarkable. At this time is ingestion last night but does not appear to be life-threatening. The case was reviewed with Dr. vaughan and he is agreeable to admission. Lab Data: Labs: Lab Results 05/07/20 05/07/20 05/07/20 Range/Units 09:45 09:45 09:45 WBC 6.7 (4.0-10.0) 10^3/ uL RBC 5.41 H (4.1-5.3) 10^6/u L Hgb 13.2 (11.7-16.6) g/dL Hct 43.2 (42.0-52.0) % MCV 79.9 L (80-94) fL MCH 24.4 L (28.0-34.0) pg MCHC 30.6 (30.0-36.0) g/dL RDW 20.1 H (12.1-15.1) % Plt Count 217 (130-400) 10^3/c mm MPV 10.0 (7.4-10.4) fL Neut % (Auto) 83.8 % Lymph % (Auto) 9.7 % [place] % (Auto) 4.6 % Eos % (Auto) 0.9 % Baso % (Auto) 0.4 % Neut # (Auto) 5.61 (1.8-7.7) 10^3/u L Lymph # (Auto) 0.7 L (0.8-4.8) 10^3/u L [place] # (Auto) 0.3 (0.2-0.9) 10^3/u L Eos # (Auto) 0.1 (0.0-0.8) 10^3/u L Baso # (Auto) 0.0 (0.0-0.1) 10^3/u L Nucleated RBC % (a uto) 0 % Nucleated RBCs # 0.0 /100WBC PT 13.50 (12.1-14.9) SECO NDS INR 1.00 (0.8-1.2) Sodium 136 (136-145) mmol/L Potassium 4.7 (3.5-5.1) mmol/L Chloride 101 (98-107) mmol/L Carbon Dioxide 27 (22-29) mmol/L Anion Gap 12.7 (5-19) BUN 13 (6-20) mg/dL Creatinine 1.1 (0.7-1.2) mg/dL GFR Calculation 68.5 L (90-130) mL/min Glucose 211 H (65-115) mg/dL Calculated Osmolal ity 284 L (285-295) mOsm/k g Calcium 9.2 (8.5-10.5) mg/dL Total Bilirubin 0.5 (0.15-1.2) mg/dL AST 11 (0-40) U/L ALT 15 (0-41) U/L Alkaline Phosphata se 51 (40-130) IU/L Total Protein 6.6 (6.6-8.7) g/dL Albumin 3.9 (3.5-5.2) g/dL Globulin 2.7 (1.3-4.6) g/dL Urine Color (Yellow) Urine Appearance (CLEAR) Urine pH (5-7) Ur Specific Gravit y (1.005-1.030) Urine Protein (Negative) Urine Glucose (UA) (Normal) Urine Ketones (Negative) Urine Blood (Negative) Urine Nitrate (Negative) Urine Bilirubin (NEGATIVE) Urine Urobilinogen (Negative) mg/dL Ur Leukocyte Jaclyn ase (Negative) Salicylates < 0.3 L (3-10) mg/dL Urine Opiates Scre en (Negative) ng/mL Acetaminophen < 5.0 L (10-30) ug/mL Ur Barbiturates Sc reen (Negative) ng/mL Ur Phencyclidine S crn (Negative) ng/mL Ur Amphetamines Sc reen (Negative) ng/mL U Benzodiazepines Scrn (Negative) ng/mL Urine Cocaine Scre en (Negative) ng/mL U Marijuana (THC) Screen (Negative) ng/mL Ethyl Alcohol < 10 (0-10) mg/dL 05/07/20 05/07/20 Range/Units 10:28 10:28 WBC (4.0-10.0) 10^3/ uL RBC (4.1-5.3) 10^6/u L Hgb (11.7-16.6) g/dL Hct (42.0-52.0) % MCV (80-94) fL MCH (28.0-34.0) pg MCHC (30.0-36.0) g/dL RDW (12.1-15.1) % Plt Count (130-400) 10^3/c mm MPV (7.4-10.4) fL Neut % (Auto) % Lymph % (Auto) % [place] % (Auto) % Eos % (Auto) % Baso % (Auto) % Neut # (Auto) (1.8-7.7) 10^3/u L Lymph # (Auto) (0.8-4.8) 10^3/u L [place] # (Auto) (0.2-0.9) 10^3/u L Eos # (Auto) (0.0-0.8) 10^3/u L Baso # (Auto) (0.0-0.1) 10^3/u L Nucleated RBC % (a uto) % Nucleated RBCs # /100WBC PT (12.1-14.9) SECO NDS INR (0.8-1.2) Sodium (136-145) mmol/L Potassium (3.5-5.1) mmol/L Chloride (98-107) mmol/L Carbon Dioxide (22-29) mmol/L Anion Gap (5-19) BUN (6-20) mg/dL Creatinine (0.7-1.2) mg/dL GFR Calculation (90-130) mL/min Glucose (65-115) mg/dL Calculated Osmolal ity (285-295) mOsm/k g Calcium (8.5-10.5) mg/dL Total Bilirubin (0.15-1.2) mg/dL AST (0-40) U/L ALT (0-41) U/L Alkaline Phosphata se (40-130) IU/L Total Protein (6.6-8.7) g/dL Albumin (3.5-5.2) g/dL Globulin (1.3-4.6) g/dL Urine Color Yellow (Yellow) Urine Appearance Clear (CLEAR) Urine pH 5 (5-7) Ur Specific Gravit y 1.015 (1.005-1.030) Urine Protein Neg (Negative) Urine Glucose (UA) 4+ H (Normal) Urine Ketones Negative (Negative) Urine Blood Neg (Negative) Urine Nitrate Negative (Negative) Urine Bilirubin Neg (NEGATIVE) Urine Urobilinogen Norm (Negative) mg/dL Ur Leukocyte Jaclyn ase Negative (Negative) Salicylates (3-10) mg/dL Urine Opiates Scre en Negative (Negative) ng/mL Acetaminophen (10-30) ug/mL Ur Barbiturates Sc reen Negative (Negative) ng/mL Ur Phencyclidine S crn Negative (Negative) ng/mL Ur Amphetamines Sc reen Negative (Negative) ng/mL U Benzodiazepines Scrn Negative (Negative) ng/mL Urine Cocaine Scre en Negative (Negative) ng/mL U Marijuana (THC) Screen Negative (Negative) ng/mL Ethyl Alcohol (0-10) mg/dL Discharge Plan Discharge Clinical Impression: Suicide attempt by drug overdose Atrial fibrillation Qualifiers: Atrial fibrillation type: longstanding persistent Qualified Code(s): I48.11 - Longstanding persistent atrial fibrillation Diabetes Qualifiers: Diabetes mellitus type: type 2 Diabetes mellitus termite exterminator helper insulin use: without termite exterminator helper use Diabetes mellitus complication status: without complication Qualified Code(s): E11.9 - Type 2 diabetes mellitus without complications Condition: Stable Prescriptions: No Action atorvastatin [Lipitor] 10 mg tablet 10 mg PO BEDTIME RF: 0 Hold Instructions: Resume on 01/03/20. fluticasone propionate [Flonase Allergy Relief] 50 mcg/actuation spray,suspension 2 spray INTRANASAL DAILY RF: 0 Januvia 100 mg tablet 100 mg PO DAILY RF: 0 metformin [Glucophage] 1,000 mg tablet 1,000 mg PO BID RF: 0 potassium chloride [Klor-Con M20] 20 mEq tablet,ER particles/crystals 20 meq PO DAILY RF: 0 Flovent HFA 110 mcg/actuation HFA aerosol inhaler 2 puff INHALATION BID RF: 0 metoprolol tartrate 100 mg tablet 100 mg PO BID RF: 0 amlodipine 10 mg tablet 10 mg PO DAILY RF: 0 glipizide 5 mg tablet 5 mg PO DAILY RF: 0 Jardiance 25 mg tablet 25 mg PO QAM RF: 0 sucralfate 1 gram Tablet 1 g PO Q6H Qty: 120 RF: 0 fluoxetine 20 mg Capsule 20 mg PO DAILY Qty: 30 RF: 0 amiodarone [Pacerone] 200 mg Tablet 400 mg PO DAILY Qty: 60 RF: 0 Eliquis 5 mg Tablet 5 mg PO BID RF: 0 Referrals: Cristina Diggs APN [Primary Care Provider] - Sign Out Sign Out Data: Patient Sign Out occurred on 05/07/20 at 12:11. Patient's care was discussed, and care was transferred from to [facility]. Coding Level of Care Code ED Detailer for Asim Fwd Exam Comprehensive
[2020-05-07] MEDS: sodium chloride 0.9% 1,000 ML 999 ML IV (09:49)
[2020-05-07 09:56] LABS: Basophils % 0.4 %; Eosinophils # 0.1 10^3/uL (0.0-0.8); Eosinophils % 0.9 %; Hematocrit 43.2 % (42.0-52.0); Hemoglobin 13.2 g/dL (11.7-16.6); Lymphocytes # 0.7 10^3/uL (0.8-4.8); Lymphocytes % 9.7 %; Mean Corpuscular HGB Conc 30.6 g/dL (30.0-36.0); Mean Corpuscular Hemoglobin 24.4 pg (28.0-34.0); Mean Corpuscular Volume 79.9 fL (80-94); Monocytes # 0.3 10^3/uL (0.2-0.9); Monocytes % 4.6 %; Neutrophils # 5.61 10^3/uL (1.8-7.7); Neutrophils % 83.8 %; Nucleated Red Blood Cells % 0 %; Platelet Count 217 10^3/cmm (130-400); Red Blood Count 5.41 10^6/uL (4.1-5.3); Red Cell Distribution Width 20.1 % (12.1-15.1); White Blood Count 6.7 10^3/uL (4.0-10.0)
[2020-05-07 09:58] VITALS: RESP 18
[2020-05-07 10:17] LABS: Alanine Aminotransferase 15 U/L (0-41); Albumin Level 3.9 g/dL (3.5-5.2); Alkaline Phosphatase 51 IU/L (40-130); Anion Gap 12.7 (5-19); Aspartate Amino Transferase 11 U/L (0-40); Blood Urea Nitrogen 13 mg/dL (6-20); Calcium 9.2 mg/dL (8.5-10.5); Carbon Dioxide 27 mmol/L (22-29); Chloride 101 mmol/L (98-107); Globulin 2.7 g/dL (1.3-4.6); Glomerular Filtration Rate 68.5 mL/min (90-130); Glucose 211 mg/dL (65-115); Osmolality Calculated 284 mOsm/kg (285-295); Potassium 4.7 mmol/L (3.5-5.1); Sodium 136 mmol/L (136-145); Total Bilirubin 0.5 mg/dL (0.15-1.2); Total Protein 6.6 g/dL (6.6-8.7)
[2020-05-07 10:19] LABS: Acetaminophen < 5.0 ug/mL (10-30); Alcohol Level < 10 mg/dL (0-10); Salicylate < 0.3 mg/dL (3-10)
[2020-05-07 10:35] LABS: Add Urine Microscopic? NO
[2020-05-07 10:37] LABS: Bilirubin Urine Neg (NEGATIVE); Blood Urine Neg (Negative); Glucose Urine UA 4+ (Normal); Ketones Urine Negative (Negative); Leukocyte Esterase Urine Negative (Negative); Nitrate Urine Negative (Negative); Protein Urine Neg (Negative); Specific Gravity, Urine 1.015 (1.005-1.030); Urine Appearance Clear (CLEAR); Urine Color Yellow (Yellow); Urobilinogen Urine Norm (Negative); pH Urine 5 (5-7)
[2020-05-07 10:47] LABS: Amphetamines Screen Urine Negative (Negative); Barbiturates Screen Urine Negative (Negative); Benzodiazepines Screen Urine Negative (Negative); Cocaine Screen Urine Negative (Negative); PCP Screen Urine Negative (Negative); THC Screen Urine Negative (Negative)
[2020-05-07 10:58] LABS: Opiate Screen Urine Negative (Negative)
[2020-05-07 13:23] VITALS: BP 125/86; PULSE 77; RESP 18; TEMP 36.4; O2SAT 99
[2020-05-07 14:00] VITALS: BP 125/86; PULSE 77; RESP 18; TEMP 36.4; O2SAT 99
--- NOTE | 2020-05-07 15:05 | PC.NURSE ---
HOME MED REC COMPLETED AND AWARE.
[2020-05-07] MEDS: sucralfate 1 gm Tablet PO ×2 (17:24→21:08)
[2020-05-07] MEDS: metformin 500 mg Tablet 1000 MG PO (17:24)
[2020-05-07] MEDS: apixaban 5 mg Tablet PO (17:24)
[2020-05-07] MEDS: metoprolol tartrate 50 mg Tablet 100 MG PO (17:24)
[2020-05-07 20:03] VITALS: PULSE 87; RESP 16; O2SAT 97
[2020-05-07] MEDS: hyDROXYzine 25 mg Capsule 50 MG PO (21:08)
[2020-05-07] MEDS: atorvastatin 40 mg Tablet 20 MG PO (21:08)
[2020-05-07] MEDS: trazodone 50 mg Tablet PO (21:08)
[2020-05-07 22:00] VITALS: BP 124/75; PULSE 79; RESP 17; TEMP 36.5; O2SAT 97
[2020-05-08] MEDS: acetaminophen 325 mg Tablet 650 MG PO (04:47)
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
--- NOTE | 2020-05-08 05:39 | PC.NURSE ---
PRN follow up. Patient is sleeping sound in his room.
[2020-05-08 06:00] VITALS: BP 136/86; PULSE 80; RESP 17; TEMP 36.6; O2SAT 94
[2020-05-08] MEDS: fluticasone nasal spray 16gm Btl 2 SPRAY INTRANASAL (08:32)
[2020-05-08] MEDS: potassium chloride ER 10 mEq Tablet 20 MEQ PO (08:33)
[2020-05-08] MEDS: metoprolol tartrate 50 mg Tablet 100 MG PO ×2 (08:33→18:11)
[2020-05-08] MEDS: apixaban 5 mg Tablet PO ×2 (08:33→18:11)
[2020-05-08] MEDS: fluoxetine 20 mg Capsule PO (08:33)
[2020-05-08] MEDS: amlodipine 10 mg Tablet PO (08:33)
[2020-05-08] MEDS: amiodarone 200 mg Tablet 400 MG PO (08:33)
[2020-05-08] MEDS: metformin 500 mg Tablet 1000 MG PO ×2 (08:33→18:11)
[2020-05-08] MEDS: sitagliptin 100 mg Tablet PO (08:33)
[2020-05-08] MEDS: sucralfate 1 gm Tablet PO ×3 (08:33→21:04)
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
[2020-05-08 09:29] VITALS: PULSE 80; RESP 16; O2SAT 95
[2020-05-08 14:00] VITALS: BP 97/66; PULSE 80; RESP 18; TEMP 36.3; O2SAT 98
[2020-05-08] MEDS: trazodone 50 mg Tablet PO (21:04)
[2020-05-08] MEDS: atorvastatin 40 mg Tablet 20 MG PO (21:04)
[2020-05-08] MEDS: hyDROXYzine 25 mg Capsule 50 MG PO (21:04)
--- NOTE | 2020-05-08 21:37 | PC.NURSE ---
Prns given Trazadone 50 mg PO given for rest Visteril 50mg PO given for anxiety Will continue to monitor progress
[2020-05-08 22:00] VITALS: BP 112/76; PULSE 57; RESP 18; TEMP 36.9; O2SAT 98
[2020-05-08 22:10] VITALS: PULSE 72; RESP 18; O2SAT 98
[2020-05-08 22:15] VITALS: PULSE 74
[2020-05-09 06:00] VITALS: BP 143/84; PULSE 80; RESP 18; TEMP 36.8; O2SAT 96
[2020-05-09] MEDS: sucralfate 1 gm Tablet PO ×4 (06:49→20:45)
[2020-05-09] MEDS: fluticasone nasal spray 16gm Btl 2 SPRAY INTRANASAL (08:16)
[2020-05-09] MEDS: apixaban 5 mg Tablet PO ×2 (08:17→16:56)
[2020-05-09] MEDS: metformin 500 mg Tablet 1000 MG PO ×2 (08:17→16:55)
[2020-05-09] MEDS: metoprolol tartrate 50 mg Tablet 100 MG PO ×2 (08:17→16:56)
[2020-05-09] MEDS: fluoxetine 20 mg Capsule 40 MG PO (08:18)
[2020-05-09] MEDS: amlodipine 10 mg Tablet PO (08:18)
[2020-05-09] MEDS: potassium chloride ER 10 mEq Tablet 20 MEQ PO (08:18)
[2020-05-09] MEDS: sitagliptin 100 mg Tablet PO (08:36)
[2020-05-09] MEDS: amiodarone 200 mg Tablet 400 MG PO (08:36)
[2020-05-09 10:40] VITALS: PULSE 77; RESP 20; O2SAT 94
--- NOTE | 2020-05-09 12:50 | PM.NPN ---
Subjective NPU Subjective: Interval history: Patient OK'd for discharge but he could not find a way home. Mental Status Exam MSE Comments: Discharge Mental Status Exam: Appearance: hygiene is good; no gross neurological deficits., gait is unremarkable; AIMS=0 Speech: Speech is of normal rate and rhythm and easily understood. Thought processes: Thought processes are abstract. Judgment is adequate for safety. Associations: intact Psychotic processes: There is no indication of guarding or paranoia. There is no attention to the internal stimuli. Auditory and visual hallucinations are denied. Judgment: Insight is fair. Problem solving skills are adequate for safety. Orientation: The patient is oriented to person, place time and situation. Memory: no deficits noted in immediate, intermediate, or remote spheres. Attention: The patient is alert and interpersonally engaged. Language: Verbalizations are coherent. Fund of knowledge: Fund of knowledge is adequate. Affect/Mood: Affect is consistent with a euthymic mood. denied suicidal ideation Affective range is appropriate. Psychosis: perception unimpaired except through cognitive distortion; reality testing intact. Cognition: Patient Appearance: Appropriate Level of Consciousness: Awake, Alert, Appropriate and Follows Commands Patient Cognition Impaired: No Ability to Follow Directions: Excellent Patient Orientation (long list): Person, Place and Time Comprehension Ability: No Impairment Hallucination Type: None Delusion Description: Not Present Thought Process: Appropriate Affect: Affect Description: Calm Depressive Symptoms: Difficulty Sleeping, Increased Anxiety, Isolating Oneself From Friends and Family, Low Self Esteem, Recurrent Thoughts of or Suicide, Sleeping More Than Usual and Unhappiness Behavior: Patient Behavior: Cooperative Speech Pattern: Clear Vitals/I&O/Wt Last Vital Signs Temp 97.9 F 05/10/20 09:08 Pulse 88 05/10/20 09:25 Resp 18 05/10/20 09:23 BP 143/94 05/10/20 09:08 Pulse Ox 94 05/10/20 09:23 Data NPU : 05/07/20 09:45 05/07/20 09:45 A&P Assessment and plan (1) Adjustment disorder with mixed disturbance of emotions and conduct: Status: Resolved (2) Suicide attempt by drug overdose: Status: Resolved Additional A&P Information The patient was admitted to the adult psychiatric unit and entered into the form of individual and group therapies as part of the unit protocol. They were provided 24-hour access to medication supervision and therapeutic activities by trained psychiatric nursing. This is truly a difficult situation as the patient has not demonstrated a pattern of becoming overwhelmed by environmental circumstances to the point where he said instantly sees suicide as a viable course. When he is not under these environmental stressors, he does not see it as an option. He is not be criteria for depression. It appears that when he is under the influence of strong emotion, his coping skills breakdown. To that extent, he would benefit from participating in individual and group psychotherapy. But in an acute setting, no significant changes are indicated. In the interim, fluoxetine will be increased to 40 mg daily. Involuntary Hold Information 96 Hour Hold: 96 Hour Involuntary Admission: No 96 Hour Hold Ending Date: 12/14/19 96 Hour Hold Ending Time: 17:30 Attestations NPU Medical Necessity Statement*: PAtient ot remain one more night until he can find safe passage home. Coding Level of Care Code Acute Assistant Foreman for Asim Antony Diagnoses Adjustment disorder with mixed disturbance of emotions and conduct F43.25 Suicide attempt by drug overdose T50.900F
[2020-05-09 13:25] VITALS: BP 124/84; PULSE 75; RESP 20; TEMP 36.6; O2SAT 98
[2020-05-09 19:57] LABS: Glucose Point of Care 172 mg/dL (70-110)
[2020-05-09] MEDS: atorvastatin 40 mg Tablet 20 MG PO (20:45)
[2020-05-09 21:03] VITALS: PULSE 74; RESP 18; O2SAT 96
[2020-05-09 21:05] VITALS: PULSE 76; RESP 18; O2SAT 94
[2020-05-09 21:38] VITALS: BP 130/83; PULSE 88; RESP 18; TEMP 36.5; O2SAT 96
[2020-05-10] MEDS: acetaminophen 325 mg Tablet 650 MG PO (04:06)
[2020-05-10 06:00] VITALS: BP 143/94; PULSE 79; RESP 18; TEMP 36.6; O2SAT 96
[2020-05-10] MEDS: sucralfate 1 gm Tablet PO ×2 (06:08→11:56)
[2020-05-10 06:34] LABS: Glucose Point of Care 176 mg/dL (70-110)
[2020-05-10] MEDS: sitagliptin 100 mg Tablet PO (08:01)
[2020-05-10] MEDS: apixaban 5 mg Tablet PO (08:01)
[2020-05-10] MEDS: potassium chloride ER 10 mEq Tablet 20 MEQ PO (08:01)
[2020-05-10] MEDS: metformin 500 mg Tablet 1000 MG PO (08:01)
[2020-05-10] MEDS: amiodarone 200 mg Tablet 400 MG PO (08:01)
[2020-05-10] MEDS: fluoxetine 20 mg Capsule 40 MG PO (08:01)
[2020-05-10] MEDS: amlodipine 10 mg Tablet PO (08:01)
[2020-05-10] MEDS: metoprolol tartrate 50 mg Tablet 100 MG PO (08:01)
[2020-05-10] MEDS: fluticasone nasal spray 16gm Btl 2 SPRAY INTRANASAL (08:04)
[2020-05-10 09:08] VITALS: BP 143/94; PULSE 79; RESP 18; TEMP 36.6; O2SAT 96
[2020-05-10 09:23] VITALS: PULSE 87; RESP 18; O2SAT 94
[2020-05-10 09:25] VITALS: PULSE 88
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
--- NOTE | 2020-05-10 10:53 | PC.NURSE ---
DISCHARGE MEDS CALLED INTO [facility] [phone], SPOKE TO KRISTYN. SEROQUEL 200 MG PO HS #30 TABS WITH 3 REFILLS
--- NOTE | 2020-05-10 11:50 | PC.NURSE ---
home meds home meds called into [facility] [place] [place] pharmacy, spoke with Jen. Meds brought to floor prior to discharge.
--- NOTE | 2020-05-10 11:53 | PC.SOCIAL ---
Important message for medicare was provided and placed in chart. he did not want a copy.
--- NOTE | 2020-05-10 12:50 | P.PN_ITS ---
Subjective NPU Subjective: Interval history: Again, the EMR claims that a progress not is due on this day. the patient was discharged and there is a discharge summary in the chart for this day. It is easier to enter a dummy progress note than to try and correct the EMR error. Vitals/I&O/Wt Last Vital Signs Temp 97.9 F 05/10/20 09:08 Pulse 88 05/10/20 09:25 Resp 18 05/10/20 09:23 BP 143/94 05/10/20 09:08 Pulse Ox 94 05/10/20 09:23 Data NPU : 05/07/20 09:45 05/07/20 09:45 Involuntary Hold Information 96 Hour Hold: 96 Hour Involuntary Admission: No 96 Hour Hold Ending Date: 12/14/19 96 Hour Hold Ending Time: 17:30 Attestations NPU Medical Necessity Statement*: Pt discharged today. See Discharge summary. Coding Level of Care Code Acute Curriculum Designer for Asim Antony
[2020-05-10 20:06] LABS: Glucose Point of Care 176 mg/dL (70-110)
[2020-05-10 20:06] LABS: Glucose Point of Care 133 mg/dL (70-110)
[2020-05-10 20:06] LABS: Glucose Point of Care 177 mg/dL (70-110)
[2020-05-10 20:06] LABS: Glucose Point of Care 142 mg/dL (70-110)
[2020-05-10 20:06] LABS: Glucose Point of Care 220 mg/dL (70-110)
[2020-05-10 20:06] LABS: Glucose Point of Care 181 mg/dL (70-110)
== END 2020-05-10 12:22 | disposition home or self-care (01) | DRG 918 ==
LOC: ER 12:11 → NP 12:33
PROVIDERS: Nurse Practitioner Family; Admitting Provider Psychiatry & Neurology Psychiatry; PCP Nurse Practitioner; Visit Provider Psychiatry & Neurology Psychiatry
DX: T65.92XA Toxic effect of unspecified substance, intentional self-harm, initial encounter (principal); I69.951 Hemiplegia and hemiparesis following unspecified cerebrovascular disease affecting right dominant side; I50.22 Chronic systolic (congestive) heart failure; E11.9 Type 2 diabetes mellitus without complications; J44.9 Chronic obstructive pulmonary disease, unspecified; I25.10 Atherosclerotic heart disease of native coronary artery without angina pectoris; I48.91 Unspecified atrial fibrillation; E78.5 Hyperlipidemia, unspecified; I11.0 Hypertensive heart disease with heart failure; E66.9 Obesity, unspecified; Z68.39 Body mass index [BMI] 39.0-39.9, adult; M19.90 Unspecified osteoarthritis, unspecified site; Z87.891 Personal history of nicotine dependence; F43.25 Adjustment disorder with mixed disturbance of emotions and conduct; Z79.01 Long term (current) use of anticoagulants; Z79.84 Long term (current) use of oral hypoglycemic drugs
CPT/HCPCS: 12345; 36416; 71045; 80053; 80306; 80307; 81003; 82962; 85025; 85610; 93005; 94640; 99284; J3535; J7030

== ENCOUNTER 2020-10-14 09:23 | Inpatient (IN) | payer MEDICARE, SELFPAY ==
[2020-10-14] VITALS (11 sets, daily range): BP systolic 123–150; BP diastolic 86–103; PULSE 83–113; RESP 17–20; TEMP 36.2–37.1; O2SAT 93–96; BMI 42.8
--- NOTE | 2020-10-14 09:48 | PC.NURSE ---
Blood drawn, labeled and sent to lab. Pt given clean catch kit with instructions and placed back in WR.
[2020-10-14 09:53] LABS: Basophils # 0.1 10^3/uL (0.0-0.1); Basophils % 0.5 %; Eosinophils # 0.3 10^3/uL (0.0-0.8); Eosinophils % 2.7 %; Hematocrit 47.4 % (42.0-52.0); Hemoglobin 15.1 g/dL (11.7-16.6); Lymphocytes # 0.8 10^3/uL (0.8-4.8); Lymphocytes % 7.3 %; Mean Corpuscular HGB Conc 31.9 g/dL (30.0-36.0); Mean Corpuscular Hemoglobin 28.5 pg (28.0-34.0); Mean Corpuscular Volume 89.6 fL (80-94); Mean Platelet Volume 9.5 fL (7.4-10.4); Monocytes # 0.7 10^3/uL (0.2-0.9); Monocytes % 6.6 %; Neutrophils # 8.47 10^3/uL (1.8-7.7); Neutrophils % 81.6 %; Nucleated Red Blood Cells % 0 %; Platelet Count 261 10^3/cmm (130-400); Red Blood Count 5.29 10^6/uL (4.1-5.3); Red Cell Distribution Width 13.5 % (12.1-15.1); White Blood Count 10.4 10^3/uL (4.0-10.0)
[2020-10-14 10:17] LABS: Alanine Aminotransferase 24 U/L (0-41); Albumin Level 4.1 g/dL (3.5-5.2); Alkaline Phosphatase 76 IU/L (40-130); Anion Gap 14.9 (5-19); Aspartate Amino Transferase 15 U/L (0-40); Blood Urea Nitrogen 22 mg/dL (6-20); Carbon Dioxide 24 mmol/L (22-29); Chloride 103 mmol/L (98-107); Globulin 2.9 g/dL (1.3-4.6); Glomerular Filtration Rate 170.2 mL/min (90-130); Glucose 181 mg/dL (65-115); Lipase 30 U/L (13-60); Osmolality Calculated 294 mOsm/kg (285-295); Potassium 3.9 mmol/L (3.5-5.1); Sodium 138 mmol/L (136-145); Total Bilirubin 0.4 mg/dL (0.15-1.2)
--- NOTE | 2020-10-14 10:27 | W.ED.ABDPA2 ---
Documented by User: KASEY Shen 10/14/20 12:20 HPI - Abdominal Pain General: Chief Complaint: Abdominal Pain Stated Complaint: ABD pain Time Seen by Provider: 10/14/20 10:27 Source: patient Mode of arrival: ambulatory Limitations: no limitations History of Present Illness: HPI narrative: 60-year-old patient comes in with left lower quadrant abdominal pain. Patient reports pain started about 3 days ago. Patient reports coughing last night and exacerbated the pain worse. Patient is concerned that he may have a hernia. Patient is obese, has a history of heart disease, takes medication for diabetes and hypertension, patient is also on Eliquis. Patient appears in mild to moderate pain. Patient does have an umbilical hernia that just came up that has been there for years, patient also has a right ventral hernia that is secondary to prior gallbladder surgery. Patient's last dose of Eliquis was this morning. Review of Systems General: Reports: 10 or more systems reviewed and unremarkable except in HPI and below GI: Reports: abdominal pain 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 History of pancreatitis History of gallstone pancreatitis requiring prolonged hospital stay, normal intra-abdominal surgery and subsequent tracheostomy/reversal Hyperlipidemia Hypertension Morbid obesity Osteoarthritis Rectus sheath hematoma Systolic CHF, chronic Surgical History History of appendectomy History of cholecystectomy Hx of tracheostomy With reversal S/P dialysis catheter insertion (12/2019) Family History Other Bleeding disorder Denies family history of Anesthesia complication Social History Smoking and tobacco status: former smoker History of recent travel: No Physical Exam Const: COMMON NORMALS: no acute distress and patient oriented x3 GENERAL APPEARANCE: cooperative HENMT: COMMON NORMALS: normocephalic and Normal external nose present HEAD & SCALP: normal to inspection and normocephalic NOSE: Normal external nose present MOUTH: Normal oral and palatal mucosa present THROAT: posterior oropharynx normal Eye: GENERAL EYE: appearance normal, both eyes and all related structures Neck/C-Spine: COMMON NORMALS: full ROM Lymph: LYMPHATIC: no lymphadenopathy noted Chest: COMMONS NORMALS: normal inspection of the chest Resp: COMMON NORMALS: normal respiratory effort EFFORT & INSPECTION: Yes able to speak in complete sentences Cardio: COMMON NORMALS: regular rate and regular rhythm RATE: regular rate RHYTHM: regular rhythm GI: INSPECTION: Yes normal to inspection AUSCULTATION: Yes normoactive bowel sounds PALPATION: Yes Tenderness to palpation present (GI) Details: LLQ OTHER: Patient has an area of tenderness in the left lower abdomen that feels as a tight muscle, no obvious hernias noted. : COMMON NORMALS: Yes no CVA tenderness BLADDER/KIDNEY EXAM: Yes no CVA tenderness Back/Pelvis: COMMON NORMALS: no CVA tenderness and thoracic and lumbar spine normal to inspection Extremity: COMMON NORMALS: normal to inspection Neuro: COMMON NORMALS: patient oriented x3 and moves all extremities Psych: COMMON NORMALS: mental status grossly normal and cooperative Skin: COMMON NORMALS: no rashes or lesions noted GENERAL SKIN EXAM: no rashes or lesions noted Course ED course: 1155, discussed with Dr. Yanez patient's abnormal CT scan of a rectus abdominal hematoma that appears to still have some bleeding. He recommended we talked to Dr. Sandoval, surgeon, for further recommendations of treatment. I discussed the patient with Dr. Sandoval who reviewed the CT scan he recommended admission to hospitalist services with him to consult. He recommended holding Eliquis. Vital Signs: Vital signs: Vital Signs Temperature 98.3 F 10/16/20 14:27 Pulse Rate 91 10/16/20 14:27 Respiratory Rate 18 10/16/20 14:27 Blood Pressure 128/91 10/16/20 14:27 Pulse Oximetry 95 10/16/20 14:27 MDM - Abdominal Pain MDM Narrative: Medical decision making narrative: Patient comes in today for complaints of left lower abdominal pain that has started 3 days ago. Patient reports increased pain this morning after coughing to clear his throat. Patient denied any fever. Patient has a history of atrial fib, diabetes, hypertension, history of CVA. Exam noted tenderness in the left lower quadrant with some tightness in the musculature. Laboratory values noted 10,000 white count, blood glucose was 183, hemoglobin adequate was [address] scan noted a large hematoma in the rectus on the left side. Patient also had 2 incidental hernias that were not incarcerated. I reviewed this with Dr. Yanez who recommended we talked to Dr. Sandoval the surgeon. Dr. Sandoval recommended admission and monitoring with him to consult for further treatment. Dr. Yanez consulted with hospitalist for admission. Lab Data: Labs: Lab Results 10/14/20 10/14/20 10/14/20 Range/Units 09:40 09:40 10:30 WBC 10.4 H (4.0-10.0) 10^3/ uL RBC 5.29 (4.1-5.3) 10^6/u L Hgb 15.1 (11.7-16.6) g/dL Hct 47.4 (42.0-52.0) % MCV 89.6 (80-94) fL MCH 28.5 (28.0-34.0) pg MCHC 31.9 (30.0-36.0) g/dL RDW 13.5 (12.1-15.1) % Plt Count 261 (130-400) 10^3/c mm MPV 9.5 (7.4-10.4) fL Neut % (Auto) 81.6 % Lymph % (Auto) 7.3 % Cherry % (Auto) 6.6 % Eos % (Auto) 2.7 % Baso % (Auto) 0.5 % Neut # (Auto) 8.47 H (1.8-7.7) 10^3/u L Lymph # (Auto) 0.8 (0.8-4.8) 10^3/u L Cherry # (Auto) 0.7 (0.2-0.9) 10^3/u L Eos # (Auto) 0.3 (0.0-0.8) 10^3/u L Baso # (Auto) 0.1 (0.0-0.1) 10^3/u L Nucleated RBC % (a uto) 0 % Nucleated RBCs # 0.0 /100WBC Sodium 138 (136-145) mmol/L Potassium 3.9 (3.5-5.1) mmol/L Chloride 103 (98-107) mmol/L Carbon Dioxide 24 (22-29) mmol/L Anion Gap 14.9 (5-19) BUN 22 H (6-20) mg/dL Creatinine 0.5 L (0.7-1.2) mg/dL GFR Calculation 170.2 H (90-130) mL/min Glucose 181 H (65-115) mg/dL Calculated Osmolal ity 294 (285-295) mOsm/k g Calcium 9.0 (8.5-10.5) mg/dL Total Bilirubin 0.4 (0.15-1.2) mg/dL AST 15 (0-40) U/L ALT 24 (0-41) U/L Alkaline Phosphata se 76 (40-130) IU/L Total Protein 7.0 (6.6-8.7) g/dL Albumin 4.1 (3.5-5.2) g/dL Globulin 2.9 (1.3-4.6) g/dL Lipase 30 (13-60) U/L Urine Color Yellow (Yellow) Urine Appearance Clear (CLEAR) Urine pH 5 (5-7) Ur Specific Gravit y 1.020 (1.005-1.030) Urine Protein Neg (Negative) Urine Glucose (UA) 4+ H (Normal) Urine Ketones 1+ H (Negative) Urine Blood Neg (Negative) Urine Nitrate Negative (Negative) Urine Bilirubin Neg (Negative) Urine Urobilinogen Norm (Negative) mg/dL Ur Leukocyte Jaclyn ase Negative (Negative) Discharge Plan Discharge Patient Disposition: Admitted As Inpatient Admit Provider: Guido Sandoval Clinical Impression: Abdominal hematoma Condition: Stable Discharge Diet: Advance as tolerated Coding Level of Care Code ED Vocational Services Specialist for Chg Fwd Exam Comprehensive Documented by User: Ross Kevin MD 10/17/20 11:17 HPI - Abdominal Pain General: Chief Complaint: Abdominal Pain Stated Complaint: ABD pain Time Seen by Provider: 10/14/20 10:27 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 History of pancreatitis History of gallstone pancreatitis requiring prolonged hospital stay, normal intra-abdominal surgery and subsequent tracheostomy/reversal Hyperlipidemia Hypertension Morbid obesity Osteoarthritis Rectus sheath hematoma Systolic CHF, chronic Surgical History History of appendectomy History of cholecystectomy Hx of tracheostomy With reversal S/P dialysis catheter insertion (12/2019) Family History Other Bleeding disorder Denies family history of Anesthesia complication Social History Smoking and tobacco status: former smoker History of recent travel: No Course Vital Signs: Vital signs: Vital Signs Temperature 98.3 F 10/16/20 14:27 Pulse Rate 91 10/16/20 14:27 Respiratory Rate 18 10/16/20 14:27 Blood Pressure 128/91 10/16/20 14:27 Pulse Oximetry 95 10/16/20 14:27 MDM - Abdominal Pain MDM Narrative: Medical decision making narrative: Kevin: I saw the patient and agree with midlevel's plan of care. Admit to Dr. Sandoval. He recommends no acute intervention and watching him upstairs. The patient was admitted in stable condition. Lab Data: Labs: Lab Results 10/14/20 10/14/20 10/14/20 Range/Units 09:40 09:40 10:30 WBC 10.4 H (4.0-10.0) 10^3/ uL RBC 5.29 (4.1-5.3) 10^6/u L Hgb 15.1 (11.7-16.6) g/dL Hct 47.4 (42.0-52.0) % MCV 89.6 (80-94) fL MCH 28.5 (28.0-34.0) pg MCHC 31.9 (30.0-36.0) g/dL RDW 13.5 (12.1-15.1) % Plt Count 261 (130-400) 10^3/c mm MPV 9.5 (7.4-10.4) fL Neut % (Auto) 81.6 % Lymph % (Auto) 7.3 % Cherry % (Auto) 6.6 % Eos % (Auto) 2.7 % Baso % (Auto) 0.5 % Neut # (Auto) 8.47 H (1.8-7.7) 10^3/u L Lymph # (Auto) 0.8 (0.8-4.8) 10^3/u L Cherry # (Auto) 0.7 (0.2-0.9) 10^3/u L Eos # (Auto) 0.3 (0.0-0.8) 10^3/u L Baso # (Auto) 0.1 (0.0-0.1) 10^3/u L Nucleated RBC % (a uto) 0 % Nucleated RBCs # 0.0 /100WBC Sodium 138 (136-145) mmol/L Potassium 3.9 (3.5-5.1) mmol/L Chloride 103 (98-107) mmol/L Carbon Dioxide 24 (22-29) mmol/L Anion Gap 14.9 (5-19) BUN 22 H (6-20) mg/dL Creatinine 0.5 L (0.7-1.2) mg/dL GFR Calculation 170.2 H (90-130) mL/min Glucose 181 H (65-115) mg/dL Calculated Osmolal ity 294 (285-295) mOsm/k g Calcium 9.0 (8.5-10.5) mg/dL Total Bilirubin 0.4 (0.15-1.2) mg/dL AST 15 (0-40) U/L ALT 24 (0-41) U/L Alkaline Phosphata se 76 (40-130) IU/L Total Protein 7.0 (6.6-8.7) g/dL Albumin 4.1 (3.5-5.2) g/dL Globulin 2.9 (1.3-4.6) g/dL Lipase 30 (13-60) U/L Urine Color Yellow (Yellow) Urine Appearance Clear (CLEAR) Urine pH 5 (5-7) Ur Specific Gravit y 1.020 (1.005-1.030) Urine Protein Neg (Negative) Urine Glucose (UA) 4+ H (Normal) Urine Ketones 1+ H (Negative) Urine Blood Neg (Negative) Urine Nitrate Negative (Negative) Urine Bilirubin Neg (Negative) Urine Urobilinogen Norm (Negative) mg/dL Ur Leukocyte Jaclyn ase Negative (Negative) Discharge Plan Discharge Patient Disposition: Admitted As Inpatient Admit Provider: Guido Sandoval Clinical Impression: Abdominal hematoma Condition: Stable Discharge Diet: Advance as tolerated Coding Level of Care Code ED Vocational Services Specialist for Chg Fwd Exam Comprehensive
--- NOTE | 2020-10-14 10:34 | CTR_ITS ---
PROCEDURE INFORMATION: Exam: CT Abdomen And Pelvis With Contrast Exam date and time: 10/14/2020 10:48 AM Age: 60 years old Clinical indication: Abdominal pain; Prior surgery; Surgery type: Appy, gb; Additional info: Abd pain, concern for hernia entrapment TECHNIQUE: Imaging protocol: Computed tomography of the abdomen and pelvis with contrast. Radiation optimization: All CT scans at this facility use at least one of these dose optimization techniques: automated exposure control; mA and/or kV adjustment per patient size (includes targeted exams where dose is matched to clinical indication); or iterative reconstruction. Contrast material: OMNI 300; Contrast volume: 95 ml; Contrast route: INTRAVENOUS (IV); COMPARISON: CT Abdomen/Pelvis Renal [id number] 11/03/2015 11:02 PM RADIATION DOSE METRICS: Total DLP (mGy-cm): 1799.01 FINDINGS: Pleural spaces: There is a small pleural effusion. No pneumothorax. Heart: Normal heart size. Coronary atherosclerotic calcifications seen. No pericardial effusion. Mediastinal space: A small hiatal hernia is present. Liver: Normal. No mass. Gallbladder and bile ducts: The gallbladder has been surgically removed. No intra or extrahepatic biliary ductal dilatation seen. Pancreas: Normal. No ductal dilation. Spleen: A small accessory splenule is noted in the left upper quadrant. The spleen is unremarkable. Adrenal glands: Normal. No mass. Kidneys and ureters: There is multiple nonobstructing stones scattered throughout both kidneys, the largest on the right measuring 0.8 cm. No hydronephrosis. Multiple incompletely characterized hypodense lesions are seen scattered throughout both kidneys, the largest measuring 1.8 cm in the left lower kidney and 1.6 cm in the right upper kidney. Stomach and bowel: There is a large ventral hernia containing small bowel and colon in the right upper quadrant. There is a small bowel containing umbilical hernia. No bowel obstruction or inflammation identified. Appendix: There has been an appendectomy. Intraperitoneal space: See Soft tissues finding. Vasculature: Unremarkable. Lymph nodes: Unchanged haziness of the central mesenteric fat with a few small lymph nodes, suggestive of mesenteric panniculitis. Urinary bladder: Unremarkable as visualized. Reproductive: Unremarkable as visualized. Bones/joints: Degenerative changes of the spine seen. Soft tissues: There is a large rectus sheath hematoma on the left, measuring approximately 14.9 x 14.2 x 8 cm. There is foci of increased attenuation within the collection, suggestive of active hemorrhage. There is a small amount of hemorrhagic products extending into the superior left inguinal canal, left inguinal fossa, and left retroperitoneum. There is mild stranding of the subcutaneous overlying the rectus sheath hematoma in the left lower quadrant. CT/CT abdomen pelvis w con* [id number] IMPRESSION: 1. Large rectus sheath hematoma on the left, with foci of increased attenuation suggestive of active bleeding. 2. Incompletely characterized bilateral kidney lesions. Further evaluation with contrast enhanced abdomen MRI in a non emergent basis is recommended. COMMENTS: Consistent with the [employer]'s Incidental Findings Committee white paper (J Am Jimbo Radiol 2018): Any incidental renal lesion less than 1 cm or classified as too small to characterize, or any incidental cystic renal lesion characterized as simple-appearing, is likely benign. No follow-up imaging is recommended for these lesions per consensus recommendations based on imaging criteria. THIS REPORT CONTAINS FINDINGS THAT MAY BE CRITICAL TO PATIENT CARE. The findings were verbally communicated via telephone conference with Dr. Yola Wang, at 11:49 AM FLIGHT SECURITY SPECIALIST on 10/14/2020. The findings were acknowledged and understood. Radiation Dose CTDIVOL = (mGy): DLP = 1799.01 (mGy-cm)
[2020-10-14 10:42] LABS: Add Urine Microscopic? NO
[2020-10-14 10:51] LABS: Bilirubin Urine Neg (Negative); Blood Urine Neg (Negative); Glucose Urine UA 4+ (Normal); Ketones Urine 1+ (Negative); Leukocyte Esterase Urine Negative (Negative); Nitrate Urine Negative (Negative); Protein Urine Neg (Negative); Urine Appearance Clear (CLEAR); Urine Color Yellow (Yellow); Urobilinogen Urine Norm (Negative); pH Urine 5 (5-7)
[2020-10-14] MEDS: iohexol 300 mg/mL 100 mL Btl IV (11:11)
--- NOTE | 2020-10-14 12:50 | ED_ITS ---
HPI - Abdominal Pain General: Chief Complaint: Abdominal Pain Stated Complaint: ABD pain Time Seen by Provider: 10/14/20 10:27 Source: patient Mode of arrival: ambulatory Limitations: no limitations History of Present Illness: HPI narrative: I took over care from the midlevel practitioner. The patient is a 60-year-old male on Eliquis and has chronic abdominal hernias. He had a left lower quadrant abdominal pain today which is worse than usual. CT showed a hematoma there. Discussed with Dr. Sandoval who accepts for admission and recommends holding Eliquis. elicited complaint: abdominal pain Associated Symptoms: Reports nausea and vomiting; Denies GI cramping and diarrhea Review of Systems General: Reports: 10 or more systems reviewed and unremarkable except in HPI and below Const: Denies: fatigue Eyes: Denies: change in vision, blurry vision or eye redness ENMT: Denies: throat pain, swelling of lips/tongue, ear or mastoid pain or nasal congestion Card: Denies: chest pain, palpitations, irregular heart rhythm, edema, dyspnea on exertion or orthopnea Resp: Denies: dyspnea, productive cough or non-productive cough GI: Reports: abdominal pain, nausea and vomiting; Denies: diarrhea or GI cramping : Denies: flank pain, urinary frequency or urinary urgency Musc: Denies: neck pain, back pain, extremity pain, joint pain, joint redness, limited range of motion or muscle weakness Skin/Breast: Denies: rash, pruritus, erythema, skin pain or skin tenderness Neuro: Denies: headache(s), numbness in extremities, weakness in extremities, sensory changes, difficulty walking, dizziness, confusion or Slurred speech present Psych: Denies: anxiety or depression Endo: Denies: polyuria All/Imm: Denies: urticaria, throat swelling or tongue swelling PFS ED PFSH: Medical History (Updated 10/14/20 @ 12:53 by Ross Kevin MD) Atrial fibrillation 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 History of pancreatitis History of gallstone pancreatitis requiring prolonged hospital stay, normal intra-abdominal surgery and subsequent tracheostomy/reversal Hyperlipidemia Hypertension Morbid obesity Osteoarthritis Systolic CHF, chronic Surgical History History of appendectomy History of cholecystectomy Hx of tracheostomy With reversal S/P dialysis catheter insertion (12/2019) Family History Other Bleeding disorder Denies family history of Anesthesia complication Social History Smoking and tobacco status: former smoker History of recent travel: No Physical Exam Const: COMMON NORMALS: no acute distress, average body habitus, patient oriented x3, no limitations, healthy appearing, alert and well nourished GENERAL APPEARANCE: cooperative, comfortable, well kempt and well developed ORIENTATION/CONSCIOUSNESS: Yes awake, Yes oriented to person, Yes oriented to place and Yes oriented to time HENMT: COMMON NORMALS: normocephalic, external ears normal and Normal external nose present HEAD & SCALP: normal to inspection and normocephalic NOSE: Normal external nose present EXTERNAL EAR: Yes external ears normal MOUTH: Normal oral and palatal mucosa present THROAT: posterior oropharynx normal Eye: COMMON NORMALS: Equal, round and reactive pupils present and EOMs intact bilaterally GENERAL EYE: appearance normal, both eyes and all related structures PUPIL: Yes Equal, round and reactive pupils present Neck/C-Spine: COMMON NORMALS: full ROM, no lymphadenopathy, no meningeal signs and no JVD GENERAL: Yes normal visual inspection Lymph: LYMPHATIC: no lymphadenopathy noted Chest: COMMONS NORMALS: normal inspection of the chest and normal palpation of entire chest wall Resp: COMMON NORMALS: normal respiratory effort, No retractions, No use of accessory muscles, clear to auscultation bilaterally and percussion normal EFFORT & INSPECTION: Yes able to speak in complete sentences AUSCULTATION: clear to auscultation bilaterally PERCUSSION: percussion normal Cardio: COMMON NORMALS: no JVD, regular rate, regular rhythm, S1 normal heart sound present, S2 normal heart sound present and Peripheral pulses 2+ throughout RATE: regular rate RHYTHM: regular rhythm HEART SOUNDS: S1 normal heart sound present and S2 normal heart sound present PERIPHERAL PULSES: Peripheral pulses 2+ throughout GI: COMMON NORMALS: Soft to palpation and no masses INSPECTION: Yes normal to inspection PALPATION: Yes Soft to palpation OTHER: Patient has significant left lower quadrant tenderness. He also has multiple abdominal hernias present which are large and not tender. : COMMON NORMALS: Yes no CVA tenderness BLADDER/KIDNEY EXAM: Yes no CVA tenderness Back/Pelvis: COMMON NORMALS: no CVA tenderness, thoracic and lumbar spine normal to inspection, no thoracic nor lumbar tenderness and thoraco-lumbar ROM normal Extremity: COMMON NORMALS: normal to inspection, full ROM, capillary refill normal, no joint enlargement and no pedal edema GENERAL: Yes normal exam except as noted Neuro: COMMON NORMALS: patient oriented x3, CN's II-XII intact bilaterally, moves all extremities, no focal motor deficits, no sensory deficits noted and gait normal SENSORIUM/ORIENTATION: Yes alert, Yes oriented to person, Yes oriented to place and Yes oriented to time MENINGEAL SIGNS: Yes no meningeal signs Psych: COMMON NORMALS: mental status grossly normal, Normal thought process present, cooperative, normal affect and speech normal APPEARANCE: Yes well kempt ATTITUDE: Yes calm SPEECH: Yes normal speech THOUGHT PROCESS: Normal thought process present Skin: COMMON NORMALS: no rashes or lesions noted GENERAL SKIN EXAM: no rashes or lesions noted Course Vital Signs: Vital signs: Vital Signs Temperature 97.1 F L 10/14/20 09:33 Pulse Rate 83 10/14/20 10:36 Respiratory Rate 18 10/14/20 10:36 Blood Pressure 139/102 10/14/20 10:36 Pulse Oximetry 93 10/14/20 10:36 MDM - Abdominal Pain MDM Narrative: Medical decision making narrative: Patient has a hematoma likely related to Eliquis. Discussed with Dr. Sandoval who will accept and admit this patient. Recommends holding Eliquis. Patient stable for admission Lab Data: Labs: Lab Results 10/14/20 10/14/20 10/14/20 Range/Units 09:40 09:40 10:30 WBC 10.4 H (4.0-10.0) 10^3/ uL RBC 5.29 (4.1-5.3) 10^6/u L Hgb 15.1 (11.7-16.6) g/dL Hct 47.4 (42.0-52.0) % MCV 89.6 (80-94) fL MCH 28.5 (28.0-34.0) pg MCHC 31.9 (30.0-36.0) g/dL RDW 13.5 (12.1-15.1) % Plt Count 261 (130-400) 10^3/c mm MPV 9.5 (7.4-10.4) fL Neut % (Auto) 81.6 % Lymph % (Auto) 7.3 % [place] % (Auto) 6.6 % Eos % (Auto) 2.7 % Baso % (Auto) 0.5 % Neut # (Auto) 8.47 H (1.8-7.7) 10^3/u L Lymph # (Auto) 0.8 (0.8-4.8) 10^3/u L [place] # (Auto) 0.7 (0.2-0.9) 10^3/u L Eos # (Auto) 0.3 (0.0-0.8) 10^3/u L Baso # (Auto) 0.1 (0.0-0.1) 10^3/u L Nucleated RBC % (a uto) 0 % Nucleated RBCs # 0.0 /100WBC Sodium 138 (136-145) mmol/L Potassium 3.9 (3.5-5.1) mmol/L Chloride 103 (98-107) mmol/L Carbon Dioxide 24 (22-29) mmol/L Anion Gap 14.9 (5-19) BUN 22 H (6-20) mg/dL Creatinine 0.5 L (0.7-1.2) mg/dL GFR Calculation 170.2 H (90-130) mL/min Glucose 181 H (65-115) mg/dL Calculated Osmolal ity 294 (285-295) mOsm/k g Calcium 9.0 (8.5-10.5) mg/dL Total Bilirubin 0.4 (0.15-1.2) mg/dL AST 15 (0-40) U/L ALT 24 (0-41) U/L Alkaline Phosphata se 76 (40-130) IU/L Total Protein 7.0 (6.6-8.7) g/dL Albumin 4.1 (3.5-5.2) g/dL Globulin 2.9 (1.3-4.6) g/dL Lipase 30 (13-60) U/L Urine Color Yellow (Yellow) Urine Appearance Clear (CLEAR) Urine pH 5 (5-7) Ur Specific Gravit y 1.020 (1.005-1.030) Urine Protein Neg (Negative) Urine Glucose (UA) 4+ H (Normal) Urine Ketones 1+ H (Negative) Urine Blood Neg (Negative) Urine Nitrate Negative (Negative) Urine Bilirubin Neg (Negative) Urine Urobilinogen Norm (Negative) mg/dL Ur Leukocyte Jaclyn ase Negative (Negative) Discharge Plan Discharge Patient Disposition: Admitted As Inpatient Clinical Impression: Abdominal hematoma Condition: Stable Coding Level of Care Code ED Windows Phone Developer for Asim Antony
[2020-10-14] MEDS: HYDROcodone-acetaminophen 5-325 mg Tablet 1 TAB PO ×2 (15:04→21:01)
[2020-10-14] MEDS: sodium chlor 0.9% + KCl 20 mEq 20 MEQ/1,000 ML BAG 50 MEQ IV (15:04)
--- NOTE | 2020-10-14 15:07 | PC.NURSE ---
MEDICATIONS LOCKED IN [facility].
[2020-10-14 16:47] LABS: Glucose Point of Care 192 mg/dL (70-110)
[2020-10-14] MEDS: sennosides-docusate Tablet 1 TAB PO (18:42)
[2020-10-14] MEDS: morphine 4 mg/mL SDV 1 mL 3 MG IVP (19:34)
[2020-10-14 20:05] LABS: Glucose Point of Care 228 mg/dL (70-110)
[2020-10-14] MEDS: alum-mag-hydroxide-sime 30 mL UDC 15 ML PO (21:01)
[2020-10-14] MEDS: metoprolol tartrate 50 mg Tablet 100 MG PO (21:02)
[2020-10-14] MEDS: atorvastatin 40 mg Tablet 20 MG PO (21:02)
[2020-10-15] VITALS (14 sets, daily range): BP systolic 123–167; BP diastolic 78–86; PULSE 64–96; RESP 16–20; TEMP 36.2–37.3; O2SAT 91–96
[2020-10-15] MEDS: morphine 4 mg/mL SDV 1 mL 3 MG IVP ×2 (02:52→20:19)
--- NOTE | 2020-10-15 05:04 | PC.NURSE ---
Addendum entered by Jade Gutiérrez LPN 10/15/20 05:13: Did c/o indigestion in evening and requested something for it. Was given po Maalox per order received. No further c/o Original Note: SHIFT SUMMARY Has done well tonight. Has had c/o LLQ abd pain as well as some back pain which he says is chronic. Abdomen is round but soft. Yung wrap/abd binder has been in place all shift. Says it feels uncomfortable but is aware of need to keep it on. IV infusing without difficulty. Has received IV Morphine X2 and po Hydrocodone X1 tonight with good pain relief reported. NPO since midnight per order
[2020-10-15 05:37] LABS: Blood Urea Nitrogen 32 mg/dL (6-20); Calcium 8.9 mg/dL (8.5-10.5); Carbon Dioxide 20 mmol/L (22-29); Chloride 101 mmol/L (98-107); Glomerular Filtration Rate 98.9 mL/min (90-130); Glucose 161 mg/dL (65-115); Osmolality Calculated 288 mOsm/kg (285-295); Sodium 134 mmol/L (136-145)
[2020-10-15 05:46] LABS: Anion Gap 17.2 (5-19); Potassium 4.2 mmol/L (3.5-5.1)
[2020-10-15 06:29] LABS: Glucose Point of Care 191 mg/dL (70-110)
[2020-10-15] MEDS: lisinopril 20 mg Tablet 40 MG PO (09:17)
[2020-10-15] MEDS: fluoxetine 20 mg Capsule 40 MG PO (09:17)
[2020-10-15] MEDS: sennosides-docusate Tablet 1 TAB PO ×2 (09:18→17:46)
[2020-10-15] MEDS: fluticasone nasal spray 16gm Btl 2 SPRAY NASAL (09:18)
[2020-10-15] MEDS: amlodipine 10 mg Tablet PO (09:18)
[2020-10-15] MEDS: metoprolol tartrate 50 mg Tablet 100 MG PO ×2 (09:24→20:14)
[2020-10-15 09:29] LABS: Glucose Point of Care 190 mg/dL (70-110)
--- NOTE | 2020-10-15 09:31 | PC.CHAP ---
Pastoral Care Encounter/Spiritual Assessment Type of Contact [] Declined black mill operator visit [] Patient/Family/Request visit [] Outpatient visit [] Follow-up visit [] Physician referral [] Code/Alert [] Routine visit [] Staff referral [] Actively dying [] Patient sleeping [] Family support [] [] Out of room [] Palliative care [] [] Receiving care in room [] Pre-surgical visit [] Trauma [] Long length of stay [] ICU visit [] Other: Relational/Emotional Strength [] Patient feels connected with others/family/visitors/staff [] Distress [] Loneliness/isolation [] Abandonment Spirituality of Patient [] Person of Renetta [] Attends Congregation of their Renetta [] Believes in Prayer [] Reads Bible or Synagogue materials [] There are Spiritual issues to be addressed Community Development Worker Interventions [] Prayer [] Active listening [] Non-anxious presence [] Spiritual/emotional support [] Crisis/trauma care [] Spiritual counseling [] Bereavement support [] Provided bereavement packet [] Provided Bible/devotional materials [] Provided toy/stuffed animal, coloring book to patient or family member [] Provided Communion [] Anointing/[place] [] Salvation [] Completed spiritual assessment [] Other: Impact on Illness or Injury [] Angry [] Fearful [] Anxious [] Often cries [] Exhaustion [] Unable to work [] Unable to attend mosque [] Unable to walk/stand [] Unable to read [] Unable to drive [] Unable to eat/drink [] Unable to sleep [] Unable to be with family [] Patient intubated [] Other: Summary Time spent with patient Pastoral Care Encounter/Spiritual Assessment Type of Contact [] Declined black mill operator visit [] Patient/Family/Request visit [] Outpatient visit [] Follow-up visit [] Physician referral [] Code/Alert [x Routine visit [] Staff referral [] Actively dying [] Patient sleeping [] Family support [] [] Out of room [] Palliative care [] [] Receiving care in room [] Pre-surgical visit [] Trauma [] Long length of stay [] ICU visit [] Other: Relational/Emotional Strength [x] Patient feels connected with others/family/visitors/staff [] Distress [] Loneliness/isolation [] Abandonment Spirituality of Patient [x] Person of Renetta [] Attends Congregation of their Renetta [] Believes in Prayer [] Reads Bible or Synagogue materials [] There are Spiritual issues to be addressed Community Development Worker Interventions [x] Prayer [x] Active listening [] Non-anxious presence [] Spiritual/emotional support [] Crisis/trauma care [] Spiritual counseling [] Bereavement support [] Provided bereavement packet [x] Provided Bible/devotional materials [] Provided toy/stuffed animal, coloring book to patient or family member [] Provided Communion [] Anointing/[place] [] Salvation [x] Completed spiritual assessment [] Other: Impact on Illness or Injury [] Angry [] Fearful [] Anxious [] Often cries [] Exhaustion [] Unable to work [] Unable to attend mosque [] Unable to walk/stand [] Unable to read [] Unable to drive [] Unable to eat/drink [] Unable to sleep [] Unable to be with family [] Patient intubated [] Other: Summary doing much better Time spent with patient 10 min
[2020-10-15 10:40] LABS: Basophils # 0.1 10^3/uL (0.0-0.1); Basophils % 0.6 %; Eosinophils # 0.1 10^3/uL (0.0-0.8); Eosinophils % 0.7 %; Hematocrit 40.2 % (42.0-52.0); Hemoglobin 12.8 g/dL (11.7-16.6); Lymphocytes # 0.7 10^3/uL (0.8-4.8); Lymphocytes % 6.9 %; Mean Corpuscular HGB Conc 31.8 g/dL (30.0-36.0); Mean Corpuscular Hemoglobin 28.8 pg (28.0-34.0); Mean Corpuscular Volume 90.5 fL (80-94); Mean Platelet Volume 9.7 fL (7.4-10.4); Monocytes # 1.3 10^3/uL (0.2-0.9); Monocytes % 12.3 %; Neutrophils # 8.47 10^3/uL (1.8-7.7); Neutrophils % 78.4 %; Nucleated Red Blood Cells % 0 %; Platelet Count 284 10^3/cmm (130-400); Red Blood Count 4.44 10^6/uL (4.1-5.3); White Blood Count 10.8 10^3/uL (4.0-10.0)
[2020-10-15] MEDS: sodium chlor 0.9% + KCl 20 mEq 20 MEQ/1,000 ML BAG 50 MEQ IV (10:46)
[2020-10-15 12:40] LABS: Glucose Point of Care 289 mg/dL (70-110)
--- NOTE | 2020-10-15 12:54 | P.HP_ITS ---
Providers/Chief Complaint Admitting Physician: Guido Sandoval MD Primary Care Provider: Cristina Diggs APN Chief Complaint: ABD pain History of Present Illness Anderson Wang is a 60 year old male who presented to the ER with left lower quadrant pain. Patient states that he has been coughing for the last week to 10 days and subsequently he developed left lower quadrant pain which progressively worsened. The pain was worse with physical activity, there are no other associated GI symptoms. No fevers or chills. A CT scan in the ER showed a large left rectus hematoma. Patient is on Eliquis Review of Systems General: Reports: 10 or more systems reviewed and unremarkable except in HPI and below Medications/Allergies Home Medications Medication Instructions Recorded Confirmed Last Taken Type Januvia 100 mg PO DAILY@0700 11/26/19 10/14/20 10/14/20 History atorvastatin [Lipitor] 10 mg PO BEDTIME@2100 11/26/19 10/14/20 10/13/20 History fluticasone propionate [Flonase 2 spray INTRANASAL DAILY@0700 11/26/19 10/14/20 10/12/20 History Allergy Relief] metformin [Glucophage] 1,000 mg PO BID@0700,1700 11/26/19 10/14/20 10/14/20 History potassium chloride [Klor-Con M20] 20 meq PO DAILY@0700 11/26/19 10/14/20 10/14/20 History Flovent HFA 2 puff INHALATION BID@0700,1700 11/27/19 10/14/20 10/14/20 History Jardiance 25 mg PO DAILY@0700 12/07/19 10/14/20 10/14/20 History amlodipine 10 mg PO DAILY@0700 12/07/19 10/14/20 10/14/20 History glipizide 5 mg PO DAILY@0700 12/07/19 10/14/20 10/14/20 History metoprolol tartrate 100 mg PO BID@0700,1700 12/07/19 10/14/20 10/14/20 History fluoxetine 40 mg PO DAILY #30 cap 05/10/20 10/14/20 10/14/20 Rx aspirin 81 mg PO DAILY@0700 10/14/20 10/14/20 10/14/20 History lisinopril 40 mg PO DAILY@0700 10/14/20 10/14/20 10/14/20 History docusate sodium [Colace] 100 mg PO BID #30 cap 10/16/20 Unknown Rx hydrocodone-acetaminophen [Dardanelle] 1 tab PO Q6H 7 Days #20 tab 10/16/20 Unknown Rx Allergies Allergy/AdvReac Type Severity Reaction Status Date / Time No Known Allergies Allergy Verified 05/07/20 08:41 PFSH Acute PFSH: Medical History (Updated 10/17/20 @ 07:09 by Guido Sandoval MD) Atrial fibrillation 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 History of pancreatitis History of gallstone pancreatitis requiring prolonged hospital stay, normal intra-abdominal surgery and subsequent tracheostomy/reversal Hyperlipidemia Hypertension Morbid obesity Osteoarthritis Rectus sheath hematoma Systolic CHF, chronic Surgical History History of appendectomy History of cholecystectomy Hx of tracheostomy With reversal S/P dialysis catheter insertion (12/2019) Family History Other Bleeding disorder Denies family history of Anesthesia complication Social History Smoking and tobacco status: former smoker History of recent travel: No Vitals/I&O/Wt Last Vital Signs Temp 98.3 F 10/15/20 12:48 Pulse 64 10/15/20 12:48 Resp 18 10/15/20 12:48 BP 167/78 10/15/20 12:48 Pulse Ox 91 10/15/20 12:48 10/14/20 10/15/20 10/15/20 22:59 06:59 14:59 Intake Total 580 / 700 120 / 700 1000 / 1000 Output Total 850 / 1150 300 / 1150 375 / 375 Balance -270 / -450 -180 / -450 625 / 625 Weight last 48 hrs Weight 290 lb Physical Exam Narrative: EXAM NARRATIVE: HEENT: Normocephalic Eye: Sclera /conjunctiva normal Respiratory and chest: Bilateral clear breath sounds on auscultation Cardiovascular: Normal S1 and S2 heart sounds Abdomen: Soft to palpation, tender left lower quadrant, no guarding or rigidity Neurological: Oriented to place person and time Skin: Intact, no lesions appreciated on gross exam Data : 10/16/20 11:10 10/15/20 17:03 A&P Assessment and plan (1) Rectus sheath hematoma: 60-year-old male with chronic cough who presented to the ER with spontaneous left rectus hematoma measuring 14 x 14 cm. Patient is on Eliquis which she had taken until yesterday. DC Eliquis and aspirin Start insulin sliding scale Regular diet Ambulate ad caitlin. Resume all home medications Morphine and Dardanelle for pain control Colace for bowel regimen Wear Yung wrap and abdominal binder at all times Patient will need 1 more night of inpatient stay to ensure that bleeding has stopped Status: Acute Attestations Medical Necessity Statement*: Left rectus muscle hematoma requiring 2 nights of hospital stay to ensure that bleeding has stopped Coding Level of Care Code Acute Chemist Biological for Asim Antony Diagnoses Rectus sheath hematoma S30.1XXA
--- NOTE | 2020-10-15 15:48 | PM.CONSULT ---
Providers/Reason For Consult Consulting Physican/Specialty*: Lashell Cheema MD /Hospitalist Reason for Consult*: Management of anticoagulation and medical comorbidities Attending Physician: Guido Sandoval MD Primary Care Provider: Cristina Diggs APN History of Present Illness History of Present Illness Anderson Wang is a 60 year old male with a past medical history of atrial fibrillation, CVA with residual left-sided pancreatitis related to gallstones, hyperlipidemia, hypertension, morbid obesity, osteoarthritis, chronic systolic CHF, chronic anticoagulation with Eliquis for his atrial fibrillation as prescribed by his primary care physician. He presented to the ER with chief complaints of left lower quadrant pain. Patient reports he had been coughing for the last 2 weeks, as is usual for him in the winter months and feel like a bout of intense coughing led to his abdominal pain. He presented to the ER yesterday where he was discovered to have a large rectus hematoma. Hemoglobin upon admission was at 15. Patient has a history of GI bleeding in December 2019 when he had presented with melena and acute anemia with hemoglobin dropped to 6.5. He underwent a diagnostic EGD at the time and patient was found to have peptic ulcer disease, 2 of these ulcers were injected with epinephrine. He was prescribed PPI therapy and Carafate after which he improved. In February [address] Torres as an outpatient and had a repeat EGD which found esophagitis, no malignancy was noted at the time. It appears Eliquis had been discontinued with episode og GI bleed, subsequently resumed. He has had few psychiatry admissions in December and May 2020 to now due to adjustment disorder and attempted suicide by drug overdose. No fever, no sputum production, no hemoptysis, no weight loss, no annika, hematemesis, urinary symptoms Review of Systems General: Reports: 10 or more systems reviewed and unremarkable except in HPI and below Const: Denies: fever(s), chills or body aches Eyes: Denies: change in vision, blurry vision or photophobia ENMT: Reports: hoarseness; Denies: throat pain, enlarged tonsils, odynophagia or nasal congestion Card: Denies: chest pain, palpitations, irregular heart rhythm, edema, swelling of feet/ankles, lightheadedness, pre-syncope, dyspnea on exertion or orthopnea Resp: Denies: dyspnea, productive cough, non-productive cough, wheezing, stridor, pain on inspiration, change in phlegm color, hemoptysis or chest congestion GI: Denies: abdominal pain, nausea, vomiting, hematemesis, coffee ground emesis, dysphagia, heartburn, diarrhea, constipation, GI cramping, change in stool character, hematochezia or melena : Denies: flank pain, dysuria, urinary frequency, urinary urgency, urinary hesitancy or hematuria Musc: Denies: neck pain, back pain, extremity pain, joint swelling, joint warmth or deformity Neuro: Denies: headache(s), numbness in extremities, weakness in extremities, sensory changes, difficulty walking, frequent falls, dizziness, vertigo, behavioral changes, Slurred speech present or seizure-like activity Psych: Denies: anxiety, depression, suicidal ideation or homicidal ideation Endo: Denies: polyuria, polydipsia, tired all the time, cold intolerance or hot flashes Kenny/Lymph: Denies: easy bruising or easy bleeding Meds/Allergies Home Medications and Allergies Home Medications Medication Instructions Recorded Confirmed Last Taken Type Januvia 100 mg PO DAILY@0700 11/26/19 10/14/20 10/14/20 History atorvastatin [Lipitor] 10 mg PO BEDTIME@2100 11/26/19 10/14/20 10/13/20 History fluticasone propionate [Flonase 2 spray INTRANASAL DAILY@0711/26/19 10/14/20 10/12/20 History Allergy Relief] metformin [Glucophage] 1,000 mg PO BID@0700,1700 11/26/19 10/14/20 10/14/20 History potassium chloride [Klor-Con M20] 20 meq PO DAILY@0700 11/26/19 10/14/20 10/14/20 History Flovent HFA 2 puff INHALATION BID@0700,1700 11/27/19 10/14/20 10/14/20 History Jardiance 25 mg PO DAILY@0700 12/07/19 10/14/20 10/14/20 History amlodipine 10 mg PO DAILY@0700 12/07/19 10/14/20 10/14/20 History glipizide 5 mg PO DAILY@0700 12/07/19 10/14/20 10/14/20 History metoprolol tartrate 100 mg PO BID@0700,1700 12/07/19 10/14/20 10/14/20 History Eliquis 5 mg PO BID@0700,1700 05/07/20 10/14/20 10/14/20 History fluoxetine 40 mg PO DAILY #30 cap 05/10/20 10/14/20 10/14/20 Rx aspirin [Aspir-81] 81 mg PO DAILY@0700 10/14/20 10/14/20 10/14/20 History lisinopril 40 mg PO DAILY@0700 10/14/20 10/14/20 10/14/20 History Allergies Allergy/AdvReac Type Severity Reaction Status Date / Time No Known Allergies Allergy Verified 05/07/20 08:41 Current Medications Current Medications Generic Name Dose Route Start Last Admin Trade Name Freq PRN Reason Stop Dose Admin Hydrocodone Bitart/Acetaminophen 1 tab 10/14/20 14:19 10/14/20 21:01 Hydrocodone-Acetaminophen 5-325 Mg Tablet PO 1 tab Q6H PRN Administration MODERATE PAIN Al Hydrox/Mg Hydrox/Simethicone 15 ml 10/14/20 20:47 10/14/20 21:01 Llvo-Yuv-Cqexqkllw-Erika 30 Ml Udc PO 15 ml Q6H PRN Administration INDIGESTION Amlodipine Besylate 10 mg 10/15/20 09:00 10/15/20 09:18 Amlodipine 10 Mg Tablet PO 10 mg DAILY PASTORA Administration Atorvastatin Calcium 20 mg 10/14/20 21:00 10/14/20 21:02 Atorvastatin 40 Mg Tablet PO 20 mg BEDTIME PASTORA Administration Fluoxetine HCl 40 mg 10/15/20 09:00 10/15/20 09:17 Fluoxetine 20 Mg Capsule PO 40 mg DAILY PASTORA Administration Fluticasone Propionate 2 puff 10/14/20 20:00 10/15/20 07:50 Fluticasone 220mcg Inhaler 12gm INHALATION 2 puff BID.RESPIRATORY PASTORA Administration Fluticasone Propionate 2 spray 10/15/20 09:00 10/15/20 09:18 Fluticasone Nasal [place] 16gm Btl NASAL 1 applic DAILY PASTORA Administration Potassium Chloride/Sodium Chloride 20 meq in 1,000 mls @ 50 mls/hr 10/14/20 14:30 10/15/20 10:46 Sodium Chlor 0.9% + Kcl 20 Meq IV 50 mls/hr .Q20H PASTORA Administration Insulin Aspart 0 unit 10/14/20 18:00 10/15/20 12:56 Insulin Aspart 100 Unit/1 Ml SUBCUT 10 unit WM&BEDTIME PASTORA Administration Protocol Lisinopril 40 mg 10/15/20 09:00 10/15/20 09:17 Lisinopril 20 Mg Tablet PO 40 mg DAILY PASTORA Administration Metoprolol Tartrate 100 mg 10/14/20 21:00 10/15/20 09:24 Metoprolol Tartrate 50 Mg Tablet PO 100 mg BID@0900,2100 PASTORA Administration Morphine Sulfate 3 mg 10/14/20 14:18 10/15/20 02:52 Morphine 4 Mg/Ml Sdv 1 Ml IVP 3 mg Q1H PRN Administration SEVERE PAIN Senna/Docusate Sodium 1 tab 10/14/20 18:00 10/15/20 09:18 Sennosides-Docusate Tablet PO 1 tab BID PASTORA Administration PFSH Acute PFSH: Medical History (Updated 10/15/20 @ 16:24 by Lashell Cheema MD) Atrial fibrillation 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 History of pancreatitis History of gallstone pancreatitis requiring prolonged hospital stay, normal intra-abdominal surgery and subsequent tracheostomy/reversal Hyperlipidemia Hypertension Morbid obesity Osteoarthritis Systolic CHF, chronic Surgical History History of appendectomy History of cholecystectomy Hx of tracheostomy With reversal S/P dialysis catheter insertion (12/2019) Family History Other Bleeding disorder Denies family history of Anesthesia complication Social History Smoking and tobacco status: former smoker History of recent travel: No Vitals/I&O/Wt Last Vital Signs Temp 99.2 F 10/15/20 15:40 Pulse 77 10/15/20 15:40 Resp 18 10/15/20 15:40 BP 128/86 10/15/20 15:40 Pulse Ox 96 10/15/20 15:40 10/15/20 10/15/20 10/15/20 06:59 14:59 22:59 Intake Total 120 / 700 1620 / 1620 Output Total 300 / 1150 775 / 775 Balance -180 / -450 845 / 845 Weight last 48 hrs Weight 131.542 kg Physical Exam Narrative: EXAM NARRATIVE: GEN: Awake, alert and oriented, no acute distress CVS: S1S2 N RS: CTA B/L all areas Abd: Soft, nt/nd , bs+ PALLET STONE INSERTER: no focal neuro deficits ext: no edema, clubbing or cyanosis A&P Assessment and plan (1) Abdominal hematoma: - Large rectus sheath hematoma on the left, measuring approximately 14.9 x 14.2 x 8 cm. There is foci of increased attenuation within the collection, suggestive of active hemorrhage. There is a small amount of hemorrhagic products extending into the superior left inguinal canal, left inguinal fossa, and left retroperitoneum. There is mild stranding of the subcutaneous overlying the rectus sheath hematoma in the left lower quadrant. - No h/o Trauma, appears to be spontaneous, patient reports bouts of coughing resulting in abdominal pain, May potentially be the cause however appears to be out of porportion - Given that this is patient's second episode of bleeding while on Eliquis (previously with GI bleeding in December 2019) and now with abdominal wall bleeding, agree with holding all anticoagulation for now. - Check EKG for baseline rhythm - He reports additionally being on ASA 81mg due to h/o CVA - Discussed with the patient that at this time risks of continuing anticoagulation outweigh the benefits. He is agreeable to holding. - Will arrange for outpatient follow up with cardiology service to discuss alternate anticoagulation options. - Continue to monitor H&H, management of hematoma per surgery Status: Acute (2) Esophagitis: h/o esophagitis in May 2020 Status: Acute (3) Hyperlipidemia: Continue Atorvastatin Status: Acute (4) Systolic CHF, chronic: Currently euvolemic Status: Acute (5) Diabetes: Continue insulin sliding scale Status: Acute Qualifiers: Diabetes mellitus complication status: without complication Diabetes mellitus long term care social worker insulin use: without long term care social worker use Diabetes mellitus type: type 2 Qualified Code(s): E11.9 - Type 2 diabetes mellitus without complications (6) Atrial fibrillation: Coninue metoprolol 100mg BID Hold Eliquis check baseline EKG Status: Acute Qualifiers: Atrial fibrillation type: longstanding persistent Qualified Code(s): I48.11 - Longstanding persistent atrial fibrillation (7) Hypertension: Continue Amlodipine and Lisinopril Status: Acute (8) Chronic cough: States he carries a diagnosis of suspected COPD , on Flovent at home, not usually on 02 No current signs of exacerbation CXR for chronic cough Covid Ag given recent worsening over last 2 weeks Status: Acute Consult Attestations Medical Necessity Statement: Abdominal hematoma, needs clode HB monitoring, monitor off anticoagulation, per admitting note Coding Level of Care Code Acute Credit Adjuster for Chg Fwd Diagnoses Abdominal hematoma S30.1XXA Esophagitis K20.9 Hyperlipidemia E78.5 Systolic CHF, chronic I50.22 Diabetes E11.9 Diabetes mellitus complication status: without complication Diabetes mellitus long term care social worker insulin use: without long term care social worker use Diabetes mellitus type: type 2 Atrial fibrillation I48.11 Atrial fibrillation type: longstanding persistent Hypertension I10 Chronic cough R05
[2020-10-15] MEDS: HYDROcodone-acetaminophen 5-325 mg Tablet 1 TAB PO (16:13)
--- NOTE | 2020-10-15 16:15 | ECG_ITS ---
[facility] Test Date: 2020-10-15 Pat Name: Anderson Wang Department: Room: 264 Gender: Male Insurance Salesperson: : 1960 Requested By: Lashell Cheema Order Number: [id number] Reading MD: MINA LARIOS Measurements Intervals [place] Rate: 91 P: MS: QRS: 27 QRSD: 100 T: 27 QT: 387 QTc: 477 Interpretive Statements ATRIAL FIBRILLATION ABNORMAL RHYTHM ECG Compared to ECG 05/07/2020 09:12:04 Myocardial infarct finding no longer present Electronically Signed On 10-15-2020 19:31:38 OCCUPATIONAL NURSE by MINA LARIOS [id number]
--- NOTE | 2020-10-15 16:15 | XRR_ITS ---
PROCEDURE INFORMATION: Exam: XR Chest, 1 View Exam date and time: 10/15/2020 4:18 PM Age: 60 years old Clinical indication: Cough; Additional info: Chronic cough TECHNIQUE: Imaging protocol: XR of the chest Views: 1 view. COMPARISON: CR XR chest 1V portable [id number] 05/07/2020 9:12 AM FINDINGS: Lungs: No focal lung opacities. Pleural spaces: Unremarkable. No pleural effusion. No pneumothorax. Heart/Mediastinum: Chronic cardiac enlargement. Bones/joints: Unremarkable. XR/XR chest 1V portable [id number] IMPRESSION: 1. No focal pneumonia. 2. Mild cardiomegaly. 3. No significant change from prior 05/07/2020.
[2020-10-15 16:48] LABS: Glucose Point of Care 100 mg/dL (70-110)
[2020-10-15 17:15] LABS: Basophils # 0.1 10^3/uL (0.0-0.1); Basophils % 0.6 %; Eosinophils # 0.2 10^3/uL (0.0-0.8); Eosinophils % 1.8 %; Hematocrit 38.6 % (42.0-52.0); Hemoglobin 12.4 g/dL (11.7-16.6); Lymphocytes # 1.1 10^3/uL (0.8-4.8); Lymphocytes % 10.2 %; Mean Corpuscular HGB Conc 32.1 g/dL (30.0-36.0); Mean Corpuscular Hemoglobin 28.7 pg (28.0-34.0); Mean Corpuscular Volume 89.4 fL (80-94); Mean Platelet Volume 9.5 fL (7.4-10.4); Monocytes # 1.6 10^3/uL (0.2-0.9); Monocytes % 15.1 %; Neutrophils % 71.1 %; Nucleated Red Blood Cells % 0 %; Platelet Count 280 10^3/cmm (130-400); Red Blood Count 4.32 10^6/uL (4.1-5.3); White Blood Count 10.4 10^3/uL (4.0-10.0)
[2020-10-15 17:31] LABS: Blood Urea Nitrogen 35 mg/dL (6-20); Calcium 8.8 mg/dL (8.5-10.5); Carbon Dioxide 24 mmol/L (22-29); Chloride 103 mmol/L (98-107); Glomerular Filtration Rate 86.4 mL/min (90-130); Glucose 100 mg/dL (65-115); Osmolality Calculated 288 mOsm/kg (285-295); Sodium 135 mmol/L (136-145)
[2020-10-15 17:33] LABS: Anion Gap 11.9 (5-19); Potassium 3.9 mmol/L (3.5-5.1)
[2020-10-15 18:11] LABS: SARS Covid-2 Antigen Negative (Negative)
[2020-10-15 19:38] LABS: Glucose Point of Care 258 mg/dL (70-110)
[2020-10-15] MEDS: atorvastatin 40 mg Tablet 20 MG PO (20:15)
[2020-10-16] VITALS (8 sets, daily range): BP systolic 104–139; BP diastolic 73–91; PULSE 81–95; RESP 18; TEMP 36.6–36.8; O2SAT 93–95
[2020-10-16] MEDS: sodium chlor 0.9% + KCl 20 mEq 20 MEQ/1,000 ML BAG 50 MEQ IV (06:06)
[2020-10-16 06:31] LABS: Glucose Point of Care 162 mg/dL (70-110)
--- NOTE | 2020-10-16 06:51 | PC.NURSE ---
End of shift report Patient slept most of the night. Patient's pain has been controlled through out the night. Abdominal binder still in place.
--- NOTE | 2020-10-16 06:58 | PC.NURSE ---
Report to Camryn SRIVASTAVA
[2020-10-16] MEDS: fluoxetine 20 mg Capsule 40 MG PO (07:59)
[2020-10-16] MEDS: lisinopril 20 mg Tablet 40 MG PO (07:59)
[2020-10-16] MEDS: amlodipine 10 mg Tablet PO (07:59)
[2020-10-16] MEDS: metoprolol tartrate 50 mg Tablet 100 MG PO (07:59)
[2020-10-16] MEDS: sennosides-docusate Tablet 1 TAB PO (07:59)
[2020-10-16] MEDS: fluticasone nasal spray 16gm Btl 2 SPRAY NASAL (08:00)
[2020-10-16 11:12] LABS: Glucose Point of Care 183 mg/dL (70-110)
--- NOTE | 2020-10-16 11:18 | P.PN_ITS ---
Subjective Subjective: Interval history: Patient denies significant pain today, no nausea or vomiting. Vitals/I&O/Wt Last Vital Signs Temp 98.1 F 10/16/20 07:57 Pulse 81 10/16/20 08:07 Resp 18 10/16/20 08:07 BP 139/86 10/16/20 07:57 Pulse Ox 95 10/16/20 08:07 10/15/20 10/16/20 10/16/20 22:59 06:59 14:59 Intake Total 480 / 3066.667 966.667 / 3066.667 240 / 240 Output Total 375 / 1150 400 / 400 Balance 480 / 1916.667 591.667 / 1916.667 -160 / -160 Physical Exam Narrative: EXAM NARRATIVE: Abdomen: Soft, nondistended, minimally tender in the left lower quadrant Data : 10/16/20 11:10 10/15/20 17:03 A&P Assessment and plan (1) Rectus sheath hematoma: 60-year-old male with spontaneous left rectus muscle hematoma who is on Eliquis. His hemoglobin stayed around 12 on 3 occasions since yesterday morning after it had initially dropped from 15. Discussed this case with cardiology at this point we will hold off on restarting the Eliquis at least for a week Follow-up with cardiology as an outpatient DC home today Status: Acute Attestations Medical Necessity Statement*: Spontaneous left rectus hematoma, DC home today Coding Level of Care Code Acute Sheltered Workshop Executive Director for Josetteg Fwd Diagnoses Rectus sheath hematoma S30.1XXA
--- NOTE | 2020-10-16 11:18 | PM.DCS ---
Discharge Providers Date of Admission: 10/14/20 12:49 Date of Discharge: October 16, 2020 Attending Provider at Admission: Guido Sandoval MD Attending Provider at Discharge: Guido Sandoval MD Primary Care Provider: Cristina Diggs APN Diagnoses at Discharge Discharge Diagnosis (1) Atrial fibrillation: Status: Acute Qualifiers: Atrial fibrillation type: longstanding persistent Qualified Code(s): I48.11 - Longstanding persistent atrial fibrillation (2) Rectus sheath hematoma: Status: Acute Reason for Visit Reason for Visit: ABD pain Hospital Course Hospital Course Anderson Wang is a 60 year old male who presented to the ER with left lower quadrant pain. Patient states that he has been coughing for the last week to 10 days and subsequently he developed left lower quadrant pain which progressively worsened. The pain was worse with physical activity, there are no other associated GI symptoms. No fevers or chills. A CT scan in the ER showed a large left rectus hematoma. Patient is on Eliquis He was admitted to the hospital for observation. His abdominal pain improved and his hemoglobin stayed stable around 12 after he had initially dropped from 15. His vital signs are stable He was discharged home after Eliquis was stopped with plan for follow-up with cardiology next week Physical Exam Narrative: EXAM NARRATIVE: Abdomen: Soft Discharge Data Data Completed and Pending: Completed Studies During Hospitalization Category Date Time Status CT abdomen pelvis w con* [id number] Urge nt Cat Scan 10/14/20 10:34 Completed XR chest 1V elly ble [id number] Routine Exams 10/15/20 16:15 Completed Pending at discharge Category Date Time Status Hemoglobin and He matocrit Stat Lab 10/16/20 11:10 Received Labs from last 24 hours 10/16/20 10/16/20 10/16/20 11:10 11:04 06:27 WBC RBC Hgb Pending Hct Pending MCV MCH MCHC RDW Plt Count MPV Neut % (Auto) Lymph % (Auto) [place] % (Auto) Eos % (Auto) Baso % (Auto) Neut # (Auto) Lymph # (Auto) [place] # (Auto) Eos # (Auto) Baso # (Auto) Nucleated RBC % (a uto) Nucleated RBCs # Sodium Potassium Chloride Carbon Dioxide Anion Gap BUN Creatinine GFR Calculation Glucose POC Glucose 183 H 162 H Calculated Osmolal ity Calcium SARS-CoV-2 Ag (Rap id) 10/15/20 10/15/20 10/15/20 19:33 17:03 17:03 WBC 10.4 H RBC 4.32 Hgb 12.4 Hct 38.6 L MCV 89.4 MCH 28.7 MCHC 32.1 RDW 14.0 Plt Count 280 MPV 9.5 Neut % (Auto) 71.1 Lymph % (Auto) 10.2 [place] % (Auto) 15.1 Eos % (Auto) 1.8 Baso % (Auto) 0.6 Neut # (Auto) 7.40 Lymph # (Auto) 1.1 [place] # (Auto) 1.6 H Eos # (Auto) 0.2 Baso # (Auto) 0.1 Nucleated RBC % (a uto) 0 Nucleated RBCs # 0.0 Sodium 135 L Potassium 3.9 Chloride 103 Carbon Dioxide 24 Anion Gap 11.9 BUN 35 H Creatinine 0.9 GFR Calculation 86.4 L Glucose 100 POC Glucose 258 H Calculated Osmolal ity 288 Calcium 8.8 SARS-CoV-2 Ag (Rap id) 10/15/20 10/15/20 10/15/20 16:39 16:23 12:36 WBC RBC Hgb Hct MCV MCH MCHC RDW Plt Count MPV Neut % (Auto) Lymph % (Auto) [place] % (Auto) Eos % (Auto) Baso % (Auto) Neut # (Auto) Lymph # (Auto) [place] # (Auto) Eos # (Auto) Baso # (Auto) Nucleated RBC % (a uto) Nucleated RBCs # Sodium Potassium Chloride Carbon Dioxide Anion Gap BUN Creatinine GFR Calculation Glucose POC Glucose 100 289 H Calculated Osmolal ity Calcium SARS-CoV-2 Ag (Rap id) Negative Vitals: Last Vital Signs Temp 98.1 F 10/16/20 07:57 Pulse 81 10/16/20 08:07 Resp 18 10/16/20 08:07 BP 139/86 10/16/20 07:57 Pulse Ox 95 10/16/20 08:07 Discharge Plan Discharge Patient Disposition: Home Condition: Stable Prescriptions: [place] 5-325 mg tablet 1 tab PO Q6H 7 Days Qty: 20 RF: 0 Colace 100 mg capsule 100 mg PO BID Qty: 30 RF: 0 Continued lisinopril 20 mg Tablet 40 mg PO DAILY@0700 RF: 0 aspirin 81 mg Tablet,Delayed Release (Dr/Ec) 81 mg PO DAILY@0700 RF: 0 atorvastatin [Lipitor] 10 mg tablet 10 mg PO BEDTIME@2100 RF: 0 Hold Instructions: Resume on 01/03/20. fluticasone propionate [Flonase Allergy Relief] 50 mcg/actuation spray,suspension 2 spray INTRANASAL DAILY@0700 RF: 0 Januvia 100 mg tablet 100 mg PO DAILY@0700 RF: 0 metformin [Glucophage] 1,000 mg tablet 1,000 mg PO BID@0700,1700 RF: 0 potassium chloride [Klor-Con M20] 20 mEq tablet,ER particles/crystals 20 meq PO DAILY@0700 RF: 0 Flovent HFA 110 mcg/actuation HFA aerosol inhaler 2 puff INHALATION BID@0700,1700 RF: 0 metoprolol tartrate 100 mg tablet 100 mg PO BID@0700,1700 RF: 0 amlodipine 10 mg tablet 10 mg PO DAILY@0700 RF: 0 glipizide 5 mg tablet 5 mg PO DAILY@0700 RF: 0 Jardiance 25 mg tablet 25 mg PO DAILY@0700 RF: 0 fluoxetine 20 mg Capsule 40 mg PO DAILY Qty: 30 RF: 4 Discontinued Eliquis 5 mg Tablet 5 mg PO BID@0700,1700 RF: 0 Discharge Orders: Discharge Order (Routine); Ordered 10/16/20 Ordered By: Guido Sandoval Referrals: Cristina Diggs APN [Primary Care Provider] - 10/25/20 10:00 am Guido Sandoval MD [Physician] - 10/30/20 1:30 pm Mando Stauffer MD [Physician] - 7-10 days (A fib on anticoagulation with recurrent bleeding, assess for alternate options ) Discharge Diet: Advance as tolerated Patient Instructions: Hydrocodone/Acetaminophen (By mouth), Laxative, Stool Softeners (By mouth), Congestive Heart Failure, CHF Stoplight Activity Restrictions/Additional Instructions: Advise to restrict heavy lifting for 2 weeks Abdominal binder at all times. stop Eliquis Do not take aspirin for the next 5 days. Discharge Attestations Time Spent in Discharge Care*: less than 30 min Quality Metrics Clinical Quality Measures During this hospital stay, did patient experience: None Coding Level of Care Code Acute Hat Cone Inspector for g Fwd Diagnoses Atrial fibrillation I48.11 Atrial fibrillation type: longstanding persistent Rectus sheath hematoma S30.1XXA
[2020-10-16 11:21] LABS: Hematocrit 39.5 % (42.0-52.0); Hemoglobin 12.7 g/dL (11.7-16.6)
--- NOTE | 2020-10-16 12:24 | PM.PN ---
Subjective Subjective: Interval history: no new complaints, feels well, Hb stable at ~12.5 Medications: Reviewed: Yes Vitals/I&O/Wt Last Vital Signs Temp 98.3 F 10/16/20 11:53 Pulse 91 10/16/20 11:53 Resp 18 10/16/20 11:53 BP 128/91 10/16/20 11:53 Pulse Ox 95 10/16/20 11:53 10/15/20 10/16/20 10/16/20 22:59 06:59 14:59 Intake Total 480 / 2100 966.667 / 3066.667 240 / 240 Output Total 375 / 1150 400 / 400 Balance 480 / 1325 591.667 / 1916.667 -160 / -160 Physical Exam Narrative: EXAM NARRATIVE: GEN: Awake, alert and oriented, no acute distress CVS: S1S2 N RS: CTA B/L Abd: Soft, nt/nd , bs+ GATE TENDER: no focal neuro deficits Data : 10/16/20 11:10 10/15/20 17:03 A&P Assessment and plan (1) Abdominal hematoma: - Large rectus sheath hematoma on the left, measuring approximately 14.9 x 14.2 x 8 cm. - No h/o Trauma, appears to be spontaneous - Given that this is patient's second episode of bleeding while on Eliquis (previously with GI bleeding in December 2019) and now with spontaneous abdominal wall bleeding, agree with holding all anticoagulation for now, including upon discharge. -- Will arrange for outpatient follow up with cardiology service to discuss alternate anticoagulation options for the correction. - Discussed with the patient that at this time risks of continuing anticoagulation outweigh the benefits. These include and are not limited to worsening of abdominal wall hematoma, bleeding at other sites, GI bleed, anemia. He is agreeable to holding anticoagulants. - Hold ASA 81mg at discharge, resume after 5 days. - EKG for baseline rhythm shows A fib, rate controlled Status: Acute (2) Esophagitis: h/o esophagitis in May 2020 Status: Acute (3) Hyperlipidemia: Continue Atorvastatin Status: Acute (4) Systolic CHF, chronic: Currently euvolemic Status: Acute (5) Diabetes: Continue insulin sliding scale Status: Acute Qualifiers: Diabetes mellitus complication status: without complication Diabetes mellitus correction insulin use: without correction use Diabetes mellitus type: type 2 Qualified Code(s): E11.9 - Type 2 diabetes mellitus without complications (6) Atrial fibrillation: Coninue metoprolol 100mg BID Hold Eliquis Rate controlled Status: Acute Qualifiers: Atrial fibrillation type: longstanding persistent Qualified Code(s): I48.11 - Longstanding persistent atrial fibrillation (7) Hypertension: Continue Amlodipine and Lisinopril Status: Acute (8) Chronic cough: States he carries a diagnosis of suspected COPD , on Flovent at home, not usually on 02 , currently on RA No current signs of COPD exacerbation CXR for chronic cough - no focal consolidation, effusion Covid Ag negative Status: Acute Attestations Medical Necessity Statement*: per admitting note Coding Level of Care Code Acute Quantity Surveyor for Chg Fwd Diagnoses Abdominal hematoma S30.1XXA Esophagitis K20.9 Hyperlipidemia E78.5 Systolic CHF, chronic I50.22 Diabetes E11.9 Diabetes mellitus complication status: without complication 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
== END 2020-10-16 14:52 | disposition home or self-care (01) | DRG 556 ==
LOC: ER 12:53 → CSU 13:16 → MEDSURG 13:41
PROVIDERS: Student in an Organized Health Care Education/Training Program; Admitting Provider Surgery; Emergency Provider Family Medicine; PCP Nurse Practitioner; Visit Provider Surgery
DX: M79.81 Nontraumatic hematoma of soft tissue (principal); I48.11 Longstanding persistent atrial fibrillation; I69.954 Hemiplegia and hemiparesis following unspecified cerebrovascular disease affecting left non-dominant side; I50.22 Chronic systolic (congestive) heart failure; Z68.41 Body mass index [BMI] 40.0-44.9, adult; E78.5 Hyperlipidemia, unspecified; I11.0 Hypertensive heart disease with heart failure; E66.01 Morbid (severe) obesity due to excess calories; M19.90 Unspecified osteoarthritis, unspecified site; Z87.891 Personal history of nicotine dependence; F43.20 Adjustment disorder, unspecified; Z91.5 Personal history of self-harm; K20.90 Esophagitis, unspecified without bleeding; E11.9 Type 2 diabetes mellitus without complications; J44.9 Chronic obstructive pulmonary disease, unspecified; Z79.82 Long term (current) use of aspirin; Z79.84 Long term (current) use of oral hypoglycemic drugs
CPT/HCPCS: 12345; 36415; 36416; 71045; 74177; 80048; 80053; 81003; 82962; 83690; 85014; 85018; 85025; 87426; 93005; 94640; 96372; 99283; J1815; J2270; J3535; Q9967